=== PATIENT | male | born 1985 | race Caucasian/White ===

== ENCOUNTER 2020-09-20 17:56 | Emergency (ER) | payer OTHER ==
[~2020-09-20] VITALS: Ht 177.8 cm; Wt 88.5 kg
[2020-09-20 18:46] VITALS: BP 138/67
[2020-09-20 20:12] LABS: Basophils # (auto) 0 10 ^3/uL (0-0.2); Eosinophils # (auto) 0 10 ^3/uL (0-0.8); Hemoglobin 16.1 g/dL (13.5-17.5); Monocytes # (auto) 0.3 10 ^3/uL (0-1.3); Neutrophils # (auto) 2.5 10 ^3/uL (1.6-8.6); White Blood Cell 4.4 10^3/uL (4.4-10.8)
[2020-09-20 20:14] LABS: Eosinophils % (auto) 0.7 % (0.0-7.0); Hematocrit 46.8 % (41.0-53.0); Lymphocytes # (auto) 1.6 10 ^3/uL (0.4-5.4); Lymphocytes % (auto) 35.4 % (10.0-50.0); Mean Corpuscular Hemoglobin 35.7 pg (28.0-32.0); Mean Corpuscular Hgb Conc. 34.4 g/dL (32.0-36.0); Mean Corpuscular Volume 103.8 fL (80.0-100.0); Monocytes % (auto) 7.1 % (0.0-12.0); Neutrophils % (auto) 55.8 % (37.0-80.0); Nucleated Red Blood Cells % 0.1 %; Platelet Count (auto) 140 10^3/uL (140-450); Red Cell Distribution Width 15.3 % (11.8-14.3)
[2020-09-20 20:26] LABS: Albumin 3.4 g/dL (3.4-5.0); Calcium 8.6 mg/dL (8.5-10.1); Potassium 3.7 mmol/L (3.5-5.1)
[2020-09-20] MEDS: ACETAMINOPHEN 500 MG TAB PO ONE (20:29)
[2020-09-20 20:31] LABS: BUN/Creatinine Ratio 12.2; Bilirubin, Total 1.2 mg/dL (0.2-1.0); Total Protein 7.7 g/dL (6.4-8.2)
== END 2020-09-20 20:34 | disposition left against medical advice (07) ==
LOC: ER 17:56
DX: M79.661 Pain in right lower leg (principal); F17.210 Nicotine dependence, cigarettes, uncomplicated; Z86.73 Personal history of transient ischemic attack (TIA), and cerebral infarction without residual deficits
CPT/HCPCS: 36415; 73590; 80053; 80320; 85025; 85379; 93971

== ENCOUNTER 2020-12-27 18:49 | Emergency (ER) | payer MEDICAID ==
[~2020-12-27] VITALS: Ht 180.3 cm; Wt 88.5 kg
[2020-12-27 18:54] VITALS: BP 118/91
== END 2020-12-27 22:55 | disposition left against medical advice (07) ==
LOC: ER 18:49
DX: R53.83 Other fatigue (principal); F17.210 Nicotine dependence, cigarettes, uncomplicated; Z86.73 Personal history of transient ischemic attack (TIA), and cerebral infarction without residual deficits

== ENCOUNTER 2020-12-30 23:38 | Inpatient (IN) | payer MEDICAID ==
[~2020-12-30] VITALS: Ht 180.3 cm; Wt 88.5 kg
[2020-12-31 01:24] LABS: Basophils # (auto) 0.1 10 ^3/uL (0-0.2); Basophils % (auto) 1.1 % (0.0-2.0); Eosinophils # (auto) 0 10 ^3/uL (0-0.8); Eosinophils % (auto) 0.5 % (0.0-7.0); Hematocrit 36.6 % (41.0-53.0); Hemoglobin 12.9 g/dL (13.5-17.5); Lymphocytes # (auto) 0.7 10 ^3/uL (0.4-5.4); Lymphocytes % (auto) 14.1 % (10.0-50.0); Mean Corpuscular Hemoglobin 36.7 pg (28.0-32.0); Mean Corpuscular Hgb Conc. 35.1 g/dL (32.0-36.0); Mean Corpuscular Volume 104.3 fL (80.0-100.0); Monocytes # (auto) 0.6 10 ^3/uL (0-1.3); Monocytes % (auto) 11.5 % (0.0-12.0); Neutrophils # (auto) 3.5 10 ^3/uL (1.6-8.6); Neutrophils % (auto) 72.8 % (37.0-80.0); Nucleated Red Blood Cells % 0.1 %; Red Blood Cells 3.51 10^6/uL (4.5-5.90); Red Cell Distribution Width 14.8 % (11.8-14.3); White Blood Cell 4.8 10^3/uL (4.4-10.8)
[2020-12-31 01:34] LABS: Albumin 2.4 g/dL (3.4-5.0); Calcium 8.4 mg/dL (8.5-10.1); Potassium 4.2 mmol/L (3.5-5.1)
[2020-12-31 01:36] LABS: BUN/Creatinine Ratio 7.5
[2020-12-31 01:47] LABS: Bilirubin, Total 16.6 mg/dL (0.2-1.0); Total Protein 6.8 g/dL (6.4-8.2)
[2020-12-31] MEDS ORDERED: IOHEXOL 300 MG/ML 100ML BOTTLE IJ ONE (02:51)
[2020-12-31] MEDS ORDERED: SODIUM CHLORIDE 0.9% 1,000 ML IV ONE (04:15)
[2020-12-31] MEDS ORDERED: NITROGLYCERIN 0.4 MG SL TAB SL PRN (06:00)
[2020-12-31] MEDS ORDERED: ONDANSETRON HCL 4 MG/2 ML VIAL IV PRN (06:00)
[2020-12-31] MEDS ORDERED: chlordiazePOXIDE HCL 25 MG CAP PO PRN (06:00)
[2020-12-31] MEDS ORDERED: SODIUM CHLORIDE 0.9% 1,000 ML IV SCH ×2 (06:00→14:30)
[2020-12-31] MEDS: MORPHINE SULFATE INJECTION 2 MG/ML SYRG IV PRN ×2 (06:47→16:41)
[2020-12-31 07:40] LABS: INR 2.55 (0.9-1.15)
[2020-12-31] MEDS ORDERED: FAMOTIDINE 20 MG TAB PO SCH (10:00)
[2020-12-31] MEDS ORDERED: PROPRANOLOL HCL 20 MG TAB PO SCH (10:00)
[2020-12-31 12:00] VITALS: BP 122/82
[2020-12-31] MEDS ORDERED: FOLIC ACID 1 MG, MULTIPLE VITAMIN 10 ML, MAGNESIUM SULF SDV 50% 8 MEQ, THIAMINE INJ 100... INJ SCH ×5 (12:00)
[2020-12-31 12:46] VITALS: BP 122/82
[2020-12-31 15:00] LABS: Hepatitis A Ab IgM Negative; Hepatitis B Surface Antigen Negative (Negative)
[2020-12-31 15:01] LABS: Hepatitis B Core IgM Negative; Hepatitis C Antibody Negative (Negative)
[2020-12-31 16:42] VITALS: BP 119/71
[2020-12-31] MEDS ORDERED: MORPHINE SULFATE INJECTION 2 MG/ML SYRG IV PRN (20:45)
[2020-12-31] MEDS ORDERED: PANTOPRAZOLE 40 MG/10 ML VIAL INJ IV SCH (22:00)
== END 2020-12-31 21:43 | disposition left against medical advice (07) | DRG 280 ==
LOC: ER 23:38 → TELE 12-31 06:02 → TELE-WESTW 12-31 10:56
PROVIDERS: ADMIT Nurse Practitioner; ATTEND Internal Medicine
DX: K70.31 Alcoholic cirrhosis of liver with ascites (principal); E43 Unspecified severe protein-calorie malnutrition; K85.20 Alcohol induced acute pancreatitis without necrosis or infection; D61.818 Other pancytopenia; D68.4 Acquired coagulation factor deficiency; E80.6 Other disorders of bilirubin metabolism; E11.9 Type 2 diabetes mellitus without complications; F10.10 Alcohol abuse, uncomplicated; Z20.822 Contact with and (suspected) exposure to COVID-19; F12.90 Cannabis use, unspecified, uncomplicated; F17.210 Nicotine dependence, cigarettes, uncomplicated; Z53.29 Procedure and treatment not carried out because of patient's decision for other reasons; F41.9 Anxiety disorder, unspecified; Y90.9 Presence of alcohol in blood, level not specified; Z79.899 Other long term (current) drug therapy; Z98.84 Bariatric surgery status; Z68.27 Body mass index [BMI] 27.0-27.9, adult
CPT/HCPCS: 36415; 74177; 80053; 80074; 83690; 85025; 85610; 87426; 96361; 96374; G0378

== ENCOUNTER 2021-01-08 02:49 | Inpatient (IN) | payer MEDICAID ==
[~2021-01-08] VITALS: Ht 180.3 cm; Wt 103.3 kg
[2021-01-08 03:43] LABS: Red Cell Distribution Width 16.4 % (11.8-14.3)
[2021-01-08 03:46] LABS: Hematocrit 31.3 % (41.0-53.0); Mean Corpuscular Hemoglobin 37.9 pg (28.0-32.0); Mean Corpuscular Hgb Conc. 35.1 g/dL (32.0-36.0); Mean Corpuscular Volume 108.1 fL (80.0-100.0); Platelet Count (auto) 126 10^3/uL (140-450); Red Blood Cells 2.89 10^6/uL (4.5-5.90); White Blood Cell 5.4 10^3/uL (4.4-10.8)
[2021-01-08 04:01] LABS: Albumin 1.7 g/dL (3.4-5.0); BUN/Creatinine Ratio 16.1; Calcium 7.5 mg/dL (8.5-10.1); Potassium 4.5 mmol/L (3.5-5.1)
[2021-01-08 04:12] LABS: Bilirubin, Total 19.5 mg/dL (0.2-1.0); Total Protein 5.5 g/dL (6.4-8.2)
[2021-01-08 04:19] LABS: Basophils % (manual) 0 (0.0-2.0); Blast Cells 0; Eosinophils % (manual) 0 (0-7); Myelocytes % 0; Promyelocytes % 0; Reactive Lymphocytes 0
[2021-01-08] MEDS ORDERED: IOHEXOL 300 MG/ML 100ML BOTTLE IJ ONE (05:19)
[2021-01-08 05:22] LABS: Urine Bacteria FEW /hpf (None Seen); Urine Blood Negative /uL (Negative); Urine Mucus FEW (None Seen); Urine Specific Gravity 1.022 (1.001-1.035); Urine WBC 2 /hpf (0 - 3)
[2021-01-08 06:41] LABS: Band Neutrophils % (manual) 11; Lymphocytes % (manual) 2 (10.0-50.0); Metamyelocytes % 1; Monocytes % (manual) 11 (0-12)
[2021-01-08] MEDS ORDERED: SODIUM CHLORIDE 0.9% 1,000 ML IV ONE (06:45)
[2021-01-08] MEDS ORDERED: ONDANSETRON HCL 4 MG/2 ML VIAL IV PRN (09:15)
[2021-01-08] MEDS ORDERED: MORPHINE SULF INJ 2 MG/ML SYRINGE 1ML IV PRN (09:15)
[2021-01-08] MEDS ORDERED: HYDROmorphone HCL 2 MG/ML VL IV PRN (09:15)
[2021-01-08] MEDS ORDERED: NITROGLYCERIN 0.4 MG SL TAB SL PRN (09:15)
[2021-01-08] MEDS: LACTATED RINGER'S 1,000 ML IV SCH ×2 (09:48→13:35)
[2021-01-08 09:59] LABS: Alcohol, Urine < 3.0 mg/dL (0-10); Amphetamine Screen, Urine NEGATIVE (NEGATIVE); Barbiturate Scree,Urine NEGATIVE (NEGATIVE); Benzodiazephine Screen, Urine POSITIVE (NEGATIVE); Cannabinoid Screen, Urine NEGATIVE (NEGATIVE); Cocaine Screen, Urine NEGATIVE (NEGATIVE); Opiate Scree,Urine NEGATIVE (NEGATIVE); Phencyclidine Screen, Urine NEGATIVE (NEGATIVE)
[2021-01-08] MEDS: FUROSEMIDE 20 MG/2 ML VIAL IV SCH ×2 (10:00→13:35)
[2021-01-08] MEDS: SPIRONOLACTONE 25 MG TAB PO SCH ×2 (10:00→13:35)
[2021-01-08] MEDS: PANTOPRAZOLE 40 MG TAB PO SCH ×2 (10:00→13:35)
[2021-01-08] MEDS: MULTIPLE VITAMIN TAB PO SCH ×2 (10:00→13:35)
[2021-01-08] MEDS: FOLIC ACID 1 MG TAB PO SCH ×2 (10:00→13:35)
[2021-01-08 11:11] VITALS: BP 98/58
[2021-01-08] MEDS ORDERED: LACTULOSE 20Gm/30ML SOLN PO SCH (12:00)
[2021-01-08 13:00] VITALS: BP 100/50
[2021-01-08] MEDS ORDERED: methylPREDNISolone SOD SUCC 40 MG/ML VL IV SCH (22:00)
== END 2021-01-08 13:35 | disposition left against medical advice (07) | DRG 282 ==
LOC: EDBD 02:49 → ER 02:55 → TELE 09:06 → TELE-EAST 10:16
PROVIDERS: ADMIT Nurse Practitioner Acute Care; ATTEND Nurse Practitioner Acute Care
DX: K85.20 Alcohol induced acute pancreatitis without necrosis or infection (principal); D69.6 Thrombocytopenia, unspecified; K72.90 Hepatic failure, unspecified without coma; E88.09 Other disorders of plasma-protein metabolism, not elsewhere classified; K74.60 Unspecified cirrhosis of liver; Z53.29 Procedure and treatment not carried out because of patient's decision for other reasons; F12.90 Cannabis use, unspecified, uncomplicated; E66.9 Obesity, unspecified; F17.210 Nicotine dependence, cigarettes, uncomplicated; Z98.84 Bariatric surgery status; Z20.822 Contact with and (suspected) exposure to COVID-19; Z68.31 Body mass index [BMI] 31.0-31.9, adult; F41.9 Anxiety disorder, unspecified
CPT/HCPCS: 36415; 74177; 76705; 80053; 80307; 81001; 83605; 83690; 85007; 85027; 86141; 87426; G0378

== ENCOUNTER 2021-03-24 07:12 | Emergency (ER) | payer MEDICAID ==
[~2021-03-24] VITALS: Ht 180.3 cm; Wt 96.6 kg
[2021-03-24 07:13] VITALS: BP 124/93
[2021-03-24 07:49] LABS: Basophils # (auto) 0.1 10 ^3/uL (0-0.2); Eosinophils # (auto) 0 10 ^3/uL (0-0.8); Eosinophils % (auto) 0.8 % (0.0-7.0); Mean Corpuscular Hgb Conc. 33.9 g/dL (32.0-36.0); Neutrophils # (auto) 2.9 10 ^3/uL (1.6-8.6); Nucleated Red Blood Cells % 0.1 %
[2021-03-24 07:50] LABS: Basophils % (auto) 2.1 % (0.0-2.0); Hematocrit 41.9 % (41.0-53.0); Hemoglobin 14.2 g/dL (13.5-17.5); Lymphocytes # (auto) 1.7 10 ^3/uL (0.4-5.4); Lymphocytes % (auto) 31.8 % (10.0-50.0); Mean Corpuscular Hemoglobin 34.3 pg (28.0-32.0); Mean Corpuscular Volume 101.1 fL (80.0-100.0); Monocytes # (auto) 0.6 10 ^3/uL (0-1.3); Monocytes % (auto) 10.9 % (0.0-12.0); Neutrophils % (auto) 54.4 % (37.0-80.0); Red Blood Cells 4.15 10^6/uL (4.5-5.90); Red Cell Distribution Width 15.1 % (11.8-14.3); White Blood Cell 5.3 10^3/uL (4.4-10.8)
[2021-03-24 08:08] LABS: Albumin 2.6 g/dL (3.4-5.0); BUN/Creatinine Ratio 6.7; Calcium 8.6 mg/dL (8.5-10.1); Potassium 3.9 mmol/L (3.5-5.1)
[2021-03-24 08:11] LABS: Bilirubin, Total 3.2 mg/dL (0.2-1.0); Total Protein 7.4 g/dL (6.4-8.2)
[2021-03-24 09:40] LABS: Urine Amorphous Crystal MANY /hpf (None Seen); Urine Bacteria FEW /hpf (None Seen); Urine Blood Negative /uL (Negative); Urine Mucus FEW (None Seen); Urine WBC 1 /hpf (0 - 3)
== END 2021-03-24 10:00 | disposition left against medical advice (07) ==
LOC: ER 07:12
DX: R06.02 Shortness of breath (principal); Z53.21 Procedure and treatment not carried out due to patient leaving prior to being seen by health care provider
CPT/HCPCS: 36415; 71045; 80053; 81001; 85025; 93005

== ENCOUNTER 2021-04-05 00:26 | Inpatient (IN) | payer MEDICAID ==
[~2021-04-05] VITALS: Ht 12.7 cm; Wt 101.4 kg
[2021-04-05] MEDS ORDERED: SODIUM CHLORIDE 0.9% 1,000 ML IV ONE (01:00)
[2021-04-05] MEDS ORDERED: LORazepam 2MG/ML-1ML VIAL ONE (01:35)
[2021-04-05 02:31] LABS: Eosinophils # (auto) 0.1 10 ^3/uL (0-0.8); Mean Corpuscular Hgb Conc. 34.1 g/dL (32.0-36.0); Monocytes # (auto) 0.6 10 ^3/uL (0-1.3); Monocytes % (auto) 9.1 % (0.0-12.0)
[2021-04-05 02:32] LABS: Basophils # (auto) 0.1 10 ^3/uL (0-0.2); Basophils % (auto) 1.2 % (0.0-2.0); Eosinophils % (auto) 1.3 % (0.0-7.0); Hematocrit 35.4 % (41.0-53.0); Hemoglobin 12.1 g/dL (13.5-17.5); Lymphocytes # (auto) 1.8 10 ^3/uL (0.4-5.4); Lymphocytes % (auto) 29.6 % (10.0-50.0); Mean Corpuscular Volume 102.5 fL (80.0-100.0); Neutrophils # (auto) 3.7 10 ^3/uL (1.6-8.6); Neutrophils % (auto) 58.8 % (37.0-80.0); Red Blood Cells 3.45 10^6/uL (4.5-5.90); Red Cell Distribution Width 15.1 % (11.8-14.3); White Blood Cell 6.2 10^3/uL (4.4-10.8)
[2021-04-05 02:45] LABS: INR 2.37 (0.9-1.15); Partial Thromboplastin Time 37.8 sec (23.6-33.0)
[2021-04-05 02:52] LABS: Lactic Acid w/Reflex 2.6 mmol/L (0.4-2.0)
[2021-04-05 03:03] LABS: Alanine Aminotransferase 60 U/L (16-61); Albumin 2.1 g/dL (3.4-5.0); Anion Gap 8 (5-15); Aspartate Aminotransferase 140 U/L (15-37); BUN/Creatinine Ratio 7.8; Blood Urea Nitrogen 6 mg/dL (7-18); Calcium 7.9 mg/dL (8.5-10.1); Carbon Dioxide 23 mmol/L (21-32); Chloride 112 mmol/L (98-107); GFR African American 150 mL/min; GFR Non-African American 124 mL/min; Glucose 97 mg/dL (74-106); Lipase 240 U/L (73-393); Potassium 3.6 mmol/L (3.5-5.1); Sodium 143 mmol/L (136-145)
[2021-04-05 03:08] LABS: Alkaline Phosphatase 267 U/L (45-117); Bilirubin, Total 2.6 mg/dL (0.2-1.0); Total Protein 6.3 g/dL (6.4-8.2)
[2021-04-05] MEDS ORDERED: IOHEXOL 350 MG/ML 100ML IJ ONE (03:18)
[2021-04-05] MEDS ORDERED: levETIRAcetam 500 MG/5ML INJ IV ONE (05:21)
[2021-04-05 05:40] LABS: Urine Bacteria NONE SEEN /hpf (None Seen); Urine Blood Negative /uL (Negative); Urine Mucus FEW (None Seen); Urine Specific Gravity 1.023 (1.001-1.035); Urine WBC <1 /hpf (0 - 3)
[2021-04-05] MEDS ORDERED: LORazepam 2MG/ML-1ML VIAL IV PRN ×2 (05:45→14:00)
[2021-04-05] MEDS ORDERED: ONDANSETRON HCL 4 MG/2 ML VIAL IV PRN (05:45)
[2021-04-05] MEDS ORDERED: DOCUSATE SOD 100 MG CAP PO PRN (05:45)
[2021-04-05] MEDS ORDERED: NITROGLYCERIN 0.4 MG SL TAB SL PRN (05:45)
[2021-04-05] MEDS ORDERED: cefTRIAXone 1GM/50ML D5W 50 ML IV ONE (05:45)
[2021-04-05] MEDS ORDERED: MORPHINE SULFATE INJECTION 2 MG/ML SYRG IV PRN (05:45)
[2021-04-05] MEDS ORDERED: ACETAMINOPHEN 325 MG TAB PO PRN (05:45)
[2021-04-05] MEDS ORDERED: SOD CHL 0.45% 1,000 ML IV ONE (05:45)
[2021-04-05] MEDS ORDERED: ALBUMIN 25% 50 ML IV ONE (06:00)
[2021-04-05] MEDS: hydrALAZINE HCL 20 MG/ML VL IV PRN ×2 (07:01→14:52)
[2021-04-05 07:04] LABS: Basophils # (auto) 0.1 10 ^3/uL (0-0.2); Basophils % (auto) 1.3 % (0.0-2.0); Eosinophils # (auto) 0.1 10 ^3/uL (0-0.8); Eosinophils % (auto) 1.6 % (0.0-7.0); Hematocrit 37.4 % (41.0-53.0); Hemoglobin 12.8 g/dL (13.5-17.5); Lymphocytes # (auto) 1.6 10 ^3/uL (0.4-5.4); Lymphocytes % (auto) 34.7 % (10.0-50.0); Mean Corpuscular Hemoglobin 34.9 pg (28.0-32.0); Mean Corpuscular Hgb Conc. 34.2 g/dL (32.0-36.0); Monocytes # (auto) 0.4 10 ^3/uL (0-1.3); Monocytes % (auto) 8.1 % (0.0-12.0); Neutrophils # (auto) 2.5 10 ^3/uL (1.6-8.6); Neutrophils % (auto) 54.3 % (37.0-80.0); Nucleated Red Blood Cells % 0.2 %; Red Blood Cells 3.66 10^6/uL (4.5-5.90); Red Cell Distribution Width 15.3 % (11.8-14.3); White Blood Cell 4.6 10^3/uL (4.4-10.8)
[2021-04-05 07:19] LABS: Albumin 2.3 g/dL (3.4-5.0); BUN/Creatinine Ratio 5.9; Calcium 8.2 mg/dL (8.5-10.1); Potassium 3.5 mmol/L (3.5-5.1)
[2021-04-05 07:22] LABS: Bilirubin, Total 3.1 mg/dL (0.2-1.0); Total Protein 6.6 g/dL (6.4-8.2)
[2021-04-05 07:24] LABS: INR 2.31 (0.9-1.15); Partial Thromboplastin Time 37.6 sec (23.6-33.0)
[2021-04-05] MEDS ORDERED: FAMOTIDINE (10MG/ML) 2ML VL IV SCH (10:00)
[2021-04-05] MEDS ORDERED: ASCORBIC ACID 500 MG TAB PO SCH (10:00)
[2021-04-05] MEDS ORDERED: ZINC SULFATE 220mg CAP or TAB PO SCH (10:00)
[2021-04-05] MEDS: MULTIPLE VITAMIN TAB PO SCH (10:42)
[2021-04-05] MEDS: LACTULOSE 20Gm/30ML SOLN PO SCH ×2 (10:42→21:32)
[2021-04-05] MEDS: AZITHROMYCIN 500MG/ 250ML 250 ML IV SCH (10:42)
[2021-04-05 14:40] VITALS: BP 180/102
[2021-04-05] MEDS ORDERED: PROP20TA73 PO (15:15)
[2021-04-05] MEDS ORDERED: FOLI1TAB6 PO (15:15)
[2021-04-05] MEDS ORDERED: SPIR100T4 PO (15:15)
[2021-04-05] MEDS ORDERED: THIA100T46 PO (15:15)
[2021-04-05] MEDS ORDERED: PROM25TA5 PO (15:15)
[2021-04-05 16:07] VITALS: BP 128/69
[2021-04-05 16:47] VITALS: BP_SYST 126; BP_SYST 177; BP_DIAS 105; BP_DIAS 78
[2021-04-05] MEDS: FOLIC ACID 1 MG, MULTIPLE VITAMIN 10 ML, MAGNESIUM SULF SDV 50% 8 MEQ, THIAMINE INJ 100... INJ SCH ×5 (18:21)
[2021-04-05] MEDS: HYDROcodone-ACET 5/325MG TAB PO PRN ×2 (18:32→23:38)
[2021-04-05] MEDS: chlordiazePOXIDE HCL 25 MG CAP PO PRN (18:34)
[2021-04-05 22:00] VITALS: BP 152/104
[2021-04-05 23:59] LABS: Cannabinoid Screen, Urine NEGATIVE (NEGATIVE)
[2021-04-06 00:01] LABS: Barbiturate Scree,Urine NEGATIVE (NEGATIVE); Benzodiazephine Screen, Urine NEGATIVE (NEGATIVE); Cocaine Screen, Urine NEGATIVE (NEGATIVE); Opiate Scree,Urine NEGATIVE (NEGATIVE); Phencyclidine Screen, Urine NEGATIVE (NEGATIVE)
[2021-04-06 00:20] LABS: Amphetamine Screen, Urine POSITIVE (NEGATIVE)
[2021-04-06] MEDS: HYDROcodone-ACET 5/325MG TAB PO PRN ×4 (03:36→19:59)
[2021-04-06 05:00] VITALS: BP 160/103
[2021-04-06] MEDS: hydrALAZINE HCL 20 MG/ML VL IV PRN ×2 (05:38→09:12)
[2021-04-06] MEDS: chlordiazePOXIDE HCL 25 MG CAP PO PRN ×2 (06:24→17:27)
[2021-04-06 06:45] LABS: Lymphocytes # (auto) 1.3 10 ^3/uL (0.4-5.4); Monocytes # (auto) 0.3 10 ^3/uL (0-1.3); White Blood Cell 3.5 10^3/uL (4.4-10.8)
[2021-04-06 06:48] LABS: Basophils # (auto) 0 10 ^3/uL (0-0.2); Basophils % (auto) 1.3 % (0.0-2.0); Eosinophils # (auto) 0.1 10 ^3/uL (0-0.8); Eosinophils % (auto) 1.7 % (0.0-7.0); Hematocrit 38.3 % (41.0-53.0); Hemoglobin 13.2 g/dL (13.5-17.5); Lymphocytes % (auto) 38.4 % (10.0-50.0); Mean Corpuscular Hemoglobin 35.4 pg (28.0-32.0); Mean Corpuscular Hgb Conc. 34.4 g/dL (32.0-36.0); Mean Corpuscular Volume 102.8 fL (80.0-100.0); Monocytes % (auto) 8.7 % (0.0-12.0); Neutrophils # (auto) 1.7 10 ^3/uL (1.6-8.6); Neutrophils % (auto) 49.9 % (37.0-80.0); Nucleated Red Blood Cells % 0.3 %; Red Blood Cells 3.73 10^6/uL (4.5-5.90); Red Cell Distribution Width 15.2 % (11.8-14.3)
[2021-04-06 07:04] LABS: Potassium 3.6 mmol/L (3.5-5.1)
[2021-04-06 07:11] LABS: Albumin 2.3 g/dL (3.4-5.0); BUN/Creatinine Ratio 8.3; Calcium 8.8 mg/dL (8.5-10.1)
[2021-04-06 07:15] LABS: Bilirubin, Total 5.5 mg/dL (0.2-1.0); Total Protein 6.6 g/dL (6.4-8.2)
[2021-04-06] MEDS: MULTIPLE VITAMIN TAB PO SCH (08:56)
[2021-04-06 09:00] VITALS: BP_SYST 142; BP_SYST 159; BP_DIAS 82; BP_DIAS 95
[2021-04-06] MEDS ORDERED: cefTRIAXone 1GM/50ML D5W 50 ML IV SCH (09:00)
[2021-04-06] MEDS ORDERED: PANTOPRAZOLE 40 MG TAB PO SCH (10:00)
[2021-04-06] MEDS: AZITHROMYCIN 500MG/ 250ML 250 ML IV SCH (10:03)
[2021-04-06] MEDS: LACTULOSE 20Gm/30ML SOLN PO SCH ×2 (10:04→21:44)
[2021-04-06] MEDS: FOLIC ACID 1 MG, MULTIPLE VITAMIN 10 ML, MAGNESIUM SULF SDV 50% 8 MEQ, THIAMINE INJ 100... INJ SCH ×5 (12:22)
[2021-04-06 13:00] VITALS: BP 132/66
[2021-04-06 17:00] VITALS: BP 149/77
[2021-04-06 22:00] VITALS: BP 157/74
== END 2021-04-06 23:44 | disposition left against medical advice (07) | DRG 280 ==
LOC: ER 00:26 → EDBD 00:26 → TELE 05:56 → TELE-CENTR 14:50
PROVIDERS: ADMIT Nurse Practitioner Family; ATTEND Internal Medicine
DX: K70.30 Alcoholic cirrhosis of liver without ascites (principal); J69.0 Pneumonitis due to inhalation of food and vomit; E43 Unspecified severe protein-calorie malnutrition; D68.9 Coagulation defect, unspecified; E87.2 Acidosis; K72.10 Chronic hepatic failure without coma; F10.239 Alcohol dependence with withdrawal, unspecified; Y90.6 Blood alcohol level of 120-199 mg/100 ml; Z20.822 Contact with and (suspected) exposure to COVID-19; G40.909 Epilepsy, unspecified, not intractable, without status epilepticus; I10 Essential (primary) hypertension; F17.210 Nicotine dependence, cigarettes, uncomplicated; F41.9 Anxiety disorder, unspecified; T45.515A Adverse effect of anticoagulants, initial encounter; Y92.89 Other specified places as the place of occurrence of the external cause; Z86.718 Personal history of other venous thrombosis and embolism; Z98.84 Bariatric surgery status; Z79.01 Long term (current) use of anticoagulants; Z68.44 Body mass index [BMI] 60.0-69.9, adult
CPT/HCPCS: 36415; 70450; 70551; 71275; 80053; 80307; 81001; 82140; 83605; 83690; 84484; 85025; 85610; 85730; 87081; 87426; 95819; 96365; 96366; 96367; 96375; G0378; J0696; J2405; J3490; J7060

== ENCOUNTER 2021-04-07 00:18 | Emergency (ER) | payer MEDICAID ==
[~2021-04-07] VITALS: Ht 180.3 cm; Wt 94.8 kg
[~2021-04-07 00:18] MED LIST: FOLI1TAB6 PO; PROM25TA5 PO; PROP20TA73 PO; SPIR100T4 PO; THIA100T46 PO
[2021-04-07 01:40] VITALS: BP 124/91
== END 2021-04-07 01:57 | disposition left against medical advice (07) ==
LOC: ER 00:18
DX: F41.9 Anxiety disorder, unspecified (principal); R51.9 Headache, unspecified; I10 Essential (primary) hypertension; F17.210 Nicotine dependence, cigarettes, uncomplicated; Z91.19 Patient's noncompliance with other medical treatment and regimen; Z79.899 Other long term (current) drug therapy; Z98.890 Other specified postprocedural states

== ENCOUNTER 2021-05-25 23:28 | Emergency (ER) | payer MEDICAID ==
[~2021-05-25] VITALS: Ht 175.3 cm; Wt 99.8 kg
[2021-05-26] MEDS ORDERED: SODIUM CHLORIDE 0.9% 1,000 ML IVB ONE
[2021-05-26 00:45] LABS: Basophils # (auto) 0.1 10 ^3/uL (0-0.2); Basophils % (auto) 2.7 % (0.0-2.0); Eosinophils # (auto) 0.1 10 ^3/uL (0-0.8); Eosinophils % (auto) 1.3 % (0.0-7.0); Hematocrit 36.3 % (41.0-53.0); Hemoglobin 12.3 g/dL (13.5-17.5); Lymphocytes # (auto) 1.4 10 ^3/uL (0.4-5.4); Lymphocytes % (auto) 30.1 % (10.0-50.0); Mean Corpuscular Hemoglobin 33.8 pg (28.0-32.0); Mean Corpuscular Hgb Conc. 33.8 g/dL (32.0-36.0); Monocytes # (auto) 0.5 10 ^3/uL (0-1.3); Monocytes % (auto) 11.5 % (0.0-12.0); Neutrophils # (auto) 2.5 10 ^3/uL (1.6-8.6); Neutrophils % (auto) 54.4 % (37.0-80.0); Nucleated Red Blood Cells % 0.2 %; Red Blood Cells 3.63 10^6/uL (4.5-5.90); Red Cell Distribution Width 15.5 % (11.8-14.3); White Blood Cell 4.6 10^3/uL (4.4-10.8)
[2021-05-26 01:08] LABS: Albumin 2.3 g/dL (3.4-5.0); BUN/Creatinine Ratio 11.7; Calcium 8.2 mg/dL (8.5-10.1)
[2021-05-26 01:11] LABS: Bilirubin, Total 4.4 mg/dL (0.2-1.0); Total Protein 5.8 g/dL (6.4-8.2)
[2021-05-26 01:20] LABS: Partial Thromboplastin Time 43.1 sec (23.6-33.0)
[2021-05-26] MEDS ORDERED: ACETAMINOPHEN 325 MG TAB PO ONE (02:30)
[2021-05-26 02:32] VITALS: BP 119/65
[2021-05-26 02:57] LABS: INR 3.03 (0.9-1.15)
[2021-05-26] MEDS ORDERED: levoFLOXacin 250 MG TAB ONE (03:51)
[2021-05-26] MEDS ORDERED: levoFLOXacin 500 MG TAB ONE (03:51)
[2021-05-26] MEDS ORDERED: levoFLOXacin 250 MG TAB PO ONE (04:00)
[2021-05-26] MEDS ORDERED: LEVO750T64 PO (04:01)
[2021-05-26] MEDS ORDERED: levoFLOXacin 250 MG TAB PO SCH (10:00)
== END 2021-05-26 09:37 | disposition home or self-care (01) ==
LOC: EDBD 23:28 → ER 23:28
DX: F10.20 Alcohol dependence, uncomplicated (principal); I10 Essential (primary) hypertension; F17.210 Nicotine dependence, cigarettes, uncomplicated; Z87.19 Personal history of other diseases of the digestive system; Z20.822 Contact with and (suspected) exposure to COVID-19; Y90.9 Presence of alcohol in blood, level not specified
CPT/HCPCS: 36415; 70450; 71045; 80053; 80320; 85025; 85610; 85730; 87426; 96360; 99285; J7030

== ENCOUNTER 2021-06-25 16:50 | Emergency (ER) | payer MEDICAID ==
[~2021-06-25] VITALS: Ht 180.3 cm; Wt 89.8 kg
[2021-06-25 16:50] VITALS: BP 134/82
[2021-06-25] MEDS ORDERED: LORazepam 0.5 MG TAB PO ONE (17:30)
== END 2021-06-25 22:20 | disposition left against medical advice (07) ==
LOC: ER 16:50
DX: R56.9 Unspecified convulsions (principal); R53.1 Weakness; R51.9 Headache, unspecified; I10 Essential (primary) hypertension; F17.210 Nicotine dependence, cigarettes, uncomplicated
CPT/HCPCS: 70450; 93005

== ENCOUNTER 2021-07-06 00:14 | Emergency (ER) | payer MEDICAID ==
[~2021-07-06] VITALS: Ht 180.3 cm; Wt 99.8 kg
[2021-07-06 02:59] LABS: Eosinophils # (auto) 0.1 10 ^3/uL (0-0.8); Hematocrit 35.3 % (41.0-53.0); Hemoglobin 11.5 g/dL (13.5-17.5); Mean Corpuscular Volume 105.6 fL (80.0-100.0); Red Blood Cells 3.34 10^6/uL (4.5-5.90); White Blood Cell 5.9 10^3/uL (4.4-10.8)
[2021-07-06 03:01] LABS: Basophils # (auto) 0.1 10 ^3/uL (0-0.2); Lymphocytes # (auto) 1.7 10 ^3/uL (0.4-5.4); Lymphocytes % (auto) 29.2 % (10.0-50.0); Mean Corpuscular Hemoglobin 34.4 pg (28.0-32.0); Mean Corpuscular Hgb Conc. 32.6 g/dL (32.0-36.0); Monocytes # (auto) 0.9 10 ^3/uL (0-1.3); Monocytes % (auto) 15.5 % (0.0-12.0); Neutrophils # (auto) 3.1 10 ^3/uL (1.6-8.6); Neutrophils % (auto) 52.3 % (37.0-80.0); Nucleated Red Blood Cells % 0.1 %; Red Cell Distribution Width 16.9 % (11.8-14.3)
[2021-07-06 03:21] LABS: INR 2.75 (0.9-1.15); Partial Thromboplastin Time 36.2 sec (23.6-33.0)
[2021-07-06] MEDS ORDERED: PANTOPRAZOLE 40 MG TAB PO ONE (06:45)
[2021-07-06] MEDS ORDERED: SODIUM CHLORIDE 0.9% 1,000 ML IV ONE (06:45)
[2021-07-06] MEDS ORDERED: TETANUS-DIPTH-ACEL PERTUSSIS 0.5ML SYR Tdap IM ONE (08:00)
[2021-07-06 08:47] LABS: Potassium 3.8 mmol/L (3.5-5.1)
[2021-07-06 09:00] VITALS: BP 135/89
[2021-07-06 09:19] LABS: BUN/Creatinine Ratio 15.6; Calcium 7.4 mg/dL (8.5-10.1)
[2021-07-06 09:20] LABS: Albumin 2.4 g/dL (3.4-5.0); Bilirubin, Total 4.8 mg/dL (0.2-1.0); Magnesium 2.6 mg/dL (1.6-2.6); Total Protein 5.9 g/dL (6.4-8.2)
== END 2021-07-06 09:54 | disposition left against medical advice (07) ==
LOC: EDBD 00:14 → ER 00:14
DX: R56.9 Unspecified convulsions (principal); F10.20 Alcohol dependence, uncomplicated; I10 Essential (primary) hypertension; F17.210 Nicotine dependence, cigarettes, uncomplicated; Y90.8 Blood alcohol level of 240 mg/100 ml or more
CPT/HCPCS: 36415; 70450; 71045; 80053; 80320; 82140; 83605; 83735; 84484; 85025; 85610; 85730; 93005; 99285; J7030

== ENCOUNTER 2021-08-27 03:18 | Emergency (ER) | payer MEDICAID ==
[~2021-08-27] VITALS: Ht 180.3 cm; Wt 90.7 kg
[2021-08-27 04:14] LABS: Albumin 2.7 g/dL (3.4-5.0); Calcium 8.6 mg/dL (8.5-10.1)
[2021-08-27 04:19] LABS: BUN/Creatinine Ratio 17.2; Total Protein 6.3 g/dL (6.4-8.2)
[2021-08-27 04:33] LABS: Basophils # (auto) 0 10 ^3/uL (0-0.2); Nucleated Red Blood Cells % 0.2 %; Red Cell Distribution Width 16.7 % (11.8-14.3)
[2021-08-27 04:34] LABS: Basophils % (auto) 1.2 % (0.0-2.0); Eosinophils # (auto) 0.1 10 ^3/uL (0-0.8); Eosinophils % (auto) 1.3 % (0.0-7.0); Hematocrit 36.7 % (41.0-53.0); Hemoglobin 12.4 g/dL (13.5-17.5); Lymphocytes # (auto) 1.1 10 ^3/uL (0.4-5.4); Lymphocytes % (auto) 26.8 % (10.0-50.0); Mean Corpuscular Hemoglobin 34.1 pg (28.0-32.0); Mean Corpuscular Hgb Conc. 33.7 g/dL (32.0-36.0); Mean Corpuscular Volume 101.2 fL (80.0-100.0); Monocytes # (auto) 0.5 10 ^3/uL (0-1.3); Monocytes % (auto) 11.3 % (0.0-12.0); Neutrophils # (auto) 2.5 10 ^3/uL (1.6-8.6); Neutrophils % (auto) 59.4 % (37.0-80.0); Red Blood Cells 3.63 10^6/uL (4.5-5.90); White Blood Cell 4.1 10^3/uL (4.4-10.8)
[2021-08-27 05:15] VITALS: BP 161/90
[2021-08-27] MEDS ORDERED: IBUP600T27 PO (06:48)
== END 2021-08-27 06:48 | disposition home or self-care (01) ==
LOC: ER 03:18
DX: R07.89 Other chest pain (principal); I10 Essential (primary) hypertension; F17.210 Nicotine dependence, cigarettes, uncomplicated; Z79.899 Other long term (current) drug therapy; V89.2XXA Person injured in unspecified motor-vehicle accident, traffic, initial encounter; Y93.89 Activity, other specified; Y92.89 Other specified places as the place of occurrence of the external cause; Y99.8 Other external cause status
CPT/HCPCS: 36415; 70450; 71045; 72125; 80053; 83690; 84484; 85025; 93005

== ENCOUNTER 2021-09-30 19:48 | Inpatient (IN) | payer MEDICAID ==
[~2021-09-30] VITALS: Ht 175.3 cm; Wt 113.7 kg
[~2021-09-30 19:48] MED LIST changes: +IBUP600T27 PO
[2021-09-30 21:17] LABS: Albumin 2.3 g/dL (3.4-5.0); BUN/Creatinine Ratio 13.2; Calcium 8.1 mg/dL (8.5-10.1)
[2021-09-30 21:20] LABS: Bilirubin, Total 6.2 mg/dL (0.2-1.0)
[2021-09-30 21:43] LABS: Basophils # (auto) 0.1 10 ^3/uL (0-0.2); Basophils % (auto) 1.2 % (0.0-2.0); Eosinophils # (auto) 0.1 10 ^3/uL (0-0.8); Eosinophils % (auto) 1.9 % (0.0-7.0); Hematocrit 33.3 % (41.0-53.0); Hemoglobin 11.6 g/dL (13.5-17.5); Lymphocytes # (auto) 1.3 10 ^3/uL (0.4-5.4); Lymphocytes % (auto) 25.6 % (10.0-50.0); Mean Corpuscular Hemoglobin 38.8 pg (28.0-32.0); Mean Corpuscular Hgb Conc. 34.8 g/dL (32.0-36.0); Mean Corpuscular Volume 111.6 fL (80.0-100.0); Monocytes # (auto) 0.6 10 ^3/uL (0-1.3); Monocytes % (auto) 12.1 % (0.0-12.0); Neutrophils # (auto) 2.9 10 ^3/uL (1.6-8.6); Neutrophils % (auto) 59.2 % (37.0-80.0); Nucleated Red Blood Cells % 0.2 %; Red Blood Cells 2.98 10^6/uL (4.5-5.90); Red Cell Distribution Width 14.8 % (11.8-14.3)
[2021-09-30] MEDS ORDERED: LORazepam 2MG/ML-1ML VIAL ONE (22:20)
[2021-09-30] MEDS ORDERED: LORazepam 2MG/ML-1ML VIAL IM ONE (22:30)
[2021-10-01 00:39] LABS: Partial Thromboplastin Time 42.6 sec (23.6-33.0)
[2021-10-01 00:47] LABS: INR 3.26 (0.9-1.15)
[2021-10-01] MEDS ORDERED: LACTULOSE 20Gm/30ML SOLN PO ONE (01:30)
[2021-10-01] MEDS ORDERED: MORPHINE SULFATE INJECTION 2 MG/ML SYRG IV PRN (02:30)
[2021-10-01] MEDS ORDERED: NITROGLYCERIN 0.4 MG SL TAB SL PRN (02:30)
[2021-10-01] MEDS: SODIUM CHLORIDE 0.9% 1,000 ML IV SCH ×3 (02:30→21:36)
[2021-10-01] MEDS ORDERED: LORazepam 2MG/ML-1ML VIAL IV PRN (02:30)
[2021-10-01 04:51] LABS: Albumin 2.2 g/dL (3.4-5.0); Calcium 8.1 mg/dL (8.5-10.1); Potassium 3.8 mmol/L (3.5-5.1)
[2021-10-01 04:53] LABS: BUN/Creatinine Ratio 14.9
[2021-10-01 04:56] LABS: Bilirubin, Total 6.8 mg/dL (0.2-1.0); Total Protein 5.7 g/dL (6.4-8.2)
[2021-10-01 05:31] LABS: Basophils # (auto) 0 10 ^3/uL (0-0.2); Basophils % (auto) 1.5 % (0.0-2.0); Eosinophils # (auto) 0.1 10 ^3/uL (0-0.8); Hematocrit 30.8 % (41.0-53.0); Hemoglobin 10.8 g/dL (13.5-17.5); Mean Corpuscular Hemoglobin 39.5 pg (28.0-32.0); Mean Corpuscular Hgb Conc. 35.1 g/dL (32.0-36.0); Mean Corpuscular Volume 112.6 fL (80.0-100.0); Monocytes # (auto) 0.3 10 ^3/uL (0-1.3); Monocytes % (auto) 10.9 % (0.0-12.0); Neutrophils # (auto) 1.6 10 ^3/uL (1.6-8.6); Neutrophils % (auto) 52.6 % (37.0-80.0); Nucleated Red Blood Cells % 0.3 %; Red Blood Cells 2.74 10^6/uL (4.5-5.90); Red Cell Distribution Width 14.3 % (11.8-14.3); White Blood Cell 3.1 10^3/uL (4.4-10.8)
[2021-10-01] MEDS ORDERED: LACTULOSE 20Gm/30ML SOLN ONE (07:55)
[2021-10-01 08:36] LABS: Urine Bacteria NONE SEEN /hpf (None Seen); Urine Blood Negative /uL (Negative); Urine Specific Gravity 1.019 (1.001-1.035); Urine WBC 2 /hpf (0 - 3)
[2021-10-01] MEDS: LACTULOSE 20Gm/30ML SOLN PO SCH ×4 (08:41→21:34)
[2021-10-01 08:50] LABS: Amphetamine Screen, Urine NEGATIVE (NEGATIVE); Barbiturate Scree,Urine NEGATIVE (NEGATIVE); Benzodiazephine Screen, Urine NEGATIVE (NEGATIVE); Cannabinoid Screen, Urine NEGATIVE (NEGATIVE); Cocaine Screen, Urine NEGATIVE (NEGATIVE); Opiate Scree,Urine NEGATIVE (NEGATIVE); Phencyclidine Screen, Urine NEGATIVE (NEGATIVE)
[2021-10-01 09:55] VITALS: BP 163/91
[2021-10-01] MEDS ORDERED: LACTULOSE 10g/15ml SOLN PR SCH (10:00)
[2021-10-01 10:41] VITALS: BP 163/91
[2021-10-01] MEDS ORDERED: FOLIC ACID 1 MG, MULTIPLE VITAMIN 10 ML, MAGNESIUM SULF SDV 50% 8 MEQ, THIAMINE INJ 100... INJ SCH ×5 (12:00)
[2021-10-01] MEDS: SUCRALFATE 1 GM/10 ML ORAL SUSP PO SCH ×3 (12:52→21:34)
[2021-10-01] MEDS: ONDANSETRON HCL 4 MG/2 ML VIAL IV PRN ×2 (12:55→18:23)
[2021-10-01 13:02] VITALS: BP 105/44
[2021-10-01 16:00] VITALS: BP 137/75
[2021-10-01 16:35] VITALS: BP 137/75
[2021-10-01] MEDS: GABAPENTIN 300 MG CAP PO SCH (21:34)
[2021-10-01 22:00] VITALS: BP 143/78
[2021-10-01] MEDS: MORPHINE SULFATE 4 MG/ML SYR/VIAL IV PRN (23:44)
[2021-10-02] VITALS: BP 149/87
[2021-10-02 00:30] VITALS: BP 149/87
[2021-10-02] MEDS: LACTULOSE 20Gm/30ML SOLN PO SCH ×3 (02:20→10:37)
[2021-10-02] MEDS: SUCRALFATE 1 GM/10 ML ORAL SUSP PO SCH ×3 (02:22→10:38)
[2021-10-02] MEDS: SODIUM CHLORIDE 0.9% 1,000 ML IV SCH ×2 (03:30→05:50)
[2021-10-02 05:00] VITALS: BP 144/78
[2021-10-02] MEDS: GABAPENTIN 300 MG CAP PO SCH (06:09)
[2021-10-02 06:18] LABS: Basophils # (auto) 0 10 ^3/uL (0-0.2); Basophils % (auto) 1.2 % (0.0-2.0); Eosinophils # (auto) 0.1 10 ^3/uL (0-0.8); Eosinophils % (auto) 2.2 % (0.0-7.0); Hematocrit 29.5 % (41.0-53.0); Hemoglobin 10.3 g/dL (13.5-17.5); Lymphocytes % (auto) 30.2 % (10.0-50.0); Mean Corpuscular Hemoglobin 39.3 pg (28.0-32.0); Mean Corpuscular Hgb Conc. 34.8 g/dL (32.0-36.0); Mean Corpuscular Volume 112.9 fL (80.0-100.0); Monocytes # (auto) 0.4 10 ^3/uL (0-1.3); Monocytes % (auto) 13.8 % (0.0-12.0); Neutrophils # (auto) 1.7 10 ^3/uL (1.6-8.6); Neutrophils % (auto) 52.6 % (37.0-80.0); Nucleated Red Blood Cells % 0.4 %; Red Blood Cells 2.61 10^6/uL (4.5-5.90); White Blood Cell 3.2 10^3/uL (4.4-10.8)
[2021-10-02] MEDS: MORPHINE SULFATE 4 MG/ML SYR/VIAL IV PRN (07:15)
[2021-10-02 07:58] LABS: BUN/Creatinine Ratio 10.5; Calcium 7.9 mg/dL (8.5-10.1); Potassium 3.8 mmol/L (3.5-5.1)
[2021-10-02 08:53] VITALS: BP 130/67
[2021-10-02] MEDS ORDERED: THIAMINE HCL 100 MG TAB PO SCH (10:00)
[2021-10-02] MEDS ORDERED: PANTOPRAZOLE 40 MG TAB PO SCH (10:00)
[2021-10-02] MEDS ORDERED: FOLIC ACID 1 MG TAB PO SCH (10:00)
[2021-10-02 13:00] VITALS: BP 139/76
== END 2021-10-02 12:13 | disposition left against medical advice (07) | DRG 280 ==
LOC: ER 19:50 → TELE 10-01 02:27 → TELE-CENTR 10-01 09:47
PROVIDERS: ADMIT Hospitalist; ATTEND Hospitalist
DX: K70.30 Alcoholic cirrhosis of liver without ascites (principal); K72.90 Hepatic failure, unspecified without coma; D68.9 Coagulation defect, unspecified; R56.9 Unspecified convulsions; F10.239 Alcohol dependence with withdrawal, unspecified; F12.90 Cannabis use, unspecified, uncomplicated; F17.210 Nicotine dependence, cigarettes, uncomplicated; I10 Essential (primary) hypertension; E66.9 Obesity, unspecified; Z20.822 Contact with and (suspected) exposure to COVID-19; Z53.29 Procedure and treatment not carried out because of patient's decision for other reasons; F41.9 Anxiety disorder, unspecified; Z82.49 Family history of ischemic heart disease and other diseases of the circulatory system; Z86.718 Personal history of other venous thrombosis and embolism; Z98.84 Bariatric surgery status; Z87.19 Personal history of other diseases of the digestive system
CPT/HCPCS: 36415; 70450; 74176; 76705; 80048; 80053; 80307; 81001; 82140; 85025; 85610; 85730; 93005; 95819; 96372; G0378; J2405

== ENCOUNTER 2021-10-18 22:59 | Emergency (ER) | payer MEDICAID ==
[~2021-10-18] VITALS: Ht 185.4 cm; Wt 108.9 kg
[2021-10-18] MEDS ORDERED: SODIUM CHLORIDE 0.9% 1,000 ML IVB ONE (23:30)
[2021-10-18] MEDS ORDERED: LORazepam 2MG/ML-1ML VIAL IV ONE (23:45)
[2021-10-18] MEDS ORDERED: THIAMINE 100mg/ml INJ (200mg/2ml VIAL) IV ONE (23:45)
[2021-10-19 00:13] LABS: Albumin 2.7 g/dL (3.4-5.0); BUN/Creatinine Ratio 10.2; Calcium 8.1 mg/dL (8.5-10.1); Potassium 4.5 mmol/L (3.5-5.1)
[2021-10-19 00:17] LABS: Bilirubin, Total 4.3 mg/dL (0.2-1.0); Total Protein 6.7 g/dL (6.4-8.2)
[2021-10-19 00:18] LABS: Acetaminophen < 2.0 ug/mL (10-30); Salicylate < 1.7 mg/dL (2.8-20.0)
[2021-10-19 00:51] LABS: Basophils # (auto) 0.1 10 ^3/uL (0-0.2); Basophils % (auto) 1.4 % (0.0-2.0); Eosinophils # (auto) 0.1 10 ^3/uL (0-0.8); Hematocrit 29.6 % (41.0-53.0); Hemoglobin 10.8 g/dL (13.5-17.5); Lymphocytes # (auto) 1.9 10 ^3/uL (0.4-5.4); Lymphocytes % (auto) 48.1 % (10.0-50.0); Mean Corpuscular Hemoglobin 40.1 pg (28.0-32.0); Mean Corpuscular Hgb Conc. 36.4 g/dL (32.0-36.0); Mean Corpuscular Volume 110.3 fL (80.0-100.0); Monocytes # (auto) 0.4 10 ^3/uL (0-1.3); Monocytes % (auto) 8.9 % (0.0-12.0); Neutrophils # (auto) 1.6 10 ^3/uL (1.6-8.6); Neutrophils % (auto) 39.6 % (37.0-80.0); Nucleated Red Blood Cells % 0.1 %; Red Blood Cells 2.68 10^6/uL (4.5-5.90); Red Cell Distribution Width 15.3 % (11.8-14.3)
[2021-10-19] MEDS ORDERED: LORazepam 2MG/ML-1ML VIAL ONE (07:34)
[2021-10-19] MEDS ORDERED: LORazepam 2MG/ML-1ML VIAL IV ONE ×2 (08:00→11:15)
[2021-10-19 11:13] VITALS: BP 149/87
[2021-10-19] MEDS ORDERED: THIAMINE 100mg/ml INJ (200mg/2ml VIAL) IV ONE (11:30)
[2021-10-19] MEDS ORDERED: LORazepam 2MG/ML-1ML VIAL IV PRN (11:30)
[2021-10-19] MEDS ORDERED: SODIUM CHLORIDE 0.9% 2,000 ML IV ONE (11:45)
[2021-10-20] MEDS ORDERED: CHL25C PO (06:23)
== END 2021-10-19 13:01 | disposition left against medical advice (07) ==
LOC: EDUNIT# 22:59 → EDBD 22:59 → ER 22:59
DX: G93.41 Metabolic encephalopathy (principal); K70.30 Alcoholic cirrhosis of liver without ascites; I10 Essential (primary) hypertension; F17.210 Nicotine dependence, cigarettes, uncomplicated; Z79.1 Long term (current) use of non-steroidal anti-inflammatories (NSAID); Z79.899 Other long term (current) drug therapy; Z20.822 Contact with and (suspected) exposure to COVID-19
CPT/HCPCS: 36415; 70450; 71045; 80053; 80320; 80329; 82140; 85025; 87426; 96361; 96374; 96375; 96376; 99285; J2060; J3411; J7030

== ENCOUNTER 2021-10-19 22:44 | Emergency (ER) | payer MEDICAID ==
[~2021-10-19] VITALS: Ht 177.8 cm; Wt 113.4 kg
[2021-10-19] MEDS ORDERED: LORazepam 2MG/ML-1ML VIAL IV ONE (23:30)
[2021-10-19 23:43] LABS: Basophils # (auto) 0 10 ^3/uL (0-0.2)
[2021-10-19 23:46] LABS: Basophils % (auto) 1.6 % (0.0-2.0); Eosinophils # (auto) 0 10 ^3/uL (0-0.8); Eosinophils % (auto) 1.7 % (0.0-7.0); Hematocrit 27.5 % (41.0-53.0); Hemoglobin 9.7 g/dL (13.5-17.5); Lymphocytes # (auto) 1.1 10 ^3/uL (0.4-5.4); Lymphocytes % (auto) 37.6 % (10.0-50.0); Mean Corpuscular Hgb Conc. 35.3 g/dL (32.0-36.0); Mean Corpuscular Volume 107.6 fL (80.0-100.0); Monocytes # (auto) 0.2 10 ^3/uL (0-1.3); Monocytes % (auto) 7.5 % (0.0-12.0); Neutrophils # (auto) 1.5 10 ^3/uL (1.6-8.6); Neutrophils % (auto) 51.6 % (37.0-80.0); Nucleated Red Blood Cells % 0.3 %; Red Blood Cells 2.56 10^6/uL (4.5-5.90); Red Cell Distribution Width 15.5 % (11.8-14.3); White Blood Cell 2.9 10^3/uL (4.4-10.8)
[2021-10-20 00:15] LABS: Amphetamine Screen, Urine NEGATIVE (NEGATIVE); Barbiturate Scree,Urine NEGATIVE (NEGATIVE); Benzodiazephine Screen, Urine POSITIVE (NEGATIVE); Cannabinoid Screen, Urine NEGATIVE (NEGATIVE); Cocaine Screen, Urine NEGATIVE (NEGATIVE); Opiate Scree,Urine NEGATIVE (NEGATIVE); Phencyclidine Screen, Urine NEGATIVE (NEGATIVE)
[2021-10-20 00:17] LABS: Albumin 2.2 g/dL (3.4-5.0); Calcium 7.6 mg/dL (8.5-10.1); Potassium 3.6 mmol/L (3.5-5.1)
[2021-10-20 00:34] LABS: Bilirubin, Total 3.2 mg/dL (0.2-1.0); Total Protein 5.7 g/dL (6.4-8.2)
[2021-10-20 01:07] VITALS: BP 136/83
[2021-10-20 01:40] LABS: Acetaminophen < 2.0 ug/mL (10-30); Salicylate < 1.7 mg/dL (2.8-20.0)
[2021-10-20] MEDS ORDERED: CHL25C PO (06:23)
== END 2021-10-20 07:27 | disposition home or self-care (01) ==
LOC: EDUNIT# 22:44 → EDBD 22:44 → ER 22:47
DX: R56.9 Unspecified convulsions (principal); F10.239 Alcohol dependence with withdrawal, unspecified; I10 Essential (primary) hypertension; F17.210 Nicotine dependence, cigarettes, uncomplicated; F12.10 Cannabis abuse, uncomplicated; Y90.8 Blood alcohol level of 240 mg/100 ml or more
CPT/HCPCS: 36415; 80053; 80307; 80320; 80329; 85025; 96374; 99283; J2060

== ENCOUNTER 2021-12-03 18:07 | Inpatient (IN) | payer MEDICAID ==
[~2021-12-03] VITALS: Ht 182.9 cm; Wt 113.4 kg
[~2021-12-03 18:07] MED LIST changes: +CHL25C PO
[2021-12-03] MEDS ORDERED: SODIUM CHLORIDE 0.9% 1,000 ML IVB ONE (18:30)
[2021-12-03 20:40] LABS: Basophils # (auto) 0 10 ^3/uL (0-0.2); Eosinophils # (auto) 0.1 10 ^3/uL (0-0.8); Hemoglobin 10.6 g/dL (13.5-17.5); Lymphocytes # (auto) 1.2 10 ^3/uL (0.4-5.4); Neutrophils # (auto) 1.4 10 ^3/uL (1.6-8.6); White Blood Cell 3.1 10^3/uL (4.4-10.8)
[2021-12-03 20:42] LABS: Basophils % (auto) 1.4 % (0.0-2.0); Eosinophils % (auto) 2.1 % (0.0-7.0); Hematocrit 30.2 % (41.0-53.0); Lymphocytes % (auto) 38.5 % (10.0-50.0); Mean Corpuscular Hemoglobin 35.3 pg (28.0-32.0); Mean Corpuscular Hgb Conc. 35.1 g/dL (32.0-36.0); Mean Corpuscular Volume 100.4 fL (80.0-100.0); Monocytes # (auto) 0.4 10 ^3/uL (0-1.3); Monocytes % (auto) 14.1 % (0.0-12.0); Neutrophils % (auto) 43.9 % (37.0-80.0); Nucleated Red Blood Cells % 0.1 %; Red Cell Distribution Width 17.5 % (11.8-14.3)
[2021-12-03 21:04] LABS: Albumin 2.4 g/dL (3.4-5.0); Anion Gap 6 (5-15); Blood Urea Nitrogen 13 mg/dL (7-18); Calcium 8.4 mg/dL (8.5-10.1); Carbon Dioxide 23 mmol/L (21-32); Chloride 110 mmol/L (98-107); Glucose 88 mg/dL (74-106); Potassium 4.7 mmol/L (3.5-5.1); Sodium 139 mmol/L (136-145)
[2021-12-03 21:09] LABS: Alanine Aminotransferase 29 U/L (16-61); Alkaline Phosphatase 113 U/L (45-117); Aspartate Aminotransferase 58 U/L (15-37); BUN/Creatinine Ratio 14.4; Bilirubin, Total 3.2 mg/dL (0.2-1.0); Blood Alcohol < 3.0 mg/dL (0-5); GFR African American 124 mL/min; GFR Non-African American 103 mL/min; Total Protein 5.9 g/dL (6.4-8.2)
[2021-12-03] MEDS ORDERED: ACETAMINOPHEN 325 MG TAB PO PRN (22:15)
[2021-12-03] MEDS ORDERED: LORazepam 2MG/ML-1ML VIAL IV PRN (22:15)
[2021-12-03] MEDS ORDERED: SODIUM CHLORIDE 0.9% 1,000 ML IV ONE (22:15)
[2021-12-03] MEDS ORDERED: hydrALAZINE HCL 10 MG TAB PO PRN (22:15)
[2021-12-03] MEDS ORDERED: HYDROcodone-ACET 5/325MG TAB PO PRN (22:15)
[2021-12-03] MEDS ORDERED: ONDANSETRON HCL 4 MG/2 ML VIAL IV ONE (22:15)
[2021-12-03 23:47] LABS: Amphetamine Screen, Urine NEGATIVE (NEGATIVE); Barbiturate Scree,Urine NEGATIVE (NEGATIVE); Benzodiazephine Screen, Urine POSITIVE (NEGATIVE); Cannabinoid Screen, Urine NEGATIVE (NEGATIVE); Cocaine Screen, Urine NEGATIVE (NEGATIVE); Opiate Scree,Urine POSITIVE (NEGATIVE); Phencyclidine Screen, Urine NEGATIVE (NEGATIVE)
[2021-12-04 00:13] LABS: Basophils # (auto) 0.1 10 ^3/uL (0-0.2); Eosinophils # (auto) 0.1 10 ^3/uL (0-0.8); Eosinophils % (auto) 2.1 % (0.0-7.0); Hematocrit 28.3 % (41.0-53.0); Hemoglobin 9.8 g/dL (13.5-17.5); Lymphocytes # (auto) 1.4 10 ^3/uL (0.4-5.4); Lymphocytes % (auto) 41.5 % (10.0-50.0); Mean Corpuscular Hemoglobin 35.1 pg (28.0-32.0); Mean Corpuscular Hgb Conc. 34.8 g/dL (32.0-36.0); Mean Corpuscular Volume 100.9 fL (80.0-100.0); Monocytes # (auto) 0.5 10 ^3/uL (0-1.3); Monocytes % (auto) 15.7 % (0.0-12.0); Neutrophils # (auto) 1.3 10 ^3/uL (1.6-8.6); Neutrophils % (auto) 38.7 % (37.0-80.0); Nucleated Red Blood Cells % 0.3 %; Red Cell Distribution Width 17.4 % (11.8-14.3); White Blood Cell 3.4 10^3/uL (4.4-10.8)
[2021-12-04 00:17] LABS: Calcium 7.9 mg/dL (8.5-10.1); Potassium 3.8 mmol/L (3.5-5.1)
[2021-12-04] MEDS ORDERED: levETIRAcetam 500 MG/5ML INJ IV ONE (00:20)
[2021-12-04 06:48] LABS: Basophils # (auto) 0 10 ^3/uL (0-0.2); Basophils % (auto) 1.7 % (0.0-2.0); Eosinophils # (auto) 0.1 10 ^3/uL (0-0.8); Monocytes # (auto) 0.5 10 ^3/uL (0-1.3)
[2021-12-04 06:51] LABS: Hematocrit 28.5 % (41.0-53.0); Hemoglobin 10.1 g/dL (13.5-17.5); Lymphocytes # (auto) 1.2 10 ^3/uL (0.4-5.4); Lymphocytes % (auto) 41.7 % (10.0-50.0); Mean Corpuscular Hemoglobin 35.4 pg (28.0-32.0); Mean Corpuscular Hgb Conc. 35.3 g/dL (32.0-36.0); Mean Corpuscular Volume 100.3 fL (80.0-100.0); Neutrophils % (auto) 36.6 % (37.0-80.0); Nucleated Red Blood Cells % 0.1 %; Red Blood Cells 2.85 10^6/uL (4.5-5.90); Red Cell Distribution Width 17.1 % (11.8-14.3); White Blood Cell 2.8 10^3/uL (4.4-10.8)
[2021-12-04 07:00] VITALS: BP 112/63
[2021-12-04 07:02] LABS: BUN/Creatinine Ratio 15.3; Calcium 8.1 mg/dL (8.5-10.1); Potassium 4.1 mmol/L (3.5-5.1)
[2021-12-04] MEDS ORDERED: FAMOTIDINE 20 MG TAB PO SCH (10:00)
== END 2021-12-04 08:56 | disposition left against medical advice (07) | DRG 53 ==
LOC: ER 18:07 → TELE 22:15
PROVIDERS: ADMIT Nurse Practitioner Family; ATTEND Nurse Practitioner Family
DX: G40.909 Epilepsy, unspecified, not intractable, without status epilepticus (principal); D61.818 Other pancytopenia; D68.9 Coagulation defect, unspecified; Z53.29 Procedure and treatment not carried out because of patient's decision for other reasons; Z20.822 Contact with and (suspected) exposure to COVID-19; E66.9 Obesity, unspecified; F17.210 Nicotine dependence, cigarettes, uncomplicated; I10 Essential (primary) hypertension; Z80.0 Family history of malignant neoplasm of digestive organs; Z82.49 Family history of ischemic heart disease and other diseases of the circulatory system; Z83.3 Family history of diabetes mellitus; Z86.718 Personal history of other venous thrombosis and embolism; Z98.84 Bariatric surgery status
CPT/HCPCS: 36415; 70450; 80048; 80053; 80307; 80320; 82542; 85025; 93005; 96361; 96365; 96375; G0378; J2405; J7060

== ENCOUNTER 2021-12-04 10:45 | Emergency (ER) | payer MEDICAID ==
[~2021-12-04] VITALS: Ht 182.9 cm; Wt 117.9 kg
[2021-12-04 10:48] VITALS: BP 112/48
== END 2021-12-04 11:28 | disposition left against medical advice (07) ==
LOC: ER 10:45 → EDBD 10:45 → ER 11:28
DX: R56.9 Unspecified convulsions (principal); Z53.21 Procedure and treatment not carried out due to patient leaving prior to being seen by health care provider
CPT/HCPCS: 93005

== ENCOUNTER 2021-12-24 14:56 | Emergency (ER) | payer MEDICAID ==
[~2021-12-24] VITALS: Ht 180.3 cm; Wt 86.2 kg
[2021-12-24] MEDS ORDERED: THIAMINE 100mg/ml INJ (200mg/2ml VIAL) IV ONE (15:15)
[2021-12-24] MEDS ORDERED: SODIUM CHLORIDE 0.9% 1,000 ML IV ONE ×2 (15:15)
[2021-12-24 15:54] LABS: Basophils # (auto) 0.1 10 ^3/uL (0-0.2); Eosinophils # (auto) 0 10 ^3/uL (0-0.8); Eosinophils % (auto) 0.9 % (0.0-7.0); Hematocrit 27.9 % (41.0-53.0); Hemoglobin 9.7 g/dL (13.5-17.5); Lymphocytes # (auto) 0.8 10 ^3/uL (0.4-5.4); Lymphocytes % (auto) 23.8 % (10.0-50.0); Mean Corpuscular Hgb Conc. 34.6 g/dL (32.0-36.0); Mean Corpuscular Volume 98.2 fL (80.0-100.0); Monocytes # (auto) 0.3 10 ^3/uL (0-1.3); Monocytes % (auto) 9.5 % (0.0-12.0); Neutrophils # (auto) 2.2 10 ^3/uL (1.6-8.6); Neutrophils % (auto) 61.8 % (37.0-80.0); Nucleated Red Blood Cells % 0.1 %; Red Blood Cells 2.84 10^6/uL (4.5-5.90); Red Cell Distribution Width 16.6 % (11.8-14.3); White Blood Cell 3.5 10^3/uL (4.4-10.8)
[2021-12-24 16:14] LABS: Alanine Aminotransferase 32 U/L (16-61); Albumin 2.8 g/dL (3.4-5.0); Anion Gap 8 (5-15); Aspartate Aminotransferase 54 U/L (15-37); BUN/Creatinine Ratio 8.8; Blood Alcohol < 3.0 mg/dL (0-5); Blood Urea Nitrogen 10 mg/dL (7-18); Calcium 8.8 mg/dL (8.5-10.1); Carbon Dioxide 21 mmol/L (21-32); Chloride 114 mmol/L (98-107); GFR African American 95 mL/min; GFR Non-African American 78 mL/min; Glucose 78 mg/dL (74-106); Potassium 3.7 mmol/L (3.5-5.1); Sodium 143 mmol/L (136-145)
[2021-12-24 16:17] LABS: Alkaline Phosphatase 108 U/L (45-117); Bilirubin, Total 2.9 mg/dL (0.2-1.0); Total Protein 5.9 g/dL (6.4-8.2)
[2021-12-24] MEDS ORDERED: LORazepam 2MG/ML-1ML VIAL ONE (17:38)
[2021-12-24] MEDS ORDERED: LORazepam 2MG/ML-1ML VIAL IV ONE (17:45)
[2021-12-24] MEDS ORDERED: CHL10C PO (17:52)
[2021-12-24 21:40] VITALS: BP 108/65
== END 2021-12-24 21:56 | disposition home or self-care (01) ==
LOC: EDBD 14:56 → ER 14:56
DX: R56.9 Unspecified convulsions (principal); K70.30 Alcoholic cirrhosis of liver without ascites; F10.239 Alcohol dependence with withdrawal, unspecified; F17.210 Nicotine dependence, cigarettes, uncomplicated; I10 Essential (primary) hypertension; Y90.8 Blood alcohol level of 240 mg/100 ml or more
CPT/HCPCS: 36415; 70450; 80053; 80320; 85025; 93005; 96361; 96374; 96375; 99285; J2060; J3411; J7030

== ENCOUNTER 2022-02-21 20:27 | Inpatient (IN) | payer MEDICAID ==
[~2022-02-21] VITALS: Ht 180.3 cm; Wt 105.0 kg
[~2022-02-21 20:27] MED LIST changes: +CHL10C PO
[2022-02-21 22:57] LABS: Basophils # (auto) 0 10 ^3/uL (0-0.2); Basophils % (auto) 0.9 % (0.0-2.0); Eosinophils # (auto) 0.1 10 ^3/uL (0-0.8); Eosinophils % (auto) 1.6 % (0.0-7.0); Hematocrit 30.7 % (41.0-53.0); Hemoglobin 10.2 g/dL (13.5-17.5); Lymphocytes # (auto) 1.1 10 ^3/uL (0.4-5.4); Lymphocytes % (auto) 30.4 % (10.0-50.0); Mean Corpuscular Hemoglobin 31.8 pg (28.0-32.0); Mean Corpuscular Hgb Conc. 33.1 g/dL (32.0-36.0); Monocytes # (auto) 0.4 10 ^3/uL (0-1.3); Monocytes % (auto) 12.5 % (0.0-12.0); Neutrophils # (auto) 1.9 10 ^3/uL (1.6-8.6); Neutrophils % (auto) 54.6 % (37.0-80.0); Nucleated Red Blood Cells % 0.1 %; Red Cell Distribution Width 18.4 % (11.8-14.3); White Blood Cell 3.5 10^3/uL (4.4-10.8)
[2022-02-21 22:58] LABS: Albumin 2.9 g/dL (3.4-5.0); Calcium 8.4 mg/dL (8.5-10.1); Potassium 4.4 mmol/L (3.5-5.1)
[2022-02-21 23:03] LABS: Bilirubin, Total 2.3 mg/dL (0.2-1.0); Total Protein 5.5 g/dL (6.4-8.2)
[2022-02-21 23:18] LABS: BUN/Creatinine Ratio 16.7
[2022-02-21 23:21] LABS: Urine Bacteria NONE SEEN /hpf (None Seen); Urine Blood Negative /uL (Negative); Urine Mucus FEW (None Seen); Urine Specific Gravity 1.032 (1.001-1.035); Urine WBC 4 /hpf (0 - 3)
[2022-02-22] MEDS ORDERED: ACETAMINOPHEN 325 MG TAB PO PRN (01:15)
[2022-02-22] MEDS ORDERED: DOCUSATE SOD 100 MG CAP PO PRN (01:15)
[2022-02-22] MEDS ORDERED: cefTRIAXone 1GM/50ML D5W 50 ML IV ONE (01:15)
[2022-02-22] MEDS ORDERED: TEMAZEPAM 15 MG CAP PO PRN (01:15)
[2022-02-22] MEDS ORDERED: levETIRAcetam 500 MG/5ML INJ IV ONE (02:00)
[2022-02-22] MEDS: ONDANSETRON HCL 4 MG/2 ML VIAL IV PRN ×2 (02:29→18:17)
[2022-02-22] MEDS: MORPHINE SULFATE INJ 2 MG/ml SYRG IV PRN ×3 (02:30→18:19)
[2022-02-22] MEDS ORDERED: NITROGLYCERIN 0.4 MG SL TAB SL PRN (03:00)
[2022-02-22] MEDS ORDERED: MORPHINE SULFATE INJ 2 MG/ml SYRG IV PRN (03:00)
[2022-02-22] MEDS: SODIUM CHLOR 0.9% PF (SALINE LOCK) 10ML VIAL/SYR IV SCH ×3 (06:00→21:38)
[2022-02-22 06:46] LABS: Basophils # (auto) 0 10 ^3/uL (0-0.2)
[2022-02-22 06:47] LABS: Basophils % (auto) 1.1 % (0.0-2.0); Eosinophils # (auto) 0.1 10 ^3/uL (0-0.8); Eosinophils % (auto) 2.4 % (0.0-7.0); Hematocrit 30.1 % (41.0-53.0); Hemoglobin 10.2 g/dL (13.5-17.5); Lymphocytes % (auto) 40.2 % (10.0-50.0); Mean Corpuscular Hemoglobin 32.8 pg (28.0-32.0); Mean Corpuscular Hgb Conc. 33.8 g/dL (32.0-36.0); Mean Corpuscular Volume 96.9 fL (80.0-100.0); Monocytes # (auto) 0.4 10 ^3/uL (0-1.3); Monocytes % (auto) 15.6 % (0.0-12.0); Neutrophils % (auto) 40.7 % (37.0-80.0); Nucleated Red Blood Cells % 0.2 %; Red Cell Distribution Width 18.9 % (11.8-14.3); White Blood Cell 2.5 10^3/uL (4.4-10.8)
[2022-02-22 07:15] LABS: Albumin 2.6 g/dL (3.4-5.0); Calcium 8.4 mg/dL (8.5-10.1); Potassium 3.8 mmol/L (3.5-5.1)
[2022-02-22 07:18] LABS: BUN/Creatinine Ratio 19.7; Bilirubin, Total 2.1 mg/dL (0.2-1.0); Total Protein 5.3 g/dL (6.4-8.2)
[2022-02-22] MEDS: HYDROcodone-ACET 5/325MG TAB PO PRN ×2 (12:39→21:37)
[2022-02-22] MEDS: cefTRIAXone 1GM/50ML D5W 50 ML IV SCH (21:38)
[2022-02-22 22:00] VITALS: BP 115/52
[2022-02-22 22:28] VITALS: BP 115/52
[2022-02-23] MEDS ORDERED: PNEUMOCOCCAL VACC POLYS 25 MCG/0.5 ML VIAL IM SCH
[2022-02-23] MEDS: MORPHINE SULFATE INJ 2 MG/ml SYRG IV PRN ×2 (02:29→17:28)
[2022-02-23 05:00] VITALS: BP 90/44
[2022-02-23] MEDS ORDERED: FURO20TA3 PO (05:41)
[2022-02-23] MEDS ORDERED: LACT10SO70 PO (05:41)
[2022-02-23] MEDS ORDERED: LEVE500T32 PO (05:41)
[2022-02-23] MEDS: SODIUM CHLOR 0.9% PF (SALINE LOCK) 10ML VIAL/SYR IV SCH ×3 (05:47→21:52)
[2022-02-23 06:58] LABS: Basophils # (auto) 0 10 ^3/uL (0-0.2); Eosinophils # (auto) 0 10 ^3/uL (0-0.8); Monocytes # (auto) 0.3 10 ^3/uL (0-1.3); Neutrophils # (auto) 0.9 10 ^3/uL (1.6-8.6); Nucleated Red Blood Cells % 0.1 %; White Blood Cell 2.2 10^3/uL (4.4-10.8)
[2022-02-23 07:04] LABS: Basophils % (auto) 1.1 % (0.0-2.0); Eosinophils % (auto) 1.8 % (0.0-7.0); Hematocrit 28.9 % (41.0-53.0); Hemoglobin 9.8 g/dL (13.5-17.5); Lymphocytes # (auto) 0.9 10 ^3/uL (0.4-5.4); Mean Corpuscular Hemoglobin 32.7 pg (28.0-32.0); Mean Corpuscular Hgb Conc. 33.9 g/dL (32.0-36.0); Mean Corpuscular Volume 96.6 fL (80.0-100.0); Monocytes % (auto) 13.9 % (0.0-12.0); Neutrophils % (auto) 40.2 % (37.0-80.0); Red Blood Cells 2.99 10^6/uL (4.5-5.90); Red Cell Distribution Width 18.2 % (11.8-14.3)
[2022-02-23 07:31] LABS: Albumin 2.5 g/dL (3.4-5.0); Calcium 8.2 mg/dL (8.5-10.1)
[2022-02-23 07:36] LABS: BUN/Creatinine Ratio 21.8; Bilirubin, Total 1.8 mg/dL (0.2-1.0); Total Protein 5.1 g/dL (6.4-8.2)
[2022-02-23 08:15] VITALS: BP 87/63
[2022-02-23] MEDS: HYDROcodone-ACET 5/325MG TAB PO PRN ×2 (11:18→22:57)
[2022-02-23 12:20] VITALS: BP 101/56
[2022-02-23 17:11] VITALS: BP 110/53
[2022-02-23] MEDS: cefTRIAXone 1GM/50ML D5W 50 ML IV SCH (21:44)
[2022-02-23] MEDS ORDERED: levETIRAcetam 500 MG/5ML INJ IV ONE (21:55)
[2022-02-23 22:00] VITALS: BP 110/51
[2022-02-24] MEDS: MORPHINE SULFATE INJ 2 MG/ml SYRG IV PRN ×3 (01:22→16:11)
[2022-02-24 05:00] VITALS: BP 109/65
[2022-02-24] MEDS: SODIUM CHLOR 0.9% PF (SALINE LOCK) 10ML VIAL/SYR IV SCH ×2 (05:21→14:00)
[2022-02-24 09:00] VITALS: BP 111/67
[2022-02-24 13:00] VITALS: BP 135/75
[2022-02-24] MEDS: HYDROcodone-ACET 5/325MG TAB PO PRN (14:30)
[2022-02-24 17:00] VITALS: BP 106/58
== END 2022-02-24 18:05 | disposition left against medical advice (07) | DRG 53 ==
LOC: ER 20:27 → TELE 02-22 02:50 → TELE-WESTW 02-22 20:20
PROVIDERS: ADMIT Nurse Practitioner Family; ATTEND Internal Medicine
DX: G40.909 Epilepsy, unspecified, not intractable, without status epilepticus (principal); G93.41 Metabolic encephalopathy; D61.818 Other pancytopenia; K72.90 Hepatic failure, unspecified without coma; E88.09 Other disorders of plasma-protein metabolism, not elsewhere classified; E11.9 Type 2 diabetes mellitus without complications; F17.210 Nicotine dependence, cigarettes, uncomplicated; K74.60 Unspecified cirrhosis of liver; N39.0 Urinary tract infection, site not specified; Z53.29 Procedure and treatment not carried out because of patient's decision for other reasons; Z20.822 Contact with and (suspected) exposure to COVID-19; F41.9 Anxiety disorder, unspecified; G89.4 Chronic pain syndrome; I10 Essential (primary) hypertension; Z82.49 Family history of ischemic heart disease and other diseases of the circulatory system
CPT/HCPCS: 36415; 70450; 70551; 71045; 80053; 81001; 82140; 82542; 84484; 85025; 87081; 87086; 93005; 95819; 96365; 96367; 96375; G0378; J0696; J2405; J7060

== ENCOUNTER 2022-03-11 17:03 | Emergency (ER) | payer MEDICAID ==
[~2022-03-11] VITALS: Ht 180.3 cm; Wt 106.6 kg
[~2022-03-11 17:03] MED LIST changes: +FURO20TA3 PO; +LACT10SO70 PO; +LEVE500T32 PO
[2022-03-11] MEDS ORDERED: FUROSEMIDE 100 MG/10ML VIAL IV ONE (18:45)
[2022-03-11] MEDS ORDERED: LACTULOSE 20Gm/30ML SOLN PO ONE (18:45)
[2022-03-11 18:57] LABS: Basophils # (auto) 0 10 ^3/uL (0-0.2); Eosinophils # (auto) 0 10 ^3/uL (0-0.8); Hemoglobin 9.6 g/dL (13.5-17.5); Monocytes # (auto) 0.4 10 ^3/uL (0-1.3); Neutrophils # (auto) 1.7 10 ^3/uL (1.6-8.6)
[2022-03-11 18:59] LABS: Basophils % (auto) 0.7 % (0.0-2.0); Eosinophils % (auto) 1.4 % (0.0-7.0); Hematocrit 28.3 % (41.0-53.0); Lymphocytes # (auto) 1.1 10 ^3/uL (0.4-5.4); Lymphocytes % (auto) 32.9 % (10.0-50.0); Mean Corpuscular Hemoglobin 32.3 pg (28.0-32.0); Mean Corpuscular Hgb Conc. 33.8 g/dL (32.0-36.0); Mean Corpuscular Volume 95.5 fL (80.0-100.0); Monocytes % (auto) 13.3 % (0.0-12.0); Neutrophils % (auto) 51.7 % (37.0-80.0); Nucleated Red Blood Cells % 0.1 %; Red Blood Cells 2.96 10^6/uL (4.5-5.90); Red Cell Distribution Width 17.4 % (11.8-14.3); White Blood Cell 3.3 10^3/uL (4.4-10.8)
[2022-03-11 19:09] LABS: Albumin 2.8 g/dL (3.4-5.0); Calcium 8.3 mg/dL (8.5-10.1); Potassium 4.3 mmol/L (3.5-5.1)
[2022-03-11 19:11] LABS: BUN/Creatinine Ratio 12.5; Bilirubin, Total 2.4 mg/dL (0.2-1.0); Total Protein 5.4 g/dL (6.4-8.2)
[2022-03-11 20:00] VITALS: BP 108/60
== END 2022-03-11 21:25 | disposition left against medical advice (07) ==
LOC: ER 17:03
DX: R60.0 Localized edema (principal); D69.6 Thrombocytopenia, unspecified; K76.89 Other specified diseases of liver; E16.2 Hypoglycemia, unspecified; I10 Essential (primary) hypertension; F17.210 Nicotine dependence, cigarettes, uncomplicated; Z86.718 Personal history of other venous thrombosis and embolism; Z79.899 Other long term (current) drug therapy; Z79.1 Long term (current) use of non-steroidal anti-inflammatories (NSAID)
CPT/HCPCS: 36415; 80053; 82140; 83880; 84484; 85025; 96374; 99283; J1940

== ENCOUNTER 2022-06-05 18:44 | Emergency (ER) | payer MEDICAID ==
[~2022-06-05] VITALS: Ht 180.3 cm; Wt 110.0 kg
[2022-06-05 21:56] LABS: Basophils # (auto) 0 10 ^3/uL (0-0.2); Basophils % (auto) 0.4 % (0.0-2.0); Eosinophils # (auto) 0 10 ^3/uL (0-0.8); Eosinophils % (auto) 0.4 % (0.0-7.0); Hematocrit 33.1 % (41.0-53.0); Hemoglobin 10.9 g/dL (13.5-17.5); Lymphocytes # (auto) 1.6 10 ^3/uL (0.4-5.4); Lymphocytes % (auto) 36.2 % (10.0-50.0); Mean Corpuscular Hemoglobin 30.1 pg (28.0-32.0); Monocytes # (auto) 0.3 10 ^3/uL (0-1.3); Monocytes % (auto) 6.2 % (0.0-12.0); Neutrophils # (auto) 2.5 10 ^3/uL (1.6-8.6); Neutrophils % (auto) 56.8 % (37.0-80.0); Red Blood Cells 3.64 10^6/uL (4.5-5.90); Red Cell Distribution Width 18.2 % (11.8-14.3); White Blood Cell 4.4 10^3/uL (4.4-10.8)
[2022-06-05 22:11] LABS: INR 2.44 (0.9-1.15); Partial Thromboplastin Time 34.8 sec (24.6-33.4)
[2022-06-05 22:19] LABS: Albumin 3.6 g/dL (3.4-5.0); BUN/Creatinine Ratio 19.5; Calcium 8.7 mg/dL (8.5-10.1); Magnesium 1.9 mg/dL (1.6-2.6); Potassium 3.9 mmol/L (3.5-5.1)
[2022-06-05 22:22] LABS: Bilirubin, Total 4.9 mg/dL (0.2-1.0); Total Protein 6.5 g/dL (6.4-8.2)
[2022-06-05] MEDS ORDERED: IOHEXOL 350 MG/ML 100ML IJ ONE (23:46)
[2022-06-06] MEDS ORDERED: ONDANSETRON ODT 4 MG TAB PO ONE (04:15)
[2022-06-06] MEDS ORDERED: MORPHINE SULFATE 4 MG/ML SYR/VIAL IM ONE (04:15)
[2022-06-06 06:45] VITALS: BP 145/77
== END 2022-06-06 06:37 | disposition home or self-care (01) ==
LOC: ER 18:44 → EDBD 18:44 → EDUNIT# 18:44 → ER 06-06 06:37
DX: T14.8XXA Other injury of unspecified body region, initial encounter (principal); I10 Essential (primary) hypertension; F17.210 Nicotine dependence, cigarettes, uncomplicated; Z86.73 Personal history of transient ischemic attack (TIA), and cerebral infarction without residual deficits; Z79.899 Other long term (current) drug therapy; V89.2XXA Person injured in unspecified motor-vehicle accident, traffic, initial encounter; Y93.89 Activity, other specified; Y92.89 Other specified places as the place of occurrence of the external cause; Y99.8 Other external cause status
CPT/HCPCS: 36415; 70450; 71045; 71260; 72125; 74177; 80053; 82140; 83735; 84484; 85025; 85610; 85730; 96372; 99285; J2270; Q0162; Q9967

== ENCOUNTER 2022-07-12 16:29 | Emergency (ER) | payer MEDICAID ==
[~2022-07-12] VITALS: Ht 180.3 cm; Wt 97.7 kg
[2022-07-12] MEDS ORDERED: ONDANSETRON ODT 4 MG TAB PO ONE (19:30)
[2022-07-12] MEDS ORDERED: HYDROcodone-ACET 10/325MG TAB PO ONE (19:30)
[2022-07-12 21:20] VITALS: BP 147/84
== END 2022-07-12 21:52 | disposition home or self-care (01) ==
LOC: ER 16:32
DX: S80.02XA Contusion of left knee, initial encounter (principal); S90.32XA Contusion of left foot, initial encounter; I10 Essential (primary) hypertension; F17.210 Nicotine dependence, cigarettes, uncomplicated; F12.10 Cannabis abuse, uncomplicated; Z88.6 Allergy status to analgesic agent; Z86.73 Personal history of transient ischemic attack (TIA), and cerebral infarction without residual deficits; X58.XXXA Exposure to other specified factors, initial encounter; Y93.01 Activity, walking, marching and hiking; Y92.89 Other specified places as the place of occurrence of the external cause; Y99.8 Other external cause status
CPT/HCPCS: 73590; 73620; 74176; 99284; Q0162

== ENCOUNTER 2022-08-23 23:03 | Emergency (ER) | payer MEDICAID ==
[~2022-08-23] VITALS: Ht 180.3 cm; Wt 105.0 kg
[2022-08-23 23:11] VITALS: BP 129/71
== END 2022-08-24 05:57 | disposition home or self-care (01) ==
LOC: ER 23:03 → EDBD 23:03 → EDUNIT# 23:03 → ER 08-24 05:57
DX: R07.81 Pleurodynia (principal); I10 Essential (primary) hypertension; F17.210 Nicotine dependence, cigarettes, uncomplicated; Z86.73 Personal history of transient ischemic attack (TIA), and cerebral infarction without residual deficits; Z79.899 Other long term (current) drug therapy; Z88.8 Allergy status to other drugs, medicaments and biological substances
CPT/HCPCS: 93005

== ENCOUNTER 2023-01-10 20:20 | Inpatient (IN) | payer MEDICAID ==
[~2023-01-10] VITALS: Ht 182.9 cm; Wt 101.5 kg
[~2023-01-10 20:20] MED LIST changes: +FOLI-119 PO; -FOLI1TAB6 PO; +IBUP-1454 PO; -IBUP600T27 PO; -LEVE500T32 PO; +LEVE500T40 PO; +PROM25TA10 PO; -PROM25TA5 PO; +PROP1TAB53 PO; -PROP20TA73 PO
[2023-01-10 21:55] LABS: Alanine Aminotransferase 32 U/L (16-61); Anion Gap 7 (5-15); Aspartate Aminotransferase 48 U/L (15-37); BUN/Creatinine Ratio 14.2 (10.0-20.0); Blood Alcohol < 3.0 mg/dL (0-5); Blood Urea Nitrogen 18 mg/dL (7-18); Calcium 8.4 mg/dL (8.5-10.1); Carbon Dioxide 22 mmol/L (21-32); Chloride 112 mmol/L (98-107); GFR African American 83 mL/min; GFR Non-African American 69 mL/min; Glucose 87 mg/dL (74-106); Sodium 141 mmol/L (136-145)
[2023-01-10 21:57] LABS: Basophils # (auto) 0 10 ^3/uL (0-0.2); Basophils % (auto) 0.4 % (0.0-2.0); Eosinophils # (auto) 0.1 10 ^3/uL (0-0.8); Eosinophils % (auto) 2.2 % (0.0-7.0); Hematocrit 32.2 % (41.0-53.0); Hemoglobin 10.7 g/dL (13.5-17.5); Lymphocytes # (auto) 0.8 10 ^3/uL (0.4-5.4); Lymphocytes % (auto) 18.7 % (10.0-50.0); Mean Corpuscular Hemoglobin 28.9 pg (28.0-32.0); Mean Corpuscular Hgb Conc. 33.2 g/dL (32.0-36.0); Monocytes # (auto) 0.5 10 ^3/uL (0-1.3); Monocytes % (auto) 12.1 % (0.0-12.0); Neutrophils # (auto) 2.9 10 ^3/uL (1.6-8.6); Neutrophils % (auto) 66.6 % (37.0-80.0); Nucleated Red Blood Cells % 0.2 %; Red Blood Cells 3.71 10^6/uL (4.5-5.90); Red Cell Distribution Width 18.8 % (11.8-14.3); White Blood Cell 4.4 10^3/uL (4.4-10.8)
[2023-01-10 21:58] LABS: Alkaline Phosphatase 127 U/L (45-117); Bilirubin, Total 0.8 mg/dL (0.2-1.0); Total Protein 6.3 g/dL (6.4-8.2)
[2023-01-10 22:19] LABS: INR 2.02 (0.9-1.15); Partial Thromboplastin Time 30.9 SEC (24.5-34.5)
[2023-01-10] MEDS ORDERED: levETIRAcetam 500 MG/5ML INJ IV ONE ×2 (23:22→23:52)
[2023-01-10] MEDS ORDERED: ONDANSETRON HCL 4 MG/2 ML VIAL IV ONE (23:30)
[2023-01-10] MEDS ORDERED: MORPHINE SULFATE 4 MG/ML SYR/VIAL IV ONE (23:30)
[2023-01-11] MEDS ORDERED: ACETAMINOPHEN 325 MG TAB PO PRN (01:15)
[2023-01-11] MEDS ORDERED: LORazepam 0.5 MG TAB PO ONE (01:15)
[2023-01-11] MEDS ORDERED: ONDANSETRON HCL 4 MG/2 ML VIAL IV PRN (01:15)
[2023-01-11] MEDS ORDERED: hydrALAZINE HCL 20 MG/ML VL IV PRN (01:15)
[2023-01-11] MEDS ORDERED: DOCUSATE SOD 100 MG CAP PO PRN (01:15)
[2023-01-11] MEDS ORDERED: NITROGLYCERIN 0.4 MG SL TAB SL PRN (02:00)
[2023-01-11] MEDS ORDERED: MORPHINE SULFATE INJ 2 MG/ml SYRG IV PRN (02:00)
[2023-01-11] MEDS: HYDROcodone-ACET 5/325MG TAB PO PRN (05:40)
[2023-01-11] MEDS: LORazepam 2MG/ML-1ML VIAL IV PRN ×4 (05:40→23:23)
[2023-01-11 05:53] LABS: Basophils # (auto) 0 10 ^3/uL (0-0.2); Eosinophils # (auto) 0.1 10 ^3/uL (0-0.8); Monocytes # (auto) 0.4 10 ^3/uL (0-1.3); Neutrophils # (auto) 1.8 10 ^3/uL (1.6-8.6); White Blood Cell 3.3 10^3/uL (4.4-10.8)
[2023-01-11 05:55] LABS: Albumin 2.9 g/dL (3.4-5.0); Calcium 8.2 mg/dL (8.5-10.1); Potassium 3.9 mmol/L (3.5-5.1)
[2023-01-11 05:56] LABS: Basophils % (auto) 0.4 % (0.0-2.0); Eosinophils % (auto) 2.4 % (0.0-7.0); Hematocrit 29.7 % (41.0-53.0); Lymphocytes # (auto) 1.1 10 ^3/uL (0.4-5.4); Lymphocytes % (auto) 32.3 % (10.0-50.0); Mean Corpuscular Hemoglobin 29.2 pg (28.0-32.0); Mean Corpuscular Hgb Conc. 33.6 g/dL (32.0-36.0); Mean Corpuscular Volume 86.9 fL (80.0-100.0); Monocytes % (auto) 11.1 % (0.0-12.0); Neutrophils % (auto) 53.8 % (37.0-80.0); Nucleated Red Blood Cells % 0.2 %; Red Blood Cells 3.42 10^6/uL (4.5-5.90); Red Cell Distribution Width 18.8 % (11.8-14.3)
[2023-01-11 05:58] LABS: BUN/Creatinine Ratio 14.4 (10.0-20.0); Bilirubin, Total 0.8 mg/dL (0.2-1.0); Total Protein 5.6 g/dL (6.4-8.2)
[2023-01-11] MEDS: SODIUM CHLOR 0.9% PF (SALINE LOCK) 10ML VIAL/SYR IV SCH ×3 (06:00→22:19)
[2023-01-11] MEDS: MORPHINE SULFATE INJ 2 MG/ml SYRG IV PRN ×3 (12:08→22:14)
[2023-01-11 22:00] VITALS: BP 110/59
[2023-01-12] MEDS: MORPHINE SULFATE INJ 2 MG/ml SYRG IV PRN ×4 (02:17→15:10)
[2023-01-12] MEDS ORDERED: MELATONIN 5 MG TAB PO PRN (03:45)
[2023-01-12] MEDS: LORazepam 2MG/ML-1ML VIAL IV PRN ×2 (04:27→10:18)
[2023-01-12 05:00] VITALS: BP 111/51
[2023-01-12] MEDS: SODIUM CHLOR 0.9% PF (SALINE LOCK) 10ML VIAL/SYR IV SCH ×2 (06:00→14:18)
[2023-01-12 06:29] LABS: Basophils # (auto) 0 10 ^3/uL (0-0.2); Basophils % (auto) 1.1 % (0.0-2.0); Eosinophils # (auto) 0.1 10 ^3/uL (0-0.8); Eosinophils % (auto) 2.4 % (0.0-7.0); Hematocrit 28.4 % (41.0-53.0); Hemoglobin 9.7 g/dL (13.5-17.5); Lymphocytes % (auto) 38.3 % (10.0-50.0); Mean Corpuscular Hemoglobin 29.9 pg (28.0-32.0); Mean Corpuscular Hgb Conc. 34.2 g/dL (32.0-36.0); Mean Corpuscular Volume 87.2 fL (80.0-100.0); Monocytes # (auto) 0.3 10 ^3/uL (0-1.3); Monocytes % (auto) 12.8 % (0.0-12.0); Neutrophils # (auto) 1.2 10 ^3/uL (1.6-8.6); Neutrophils % (auto) 45.4 % (37.0-80.0); Nucleated Red Blood Cells % 0.1 %; Red Blood Cells 3.25 10^6/uL (4.5-5.90); Red Cell Distribution Width 18.9 % (11.8-14.3); White Blood Cell 2.6 10^3/uL (4.4-10.8)
[2023-01-12 06:53] LABS: Albumin 2.7 g/dL (3.4-5.0); Calcium 8.2 mg/dL (8.5-10.1)
[2023-01-12 06:57] LABS: BUN/Creatinine Ratio 14.1 (10.0-20.0); Bilirubin, Total 0.8 mg/dL (0.2-1.0); Total Protein 5.1 g/dL (6.4-8.2)
[2023-01-12 09:00] VITALS: BP 108/59
[2023-01-12 13:00] VITALS: BP 112/55
[2023-01-12 17:00] VITALS: BP 103/53
[2023-01-12] MEDS: HYDROcodone-ACET 5/325MG TAB PO PRN ×2 (17:21→22:00)
[2023-01-12] MEDS ORDERED: LORazepam 0.5 MG TAB PO PRN (18:30)
[2023-01-12 20:53] VITALS: BP 103/53
== END 2023-01-12 21:55 | disposition home or self-care (01) | DRG 53 ==
LOC: EDBD 20:20 → EDSEX 20:20 → ER 20:20 → TELE 01-11 01:52 → TELE-WESTW 01-11 17:58
PROVIDERS: ADMIT Nurse Practitioner Family; ATTEND Internal Medicine
DX: G40.909 Epilepsy, unspecified, not intractable, without status epilepticus (principal); G93.40 Encephalopathy, unspecified; D68.4 Acquired coagulation factor deficiency; D69.6 Thrombocytopenia, unspecified; K70.30 Alcoholic cirrhosis of liver without ascites; D64.9 Anemia, unspecified; I10 Essential (primary) hypertension; R26.81 Unsteadiness on feet; E16.2 Hypoglycemia, unspecified; F10.239 Alcohol dependence with withdrawal, unspecified; F17.210 Nicotine dependence, cigarettes, uncomplicated; F41.9 Anxiety disorder, unspecified; Z79.899 Other long term (current) drug therapy; Z88.8 Allergy status to other drugs, medicaments and biological substances; Z83.3 Family history of diabetes mellitus; Z82.49 Family history of ischemic heart disease and other diseases of the circulatory system; Z86.73 Personal history of transient ischemic attack (TIA), and cerebral infarction without residual deficits; Z98.84 Bariatric surgery status
CPT/HCPCS: 36415; 70450; 71045; 80053; 80320; 82542; 82962; 85025; 85379; 85610; 85730; 93005; 99291; G0378; J2405; J7060

== ENCOUNTER 2023-02-17 21:10 | Emergency (ER) | payer MEDICAID ==
[~2023-02-17] VITALS: Ht 180.3 cm; Wt 101.8 kg
[2023-02-17 21:44] LABS: Basophils # (auto) 0 10 ^3/uL (0-0.2); Eosinophils # (auto) 0 10 ^3/uL (0-0.8); Hemoglobin 10.1 g/dL (13.5-17.5); Monocytes # (auto) 0.3 10 ^3/uL (0-1.3); Neutrophils # (auto) 1.7 10 ^3/uL (1.6-8.6); Red Blood Cells 3.33 10^6/uL (4.5-5.90)
[2023-02-17 21:46] LABS: Basophils % (auto) 0.4 % (0.0-2.0); Eosinophils % (auto) 1.3 % (0.0-7.0); Lymphocytes # (auto) 0.9 10 ^3/uL (0.4-5.4); Lymphocytes % (auto) 30.5 % (10.0-50.0); Mean Corpuscular Hemoglobin 30.2 pg (28.0-32.0); Mean Corpuscular Hgb Conc. 33.6 g/dL (32.0-36.0); Mean Corpuscular Volume 89.9 fL (80.0-100.0); Neutrophils % (auto) 57.8 % (37.0-80.0); Nucleated Red Blood Cells % 0.1 %; White Blood Cell 2.9 10^3/uL (4.4-10.8)
[2023-02-17 21:51] LABS: INR 2.04 (0.9-1.15); Partial Thromboplastin Time 30.8 SEC (24.5-34.5)
[2023-02-17 21:54] LABS: Albumin 3.5 g/dL (3.4-5.0); Calcium 8.6 mg/dL (8.5-10.1); Magnesium 2.3 mg/dL (1.6-2.6); Potassium 3.9 mmol/L (3.5-5.1)
[2023-02-17 21:57] LABS: BUN/Creatinine Ratio 15.8 (10.0-20.0); Bilirubin, Total 2.6 mg/dL (0.2-1.0); Total Protein 6.4 g/dL (6.4-8.2)
[2023-02-17 21:58] LABS: Red Cell Distribution Width 20.7 % (11.8-14.3)
[2023-02-18] MEDS ORDERED: ZOFR4T PO (04:00)
[2023-02-18] MEDS ORDERED: PERCOT PO (04:00)
[2023-02-18 04:35] VITALS: PULSE 60; RESP 18; O2SAT 98
[2023-02-18 04:38] VITALS: BP 147/81; PULSE 60; RESP 16; TEMP 98.1; O2SAT 98
[2023-02-18] MEDS ORDERED: OXYCODONE W/ ACETAMINOPHEN 5/325MG TABLET PO ONE (04:45)
== END 2023-02-18 04:52 | disposition home or self-care (01) ==
LOC: ER 21:10
DX: R07.89 Other chest pain (principal); M25.511 Pain in right shoulder; I10 Essential (primary) hypertension; F17.210 Nicotine dependence, cigarettes, uncomplicated; F12.10 Cannabis abuse, uncomplicated; R51.9 Headache, unspecified; Z88.6 Allergy status to analgesic agent; Z86.73 Personal history of transient ischemic attack (TIA), and cerebral infarction without residual deficits
CPT/HCPCS: 36415; 70450; 71045; 80053; 83735; 83880; 84484; 85025; 85610; 85730; 93005

== ENCOUNTER 2023-03-20 21:03 | Inpatient (IN) | payer MEDICAID ==
[~2023-03-20] VITALS: Ht 180.3 cm; Wt 106.5 kg
[~2023-03-20 21:03] MED LIST changes: +PERCOT PO; +ZOFR4T PO
[2023-03-20 22:39] LABS: Basophils # (auto) 0 10 ^3/uL (0-0.2); Basophils % (auto) 0.6 % (0.0-2.0); Eosinophils # (auto) 0.1 10 ^3/uL (0-0.8); Eosinophils % (auto) 1.8 % (0.0-7.0); Hematocrit 32.9 % (41.0-53.0); Hemoglobin 10.8 g/dL (13.5-17.5); Lymphocytes # (auto) 1.4 10 ^3/uL (0.4-5.4); Lymphocytes % (auto) 33.3 % (10.0-50.0); Mean Corpuscular Hemoglobin 29.6 pg (28.0-32.0); Mean Corpuscular Hgb Conc. 32.7 g/dL (32.0-36.0); Mean Corpuscular Volume 90.3 fL (80.0-100.0); Monocytes # (auto) 0.4 10 ^3/uL (0-1.3); Monocytes % (auto) 9.8 % (0.0-12.0); Neutrophils # (auto) 2.3 10 ^3/uL (1.6-8.6); Neutrophils % (auto) 54.5 % (37.0-80.0); Red Blood Cells 3.65 10^6/uL (4.5-5.90); Red Cell Distribution Width 19.3 % (11.8-14.3); White Blood Cell 4.2 10^3/uL (4.4-10.8)
[2023-03-20 22:51] LABS: Alanine Aminotransferase 57 U/L (7-40); Albumin 3.9 g/dL (3.2-4.8); Alkaline Phosphatase 160 U/L (46-116); Anion Gap 7.9 (5-15); Aspartate Aminotransferase 133 U/L (13-40); BUN/Creatinine Ratio 11.8 (10.0-20.0); Blood Urea Nitrogen 10 mg/dL (9-23); Calcium 8.8 mg/dL (8.7-10.4); Carbon Dioxide 22.1 mmol/L (20-30); Chloride 114 mmol/L (98-107); Glucose 91 mg/dL (74-106); Lipase 49 U/L (12-53); Magnesium 1.9 mg/dL (1.6-2.6); Potassium 3.8 mmol/L (3.5-5.1); Sodium 144 mmol/L (136-145)
[2023-03-20 22:52] LABS: Bilirubin, Total 1.7 mg/dL (0.2-1.0); Total Protein 6.3 g/dL (5.7-8.2)
[2023-03-20] MEDS ORDERED: LORazepam 2MG/ML-1ML VIAL IV ONE (23:00)
[2023-03-20 23:10] VITALS: PULSE 66; RESP 12; O2SAT 94
[2023-03-20] MEDS ORDERED: ONDANSETRON HCL 4 MG/2 ML VIAL IV ONE (23:15)
[2023-03-20] MEDS ORDERED: IOHEXOL 350 MG/ML 100ML IJ ONE (23:24)
[2023-03-20] MEDS ORDERED: MIDAZOLAM HCL 5 MG/ML-1ML VIAL IV ONE (23:45)
[2023-03-21] MEDS ORDERED: ONDANSETRON HCL 4 MG/2 ML VIAL IV ONE (04:45)
[2023-03-21] MEDS ORDERED: MORPHINE SULFATE 4 MG/ML SYR/VIAL IV ONE (04:45)
[2023-03-21] MEDS ORDERED: NICOTINE 21MG/24 HR TOPICAL PATCH TD ONE (04:45)
[2023-03-21] MEDS ORDERED: OCTREOTIDE ACETATE 100 MCG in SODIUM CHL 0.9% 50 ML IV ONE (05:45)
[2023-03-21] MEDS ORDERED: PANTOPRAZOLE 80 MG in SODIUM CHL 0.9% 100 ML IV ONE (05:45)
[2023-03-21] MEDS ORDERED: cefTRIAXone 1GM/50ML D5W 50 ML IV ONE (05:45)
[2023-03-21] MEDS ORDERED: PANTOPRAZOLE 40mg/50ML NS AE 50 ML IV ONE (05:45)
[2023-03-21] MEDS ORDERED: ONDANSETRON HCL 4 MG/2 ML VIAL IV PRN ×2 (06:15→20:00)
[2023-03-21] MEDS ORDERED: TEMAZEPAM 15 MG CAP PO PRN (06:15)
[2023-03-21] MEDS ORDERED: MORPHINE SULFATE INJ 2 MG/ml SYRG IV PRN ×2 (06:15)
[2023-03-21] MEDS ORDERED: DOCUSATE SOD 100 MG CAP PO PRN (06:15)
[2023-03-21] MEDS ORDERED: NITROGLYCERIN 0.4 MG SL TAB SL PRN (06:15)
[2023-03-21] MEDS ORDERED: HYDROcodone-ACET 5/325MG TAB PO PRN (06:15)
[2023-03-21] MEDS ORDERED: IBUPROFEN 600 MG TAB PO PRN (06:15)
[2023-03-21 07:30] VITALS: PULSE 61; RESP 12; O2SAT 94
[2023-03-21] MEDS: cefTRIAXone 1GM/50ML D5W 50 ML IV SCH (09:00)
[2023-03-21] MEDS: OCTREOTIDE ACETATE 500 MCG in SODIUM CHL 0.9% 99 ML IV SCH ×2 (09:19→17:37)
[2023-03-21] MEDS: FOLIC ACID 1 MG TAB PO SCH (10:38)
[2023-03-21] MEDS: PANTOPRAZOLE 40 MG/10 ML VIAL INJ IV SCH ×2 (10:39→22:06)
[2023-03-21] MEDS: THIAMINE HCL 100 MG TAB PO SCH (10:39)
[2023-03-21] MEDS: SODIUM CHLORIDE 0.9% 1,000 ML IV SCH ×2 (11:16→22:10)
[2023-03-21] MEDS: LACTULOSE 20Gm/30ML SOLN PO SCH ×2 (11:18→22:07)
[2023-03-21] MEDS: FOLIC ACID 1 MG, MULTIPLE VITAMIN 10 ML, MAGNESIUM SULF SDV 50% 8 MEQ, THIAMINE INJ 100... INJ SCH ×5 (13:59)
[2023-03-21] MEDS: SODIUM CHLOR 0.9% PF (SALINE LOCK) 10ML VIAL/SYR IV SCH ×2 (14:09→22:06)
[2023-03-21] MEDS: traMADol HCL 50 MG TAB PO PRN ×2 (14:38→19:00)
[2023-03-21 17:49] VITALS: PULSE 82
[2023-03-21 20:00] VITALS: BP 118/68; PULSE 62; PULSE 68; RESP 18; TEMP 98.6; O2SAT 93
[2023-03-21] MEDS ORDERED: LORazepam 2MG/ML-1ML VIAL ONE (20:09)
[2023-03-21 22:00] VITALS: BP 118/68; PULSE 62; RESP 18; TEMP 98.6; O2SAT 93
[2023-03-22] MEDS ORDERED: LORazepam 2MG/ML-1ML VIAL ONE (01:01)
[2023-03-22] MEDS: LORazepam 2MG/ML-1ML VIAL IV PRN ×2 (01:09→09:07)
[2023-03-22] MEDS: OCTREOTIDE ACETATE 500 MCG in SODIUM CHL 0.9% 99 ML IV SCH ×2 (01:45→09:08)
[2023-03-22] MEDS: traMADol HCL 50 MG TAB PO PRN ×3 (04:56→15:08)
[2023-03-22 05:00] VITALS: BP 148/84; PULSE 64; RESP 18; TEMP 98.7; O2SAT 98
[2023-03-22] MEDS: SODIUM CHLOR 0.9% PF (SALINE LOCK) 10ML VIAL/SYR IV SCH ×2 (06:03→14:00)
[2023-03-22 06:27] LABS: Hematocrit 29.5 % (41.0-53.0); Hemoglobin 9.6 g/dL (13.5-17.5); Mean Corpuscular Volume 90.6 fL (80.0-100.0); Red Blood Cells 3.26 10^6/uL (4.5-5.90)
[2023-03-22 06:29] LABS: Mean Corpuscular Hemoglobin 29.4 pg (28.0-32.0); Mean Corpuscular Hgb Conc. 32.5 g/dL (32.0-36.0); Red Cell Distribution Width 18.8 % (11.8-14.3)
[2023-03-22 06:52] LABS: Alanine Aminotransferase 49 U/L (7-40); Albumin 3.3 g/dL (3.2-4.8); Alkaline Phosphatase 123 U/L (46-116); Anion Gap 5.2 (5-15); Aspartate Aminotransferase 100 U/L (13-40); BUN/Creatinine Ratio 8.4 (10.0-20.0); Bilirubin, Total 3.7 mg/dL (0.2-1.0); Blood Urea Nitrogen 7 mg/dL (9-23); Calcium 8.4 mg/dL (8.7-10.4); Carbon Dioxide 24.8 mmol/L (20-30); Chloride 109 mmol/L (98-107); Glucose 88 mg/dL (74-106); Potassium 4.2 mmol/L (3.5-5.1); Sodium 139 mmol/L (136-145)
[2023-03-22 06:53] LABS: Total Protein 5.4 g/dL (5.7-8.2)
[2023-03-22 07:33] LABS: White Blood Cell 1.6 10^3/uL (4.4-10.8)
[2023-03-22 07:35] LABS: Band Neutrophils % (manual) 0; Blast Cells 0; Metamyelocytes % 0; Myelocytes % 0; Promyelocytes % 0; Reactive Lymphocytes 0
[2023-03-22 08:00] VITALS: BP_SYST 118; BP_SYST 136; BP_DIAS 68; BP_DIAS 84; PULSE 62; PULSE 68; RESP 18; TEMP 98.3; TEMP 98.6; O2SAT 93; O2SAT 96
[2023-03-22] MEDS: FOLIC ACID 1 MG TAB PO SCH (09:06)
[2023-03-22] MEDS: THIAMINE HCL 100 MG TAB PO SCH (09:06)
[2023-03-22] MEDS: cefTRIAXone 1GM/50ML D5W 50 ML IV SCH (09:07)
[2023-03-22] MEDS: LACTULOSE 20Gm/30ML SOLN PO SCH (09:07)
[2023-03-22] MEDS: PANTOPRAZOLE 40 MG/10 ML VIAL INJ IV SCH (09:13)
[2023-03-22 09:51] LABS: INR 2.48 (0.9-1.15); Partial Thromboplastin Time 34.7 SEC (24.5-34.5); Prothrombin Time 24.5 sec (9.3-11.8)
[2023-03-22 10:52] LABS: Urine Bacteria NONE SEEN /hpf (None Seen); Urine Blood Negative /uL (Negative); Urine Clarity Clear (Clear); Urine Color Yellow (Yellow); Urine Hyaline Cast FEW /lpf (0 - 2); Urine Protein, UAD Negative (Negative); Urine Specific Gravity 1.021 (1.001-1.035); Urine WBC 12 /hpf (0 - 3)
[2023-03-22 13:00] VITALS: BP 137/75; PULSE 75; RESP 20; TEMP 98.6; O2SAT 92
[2023-03-22] MEDS: SODIUM CHLORIDE 0.9% 1,000 ML IV SCH (13:10)
[2023-03-22 13:49] LABS: Basophils % (manual) 1 (0.0-2.0); Eosinophils % (manual) 2 (0-7); Lymphocytes % (manual) 32 (10.0-50.0); Monocytes % (manual) 7 (0-12)
[2023-03-22 13:57] LABS: Platelet Estimate 110
[2023-03-22] MEDS: FOLIC ACID 1 MG, MULTIPLE VITAMIN 10 ML, MAGNESIUM SULF SDV 50% 8 MEQ, THIAMINE INJ 100... INJ SCH ×5 (15:12)
[2023-03-22] MEDS ORDERED: FLUoxetine HCL 20 MG CAP PO ONE (17:45)
[2023-03-22] MEDS ORDERED: QUEtiapine FUMARATE 25 MG TAB PO SCH (22:00)
[2023-03-23] MEDS ORDERED: SPIRONOLACTONE 25 MG TAB PO SCH (10:00)
[2023-03-23] MEDS ORDERED: FLUoxetine HCL 20 MG CAP PO SCH ×2 (10:00)
== END 2023-03-22 18:40 | disposition left against medical advice (07) ==
LOC: ER 21:03 → TELE 03-21 06:20 → TELE-WESTW 03-21 17:20
PROVIDERS: ADMIT Nurse Practitioner Family; ATTEND Nurse Practitioner Family
DX: K74.60 Unspecified cirrhosis of liver (principal); D61.818 Other pancytopenia; I85.11 Secondary esophageal varices with bleeding; E72.20 Disorder of urea cycle metabolism, unspecified; D69.6 Thrombocytopenia, unspecified; K76.82 Hepatic encephalopathy; K52.9 Noninfective gastroenteritis and colitis, unspecified; F10.129 Alcohol abuse with intoxication, unspecified; F41.9 Anxiety disorder, unspecified; R56.9 Unspecified convulsions; Z53.29 Procedure and treatment not carried out because of patient's decision for other reasons; F17.210 Nicotine dependence, cigarettes, uncomplicated; K80.20 Calculus of gallbladder without cholecystitis without obstruction; F10.10 Alcohol abuse, uncomplicated; Y90.8 Blood alcohol level of 240 mg/100 ml or more; I10 Essential (primary) hypertension; Z82.49 Family history of ischemic heart disease and other diseases of the circulatory system; Z83.3 Family history of diabetes mellitus; Z98.84 Bariatric surgery status; Z86.73 Personal history of transient ischemic attack (TIA), and cerebral infarction without residual deficits; Z88.8 Allergy status to other drugs, medicaments and biological substances; Z90.49 Acquired absence of other specified parts of digestive tract
CPT/HCPCS: 36415; 71260; 74177; 80053; 80320; 81001; 82140; 82248; 82306; 82607; 82962; 83690; 83735; 84443; 85007; 85025; 85027; 85045; 85379; 85610; 85730; 86850; 86870; 86880; 86900; 86901; 87086; 96374; 96375; C9113; G0378; J0696; J2250; J2405; J7060

== ENCOUNTER 2023-06-16 19:32 | Emergency (ER) | payer MEDICAID ==
[~2023-06-16] VITALS: Ht 180.3 cm; Wt 100.0 kg
[~2023-06-16 19:32] MED LIST changes: +HYDR-4902 PO; -IBUP-1454 PO
[2023-06-16 22:24] VITALS: PULSE 89; RESP 20; O2SAT 99
[2023-06-16 22:25] VITALS: BP 125/79; PULSE 89; RESP 20; TEMP 98; O2SAT 99
== END 2023-06-16 22:48 | disposition home or self-care (01) ==
LOC: ER 19:32 → EDBD 19:32 → ER 22:48
DX: S80.11XA Contusion of right lower leg, initial encounter (principal); F10.129 Alcohol abuse with intoxication, unspecified; I10 Essential (primary) hypertension; F41.9 Anxiety disorder, unspecified; F17.210 Nicotine dependence, cigarettes, uncomplicated; F15.90 Other stimulant use, unspecified, uncomplicated; Z88.8 Allergy status to other drugs, medicaments and biological substances; Z79.899 Other long term (current) drug therapy; X58.XXXA Exposure to other specified factors, initial encounter; Y93.89 Activity, other specified; Y92.89 Other specified places as the place of occurrence of the external cause; Y99.8 Other external cause status; Y90.0 Blood alcohol level of less than 20 mg/100 ml
CPT/HCPCS: 73590

== ENCOUNTER 2023-08-23 21:52 | Emergency (ER) | payer MEDICAID ==
[~2023-08-23] VITALS: Ht 180.3 cm; Wt 100.7 kg
[2023-08-23 22:07] VITALS: BP 141/75; PULSE 65; RESP 17; O2SAT 98
== END 2023-08-24 03:17 | disposition left against medical advice (07) ==
LOC: ER 21:52
DX: M25.532 Pain in left wrist (principal); Z53.21 Procedure and treatment not carried out due to patient leaving prior to being seen by health care provider
CPT/HCPCS: 73110

== ENCOUNTER 2023-09-10 18:27 | Emergency (ER) | payer MEDICAID ==
[~2023-09-10] VITALS: Ht 180.3 cm; Wt 100.0 kg
[2023-09-10 21:27] VITALS: TEMP 98.5
[2023-09-10 21:48] LABS: Basophils # (auto) 0 10 ^3/uL (0-0.2); Eosinophils # (auto) 0 10 ^3/uL (0-0.8); Hemoglobin 8.7 g/dL (13.5-17.5); Lymphocytes # (auto) 0.7 10 ^3/uL (0.4-5.4); Monocytes # (auto) 0.2 10 ^3/uL (0-1.3); Neutrophils # (auto) 1.7 10 ^3/uL (1.6-8.6)
[2023-09-10 21:50] LABS: Basophils % (auto) 0.4 % (0.0-2.0); Eosinophils % (auto) 0.7 % (0.0-7.0); Hematocrit 27.7 % (41.0-53.0); Lymphocytes % (auto) 26.9 % (10.0-50.0); Mean Corpuscular Hemoglobin 27.5 pg (28.0-32.0); Mean Corpuscular Hgb Conc. 31.4 g/dL (32.0-36.0); Mean Corpuscular Volume 87.4 fL (80.0-100.0); Monocytes % (auto) 8.9 % (0.0-12.0); Neutrophils % (auto) 63.1 % (37.0-80.0); Red Blood Cells 3.17 10^6/uL (4.5-5.90); White Blood Cell 2.6 10^3/uL (4.4-10.8)
[2023-09-10 21:56] LABS: Red Cell Distribution Width 25.5 % (11.8-14.3)
[2023-09-10 22:04] LABS: Alanine Aminotransferase 83 U/L (7-40); Albumin 3.3 g/dL (3.2-4.8); Alkaline Phosphatase 188 U/L (46-116); Anion Gap 10 (5-15); Aspartate Aminotransferase 211 U/L (13-40); BUN/Creatinine Ratio 12.3 (10.0-20.0); Bilirubin, Total 5.6 mg/dL (0.2-1.0); Blood Urea Nitrogen 9 mg/dL (9-23); Calcium 7.9 mg/dL (8.7-10.4); Carbon Dioxide 22 mmol/L (20-30); Chloride 113 mmol/L (98-107); Glucose 99 mg/dL (74-106); Lipase 43 U/L (12-53); Potassium 3.8 mmol/L (3.5-5.1); Sodium 145 mmol/L (136-145)
[2023-09-10 22:14] LABS: Platelet Estimate Decreased
[2023-09-10 22:15] LABS: Anisocytosis Slight
[2023-09-10 22:32] LABS: INR 2.99 (0.9-1.15); Prothrombin Time 29.3 sec (9.3-11.8)
[2023-09-10 22:34] LABS: Blood Alcohol 298.5 mg/dL (<10)
[2023-09-10 23:04] VITALS: BP 139/76; PULSE 74; RESP 12; O2SAT 99
== END 2023-09-10 23:11 | disposition home or self-care (01) ==
LOC: ER 18:27
DX: K70.10 Alcoholic hepatitis without ascites (principal); D68.9 Coagulation defect, unspecified; D69.6 Thrombocytopenia, unspecified; R41.82 Altered mental status, unspecified; I10 Essential (primary) hypertension; F17.210 Nicotine dependence, cigarettes, uncomplicated; F12.10 Cannabis abuse, uncomplicated; Z86.73 Personal history of transient ischemic attack (TIA), and cerebral infarction without residual deficits; Z88.6 Allergy status to analgesic agent
CPT/HCPCS: 36415; 70450; 80053; 80320; 82140; 83690; 85025; 85610; 93005

== ENCOUNTER 2024-01-15 23:22 | Emergency (ER) | payer MEDICAID | END 2024-01-15 23:53 | disposition left against medical advice (07) | LOC: ER 23:22 → EDBD 23:22 → ER 23:53 | DX: R06.02 Shortness of breath (principal); Z53.21 Procedure and treatment not carried out due to patient leaving prior to being seen by health care provider ==

== ENCOUNTER 2024-01-17 16:16 | Inpatient (IN) | payer MEDICAID ==
[~2024-01-17] VITALS: Ht 180.3 cm; Wt 95.3 kg
[2024-01-17] MEDS: levETIRAcetam 1000 mg/100ml 100 ML IV ONE (17:37)
[2024-01-17] MEDS: LORazepam 2MG/ML-1ML VIAL IV ONE (17:38)
[2024-01-17] MEDS: LORazepam 2MG/ML-1ML VIAL ONE (17:38)
[2024-01-17 18:05] LABS: Basophils # (auto) 0 10 ^3/uL (0-0.2); Basophils % (auto) 0.8 % (0.0-2.0); Eosinophils # (auto) 0 10 ^3/uL (0-0.8); Lymphocytes # (auto) 0.8 10 ^3/uL (0.4-5.4); Neutrophils # (auto) 0.7 10 ^3/uL (1.6-8.6)
[2024-01-17 18:08] LABS: Eosinophils % (auto) 0.4 % (0.0-7.0); Hematocrit 24.1 % (41.0-53.0); Lymphocytes % (auto) 44.2 % (10.0-50.0); Mean Corpuscular Hgb Conc. 33.1 g/dL (32.0-36.0); Mean Corpuscular Volume 96.6 fL (80.0-100.0); Monocytes # (auto) 0.3 10 ^3/uL (0-1.3); Monocytes % (auto) 17.9 % (0.0-12.0); Neutrophils % (auto) 36.7 % (37.0-80.0); Nucleated Red Blood Cells % 0.2 %; Red Blood Cells 2.49 10^6/uL (4.5-5.90)
[2024-01-17 18:12] LABS: Red Cell Distribution Width 23.3 % (11.8-14.3); White Blood Cell 1.9 10^3/uL (4.4-10.8)
[2024-01-17 18:19] VITALS: PULSE 78; RESP 16; O2SAT 95
[2024-01-17 18:20] LABS: Alanine Aminotransferase 52 U/L (7-40); Albumin 3.3 g/dL (3.2-4.8); Alkaline Phosphatase 151 U/L (46-116); Anion Gap 8 (5-15); Aspartate Aminotransferase 139 U/L (13-40); BUN/Creatinine Ratio 10.5 (10.0-20.0); Blood Urea Nitrogen 9 mg/dL (9-23); Calcium 8.7 mg/dL (8.5-10.1); Carbon Dioxide 23 mmol/L (20-30); Chloride 117 mmol/L (98-107); Glucose 91 mg/dL (74-106); Potassium 3.7 mmol/L (3.5-5.1); Sodium 148 mmol/L (136-145)
[2024-01-17 18:21] LABS: Bilirubin, Total 4.3 mg/dL (0.2-1.0); Total Protein 5.8 g/dL (5.7-8.2)
[2024-01-17 18:28] LABS: Blood Alcohol 294.8 mg/dL (<10)
[2024-01-17 19:20] VITALS: PULSE 71; RESP 16; O2SAT 95
[2024-01-17] MEDS ORDERED: ACETAMINOPHEN 325 MG TAB PO PRN (22:15)
[2024-01-17] MEDS ORDERED: DOCUSATE SOD 100 MG CAP PO PRN (22:15)
[2024-01-18] MEDS ORDERED: NITROGLYCERIN 0.4 MG SL TAB SL PRN
[2024-01-18] MEDS: LACTULOSE 20Gm/30ML SOLN PO SCH (00:21)
[2024-01-18 01:36] LABS: Amphetamine Screen, Urine Neg (NEGATIVE); Barbiturate Scree,Urine Neg (NEGATIVE); Benzodiazephine Screen, Urine Pos (NEGATIVE); Cannabinoid Screen, Urine Pos (NEGATIVE); Cocaine Screen, Urine Neg (NEGATIVE); Opiate Scree,Urine Neg (NEGATIVE); Phencyclidine Screen, Urine Neg (NEGATIVE)
[2024-01-18] MEDS: HYDROcodone-ACET 5/325MG TAB PO PRN (02:07)
[2024-01-18] MEDS: SODIUM CHLOR 0.9% PF (SALINE LOCK) 10ML VIAL/SYR IV SCH (06:02)
[2024-01-18 06:14] LABS: Hematocrit 24.4 % (41.0-53.0); Mean Corpuscular Hemoglobin 32.2 pg (28.0-32.0); Mean Corpuscular Hgb Conc. 32.9 g/dL (32.0-36.0); Mean Corpuscular Volume 97.9 fL (80.0-100.0); Red Blood Cells 2.49 10^6/uL (4.5-5.90)
[2024-01-18 06:32] LABS: Red Cell Distribution Width 22.7 % (11.8-14.3); White Blood Cell 1.2 10^3/uL (4.4-10.8)
[2024-01-18 06:33] LABS: Band Neutrophils % (manual) 0; Basophils % (manual) 0 (0.0-2.0); Blast Cells 0; Metamyelocytes % 0; Myelocytes % 0; Promyelocytes % 0
[2024-01-18 06:36] LABS: Alanine Aminotransferase 45 U/L (7-40); Alkaline Phosphatase 125 U/L (46-116); Anion Gap 6 (5-15); Aspartate Aminotransferase 106 U/L (13-40); BUN/Creatinine Ratio 12.2 (10.0-20.0); Bilirubin, Total 4.3 mg/dL (0.2-1.0); Blood Urea Nitrogen 9 mg/dL (9-23); Calcium 8.4 mg/dL (8.7-10.4); Carbon Dioxide 23 mmol/L (20-30); Chloride 115 mmol/L (98-107); Glucose 147 mg/dL (74-106); Potassium 3.7 mmol/L (3.5-5.1); Sodium 144 mmol/L (136-145); Total Protein 5.5 g/dL (5.7-8.2)
[2024-01-18 07:35] VITALS: PULSE 71; RESP 19; O2SAT 98
[2024-01-18 07:38] LABS: Eosinophils % (manual) 2 (0-7); Lymphocytes % (manual) 52 (10.0-50.0); Monocytes % (manual) 17 (0-12); Reactive Lymphocytes 2
[2024-01-18 07:39] LABS: Anisocytosis Moderate; Platelet Estimate Markedly Decreased; Tear Drop Cells FEW
[2024-01-18] MEDS: FOLIC ACID 1 MG TAB PO SCH (10:00)
[2024-01-18] MEDS: levETIRAcetam 1000 mg/100ml 100 ML IV SCH (10:00)
[2024-01-18] MEDS: SPIRONOLACTONE 25 MG TAB PO SCH (11:02)
[2024-01-18] MEDS: THIAMINE HCL 100 MG TAB PO SCH (11:02)
[2024-01-18] MEDS: MULTIPLE VITAMIN TAB PO SCH (11:02)
[2024-01-18] MEDS: MORPHINE SULFATE INJ 2 MG/ml SYRG IV PRN (11:03)
[2024-01-18] MEDS: NICOTINE 14 MG/24HR TOPICAL PATCH TD ONE (15:00)
[2024-01-18] MEDS: PROPRANOLOL HCL 20 MG TAB PO ONE (15:00)
[2024-01-18] MEDS: LIDOCAINE 5% TOPICAL PATCH TOP ONE (16:04)
[2024-01-18] MEDS: ONDANSETRON HCL 4 MG/2 ML VIAL IV PRN (16:05)
[2024-01-18 19:20] VITALS: PULSE 63; RESP 14; O2SAT 98
[2024-01-18] MEDS: PROPRANOLOL HCL 20 MG TAB PO SCH (22:00)
[2024-01-18 22:54] VITALS: BP 153/79; PULSE 52; RESP 18; TEMP 98.4; O2SAT 95
[2024-01-19] VITALS (10 sets, daily range): BP systolic 123–153; BP diastolic 68–81; PULSE 50–77; RESP 16–18; TEMP 97.5–99.1; O2SAT 9–100
[2024-01-19] MEDS: LORazepam 2MG/ML-1ML VIAL IV PRN (00:04)
[2024-01-19] MEDS: MORPHINE SULFATE INJ 2 MG/ml SYRG IV ONE (03:14)
[2024-01-19 06:05] LABS: Hematocrit 23.7 % (41.0-53.0)
[2024-01-19 06:08] LABS: Hemoglobin 7.9 g/dL (13.5-17.5); Mean Corpuscular Hemoglobin 32.4 pg (28.0-32.0); Mean Corpuscular Hgb Conc. 33.3 g/dL (32.0-36.0); Mean Corpuscular Volume 97.5 fL (80.0-100.0); Red Blood Cells 2.43 10^6/uL (4.5-5.90)
[2024-01-19 06:20] LABS: Alanine Aminotransferase 39 U/L (7-40); Alkaline Phosphatase 118 U/L (46-116); Anion Gap 2 (5-15); BUN/Creatinine Ratio 13.4 (10.0-20.0); Blood Urea Nitrogen 9 mg/dL (9-23); Calcium 8.6 mg/dL (8.7-10.4); Carbon Dioxide 25 mmol/L (20-30); Chloride 109 mmol/L (98-107); Glucose 87 mg/dL (74-106); Potassium 4.2 mmol/L (3.5-5.1); Sodium 136 mmol/L (136-145)
[2024-01-19 06:21] LABS: Albumin 2.9 g/dL (3.2-4.8); Aspartate Aminotransferase 79 U/L (13-40)
[2024-01-19 06:22] LABS: Bilirubin, Total 6.5 mg/dL (0.2-1.0); INR 2.82 (0.9-1.15); Partial Thromboplastin Time 38.7 SEC (24.5-34.5); Prothrombin Time 27.7 sec (9.3-11.8); Total Protein 5.3 g/dL (5.7-8.2)
[2024-01-19 06:35] LABS: Red Cell Distribution Width 21.3 % (11.8-14.3)
[2024-01-19 06:37] LABS: White Blood Cell 1.2 10^3/uL (4.4-10.8)
[2024-01-19 06:38] LABS: Basophils % (manual) 0 (0.0-2.0); Blast Cells 0; Myelocytes % 0; Promyelocytes % 0; Reactive Lymphocytes 0
[2024-01-19 08:02] LABS: Anisocytosis Slight; Band Neutrophils % (manual) 7; Eosinophils % (manual) 1 (0-7); Lymphocytes % (manual) 51 (10.0-50.0); Metamyelocytes % 1; Monocytes % (manual) 5 (0-12); Platelet Estimate Markedly Decreased
[2024-01-19] MEDS: LIDOCAINE 5% TOPICAL PATCH TOP SCH (08:18)
[2024-01-19] MEDS: NICOTINE 14 MG/24HR TOPICAL PATCH TD SCH (08:19)
[2024-01-19] MEDS: traMADol HCL 50 MG TAB PO PRN (08:20)
[2024-01-19] MEDS: FUROSEMIDE 20 MG TAB PO SCH (08:22)
[2024-01-19] MEDS: SPIRONOLACTONE 25 MG TAB PO SCH (08:22)
[2024-01-19 09:27] LABS: Urine Bacteria None Seen /hpf (None Seen)
[2024-01-19] MEDS: PHYTONADIONE (VIT K)10 MG/ML 1ML VIAL SUBCUT ONE (09:30)
[2024-01-19 09:36] LABS: Urine Blood Negative /uL (Negative); Urine Clarity Clear (Clear); Urine Color Yellow (Yellow); Urine Mucus FEW (None Seen); Urine Protein, UAD Negative (Negative); Urine Specific Gravity 1.016 (1.001-1.035); Urine Urobilinogen Normal (Negative); Urine WBC <1 /hpf (0 - 3); Urine pH 7.5 (5.0-9.0)
[2024-01-19] MEDS: MORPHINE SULFATE INJ 2 MG/ml SYRG IV PRN (10:27)
[2024-01-19] MEDS: levETIRAcetam 500 MG TAB PO SCH (10:27)
[2024-01-20 04:44] VITALS: BP 106/50; PULSE 60; RESP 18; TEMP 97; O2SAT 96
[2024-01-20 07:30] VITALS: PULSE 60
[2024-01-20 08:42] VITALS: BP 113/67; PULSE 72; RESP 16; TEMP 97.8; O2SAT 94
[2024-01-20 09:18] VITALS: RESP 18
[2024-01-20] MEDS ORDERED: LIDO5DIS21 TOP (11:32)
[2024-01-20] MEDS ORDERED: LACT10SO3 PO (11:32)
[2024-01-20] MEDS ORDERED: KEP500T PO (11:32)
[2024-01-20 12:05] VITALS: BP 113/67; PULSE 72; TEMP 36.6
== END 2024-01-20 12:28 | disposition home or self-care (01) | DRG 53 ==
LOC: EDUNIT# 16:16 → ER 16:16 → EDBD 16:16 → TELE 23:50 → TELE-EAST 01-18 22:37
PROVIDERS: ADMIT Nurse Practitioner Family; ATTEND Internal Medicine
DX: G40.409 Other generalized epilepsy and epileptic syndromes, not intractable, without status epilepticus (principal); D61.818 Other pancytopenia; K76.82 Hepatic encephalopathy; D68.9 Coagulation defect, unspecified; K70.30 Alcoholic cirrhosis of liver without ascites; F17.210 Nicotine dependence, cigarettes, uncomplicated; I10 Essential (primary) hypertension; H57.02 Anisocoria; F10.229 Alcohol dependence with intoxication, unspecified; D73.1 Hypersplenism; F32.A Depression, unspecified; Z98.84 Bariatric surgery status; Z86.73 Personal history of transient ischemic attack (TIA), and cerebral infarction without residual deficits; Z79.899 Other long term (current) drug therapy; Z83.3 Family history of diabetes mellitus; Z82.49 Family history of ischemic heart disease and other diseases of the circulatory system; Z80.0 Family history of malignant neoplasm of digestive organs; Y90.8 Blood alcohol level of 240 mg/100 ml or more
CPT/HCPCS: 36415; 70450; 71045; 80053; 80307; 80320; 81001; 82140; 85007; 85025; 85027; 85610; 85730; 86850; 86870; 86900; 86901; 87081; 96365; 96375; G0378; J2405; J3430

== ENCOUNTER 2024-01-27 20:36 | Inpatient (IN) | payer MEDICAID ==
[~2024-01-27] VITALS: Ht 180.3 cm; Wt 90.9 kg
[~2024-01-27 20:36] MED LIST changes: +KEP500T PO; +LACT10SO3 PO; +LIDO5DIS21 TOP
[2024-01-27] MEDS: SODIUM CHLORIDE 0.9% 1,000 ML IV ONE (22:29)
[2024-01-27 22:30] LABS: Basophils # (auto) 0 10 ^3/uL (0-0.2); Eosinophils # (auto) 0 10 ^3/uL (0-0.8); Hematocrit 23.5 % (41.0-53.0); Hemoglobin 7.6 g/dL (13.5-17.5); Monocytes # (auto) 0.3 10 ^3/uL (0-1.3); Neutrophils # (auto) 0.6 10 ^3/uL (1.6-8.6); Nucleated Red Blood Cells % 0.1 %
[2024-01-27 22:31] LABS: Basophils % (auto) 1.2 % (0.0-2.0); Eosinophils % (auto) 1.3 % (0.0-7.0); Lymphocytes # (auto) 0.8 10 ^3/uL (0.4-5.4); Lymphocytes % (auto) 46.6 % (10.0-50.0); Mean Corpuscular Hemoglobin 32.2 pg (28.0-32.0); Mean Corpuscular Hgb Conc. 32.2 g/dL (32.0-36.0); Mean Corpuscular Volume 100.1 fL (80.0-100.0); Monocytes % (auto) 17.4 % (0.0-12.0); Neutrophils % (auto) 33.5 % (37.0-80.0); Red Blood Cells 2.35 10^6/uL (4.5-5.90)
[2024-01-27 22:42] LABS: Red Cell Distribution Width 21.9 % (11.8-14.3); White Blood Cell 1.8 10^3/uL (4.4-10.8)
[2024-01-27 22:48] LABS: Alanine Aminotransferase 53 U/L (7-40); Alkaline Phosphatase 164 U/L (46-116); Anion Gap 6 (5-15); Aspartate Aminotransferase 113 U/L (13-40); BUN/Creatinine Ratio 15.2 (10.0-20.0); Bilirubin, Total 3.4 mg/dL (0.2-1.0); Blood Urea Nitrogen 10 mg/dL (9-23); Calcium 7.9 mg/dL (8.5-10.1); Carbon Dioxide 21 mmol/L (20-30); Chloride 118 mmol/L (98-107); Glucose 94 mg/dL (74-106); Potassium 3.7 mmol/L (3.5-5.1); Sodium 145 mmol/L (136-145); Total Protein 5.2 g/dL (5.7-8.2)
[2024-01-27 22:56] LABS: Blood Alcohol 312.6 mg/dL (<10)
[2024-01-27 23:00] VITALS: PULSE 86; RESP 20; O2SAT 96
[2024-01-27 23:28] LABS: Anisocytosis Slight; Platelet Estimate Decreased
[2024-01-28] MEDS: KETOROLAC TROMETH 30 MG/ML 1ML VIAL IV ONE (00:26)
[2024-01-28 00:48] LABS: Urine Bacteria None Seen /hpf (None Seen)
[2024-01-28 01:02] LABS: Urine Blood Negative /uL (Negative); Urine Clarity Clear (Clear); Urine Color Dark-Yellow (Yellow); Urine Mucus FEW (None Seen); Urine Protein, UAD 1+ (Negative); Urine Specific Gravity 1.041 (1.001-1.035); Urine Urobilinogen 12 mg/dL (Negative); Urine WBC 1 /hpf (0 - 3)
[2024-01-28 01:56] LABS: Amphetamine Screen, Urine Neg (NEGATIVE); Barbiturate Scree,Urine Neg (NEGATIVE); Benzodiazephine Screen, Urine Pos (NEGATIVE); Cocaine Screen, Urine Neg (NEGATIVE); Opiate Scree,Urine Neg (NEGATIVE)
[2024-01-28 01:57] LABS: Cannabinoid Screen, Urine Pos (NEGATIVE); Phencyclidine Screen, Urine Neg (NEGATIVE)
[2024-01-28] MEDS ORDERED: CHL10C PO (02:23)
[2024-01-28] MEDS ORDERED: SPIR100T4 PO (02:23)
[2024-01-28] MEDS ORDERED: LEVE500T40 PO (02:23)
[2024-01-28] MEDS ORDERED: PERCOT PO (02:23)
[2024-01-28] MEDS ORDERED: ZOFR4T PO (02:23)
[2024-01-28] MEDS ORDERED: LACT10SO3 PO (02:23)
[2024-01-28] MEDS ORDERED: chlordiazePOXIDE HCL 25 MG CAP PO PRN (02:45)
[2024-01-28] MEDS ORDERED: ONDANSETRON HCL 4 MG/2 ML VIAL IV PRN (02:45)
[2024-01-28] MEDS ORDERED: LORazepam 2MG/ML-1ML VIAL IV PRN (03:00)
[2024-01-28] MEDS: HYDROcodone-ACET 5/325MG TAB PO ONE (03:41)
[2024-01-28 09:00] VITALS: BP 92/58; PULSE 75; RESP 17; TEMP 97.8; O2SAT 100
[2024-01-28] MEDS: FUROSEMIDE 20 MG TAB PO SCH (10:00)
[2024-01-28] MEDS: SPIRONOLACTONE 25 MG TAB PO SCH (10:00)
[2024-01-28] MEDS: levETIRAcetam 500 MG TAB PO SCH (10:13)
[2024-01-28] MEDS: LACTULOSE 20Gm/30ML SOLN PO SCH (10:13)
[2024-01-28] MEDS ORDERED: FOLIC ACID 1 MG, MAGNESIUM SULF SDV 50% 8 MEQ, MULTIPLE VITAMIN 10 ML, THIAMINE INJ 100... INJ SCH (18:00)
== END 2024-01-28 11:35 | disposition left against medical advice (07) | DRG 53 ==
LOC: ER 20:36 → EDBD 20:36 → OVERFLOW 01-28 02:50 → CENTRAL 01-28 06:30
PROVIDERS: ADMIT Nurse Practitioner Acute Care; ATTEND Nurse Practitioner Acute Care
DX: G40.909 Epilepsy, unspecified, not intractable, without status epilepticus (principal); D61.818 Other pancytopenia; E44.1 Mild protein-calorie malnutrition; K70.30 Alcoholic cirrhosis of liver without ascites; F17.210 Nicotine dependence, cigarettes, uncomplicated; F41.9 Anxiety disorder, unspecified; I10 Essential (primary) hypertension; F10.129 Alcohol abuse with intoxication, unspecified; Y90.9 Presence of alcohol in blood, level not specified; F10.139 Alcohol abuse with withdrawal, unspecified; Z53.29 Procedure and treatment not carried out because of patient's decision for other reasons; Z86.73 Personal history of transient ischemic attack (TIA), and cerebral infarction without residual deficits; Z79.891 Long term (current) use of opiate analgesic; Z79.899 Other long term (current) drug therapy; Z88.6 Allergy status to analgesic agent; Z88.8 Allergy status to other drugs, medicaments and biological substances; Z68.28 Body mass index [BMI] 28.0-28.9, adult
CPT/HCPCS: 36415; 70450; 80053; 80307; 80320; 81001; 82140; 84484; 85025; 87081; 93005; G0378; J1885

== ENCOUNTER 2024-01-28 18:02 | Inpatient (IN) | payer MEDICAID ==
[~2024-01-28] VITALS: Ht 180.3 cm; Wt 95.7 kg
[~2024-01-28 18:02] MED LIST changes: +OXY5T PO
[2024-01-28 18:28] VITALS: RESP 18; O2SAT 96
[2024-01-28] MEDS: SODIUM CHLORIDE 0.9% 1,000 ML IV ONE (18:39)
[2024-01-28 19:21] LABS: Hematocrit 25.4 % (41.0-53.0); Hemoglobin 8.1 g/dL (13.5-17.5); Mean Corpuscular Hemoglobin 32.6 pg (28.0-32.0); Red Blood Cells 2.49 10^6/uL (4.5-5.90)
[2024-01-28 19:23] LABS: Mean Corpuscular Hgb Conc. 31.9 g/dL (32.0-36.0); Mean Corpuscular Volume 102.1 fL (80.0-100.0)
[2024-01-28 19:31] LABS: Red Cell Distribution Width 21.4 % (11.8-14.3); White Blood Cell 1.6 10^3/uL (4.4-10.8)
[2024-01-28 19:33] LABS: Band Neutrophils % (manual) 0; Basophils % (manual) 0 (0.0-2.0); Blast Cells 0; Eosinophils % (manual) 0 (0-7); Metamyelocytes % 0; Myelocytes % 0; Promyelocytes % 0; Reactive Lymphocytes 0
[2024-01-28 19:37] LABS: Alanine Aminotransferase 57 U/L (7-40); Albumin 3.3 g/dL (3.2-4.8); Alkaline Phosphatase 167 U/L (46-116); Aspartate Aminotransferase 102 U/L (13-40); Chloride 115 mmol/L (98-107); Potassium 3.5 mmol/L (3.5-5.1); Sodium 143 mmol/L (136-145)
[2024-01-28 19:39] LABS: Anion Gap 11 (5-15); Calcium 8.2 mg/dL (8.5-10.1); Carbon Dioxide 17 mmol/L (20-30)
[2024-01-28 19:44] LABS: BUN/Creatinine Ratio 18.8 (10.0-20.0); Blood Alcohol 186.3 mg/dL (<10); Blood Urea Nitrogen 16 mg/dL (9-23); Glucose 173 mg/dL (74-106); Magnesium 1.8 mg/dL (1.6-2.6)
[2024-01-28 19:46] LABS: Bilirubin, Total 4.7 mg/dL (0.2-1.0); Creatine Kinase IFCC 204 U/L (46-171); Total Protein 5.5 g/dL (5.7-8.2)
[2024-01-28 19:52] LABS: Lactic Acid w/Reflex 4.6 mmol/L (0.4-2.0)
[2024-01-28] MEDS: HYDROcodone-ACET 5/325MG TAB PO ONE (19:55)
[2024-01-28 20:00] VITALS: PULSE 80; RESP 18; O2SAT 96
[2024-01-28] MEDS: levETIRAcetam 1000 mg/100ml 100 ML IV ONE (20:00)
[2024-01-28 20:05] LABS: Lipase 67 U/L (12-53)
[2024-01-28 20:24] LABS: Lymphocytes % (manual) 30 (10.0-50.0); Monocytes % (manual) 7 (0-12)
[2024-01-28 20:25] LABS: Anisocytosis Slight; Macrocytosis Slight; Platelet Estimate Decreased
[2024-01-28] MEDS: PIPERACILLIN-TAZOB 3.375GM 100 ML IV ONE (20:47)
[2024-01-28] MEDS: THIAMINE HCL 100 MG TAB PO ONE (22:23)
[2024-01-28] MEDS ORDERED: DOCUSATE SOD 100 MG CAP PO PRN (22:30)
[2024-01-28] MEDS ORDERED: ACETAMINOPHEN 325 MG TAB PO PRN (22:30)
[2024-01-29] MEDS ORDERED: MORPHINE SULFATE INJ 2 MG/ml SYRG IV PRN
[2024-01-29] MEDS ORDERED: NITROGLYCERIN 0.4 MG SL TAB SL PRN
[2024-01-29] MEDS: HYDROcodone-ACET 5/325MG TAB PO PRN (01:30)
[2024-01-29 02:50] LABS: Urine Bacteria None Seen /hpf (None Seen)
[2024-01-29 03:07] LABS: Amphetamine Screen, Urine Neg (NEGATIVE); Barbiturate Scree,Urine Neg (NEGATIVE); Benzodiazephine Screen, Urine Pos (NEGATIVE); Cannabinoid Screen, Urine Pos (NEGATIVE); Cocaine Screen, Urine Neg (NEGATIVE); Opiate Scree,Urine Pos (NEGATIVE); Phencyclidine Screen, Urine Neg (NEGATIVE)
[2024-01-29 03:33] LABS: Urine Blood Negative /uL (Negative); Urine Clarity Ex.Turbid (Clear); Urine Color Dark-Yellow (Yellow); Urine Mucus FEW (None Seen); Urine Protein, UAD 1+ (Negative); Urine Specific Gravity 1.035 (1.001-1.035); Urine Urobilinogen 4 mg/dL (Negative); Urine WBC 22 /hpf (0 - 3)
[2024-01-29 04:46] LABS: Hemoglobin 7.5 g/dL (13.5-17.5); Mean Corpuscular Hgb Conc. 32.5 g/dL (32.0-36.0); Red Blood Cells 2.29 10^6/uL (4.5-5.90)
[2024-01-29 04:47] LABS: Mean Corpuscular Hemoglobin 32.7 pg (28.0-32.0); Mean Corpuscular Volume 100.5 fL (80.0-100.0)
[2024-01-29 04:52] LABS: Red Cell Distribution Width 20.9 % (11.8-14.3)
[2024-01-29 04:54] LABS: Basophils % (manual) 0 (0.0-2.0); Blast Cells 0; Metamyelocytes % 0; Myelocytes % 0; Promyelocytes % 0; Reactive Lymphocytes 0
[2024-01-29 05:03] LABS: Alanine Aminotransferase 46 U/L (7-40); Albumin 2.8 g/dL (3.2-4.8); Alkaline Phosphatase 136 U/L (46-116); Anion Gap 9 (5-15); Aspartate Aminotransferase 84 U/L (13-40); BUN/Creatinine Ratio 14.7 (10.0-20.0); Blood Urea Nitrogen 11 mg/dL (9-23); Calcium 8.1 mg/dL (8.7-10.4); Carbon Dioxide 20 mmol/L (20-30); Chloride 113 mmol/L (98-107); Glucose 129 mg/dL (74-106); Sodium 142 mmol/L (136-145)
[2024-01-29 05:04] LABS: Bilirubin, Total 4.1 mg/dL (0.2-1.0)
[2024-01-29 05:42] LABS: Band Neutrophils % (manual) 1; Eosinophils % (manual) 1 (0-7); Lymphocytes % (manual) 63 (10.0-50.0); Monocytes % (manual) 7 (0-12)
[2024-01-29 05:44] LABS: Anisocytosis Slight; Hypochromia Slight; Macrocytosis Slight; Platelet Estimate Decreased
[2024-01-29] MEDS: SODIUM CHLOR 0.9% PF (SALINE LOCK) 10ML VIAL/SYR IV SCH (06:00)
[2024-01-29] MEDS: PIPERACILLIN-TAZOB 3.375GM 100 ML IV SCH (06:49)
[2024-01-29 08:26] VITALS: PULSE 66; RESP 18; O2SAT 96
[2024-01-29 10:41] VITALS: BP 144/60; PULSE 74; RESP 18; TEMP 98.7; O2SAT 99
[2024-01-29] MEDS: THIAMINE HCL 100 MG TAB PO SCH (12:04)
[2024-01-29] MEDS: MULTIPLE VITAMIN TAB PO SCH (12:04)
[2024-01-29] MEDS: SPIRONOLACTONE 25 MG TAB PO SCH (12:04)
[2024-01-29] MEDS: FOLIC ACID 1 MG TAB PO SCH (12:04)
[2024-01-29] MEDS: FAMOTIDINE (10MG/ML) 2ML VL IV SCH (12:05)
[2024-01-29] MEDS: ONDANSETRON HCL 4 MG/2 ML VIAL IV PRN (12:06)
[2024-01-29 12:41] VITALS: BP 161/95; PULSE 66; RESP 21; TEMP 98.2; O2SAT 99
[2024-01-29] MEDS: levETIRAcetam 500 mg/100ml 100 ML IV SCH (12:46)
[2024-01-29] MEDS ORDERED: chlordiazePOXIDE HCL 5 MG CAP PO PRN (15:45)
[2024-01-29 16:41] VITALS: BP 116/59; PULSE 62; RESP 18; TEMP 98.2; O2SAT 100
[2024-01-29] MEDS: MORPHINE SULFATE INJ 2 MG/ml SYRG IV PRN (16:41)
[2024-01-29] MEDS: FOLIC ACID 1 MG, MAGNESIUM SULF SDV 50% 8 MEQ, MULTIPLE VITAMIN 10 ML, THIAMINE INJ 100... INJ SCH (17:41)
[2024-01-29 20:00] VITALS: PULSE 65; PULSE 79; RESP 16
[2024-01-29] MEDS: FUROSEMIDE 40 MG TAB PO ONE (20:28)
[2024-01-29] MEDS: OXYCODONE W/ ACETAMINOPHEN 5/325MG TABLET PO PRN (20:29)
[2024-01-29 21:00] VITALS: BP 142/75; PULSE 69; RESP 16; TEMP 99.1; O2SAT 97
[2024-01-29] MEDS: PROPRANOLOL HCL 20 MG TAB PO SCH (21:12)
[2024-01-29] MEDS: LACTULOSE 20Gm/30ML SOLN PO SCH (21:12)
[2024-01-29] MEDS: PROPRANOLOL HCL 20 MG TAB PO ONE (22:50)
[2024-01-30 01:00] VITALS: BP 110/52; PULSE 57; RESP 15; TEMP 99; O2SAT 98
[2024-01-30 05:00] VITALS: BP 129/76; PULSE 60; RESP 16; TEMP 98.2; O2SAT 97
[2024-01-30 08:00] VITALS: PULSE 55
[2024-01-30] MEDS ORDERED: THIAMINE HCL 100 MG TAB PO SCH (10:00)
[2024-01-30] MEDS ORDERED: FOLIC ACID 1 MG TAB PO SCH (10:00)
[2024-01-30] MEDS: FUROSEMIDE 40 MG TAB PO SCH (10:08)
[2024-01-30 10:14] VITALS: BP 104/59; PULSE 56; RESP 16; TEMP 98.6; O2SAT 98
[2024-01-30] MEDS: levETIRAcetam 500 MG TAB PO ONE (10:59)
[2024-01-30 11:35] LABS: Basophils # (auto) 0 10 ^3/uL (0-0.2); Eosinophils # (auto) 0 10 ^3/uL (0-0.8); Hemoglobin 7.7 g/dL (13.5-17.5); Lymphocytes # (auto) 0.4 10 ^3/uL (0.4-5.4); Monocytes # (auto) 0.2 10 ^3/uL (0-1.3); Neutrophils # (auto) 0.6 10 ^3/uL (1.6-8.6)
[2024-01-30 11:37] LABS: Basophils % (auto) 1.8 % (0.0-2.0); Eosinophils % (auto) 2.4 % (0.0-7.0); Hematocrit 23.6 % (41.0-53.0); Lymphocytes % (auto) 32.6 % (10.0-50.0); Mean Corpuscular Hgb Conc. 32.6 g/dL (32.0-36.0); Mean Corpuscular Volume 98.3 fL (80.0-100.0); Monocytes % (auto) 15.6 % (0.0-12.0); Neutrophils % (auto) 47.6 % (37.0-80.0); Nucleated Red Blood Cells % 0.1 %
[2024-01-30 11:39] LABS: Red Cell Distribution Width 20.6 % (11.8-14.3)
[2024-01-30 11:41] LABS: White Blood Cell 1.3 10^3/uL (4.4-10.8)
[2024-01-30] MEDS: LORazepam 2MG/ML-1ML VIAL IV PRN (11:41)
[2024-01-30 11:56] LABS: Alanine Aminotransferase 36 U/L (7-40); Albumin 2.7 g/dL (3.2-4.8); Alkaline Phosphatase 137 U/L (46-116); Anion Gap 6 (5-15); Aspartate Aminotransferase 51 U/L (13-40); BUN/Creatinine Ratio 11.4 (10.0-20.0); Bilirubin, Total 3.7 mg/dL (0.2-1.0); Blood Urea Nitrogen 10 mg/dL (9-23); Calcium 8.5 mg/dL (8.7-10.4); Carbon Dioxide 22 mmol/L (20-30); Chloride 109 mmol/L (98-107); Glucose 153 mg/dL (74-106); Sodium 137 mmol/L (136-145); Total Protein 4.8 g/dL (5.7-8.2)
[2024-01-30] MEDS ORDERED: FURO40TA4 PO (13:37)
[2024-01-30] MEDS ORDERED: LACT10SO3 PO (13:37)
[2024-01-30] MEDS ORDERED: KEP500T PO (13:37)
[2024-01-30] MEDS ORDERED: THIA100T10 PO (13:37)
[2024-01-30] MEDS ORDERED: SPIR25TA PO (13:37)
[2024-01-30 14:28] VITALS: BP 104/59; PULSE 54; TEMP 37
[2024-01-30 14:42] VITALS: BP 116/56; PULSE 63; RESP 16; TEMP 98.5; O2SAT 98
[2024-01-30] MEDS ORDERED: levETIRAcetam 500 MG TAB PO SCH (22:00)
== END 2024-01-30 14:55 | disposition home health service (06) | DRG 53 ==
LOC: EDBD 18:02 → ER 18:02 → EDUNIT# 18:02 → TELE 23:50 → TELE-WESTW 01-29 09:44
PROVIDERS: ADMIT Nurse Practitioner Family; ATTEND Nurse Practitioner Family
DX: G40.909 Epilepsy, unspecified, not intractable, without status epilepticus (principal); G92.8 Other toxic encephalopathy; K76.82 Hepatic encephalopathy; D61.818 Other pancytopenia; K85.10 Biliary acute pancreatitis without necrosis or infection; E87.20 Acidosis, unspecified; D68.9 Coagulation defect, unspecified; I50.32 Chronic diastolic (congestive) heart failure; I11.0 Hypertensive heart disease with heart failure; F10.139 Alcohol abuse with withdrawal, unspecified; F10.129 Alcohol abuse with intoxication, unspecified; F17.210 Nicotine dependence, cigarettes, uncomplicated; K70.30 Alcoholic cirrhosis of liver without ascites; F32.A Depression, unspecified; G31.9 Degenerative disease of nervous system, unspecified; K80.20 Calculus of gallbladder without cholecystitis without obstruction; Z86.73 Personal history of transient ischemic attack (TIA), and cerebral infarction without residual deficits; Z83.3 Family history of diabetes mellitus; Z82.49 Family history of ischemic heart disease and other diseases of the circulatory system; Z80.0 Family history of malignant neoplasm of digestive organs; F19.90 Other psychoactive substance use, unspecified, uncomplicated; Y90.6 Blood alcohol level of 120-199 mg/100 ml
CPT/HCPCS: 36415; 70450; 71045; 72125; 76705; 80053; 80307; 80320; 81001; 82140; 82550; 83605; 83690; 83735; 83880; 84484; 85007; 85025; 85027; 86803; 86850; 86870; 86900; 86901; 93005; 93306; 99291; G0378; J2405; J2543; J3490

== ENCOUNTER 2024-02-08 14:27 | Inpatient (IN) | payer MEDICAID ==
[~2024-02-08] VITALS: Ht 177.8 cm; Wt 102.2 kg
[~2024-02-08 14:27] MED LIST changes: -FURO20TA3 PO; +FURO40TA4 PO; -LEVE500T40 PO; -SPIR100T4 PO; +SPIR25TA PO; +THIA100T10 PO
[2024-02-08 15:39] LABS: Basophils # (auto) 0 10 ^3/uL (0-0.2); Basophils % (auto) 1.1 % (0.0-2.0); Eosinophils # (auto) 0 10 ^3/uL (0-0.8); Eosinophils % (auto) 1.2 % (0.0-7.0); Hematocrit 29.3 % (41.0-53.0); Hemoglobin 9.1 g/dL (13.5-17.5); Lymphocytes # (auto) 1.9 10 ^3/uL (0.4-5.4); Lymphocytes % (auto) 46.4 % (10.0-50.0); Mean Corpuscular Hemoglobin 30.5 pg (28.0-32.0); Mean Corpuscular Hgb Conc. 30.9 g/dL (32.0-36.0); Mean Corpuscular Volume 98.6 fL (80.0-100.0); Monocytes # (auto) 0.5 10 ^3/uL (0-1.3); Monocytes % (auto) 11.6 % (0.0-12.0); Neutrophils # (auto) 1.7 10 ^3/uL (1.6-8.6); Neutrophils % (auto) 39.7 % (37.0-80.0); Nucleated Red Blood Cells % 0.2 %; Red Blood Cells 2.97 10^6/uL (4.5-5.90); Red Cell Distribution Width 22.3 % (11.8-14.3); White Blood Cell 4.2 10^3/uL (4.4-10.8)
[2024-02-08 15:58] LABS: Alanine Aminotransferase 53 U/L (7-40); Albumin 3.5 g/dL (3.2-4.8); Alkaline Phosphatase 193 U/L (46-116); Anion Gap 11 (5-15); Aspartate Aminotransferase 99 U/L (13-40); BUN/Creatinine Ratio 15.9 (10.0-20.0); Blood Urea Nitrogen 13 mg/dL (9-23); Calcium 8.7 mg/dL (8.7-10.4); Carbon Dioxide 18 mmol/L (20-30); Chloride 119 mmol/L (98-107); Potassium 3.4 mmol/L (3.5-5.1); Sodium 148 mmol/L (136-145)
[2024-02-08 15:59] LABS: Bilirubin, Total 2.7 mg/dL (0.2-1.0)
[2024-02-08 16:06] LABS: Glucose 42 mg/dL (74-106)
[2024-02-08] MEDS: DEXTROSE (50%) 50ML SYRG IV ONE (16:15)
[2024-02-08 16:41] VITALS: PULSE 74; RESP 16; O2SAT 93
[2024-02-08] MEDS: D5W/SOD CHLO 0.9% 1,000 ML IV ONE (17:13)
[2024-02-08] MEDS ORDERED: LORazepam 2MG/ML-1ML VIAL IV PRN (17:30)
[2024-02-08] MEDS ORDERED: NITROGLYCERIN 0.4 MG SL TAB SL PRN (17:30)
[2024-02-08] MEDS ORDERED: DOCUSATE SOD 100 MG CAP PO PRN (17:30)
[2024-02-08] MEDS: levETIRAcetam 1000 mg/100ml 100 ML IV ONE (18:13)
[2024-02-08] MEDS: D5W/SOD CHL 0.45% 1,000 ML IV SCH (18:18)
[2024-02-08] MEDS: POTASSIUM CHL 20MEQ/100ML 100 ML IV SCH (18:18)
[2024-02-08] MEDS: ACCU-CHEK COMFORT CURVE STRIP VI SCH (18:18)
[2024-02-08 18:47] LABS: Magnesium 1.5 mg/dL (1.6-2.6)
[2024-02-08 18:48] LABS: Phosphorus 2.6 mg/dL (2.4-5.1)
[2024-02-08 19:04] LABS: Urine Bacteria FEW /hpf (None Seen); Urine Blood Negative /uL (Negative); Urine Clarity Turbid (Clear); Urine Color Yellow (Yellow); Urine Mucus FEW (None Seen); Urine Protein, UAD TRACE (Negative); Urine Specific Gravity 1.029 (1.001-1.035); Urine Urobilinogen 6 mg/dL (Negative); Urine WBC 2 /hpf (0 - 3)
[2024-02-08 19:10] VITALS: PULSE 75; RESP 14; O2SAT 98
[2024-02-08 19:16] LABS: Amphetamine Screen, Urine Neg (NEGATIVE); Barbiturate Scree,Urine Neg (NEGATIVE); Benzodiazephine Screen, Urine Neg (NEGATIVE); Cannabinoid Screen, Urine Pos (NEGATIVE); Cocaine Screen, Urine Neg (NEGATIVE); Opiate Scree,Urine Neg (NEGATIVE); Phencyclidine Screen, Urine Neg (NEGATIVE)
[2024-02-08] MEDS: D5W 5% 1,000 ML IV SCH (19:30)
[2024-02-08] MEDS: LACTULOSE 10g/15ml SOLN 473ML PR ONE (19:30)
[2024-02-08] MEDS: LACTULOSE 10g/15ml SOLN 473ML PR SCH (19:30)
[2024-02-08] MEDS: PANTOPRAZOLE 40 MG/10 ML VIAL INJ IV ONE (19:56)
[2024-02-08] MEDS: LORazepam 2MG/ML-1ML VIAL IV PRN (19:57)
[2024-02-08 20:01] LABS: Lactic Acid w/Reflex 3.5 mmol/L (0.4-2.0)
[2024-02-08] MEDS: DEXTROSE (50%) 50ML SYRG IV PRN (21:17)
[2024-02-08] MEDS: levETIRAcetam 500 mg/100ml 100 ML IV SCH (21:31)
[2024-02-09] MEDS: DEXTROSE 10% 1,000 ML IV ONE (01:54)
[2024-02-09] MEDS: MORPHINE SULFATE INJ 2 MG/ml SYRG IV PRN (02:48)
[2024-02-09 04:50] LABS: Hematocrit 22.1 % (41.0-53.0)
[2024-02-09 04:52] LABS: Hemoglobin 7.2 g/dL (13.5-17.5); Mean Corpuscular Hemoglobin 31.7 pg (28.0-32.0); Mean Corpuscular Hgb Conc. 32.8 g/dL (32.0-36.0); Mean Corpuscular Volume 96.8 fL (80.0-100.0); Red Blood Cells 2.28 10^6/uL (4.5-5.90)
[2024-02-09 05:07] LABS: Red Cell Distribution Width 21.3 % (11.8-14.3)
[2024-02-09 05:08] LABS: White Blood Cell 1.2 10^3/uL (4.4-10.8)
[2024-02-09 05:09] LABS: Band Neutrophils % (manual) 0; Basophils % (manual) 0 (0.0-2.0); Blast Cells 0; Metamyelocytes % 0; Myelocytes % 0; Promyelocytes % 0; Reactive Lymphocytes 0
[2024-02-09 05:12] LABS: Alanine Aminotransferase 40 U/L (7-40); Albumin 2.9 g/dL (3.2-4.8); Alkaline Phosphatase 150 U/L (46-116); Anion Gap 5 (5-15); Aspartate Aminotransferase 72 U/L (13-40); BUN/Creatinine Ratio 14.5 (10.0-20.0); Blood Urea Nitrogen 10 mg/dL (9-23); Calcium 8.3 mg/dL (8.7-10.4); Carbon Dioxide 22 mmol/L (20-30); Chloride 115 mmol/L (98-107); Glucose 95 mg/dL (74-106); Potassium 3.8 mmol/L (3.5-5.1); Sodium 142 mmol/L (136-145)
[2024-02-09 05:13] LABS: Bilirubin, Total 2.4 mg/dL (0.2-1.0); Total Protein 5.1 g/dL (5.7-8.2)
[2024-02-09 05:41] LABS: Anisocytosis Slight; Eosinophils % (manual) 1 (0-7); Lymphocytes % (manual) 47 (10.0-50.0); Monocytes % (manual) 8 (0-12); Platelet Estimate Decreased
[2024-02-09] MEDS: PANTOPRAZOLE 40 MG/10 ML VIAL INJ IV SCH (08:44)
[2024-02-09 09:00] VITALS: BP 122/57; PULSE 68; RESP 18; TEMP 98.4; O2SAT 100
[2024-02-09 10:03] VITALS: BP 122/57; PULSE 68; RESP 18; TEMP 98.4; O2SAT 100
[2024-02-09] MEDS ORDERED: chlordiazePOXIDE HCL 25 MG CAP PO PRN (11:00)
[2024-02-09 12:00] VITALS: BP 131/73; PULSE 63; RESP 16; TEMP 98.1; O2SAT 99
[2024-02-09] MEDS ORDERED: SPIR25TA8 PO (14:43)
[2024-02-09] MEDS ORDERED: OMEP1CAP70 PO (14:47)
[2024-02-09 16:00] VITALS: BP 127/70; PULSE 70; RESP 18; TEMP 98.4; O2SAT 99
[2024-02-09] MEDS: FOLIC ACID 1 MG, MULTIPLE VITAMIN 10 ML, MAGNESIUM SULF SDV 50% 8 MEQ, THIAMINE INJ 100... INJ SCH (18:20)
[2024-02-09 20:00] VITALS: PULSE 81; PULSE 82; RESP 16; O2SAT 97
[2024-02-09 21:00] VITALS: BP 132/80; PULSE 81; RESP 16; TEMP 98.5; O2SAT 97
[2024-02-09] MEDS: ONDANSETRON HCL 4 MG/2 ML VIAL IV PRN (22:33)
[2024-02-10] VITALS (8 sets, daily range): BP systolic 99–121; BP diastolic 32–68; PULSE 60–99; RESP 15–19; TEMP 97.6–98.8; O2SAT 97–100
[2024-02-10 06:07] LABS: Hemoglobin 7.7 g/dL (13.5-17.5)
[2024-02-10 06:11] LABS: Hematocrit 23.2 % (41.0-53.0); Mean Corpuscular Hemoglobin 32.1 pg (28.0-32.0); Mean Corpuscular Hgb Conc. 33.3 g/dL (32.0-36.0); Mean Corpuscular Volume 96.4 fL (80.0-100.0)
[2024-02-10 06:23] LABS: Red Cell Distribution Width 21.1 % (11.8-14.3)
[2024-02-10 06:25] LABS: White Blood Cell 1.1 10^3/uL (4.4-10.8)
[2024-02-10 06:27] LABS: Band Neutrophils % (manual) 0; Basophils % (manual) 0 (0.0-2.0); Blast Cells 0; Eosinophils % (manual) 0 (0-7); Metamyelocytes % 0; Myelocytes % 0; Promyelocytes % 0; Reactive Lymphocytes 0
[2024-02-10 06:34] LABS: Chloride 110 mmol/L (98-107); Potassium 3.9 mmol/L (3.5-5.1); Sodium 140 mmol/L (136-145)
[2024-02-10 06:35] LABS: Anion Gap 8 (5-15); Carbon Dioxide 22 mmol/L (20-30)
[2024-02-10 06:36] LABS: Calcium 8.5 mg/dL (8.7-10.4)
[2024-02-10 06:40] LABS: BUN/Creatinine Ratio 10.1 (10.0-20.0); Blood Urea Nitrogen 7 mg/dL (9-23); Glucose 95 mg/dL (74-106)
[2024-02-10 07:59] LABS: Lymphocytes % (manual) 31 (10.0-50.0); Monocytes % (manual) 3 (0-12); Platelet Estimate Decreased
[2024-02-10] MEDS ORDERED: DEXTROSE (50%) 50ML SYRG IV PRN (12:15)
[2024-02-10] MEDS: InsuLIN REG 1unit/0.01ml Soln (100units/ml) SC SCH (17:00)
[2024-02-10] MEDS: ACCU-CHEK COMFORT CURVE STRIP VI SCH (17:12)
[2024-02-11 00:57] VITALS: BP 121/62; PULSE 71; RESP 19; TEMP 98.6; O2SAT 98
[2024-02-11 05:00] VITALS: BP 138/70; PULSE 64; RESP 19; TEMP 98; O2SAT 99
[2024-02-11 06:20] LABS: Hemoglobin 7.5 g/dL (13.5-17.5); Mean Corpuscular Hgb Conc. 33.1 g/dL (32.0-36.0)
[2024-02-11 06:22] LABS: Hematocrit 22.6 % (41.0-53.0); Mean Corpuscular Hemoglobin 32.1 pg (28.0-32.0); Mean Corpuscular Volume 96.9 fL (80.0-100.0); Red Blood Cells 2.34 10^6/uL (4.5-5.90)
[2024-02-11 06:29] LABS: Anion Gap 6 (5-15); Calcium 8.7 mg/dL (8.7-10.4); Carbon Dioxide 22 mmol/L (20-30); Chloride 112 mmol/L (98-107); Potassium 3.8 mmol/L (3.5-5.1); Sodium 140 mmol/L (136-145)
[2024-02-11 06:35] LABS: BUN/Creatinine Ratio 9.9 (10.0-20.0); Blood Urea Nitrogen 8 mg/dL (9-23); Glucose 98 mg/dL (74-106)
[2024-02-11 06:47] LABS: White Blood Cell 1.3 10^3/uL (4.4-10.8)
[2024-02-11 06:48] LABS: Basophils % (manual) 0 (0.0-2.0); Blast Cells 0; Eosinophils % (manual) 0 (0-7); Metamyelocytes % 0; Myelocytes % 0; Promyelocytes % 0; Reactive Lymphocytes 0
[2024-02-11 07:57] LABS: Band Neutrophils % (manual) 1; Lymphocytes % (manual) 28 (10.0-50.0); Monocytes % (manual) 4 (0-12); Platelet Estimate Decreased
[2024-02-11 08:19] VITALS: BP 102/41; PULSE 65; RESP 16; TEMP 97.4; O2SAT 99
[2024-02-11] MEDS ORDERED: OXY20CRT PO (11:51)
[2024-02-11] MEDS ORDERED: LORA2TAB89 PO (11:51)
[2024-02-11 12:07] VITALS: BP 126/46; PULSE 73; RESP 17; TEMP 97.8; O2SAT 100
== END 2024-02-11 13:55 | disposition home or self-care (01) | DRG 280 ==
LOC: EDBD 14:27 → ER 14:27 → UNDOADMIN 17:40 → OVERFLOW 17:40 → TELE 18:43 → CENTRAL 02-09 08:01 → TELE-CENTR 02-11 00:36
PROVIDERS: ADMIT Nurse Practitioner Family; ATTEND Internal Medicine
DX: K76.82 Hepatic encephalopathy (principal); K70.30 Alcoholic cirrhosis of liver without ascites; G92.8 Other toxic encephalopathy; D61.818 Other pancytopenia; E87.0 Hyperosmolality and hypernatremia; T51.91XA Toxic effect of unspecified alcohol, accidental (unintentional), initial encounter; G40.909 Epilepsy, unspecified, not intractable, without status epilepticus; E87.21 Acute metabolic acidosis; I11.0 Hypertensive heart disease with heart failure; F10.129 Alcohol abuse with intoxication, unspecified; F10.139 Alcohol abuse with withdrawal, unspecified; E87.6 Hypokalemia; F32.A Depression, unspecified; I50.42 Chronic combined systolic (congestive) and diastolic (congestive) heart failure; F17.210 Nicotine dependence, cigarettes, uncomplicated; Z86.73 Personal history of transient ischemic attack (TIA), and cerebral infarction without residual deficits; Z79.899 Other long term (current) drug therapy; Z88.8 Allergy status to other drugs, medicaments and biological substances; E16.1 Other hypoglycemia
CPT/HCPCS: 36415; 80048; 80053; 80307; 80320; 81001; 82140; 82962; 83605; 83735; 84100; 84484; 85007; 85025; 85027; 93005; 99291; G0378; J2405; J2470; J3480

== ENCOUNTER 2024-03-28 15:45 | Emergency (ER) | payer MEDICAID ==
[~2024-03-28] VITALS: Ht 180.3 cm; Wt 90.0 kg
[~2024-03-28 15:45] MED LIST changes: -CHL10C PO; -CHL25C PO; -HYDR-4902 PO; -LACT10SO3 PO; +LORA2TAB89 PO; +OMEP1CAP70 PO; +OXY20CRT PO; -OXY5T PO; -PERCOT PO; +SPIR25TA8 PO; -THIA100T10 PO
[2024-03-28 15:51] VITALS: BP 138/82; PULSE 90; RESP 14; O2SAT 95
[2024-03-28 18:24] LABS: Hematocrit 27.2 % (41.0-53.0); Hemoglobin 8.9 g/dL (13.5-17.5); Mean Corpuscular Hemoglobin 28.6 pg (28.0-32.0); Mean Corpuscular Hgb Conc. 32.5 g/dL (32.0-36.0); Platelet Count (auto) 42 10^3/uL (140-450); Red Blood Cells 3.09 10^6/uL (4.5-5.90); White Blood Cell 2.1 10^3/uL (4.4-10.8)
[2024-03-28 18:26] LABS: Red Cell Distribution Width 29.4 % (11.8-14.3)
[2024-03-28 18:27] LABS: Band Neutrophils % (manual) 0; Basophils % (manual) 0 (0.0-2.0); Blast Cells 0; Eosinophils % (manual) 0 (0-7); Metamyelocytes % 0; Myelocytes % 0; Promyelocytes % 0; Reactive Lymphocytes 0
[2024-03-28 18:38] LABS: Alanine Aminotransferase 51 U/L (7-40); Albumin 2.9 g/dL (3.2-4.8); Alkaline Phosphatase 138 U/L (46-116); Anion Gap 7 (5-15); Aspartate Aminotransferase 154 U/L (13-40); BUN/Creatinine Ratio 9.5 (10.0-20.0); Bilirubin, Total 5.1 mg/dL (0.2-1.0); Blood Urea Nitrogen 8 mg/dL (9-23); Calcium 8.2 mg/dL (8.7-10.4); Carbon Dioxide 25 mmol/L (20-30); Chloride 114 mmol/L (98-107); Glucose 98 mg/dL (74-106); Potassium 3.6 mmol/L (3.5-5.1); Sodium 146 mmol/L (136-145); Total Protein 5.4 g/dL (5.7-8.2)
[2024-03-28 18:45] LABS: Blood Alcohol 355.7 mg/dL (<10)
[2024-03-28 18:58] LABS: Lymphocytes % (manual) 50 (10.0-50.0); Monocytes % (manual) 4 (0-12)
[2024-03-28 18:59] LABS: Anisocytosis Marked; Platelet Estimate Decreased; Tear Drop Cells FEW
== END 2024-03-28 18:46 | disposition left against medical advice (07) ==
LOC: ER 15:45 → EDBD 15:45 → ER 18:46
DX: F10.129 Alcohol abuse with intoxication, unspecified (principal); R41.82 Altered mental status, unspecified; F17.210 Nicotine dependence, cigarettes, uncomplicated; F12.10 Cannabis abuse, uncomplicated; I10 Essential (primary) hypertension; Z88.6 Allergy status to analgesic agent; Z86.73 Personal history of transient ischemic attack (TIA), and cerebral infarction without residual deficits; Y90.8 Blood alcohol level of 240 mg/100 ml or more
CPT/HCPCS: 36415; 70450; 80053; 80320; 82140; 85007; 85027

== ENCOUNTER 2024-06-13 12:38 | Emergency (ER) | payer MEDICAID ==
[~2024-06-13] VITALS: Ht 185.4 cm; Wt 90.0 kg
[2024-06-13 12:48] VITALS: BP 145/88; RESP 18; O2SAT 98
--- NOTE | 2024-06-13 12:50 | ED.PDOC ---
History of Present Illness HPI Comments PMHx: HTN, TIA, liver, seizure disorder, anxiety, wrist fracture, anemia PSHx: Denies. Social hx: Pt drinks alcohol heavily, smokes cigarettes, and uses marijuana. Meds: Unknown. Allergies: NSAIDs, Gabapentin Vitals T: 97.8F RR: 18 HR: 78 BP: 145/88 O2: 98% on RA HPI: Poor Historian. History obtained from EMS Patient himself has no complaints. He states clearly he does not know how they got to his property and who called 911. Patient has no active complaints or pain. Patient was recently hospitalized and discharged his last from a different facility. He has been worked up for GI bleed and had an upper endoscopy but could not complete a lower endoscopy. Patient has chronic melena. Denies any recent fall or injury for this particular ED visit. Patient admits to daily use of alcohol. He has been to our facility in the past for similar presentation. Patient is awake alert oriented answers questions appropriately able to give me details the and history. REVIEW OF SYSTEMS: CONSTITUTIONAL: Denies acute: fever, diaphoresis, chills, HEAD: Denies acute: headache, photophobia Eyes: Denies acute: Double vision, vision loss, eye pain, eye discharge. EARS: Denies acute: tinnitus, hearing loss, ear discharge, ear pain, THROAT: Denies acute: sore throat, swelling, difficulty swallowing , pain with swallowing, change in voice. NECK: Denies acute: neck pain, neck swelling, stiff neck. HEART: Denies acute : chest pain, palpitations, LUNGS: Denies acute: SOB, wheezing, cough, hemoptysis ABDOMEN: Denies acute: abdominal pain, Nausea, Vomiting, diarrhea, melena , hematemesis, hematochezia SKIN: Denies acute: rash, redness, lesions, itchiness. EXTREMITIES: Denies acute: calf pain, numbness, tingling, weakness, denies pain in extremity. Denies acute: Low back pain. Neuro: Denies acute: focal neurological deficit, motor or sensory focal neurological deficit, tremors, seizure like activity, confusion, dizziness, change in mental status, loss of bowel or bladder function, cauda equina like symptoms. : Denies acute: dysuria, hematuria, flank pain, increase in urinary frequency. PSYCH: Denies acute: hallucination, suicidal ideation, homicidal ideation. PHYSICAL EXAM: General: no acute distress, awake and alert. Head: normocephalic, atraumatic. Neck: supple, trachea is midline, no swelling. Throat: Normal phonation. Eyes:, no erythema, no purulent discharge, no proptosis, no icterus. Heart: regular rate, regular rhythm, no significant murmur appreciated. Lungs: no apparent respiratory distress, Able to speak in full sentences. No wheezing, no rhonchi, no crackles. No stridors Clear to auscultation bilaterally. Abdomen: non tender to palpation, non distended, soft, no guarding, no rebound, + bowel sounds. Neuro: Awake, Alert, oriented to name, self, situation, follows commands GCS=15. Speech is normal. Skin: no petechia, no purpura, no cyanosis, slightly -pale, not jaundice. Lower extremities: --no - Pitting edema no deformity, no focal swelling, no calf TTP. Makes eye contact. moves all four extremities. Face: no apparent facial droop. No CVA tenderness to percussion bilaterally. Ambulating in the ED independently. Ears: Normal appearing TM b/l, Stroke: finger to nose cerebellar testing is intact. No pronator drift. Symmetrical ground crew linesman muscle strength b/l PERRLA, EOM-I CN 2-12 are grossly intact, Pedal pulses are palpable. No nystagmus. No nuchal rigidity, Kernig's sign, Brudzinski's sign, no meningeal signs. Time Seen by MD: 12:38 Primary Care Provider: [facility] Reviewed Notes: Nurses Notes, Engineer/Conductor Notes, Medications, Allergies Allergies: Coded Allergies: Gabapentin (Verified Allergy, Unknown, 07/12/22) NSAIDs (Verified Allergy, Unknown, 07/12/22) Home Meds Active Scripts Lorazepam (Ativan) 2 Mg Tab, 1 TAB PO TID PRN, #20 TAB Prov:MANDY ADAN MD 02/11/24 Oxycodone Hcl (OxyCONTIN ER Tablet) 20 Mg Tb, 1 TAB PO TID, #30 TAB Prov:MANDY ADAN MD 02/11/24 Spironolactone (Aldactone) 25 Mg Tab, 100 MG PO DAILY for 90 Days, #360 TAB Prov:MARCUS TREVIZO 01/30/24 Levetiracetam (KEPPRA TABLET) 500 Mg Tb, 500 MG PO BID for 180 Days, #360 TAB 4 Refills Prov:MARCUS TREVIZO RESIDENT 01/30/24 Furosemide (Furosemide) 40 Mg Tab, 40 MG PO DAILY for 90 Days, #90 TAB Prov:MARCUS TREVIZO RESIDENT 01/30/24 Lidocaine (LIDODERM 5% TOPICAL PATCH) 1 Patch Ph, 1 PATCH TOP DAILY for 15 Days, #15 PATCH Prov:STEVE العراقي MD 01/20/24 Reported Medications Omeprazole (Omeprazole Dr) 20 Mg Cap, 1 CAP PO DAILY 02/09/24 Spironolactone (Spironolactone) 25 Mg Tab, 2 TAB PO BID 02/09/24 Ondansetron Odt 4MG Tab (ZOFRAN PO) 4 Mg Tb, 8 MG PO Q8HR PRN for NAUSEA / VOMITING ODT TAB-DISSOLVE IN MOUTH, THEN SWALLOW 01/28/24 Lactulose (Lactulose) 10 Gm/15 Ml Kaye, 15 ML PO BID 02/23/22 Thiamine Hcl (Vitamin B1) 100 Mg Tab, 1 TAB PO DAILYPRN 04/05/21 Folic Acid (Folic Acid) 1 Mg Tab, 1 TAB PO DAILYPRN 04/05/21 Propranolol HCl (Propranolol Hydrochloride) 20 Mg Tab, 1 TAB PO DAILYPRN 04/05/21 Promethazine Hcl (Promethazine Hcl) 25 Mg Tab, 1 TAB PO BIDPRN 04/05/21 Information Source: Patient, Emergency Med Personnel Mode of Arrival: EMS Severity: Mild Timing: Hours Duration: Since onset Prehospital treatment: None Past Medical History PAST MEDICAL HISTORY: Anxiety, HTN, Liver, Seizures, TIA Surgical History: Denies all surgeries Family History Family History: Reviewed,noncontributory to illness Social History Smoker: Cigarettes, Less Than 1 Pack/Day Alcohol: Heavy Drugs: Marijuana Lives In: Home Was a procedure done? Was a procedure done?: No Differential Dx Considerations may include: Alcohol abuse, trauma X-Ray, Labs, Meds, VS Vital Signs Date Time Temp Pulse Resp B/P (MAP) Pulse Ox O2 Delivery O2 Flow Rate FiO2 06/13/24 14:21 75 06/13/24 12:48 97.8 78 18 145/88 (107) 98 Lab Test 06/13/24 14:31 06/13/24 13:20 Range/Units Sodium Level 153 H 136-145 mmol/L Potassium Level 3.8 3.5-5.1 mmol/L Chloride Level 120 H 98-107 mmol/L Carbon Dioxide Level 25 20-31 mmol/L Anion Gap 8 5-15 Blood Urea Nitrogen 12 9-23 mg/dL Creatinine 0.71 0.700-1.30 mg/dL Glomerular Filtration Rate Calc 122 >90 mL/min BUN/Creatinine Ratio 16.9 10.0-20.0 Serum Glucose 97 74-106 mg/dL Lactic Acid Level 1.9 2.1 H 0.4-2.0 mmol/L Calcium Level 8.3 L 8.7-10.4 mg/dL Total Bilirubin 1.7 H 0.2-1.0 mg/dL Aspartate Amino Transferase (AST) 47 H 13-40 U/L Alanine Aminotransferase (ALT) 26 7-40 U/L Alkaline Phosphatase 124 H 46-116 U/L Troponin I High Sensitivity 3 L </=54 ng/L Total Protein 5.5 L 5.7-8.2 g/dL Albumin 3.3 3.2-4.8 g/dL White Blood Count 2.9 L 4.4-10.8 10^3/uL Red Blood Count 3.27 L 4.5-5.90 10^6/uL Hemoglobin 9.5 L 13.5-17.5 g/dL Hematocrit 31.4 L 41.0-53.0 % Mean Corpuscular Volume 96.0 80.0-100.0 fL Mean Corpuscular Hemoglobin 29.1 28.0-32.0 pg Mean Corpuscular Hemoglobin Concent 30.4 L 32.0-36.0 g/dL Red Cell Distribution Width 23.8 H 11.8-14.3 % Platelet Count 67 L 140-450 10^3/uL Mean Platelet Volume 8.1 6.9-10.8 fL Neutrophils (%) (Auto) 50.9 37.0-80.0 % Lymphocytes (%) (Auto) 40.1 10.0-50.0 % Monocytes (%) (Auto) 7.5 0.0-12.0 % Eosinophils (%) (Auto) 0.5 0.0-7.0 % Basophils (%) (Auto) 1.0 0.0-2.0 % Neutrophils # (Auto) 1.5 L 1.6-8.6 10 ^3/uL Lymphocytes # (Auto) 1.2 0.4-5.4 10 ^3/uL Monocytes # (Auto) 0.2 0-1.3 10 ^3/uL Eosinophils # (Auto) 0 0-0.8 10 ^3/uL Basophils # (Auto) 0 0-0.2 10 ^3/uL Nucleated Red Blood Cells 0.1 % Platelet Estimate Decreased Anisocytosis (manual) Slight Tear Drop Cells Few [place] Cells Few Time of 1ST Reevaluation: 13:08 Reevaluation 1ST: Unchanged Patient Education/Counseling: Diagnosis, Treatment Family Education/Counseling: No Family Present Comments EARLIER PATIENT REQUESTED KEPPRA HIS HOME MEDICATION FOR HISTORY of seizure. I ordered it. Later I was made aware that the patient eloped. Departure 1 Departure Time of Disposition: 18:56 Impression: Primary Impression: Eloped from emergency department Additional Impression: Alcohol abuse Disposition: 07 LEFT AWOL/ELOPED Condition: Guarded Additional Instructions: Patient eloped Discharged With: Self Critical Care Note Critical Care Time?: No I personally scribed for INDER LEO DO ([email or web address]) on 06/13/24 at 12:50. Electronically submitted by Yenifer Thompson (Peel). I personally scribed for INDER LEO DO ([email or web address]) on 06/13/24 at 13:35. Electronically submitted by Yenifer Thompson (Peel). INDER LEO DO Jun 13, 2024 12:50
[2024-06-13] MEDS: SODIUM CHLORIDE 0.9% 1,000 ML IV ONE (13:09)
[2024-06-13 13:34] LABS: Basophils # (auto) 0 10 ^3/uL (0-0.2); Eosinophils # (auto) 0 10 ^3/uL (0-0.8); Hemoglobin 9.5 g/dL (13.5-17.5); Monocytes # (auto) 0.2 10 ^3/uL (0-1.3); Nucleated Red Blood Cells % 0.1 %; White Blood Cell 2.9 10^3/uL (4.4-10.8)
[2024-06-13 13:36] LABS: Eosinophils % (auto) 0.5 % (0.0-7.0); Hematocrit 31.4 % (41.0-53.0); Lymphocytes # (auto) 1.2 10 ^3/uL (0.4-5.4); Lymphocytes % (auto) 40.1 % (10.0-50.0); Mean Corpuscular Hemoglobin 29.1 pg (28.0-32.0); Mean Corpuscular Hgb Conc. 30.4 g/dL (32.0-36.0); Monocytes % (auto) 7.5 % (0.0-12.0); Neutrophils # (auto) 1.5 10 ^3/uL (1.6-8.6); Neutrophils % (auto) 50.9 % (37.0-80.0); Platelet Count (auto) 67 10^3/uL (140-450); Red Blood Cells 3.27 10^6/uL (4.5-5.90)
[2024-06-13 13:43] LABS: Red Cell Distribution Width 23.8 % (11.8-14.3)
[2024-06-13 13:53] LABS: Lactic Acid w/Reflex 2.1 mmol/L (0.4-2.0)
[2024-06-13 14:14] LABS: Platelet Estimate Decreased
[2024-06-13] MEDS ORDERED: CALCIUM GLUC 1,000mg/50ml-NS 50 ML IV ONE (14:15)
[2024-06-13 14:18] LABS: Anisocytosis Slight
[2024-06-13 14:20] LABS: Tear Drop Cells FEW
[2024-06-13 14:21] VITALS: PULSE 75
--- NOTE | 2024-06-13 14:45 | ECG ---
[facility] Test Date: 2024-06-13 Test Time: 14:21:00 Pat Name: DARON TEAGUE Department: ER Room: Gender: M Radio Interference Trouble Shooter: DR LEVINE: 1985 Requested By: INDER LEO Order Number: [id number] Reading MD: Raheel Matthews Measurements Intervals [place] Rate: 75 P: 0 VT: 0 QRS: 34 QRSD: 94 T: 54 QT: 448 QTc: 501 Interpretive Statements Accelerated junctional rhythm Prolonged QT interval Electronically Signed On 06-14-2024 8:27:58 PST by Raheel Matthews Please click the below link to view image of tracing.
[2024-06-13 15:01] LABS: Chloride 120 mmol/L (98-107); Potassium 3.9 mmol/L (3.5-5.1); Sodium 153 mmol/L (136-145)
[2024-06-13 15:03] LABS: Anion Gap 8 (5-15); Carbon Dioxide 25 mmol/L (20-31)
[2024-06-13 15:04] LABS: Calcium 8.3 mg/dL (8.7-10.4)
[2024-06-13 15:08] LABS: Glucose 97 mg/dL (74-106)
[2024-06-13 15:09] LABS: Alkaline Phosphatase 124 U/L (46-116); BUN/Creatinine Ratio 16.9 (10.0-20.0); Blood Urea Nitrogen 12 mg/dL (9-23)
[2024-06-13 15:10] LABS: Alanine Aminotransferase 26 U/L (7-40); Aspartate Aminotransferase 47 U/L (13-40)
[2024-06-13 15:11] LABS: Albumin 3.3 g/dL (3.2-4.8); Bilirubin, Total 1.7 mg/dL (0.2-1.0); Total Protein 5.5 g/dL (5.7-8.2)
[2024-06-13] MEDS ORDERED: levETIRAcetam 500 mg/100ml 100 ML IV ONE (16:15)
== END 2024-06-13 16:00 | disposition left against medical advice (07) ==
LOC: ER 12:38 → EDBD 12:38 → ER 16:00
DX: F10.10 Alcohol abuse, uncomplicated (principal); I10 Essential (primary) hypertension; F41.9 Anxiety disorder, unspecified; G40.909 Epilepsy, unspecified, not intractable, without status epilepticus; F17.210 Nicotine dependence, cigarettes, uncomplicated; F12.90 Cannabis use, unspecified, uncomplicated; Z86.73 Personal history of transient ischemic attack (TIA), and cerebral infarction without residual deficits; Z88.6 Allergy status to analgesic agent; Z88.8 Allergy status to other drugs, medicaments and biological substances; Z79.899 Other long term (current) drug therapy; Y90.0 Blood alcohol level of less than 20 mg/100 ml
CPT/HCPCS: 36415; 80053; 83605; 84132; 84484; 85025; 93005; 96360; 99284; J7030

== ENCOUNTER 2025-02-03 18:19 | Inpatient (IN) | payer MEDICAID ==
[~2025-02-03] VITALS: Ht 177.8 cm; Wt 109.0 kg
[2025-02-03 18:30] VITALS: PULSE 75; O2SAT 98
--- NOTE | 2025-02-03 18:30 | ED.PDOC ---
History of Present Illness HPI Comments 39 year old male with a Hx of HTN, Lupus, and Liver Failure was BIBA for the c/c of an ETOH. Per EMS pt was found laying on the ground outside by family, after reportedly taking 10 shoots of hard liquor. Pt is noted to be intoxicated at this time, with a blood sugar level of 99 per EMS. No other associated symptoms, modifiers, recent injuries or sick contacts present at this time. Time Seen by MD: 18:27 Primary Care Provider: [facility] Reviewed Notes: Nurses Notes, Fisheries Manager Notes, Medications, Allergies Allergies: Coded Allergies: Gabapentin (Verified Allergy, Unknown, 07/12/22) NSAIDs (Verified Allergy, Unknown, 07/12/22) Home Meds Active Scripts Lorazepam (Ativan) 2 Mg Tab, 1 TAB PO TID PRN, #20 TAB Prov:MANDY ADAN MD 02/11/24 Oxycodone Hcl (OxyCONTIN ER Tablet) 20 Mg Tb, 1 TAB PO TID, #30 TAB Prov:MANDY ADAN MD 02/11/24 Spironolactone (Aldactone) 25 Mg Tab, 100 MG PO DAILY for 90 Days, #360 TAB Prov:MARCUS TREVIZO RESIDENT 01/30/24 Levetiracetam (KEPPRA TABLET) 500 Mg Tb, 500 MG PO BID for 180 Days, #360 TAB 4 Refills Prov:MARCUS TREVIZO RESIDENT 01/30/24 Furosemide (Furosemide) 40 Mg Tab, 40 MG PO DAILY for 90 Days, #90 TAB Prov:MARCUS TREVIZO RESIDENT 01/30/24 Lidocaine (LIDODERM 5% TOPICAL PATCH) 1 Patch Ph, 1 PATCH TOP DAILY for 15 Days, #15 PATCH Prov:STEVE العراقي MD 01/20/24 Reported Medications Omeprazole (Omeprazole Dr) 20 Mg Cap, 1 CAP PO DAILY 02/09/24 Spironolactone (Spironolactone) 25 Mg Tab, 2 TAB PO BID 02/09/24 Ondansetron Odt 4MG Tab (ZOFRAN PO) 4 Mg Tb, 8 MG PO Q8HR PRN for NAUSEA / VOMITING ODT TAB-DISSOLVE IN MOUTH, THEN SWALLOW 01/28/24 Lactulose (Lactulose) 10 Gm/15 Ml Kaye, 15 ML PO BID 02/23/22 Thiamine Hcl (Vitamin B1) 100 Mg Tab, 1 TAB PO DAILYPRN 04/05/21 Folic Acid (Folic Acid) 1 Mg Tab, 1 TAB PO DAILYPRN 04/05/21 Propranolol HCl (Propranolol Hydrochloride) 20 Mg Tab, 1 TAB PO DAILYPRN 04/05/21 Promethazine Hcl (Promethazine Hcl) 25 Mg Tab, 1 TAB PO BIDPRN 04/05/21 Information Source: Emergency Med Personnel Mode of Arrival: EMS Severity: Moderate Timing: Hours Duration: Since onset, Hours Prehospital treatment: Accucheck, IVF, Oxygen Past Medical History PAST MEDICAL HISTORY: Anxiety, HTN, Liver, Seizures, TIA Surgical History: Denies all surgeries Family History Family History: Reviewed,noncontributory to illness Social History Smoker: Cigarettes, Less Than 1 Pack/Day Alcohol: Heavy Drugs: Marijuana Lives In: Home Constitutional: reports: weakness; denies: chills, diaphoresis, fatigue, fever, malaise, sweats, others EENTM: denies: blurred vision, double vision, ear bleeding, ear discharge, ear drainage, ear pain, ear ringing, eye pain, eye redness, hearing loss, mouth pain, mouth swelling, nasal discharge, nose bleeding, nose congestion, nose pain, photophobia, tearing, throat pain, throat swelling, voice changes, others Respiratory: denies: cough, hemoptysis, orthopnea, SOB at rest, shortness of breath, SOB with excertion, stridor, wheezing, others Cardiovascular: denies: chest pain, dizzy spells, diaphoresis, Dyspnea on exertion, edema, irregular heart beat, left arm pain, lightheadedness, palpitations, PND, syncope, others Gastrointestinal: denies: abdomen distended, abdominal pain, blood streaked bowels, constipated, diarrhea, dysphagia, difficulty swallowing, hematemesis, me braden, nausea, poor appetite, poor fluid intake, rectal bleeding, rectal pain, vomiting, others Genitourinary: denies: burning, dysuria, flank pain, frequency, hematuria, incontinence, penile discharge, penile sore, pain, testicle pain, testicle swelling, urgency, others Neurological: denies: dizziness, fainting, headache, left sided numbness, left sided weakness, numbness, paresthesia, pre-existing deficit, right sided numbness, right sided weakness, seizure, speech problems, tingling, tremors, weakness, others Musculoskeletal: denies: back pain, gout, joint pain, joint swelling, muscle pain, muscle stiffness, neck pain, others Integumetry: denies: bruises, change in color, change in hair/nails, dryness, laceration, lesions, lumps, rash, wounds, others Allergic/Immunocompromised: denies: Difficulty Healing, Frequent Infections, Hives, Itching, others Hematologic/Lymphatic: denies: anemia, blood clots, easy bleeding, easy bruising, swollen glands, others Endocrine: denies: excessive hunger, excessive sweating, excessive thirst, excessive urination, flushing, intolerance to cold, intolerance to heat, unexplained weight gain, unexplained weight loss, others Psychiatric: denies: anxiety, bipolar disorder, depression, hopeless, panic disorder, schizophrenia, sleepless, suicidal, others All Other Systems: Reviewed and Negative Physical Exam General Appearance: Mild Distress, Normal HEENT: Normal ENT Inspection, Pharynx Normal, TMs Normal Neck: Full Range of Motion, Non-Tender, Normal, Normal Inspection Respiratory: Chest Non-Tender, Lungs Clear, No Accessory Muscle Use, No Respiratory Distress, Normal Breath Sounds Cardiovascular: No Edema, No JVD, No Murmur, No Gallop, Normal Peripheral Pulses, Regular Rate/Rhythm Breast Exam: Deferred Gastrointestinal: No Organomegaly, Non Tender, No Pulsatile Mass, Normal Bowel Sounds, Soft Genitalia: Deferred Pelvic: Deferred Rectal: Deferred Extremities: No calf tenderness, Normal capillary refill, Normal inspection, Normal range of motion, Non-tender, No pedal edema Musculoskeletal : Apperance: Normal Neurologic: Disoriented, No Motor Deficits, Normal Mood, No Sensory Deficits, Other (Intoxicated) Cerebellar Function: Normal Reflexes: Normal Skin: Dry, Normal Color, Warm Lymphatic: No Adenopathy Was a procedure done? Was a procedure done?: No Differential Dx Considerations may include: Differential diagnosis includes but is not limited to: encephalitis, encephalopathy, toxic overdose, traumatic injury, infectious process, hypovolemia and others X-Ray, Labs, Meds, VS Vital Signs Date Time Temp Pulse Resp B/P (MAP) Pulse Ox O2 Delivery O2 Flow Rate FiO2 02/04/25 00:00 62 13 102/49 (66) 99 02/03/25 22:00 97.8 65 16 103/56 (72) 96 97.8 02/03/25 21:02 Nasal Cannula* 2 28 02/03/25 20:18 71 19 107/49 (68) 100 02/03/25 18:30 75 98 Simple Mask* 10 99 02/03/25 18:30 97.7 75 18 122/68 (86) 98 97.7 02/03/25 18:21 98.4 84 18 139/76 (97) 94 98.4 Lab Test 02/03/25 18:45 02/03/25 18:39 Range/Units Sodium Level 147 H 136-145 mmol/L Potassium Level 3.7 3.5-5.1 mmol/L Chloride Level 116 H 98-107 mmol/L Carbon Dioxide Level 20 20-31 mmol/L Anion Gap 11 5-15 Blood Urea Nitrogen 6 L 9-23 mg/dL Creatinine 0.82 0.700-1.30 mg/dL Glomerular Filtration Rate Calc 116 >90 mL/min BUN/Creatinine Ratio 7.3 L 10.0-20.0 Serum Glucose 82 74-106 mg/dL Calcium Level 8.7 8.7-10.4 mg/dL Total Bilirubin 2.5 H 0.2-1.0 mg/dL Aspartate Amino Transferase (AST) 82 H 13-40 U/L Alanine Aminotransferase (ALT) 36 7-40 U/L Alkaline Phosphatase 125 H 46-116 U/L Total Protein 5.5 L 5.7-8.2 g/dL Albumin 3.3 3.2-4.8 g/dL Salicylates Level < 3.0 -30 mg/dL Acetaminophen Level < 2.0 L 10.0-20.0 UG/ML Plasma/Serum Blood Alcohol 341.9 H <10 mg/dL Urine Color Light-yellow Yellow Urine Clarity Clear Clear Urine pH 5.5 5.0-9.0 Urine Specific [place] 1.010 1.001-1.035 Urine Protein Negative Negative Urine Ketones Negative Negative Urine Blood Negative Negative /uL Urine Nitrite Negative Negative Urine Bilirubin Negative Negative Urine Urobilinogen Normal Negative mg/dL Urine Leukocyte Esterase Negative Negative /uL Urine RBC None seen 0 - 3 /hpf Urine Microscopic WBC 1 0-3 /HPF Urine Squamous Epithelial Cells Few <5 /hpf Urine Bacteria None seen None Seen /hpf Urine Glucose Normal Normal mg/dL Urine Opiates Screen Neg NEGATIVE Urine Fentanyl Screen Neg NEGATIVE Urine Barbiturates Screen Neg NEGATIVE Urine Phencyclidine Screen Neg NEGATIVE Urine Amphetamines Screen Neg NEGATIVE Urine Benzodiazepines Screen Neg NEGATIVE Urine Cocaine Screen Neg NEGATIVE Urine Cannabinoids Screen Neg NEGATIVE Current Medications Medications (Trade) Dose Ordered Sig/Annette Route Start Time Stop Time Status Last Admin Lorazepam (Ativan Inj) 2 mg Q1HP PRN IV 02/03/25 19:15 02/03/25 19:16 PATIENT: DARON TEAGUE ACCT: [id number] UNIT: [id number] : 1985 LOC: ER ROOM / BED: / AGE / SEX: 39 / M ADM STATUS: REG ER SERVICE 25 ORDERING PHYSICIAN: JAELYN HILL MD PROCEDURE(s): HWOCT - HEAD WITHOUT CONTRAST REASON: ALOC, fall, Etoh ORDER NUMBER(s): [id number], ACCESSION NUMBER(s): [id number] EXAM: CT HEAD WITHOUT CONTRAST INDICATION: ALOC, fall, Etoh TECHNIQUE: CT of the head without intravenous contrast. Radiation Dose Information: CT Dose: CTDI volume is 32.62 mGy. Dose-length product is 607.32 mGy*cm The dose indicators for CT are the volume Computed Tomography (CT) Dose Index (CTDIvol) and the Dose Length Product (DLP), and are measured in units of mGy and mGy-cm, respectively. These indicators are not patient dose, but values generated from the CT scanner acquisition factors. The report includes radiation exposure data for exposures received during this examination. COMPARISON: CT HEAD WITHOUT CONTRAST on DOS: 03/28/24, CT HEAD WITHOUT CONTRAST on DOS: 01/28/24, CT HEAD WITHOUT CONTRAST on DOS: 01/27/24 FINDINGS: There is no evidence of acute intracranial hemorrhage, extra-axial collection, mass effect, midline shift, herniation or hydrocephalus. The ventricles, sulci and cisterns are age appropriate. The jernigan-white differentiation is intact. Patchy periventricular and subcortical white matter hypoattenuation is nonspecific but may be related to small vessel ischemic disease. The visualized paranasal sinuses and mastoid air cells are clear. The surrounding soft tissues and osseous structures are unremarkable. IMPRESSION: 1. No acute intracranial abnormality. 2. No significant change from 01/17 2024 HS:Y ENT: DARON TEAGUE ACCT: [id number] UNIT: [id number] : 1985 LOC: ER ROOM / BED: / AGE / SEX: 39 / M ADM STATUS: REG ER SERVICE 1826 ORDERING PHYSICIAN: JAELYN HILL MD PROCEDURE(s): CS2 - CERVICAL WITHOUT CONTRAST REASON: ALOC, fall, Etoh ORDER NUMBER(s): [id number], ACCESSION NUMBER(s): [id number] CT OF THE CERVICAL SPINE WITHOUT CONTRAST HISTORY: ALOC, fall, Etoh COMPARISON: CT CERVICAL WITHOUT CONTRAST on DOS: 01/28/24, CT CERVICAL WITHOUT CONTRAST on DOS: 01/27/24, CT CERVICAL WITHOUT CONTRAST on DOS: 04/01/23 TECHNIQUE: Helical images through the cervical spine were obtained without contrast. Sagittal and coronal reformats were obtained. One or more of the following radiation dose reduction techniques were used for this examination: automated exposure control, adjustment of the mA and/or kV according to patient size, use of iterative reconstruction technique. FINDINGS: There is no acute cervical spine fracture. No anterolisthesis or retrolisthesis. Mild degenerative disc disease at the lower cervical spine. No prevertebral soft tissue swelling. Spinous processes are intact. No jumped or perched facets. Craniocervical junction is normal. Evaluation of the soft tissues of the neck and lung apices are unremarkable. IMPRESSION: 1. No acute cervical spine fracture. Time of 1ST Reevaluation: 18:57 Reevaluation 1ST: Unchanged Time of 2ND Reevaluation: 03:04 Reevaluation 2ND: Improved Patient Education/Counseling: Diagnosis, Treatment, Need For Follow Up Family Education/Counseling: No Family Present SEPSIS Sepsis Screen Physician Orders Head Without Contrast (02/03/25 18:26) Cervical Without Contrast (02/03/25 18:26) Lorazepam 2mg/Ml Inj (Ativan Inj) (02/03/25 19:15) NS (02/04/25 03:15) Complete Blood Count (02/04/25 03:06) Vital Signs Date Time Temp Pulse Resp B/P (MAP) Pulse Ox O2 Delivery O2 Flow Rate FiO2 02/04/25 00:00 62 13 102/49 (66) 99 02/03/25 22:00 97.8 65 16 103/56 (72) 96 97.8 02/03/25 21:02 Nasal Cannula* 2 28 02/03/25 20:18 71 19 107/49 (68) 100 02/03/25 18:30 75 98 Simple Mask* 10 99 02/03/25 18:30 97.7 75 18 122/68 (86) 98 97.7 02/03/25 18:21 98.4 84 18 139/76 (97) 94 98.4 Medications Medications Dose Ordered Sig/Annette Route Start Time Stop Time Status Last Admin Dose Admin Lorazepam 2 mg Q1HP PRN IV 02/03/25 19:15 02/03/25 19:16 Departure 1 Departure Time of Disposition: 03:04 Impression: Primary Impression: Alcohol abuse Additional Impressions: Alcohol intoxication Dehydration Metabolic encephalopathy Disposition: ADMITTED INPATIENT Admit to: Med Surg Condition: Guarded Comments Altered Mental Status with Alcohol Intoxication Chief Complaint: Altered mental status History of Present Illness: Patient is a 39-year-old male with a significant past medical history of alcohol abuse, seizure disorder, lupus, and liver cirrhosis who presents to the Emergency Department with altered mental status. According to family members, the patient was found down on the ground. There is concern that the patient may have bumped his head during the fall. Upon arrival, the patient was noted to have a cervical collar in place for precautionary measures. He is arousable with loud verbal stimuli but complains of diffuse pain. Laboratory studies revealed a markedly elevated blood alcohol level of 342 mg/dL, suggesting severe alcohol intoxication as a likely contributor to his current presentation. Review of Systems: Constitutional: Altered mental status, generalized pain. Neurological: Decreased level of consciousness, arousable to loud voice. Head: Possible head trauma from fall. All other systems: Unable to obtain due to patient's altered mental status. Past Medical History: 1. Alcohol abuse 2. Seizure disorder 3. Systemic lupus erythematosus 4. 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 Social History: Alcohol: Active alcohol abuse with current severe intoxication. Other social history details not specified in fruit checker. Physical Exam: General: Patient in cervical collar, arousable with loud voice. Neurological: Altered mental status, responds to loud verbal stimuli. Musculoskeletal: Complains of diffuse pain. Other systems: Limited examination due to patient's altered mental status. Lab Results: Blood Alcohol Level: 342 mg/dL (significantly elevated) Salicylates: Unremarkable, undetectable Acetaminophen: Unremarkable, undetectable Urine Drug Screen: Negative Sodium: 147 mEq/L (elevated) Total Bilirubin: 2.5 mg/dL (elevated) AST: 82 U/L (elevated) ALT: 125 U/L (elevated) Imaging and Other Relevant Results: CT Head: No acute intracranial pathology CT Cervical Spine: No acute pathology Medical Decision Making: Summary Statement: 39-year-old male with history of alcohol abuse, seizure disorder, lupus, and liver cirrhosis presenting with altered mental status, found down by family with possible head trauma, and severe alcohol intoxication. Problem List: 1. Acute hepatic encephalopathy, 2. Alcohol intoxication (BAL 342), 3. Liver cirrhosis, 4. Hypernatremia (Na 147), 5. Elevated liver enzymes, 6. History of seizure disorder, 7. History of lupus Differential Diagnosis: Hepatic encephalopathy, alcohol intoxication, post-ictal state, traumatic brain injury, metabolic encephalopathy, infection, medication effect, withdrawal syndrome. ED Course: Patient arrived with altered mental status and was immediately placed in cervical collar due to concern for trauma. Initial laboratory studies revealed severe alcohol intoxication and abnormal liver function tests. CT imaging of head and cervical spine were obtained to rule out traumatic injury, both negative for acute pathology. Given patient's history of liver cirrhosis and current presentation, diagnosis of hepatic encephalopathy was made in the setting of alcohol intoxication. Assessment and Plan: 1. Acute Hepatic Encephalopathy: - Likely precipitated by alcohol consumption in the setting of known liver cirrhosis - Will admit for close monitoring and management - Consider lactulose therapy to reduce ammonia levels - Monitor liver function tests 2. Alcohol Intoxication (BAL 342): - Supportive care with IV fluids - Monitor for withdrawal symptoms - Consult addiction medicine for evaluation and treatment recommendations - Consider thiamine, folate, and multivitamin supplementation 3. Liver Cirrhosis: - Continue home medications as appropriate - Monitor for signs of decompensation - Hepatology consultation during admission 4. Hypernatremia (Na 147): - Likely related to dehydration - Correct with appropriate IV fluids - Monitor electrolytes 5. Seizure Disorder: - Continue home antiepileptic medications - Monitor for seizure activity 6. Systemic Lupus Erythematosus: - Continue home medications - Monitor for exacerbation Disposition: Admit to Medicine service for management of hepatic encephalopathy and alcohol intoxication. Additional Notes: Patient to be admitted for hepatic encephalopathy and alcohol intoxication Billing Information: ICD-10: F10.129 - Alcohol abuse with intoxication, unspecified ICD-10: K72.90 - Hepatic encephalopathy, unspecified ICD-10: K74.60 - Unspecified cirrhosis of liver ICD-10: M32.9 - Systemic lupus erythematosus, unspecified ICD-10: G40.909 - Epilepsy, unspecified, not intractable, without status epilepticus Critical Care Note Critical Care Time?: No Stability Stability form required: No Heart Score Heart Score: Heart Score Response (Comments) Value History N/A 0 EKG N/A 0 Age N/A 0 Risk Factors N/A 0 Troponin N/A 0 Total 0 I personally scribed for JAELYN HILL MD ([email or web address]) on 02/03/25 at 18:30. Electronically submitted by Cash Ornelas ([email or web address]). I personally scribed for JAELYN HILL MD ([email or web address]) on 02/03/25 at 19:54. Electronically submitted by Cash Ornelas ([email or web address]). I personally scribed for JAELYN HILL MD ([email or web address]) on 02/03/25 at 19:54. Electronically submitted by Cash Ornelas ([email or web address]). JAELYN HILL MD Feb 03, 2025 18:30
[2025-02-03] MEDS: LORazepam 2MG/ML-1ML VIAL ONE (19:16)
[2025-02-03] MEDS: LORazepam 2MG/ML-1ML VIAL IV PRN (19:16)
[2025-02-03 19:30] LABS: Urine Protein, UAD Negative (Negative)
[2025-02-03 19:45] LABS: Cannabinoid Screen, Urine Neg (NEGATIVE)
[2025-02-03 19:47] LABS: Alanine Aminotransferase 36 U/L (7-40); Albumin 3.3 g/dL (3.2-4.8); Anion Gap 11 (5-15); BUN/Creatinine Ratio 7.3 (10.0-20.0); Calcium 8.7 mg/dL (8.7-10.4); Carbon Dioxide 20 mmol/L (20-31); Glucose 82 mg/dL (74-106); Potassium 3.7 mmol/L (3.5-5.1)
[2025-02-03 19:47] LABS: Amphetamine Screen, Urine Neg (NEGATIVE); Barbiturate Scree,Urine Neg (NEGATIVE); Benzodiazephine Screen, Urine Neg (NEGATIVE); Cocaine Screen, Urine Neg (NEGATIVE); Opiate Scree,Urine Neg (NEGATIVE); Phencyclidine Screen, Urine Neg (NEGATIVE)
[2025-02-03 19:48] LABS: Salicylate < 3.0 mg/dL (-30)
[2025-02-03 19:51] LABS: Alkaline Phosphatase 125 U/L (46-116); Bilirubin, Total 2.5 mg/dL (0.2-1.0); Blood Urea Nitrogen 6 mg/dL (9-23); Chloride 116 mmol/L (98-107); Sodium 147 mmol/L (136-145); Total Protein 5.5 g/dL (5.7-8.2)
--- NOTE | 2025-02-03 19:51 | DVH ---
CT OF THE CERVICAL SPINE WITHOUT CONTRAST HISTORY: ALOC, fall, Etoh COMPARISON: CT CERVICAL WITHOUT CONTRAST on DOS: 01/28/24, CT CERVICAL WITHOUT CONTRAST on DOS: 4, CT CERVICAL WITHOUT CONTRAST on DOS: 04/01/23 TECHNIQUE: Helical images through the cervical spine were obtained without contrast. Sagittal and cor onal reformats were obtained. One or more of the following radiation dose reduction techniques were u sed for this examination: automated exposure control, adjustment of the mA and/or kV according to pat ient size, use of iterative reconstruction technique. FINDINGS: There is no acute cervical spine fracture. No anterolisthesis or retrolisthesis. Mild degenerative disc disease at the lower cervical spine. No prevertebral soft tissue swelling. Spinous processes are intact. No jumped or perched facets. Health Researcher niocervical junction is normal. Evaluation of the soft tissues of the neck and lung apices are unremarkable. IMPRESSION: 1. No acute cervical spine fracture.
--- NOTE | 2025-02-03 19:52 | DVH ---
EXAM: CT HEAD WITHOUT CONTRAST INDICATION: ALOC, fall, Etoh TECHNIQUE: CT of the head without intravenous contrast. Radiation Dose Information: CT Dose: CTDI volume is 32.62 mGy. Dose-length product is 607.32 mGy*cm The dose indicators for CT are the volume Computed Tomography (CT) Dose Index (CTDIvol) and the Dose Length Product (DLP), and are measured in units of mGy and mGy-cm, respectively. These indicators are not patient dose, but values generated from the CT scanner acquisition factors. The report includes radiation exposure data for exposures received during this examination. COMPARISON: CT HEAD WITHOUT CONTRAST on DOS: 03/28/24, CT HEAD WITHOUT CONTRAST on DOS: 01/28/24, CT HEA D WITHOUT CONTRAST on DOS: 01/27/24 FINDINGS: There is no evidence of acute intracranial hemorrhage, extra-axial collection, mass effect, midline s hift, herniation or hydrocephalus. The ventricles, sulci and cisterns are age appropriate. The jernigan-white differentiation is intact. Patchy periventricular and subcortical white matter hypoattenuation is nonspecific but may be related to small vessel ischemic disease. The visualized paranasal sinuses and mastoid air cells are clear. The surrounding soft tissues and osseous structures are unremarkable. IMPRESSION: 1. No acute intracranial abnormality. 2. No significant change from 01/17 2024 HS:Y
[2025-02-03 20:05] LABS: Acetaminophen < 2.0 UG/ML (10.0-20.0)
[2025-02-04] MEDS ORDERED: MORPHINE SULFATE INJ 2 MG/ml SYRG IV PRN (03:30)
[2025-02-04] MEDS ORDERED: FOLIC ACID 1 MG in D5W 5% 50 ML INJ ONE (03:30)
[2025-02-04] MEDS ORDERED: NITROGLYCERIN 0.4 MG SL TAB SL PRN (03:30)
[2025-02-04] MEDS ORDERED: ACETAMINOPHEN 325 MG TAB PO PRN (03:30)
[2025-02-04] MEDS ORDERED: DOCUSATE SOD 100 MG CAP PO PRN (03:30)
[2025-02-04 03:40] LABS: Hemoglobin 7.9 g/dL (13.5-17.5); Mean Corpuscular Hemoglobin 28.5 pg (28.0-32.0); Mean Corpuscular Volume 92.2 fL (80.0-100.0)
[2025-02-04 03:43] LABS: Hematocrit 25.6 % (41.0-53.0)
--- NOTE | 2025-02-04 03:51 | DVHHP2 ---
History of Present Illness Reason for Visit: Alcohol intoxication History of Present Illness The patient is a 39-year-old male with past medical history of anxiety, EtOH abuse, liver disease, seizures, TIA, and hypertension who presented to [facility] ED for evaluation of alcohol abuse. Patient was found by family member lying on the ground outside taking 10 short of hard liquor and was noted to be intoxicated. Patient was seen and evaluated in the ED, laboratory data shows sodium 147, potassium 3.7, BUN six, creatinine 0.82, glucose 82, calcium 8.7, protein 5.5, total bilirubin 2.5, alkaline phos 125, AST 82, ALT 36, serum alcohol 341.9, blood pressure 102/49, heart rate 62, temperature 97.8 F, O2 saturation 98% on oxygen. Head CT showed no acute intracranial abnormality, cervical spine CT showed no acute cervical spine fracture. Please see medication orders section in the computer. On my assessment, patient denied chest pain, no headache, no dizziness, no shortness of breaths, no abdominal pain, no diarrhea, no nausea, no vomiting, no fever, no chills. Patient was admitted for further evaluation and medical management. Past Medical History Anxiety, HTN, Liver Disease, Seizures, TIA Past Surgical History Denies all surgeries Family History Reviewed, noncontributory to the management of this case. Past Social History The patient lives at home, smokes cigarettes less than 1 pack per day, drinks alcohol heavily, uses marijuana. Review of Systems Constitutional: Yes: Weakness; No: Fever, Chills, Sweats, Malaise, Other Eyes: No: Pain, Vision change, Conjunctivae inflammation, Eyelid inflammation, Other, Redness ENT: No: Ear pain, Ear discharge, Nose pain, Nose discharge, Nose congestion, Mouth pain, Mouth swelling, Throat pain, Throat swelling, Other Respiratory: No: Cough, Dry, Shortness of breath, SOB with excertion, Wheezing, Hemoptysis, Pleuritic Pain, Sputum, Wheezing, Other Cardiovascular: No: Chest Pain, Palpitations, Orthopnea, Paroxysmal Noc. Dyspnea, Edema, Lt Headedness, Other Gastrointestinal: No: Nausea, Vomiting, Abdominal Pain, Diarrhea, Constipation, Melena, Hematochezia, Other Genitourinary: No Dysuria, No Frequency, No Incontinence, No Hematuria, No Retention, No Other Musculoskeletal: No: other, neck pain, shoulder pain, arm pain, back pain, hand pain, leg pain, foot pain Skin: No: Rash, Lesions, Jaundice, Bruising, Other Neurological: No: Weakness, Numbness, Incoordination, Change in speech, Confusion, Seizures, Other Allergies: Coded Allergies: Gabapentin (Verified Allergy, Unknown, 07/12/22) NSAIDs (Verified Allergy, Unknown, 07/12/22) Medications Current Medications Medications Dose Ordered Sig/Annette Route Start Time Stop Time Status Last Admin Dose Admin Lorazepam 2 mg Q1HP PRN IV 02/03/25 19:15 02/03/25 19:16 2 MG Exam Vital Signs Vital Signs Date Time Temp Pulse Resp B/P (MAP) Pulse Ox O2 Delivery O2 Flow Rate FiO2 02/04/25 00:00 62 13 102/49 (66) 99 02/03/25 22:00 97.8 97.8 02/03/25 21:02 Nasal Cannula* 2 28 General Appearance: Alert, Oriented X3, Cooperative, No acute distress HEENT: Atraumatic, PERRLA, EOMI, Mucous membr. moist/pink Respiratory: Clear to auscultation, Normal air movement Cardiovascular: Regular rate, Normal S1, Normal S2, No murmurs Abdominal: Normal bowel sounds, Soft, No tenderness, No hepatospenomegaly, No masses Extremities: No clubbing, No cyanosis, No edema, Normal pulses, No tenderness/swelling Skin: No rashes, No breakdown, No significant lesion Neuro: Normal speech, Normal tone, Sensation intact, Cranial nerves 3-12 NL, Reflexes 2+, Other (Generalized weakness) Psych/Mental Status: Mental status NL, Mood NL Labs/Xrays Labs Test 02/04/25 03:16 02/03/25 18:45 02/03/25 18:39 Range/Units Sodium Level 147 H 136-145 mmol/L Potassium Level 3.7 3.5-5.1 mmol/L Chloride Level 116 H 98-107 mmol/L Carbon Dioxide Level 20 20-31 mmol/L Anion Gap 11 5-15 Blood Urea Nitrogen 6 L 9-23 mg/dL Creatinine 0.82 0.700-1.30 mg/dL Glomerular Filtration Rate Calc 116 >90 mL/min BUN/Creatinine Ratio 7.3 L 10.0-20.0 Serum Glucose 82 74-106 mg/dL Calcium Level 8.7 8.7-10.4 mg/dL Total Bilirubin 2.5 H 0.2-1.0 mg/dL Aspartate Amino Transferase (AST) 82 H 13-40 U/L Alanine Aminotransferase (ALT) 36 7-40 U/L Alkaline Phosphatase 125 H 46-116 U/L Total Protein 5.5 L 5.7-8.2 g/dL Albumin 3.3 3.2-4.8 g/dL Salicylates Level < 3.0 -30 mg/dL Acetaminophen Level < 2.0 L 10.0-20.0 UG/ML Plasma/Serum Blood Alcohol 341.9 H <10 mg/dL Urine Color Light-yellow Yellow Urine Clarity Clear Clear Urine pH 5.5 5.0-9.0 Urine Specific [place] 1.010 1.001-1.035 Urine Protein Negative Negative Urine Ketones Negative Negative Urine Blood Negative Negative /uL Urine Nitrite Negative Negative Urine Bilirubin Negative Negative Urine Urobilinogen Normal Negative mg/dL Urine Leukocyte Esterase Negative Negative /uL Urine RBC None seen 0 - 3 /hpf Urine Microscopic WBC 1 0-3 /HPF Urine Squamous Epithelial Cells Few <5 /hpf Urine Bacteria None seen None Seen /hpf Urine Glucose Normal Normal mg/dL Urine Opiates Screen Neg NEGATIVE Urine Fentanyl Screen Neg NEGATIVE Urine Barbiturates Screen Neg NEGATIVE Urine Phencyclidine Screen Neg NEGATIVE Urine Amphetamines Screen Neg NEGATIVE Urine Benzodiazepines Screen Neg NEGATIVE Urine Cocaine Screen Neg NEGATIVE Urine Cannabinoids Screen Neg NEGATIVE PATIENT: DARON TEAGUE ACCT: [id number] UNIT: [id number] : 1985 LOC: ER ROOM / BED: / AGE / SEX: 39 / M ADM STATUS: REG ER SERVICE 1826 ORDERING PHYSICIAN: JAELYN HILL MD PROCEDURE(s): CS2 - CERVICAL WITHOUT CONTRAST REASON: ALOC, fall, Etoh ORDER NUMBER(s): [id number], ACCESSION NUMBER(s): [id number] CT OF THE CERVICAL SPINE WITHOUT CONTRAST HISTORY: ALOC, fall, Etoh COMPARISON: CT CERVICAL WITHOUT CONTRAST on DOS: 01/28/24, CT CERVICAL WITHOUT CONTRAST on DOS: 01/27/24, CT CERVICAL WITHOUT CONTRAST on DOS: 04/01/23 TECHNIQUE: Helical images through the cervical spine were obtained without contrast. Sagittal and coronal reformats were obtained. One or more of the following radiation dose reduction techniques were used for this examination: automated exposure control, adjustment of the mA and/or kV according to patient size, use of iterative reconstruction technique. FINDINGS: There is no acute cervical spine fracture. No anterolisthesis or retrolisthesis. Mild degenerative disc disease at the lower cervical spine. No prevertebral soft tissue swelling. Spinous processes are intact. No jumped or perched facets. Craniocervical junction is normal. Evaluation of the soft tissues of the neck and lung apices are unremarkable. IMPRESSION: 1. No acute cervical spine fracture. ORDERING PHYSICIAN: JAELYN HILL MD PROCEDURE(s): HWOCT - HEAD WITHOUT CONTRAST REASON: ALOC, fall, Etoh ORDER NUMBER(s): [id number], ACCESSION NUMBER(s): [id number] EXAM: CT HEAD WITHOUT CONTRAST INDICATION: ALOC, fall, Etoh TECHNIQUE: CT of the head without intravenous contrast. Radiation Dose Information: CT Dose: CTDI volume is 32.62 mGy. Dose-length product is 607.32 mGy*cm The dose indicators for CT are the volume Computed Tomography (CT) Dose Index (CTDIvol) and the Dose Length Product (DLP), and are measured in units of mGy and mGy-cm, respectively. These indicators are not patient dose, but values generated from the CT scanner acquisition factors. The report includes radiation exposure data for exposures received during this examination. COMPARISON: CT HEAD WITHOUT CONTRAST on DOS: 03/28/24, CT HEAD WITHOUT CONTRAST on DOS: 01/28/24, CT HEAD WITHOUT CONTRAST on DOS: 01/27/24 FINDINGS: There is no evidence of acute intracranial hemorrhage, extra-axial collection, mass effect, midline shift, herniation or hydrocephalus. The ventricles, sulci and cisterns are age appropriate. The jernigan-white differentiation is intact. Patchy periventricular and subcortical white matter hypoattenuation is nonspecific but may be related to small vessel ischemic disease. The visualized paranasal sinuses and mastoid air cells are clear. The surrounding soft tissues and osseous structures are unremarkable. IMPRESSION: 1. No acute intracranial abnormality. 2. No significant change from 01/17 2024 SEPSIS Sepsis Screen Date sepsis recognized/suspect: Feb 03, 2025 Time Sepsis recognized/suspect: 1820 Recent Procedure: No On Antibiotic Therapy: No Respiratory Rate >20: No Heart Rate >90: No Temp<36 C (96.8 F) or >38.3 C: No SBP <90 or MAP <65 mmHG: No New Acute Mental Status Change: No Is the patient on CPAP, BIPAP,: No Physician Orders Sodium Chloride 0.9% (02/04/25 03:15) Complete Blood Count (02/04/25 03:06) Ammonia (02/04/25 03:12) Vital Signs Date Time Temp Pulse Resp B/P (MAP) Pulse Ox O2 Delivery O2 Flow Rate FiO2 02/04/25 00:00 62 13 102/49 (66) 99 02/03/25 22:00 97.8 65 16 103/56 (72) 96 97.8 02/03/25 21:02 Nasal Cannula* 2 28 02/03/25 20:18 71 19 107/49 (68) 100 Laboratory Tests Test 02/04/25 03:16 White Blood Count Pending Medications Medications Dose Ordered Sig/Annette Route Start Time Stop Time Status Last Admin Dose Admin Lorazepam 2 mg Q1HP PRN IV 02/03/25 19:15 02/03/25 19:16 2 MG Assessment/Plan Assessment/Plan Alcohol intoxication Alcohol abuse Dehydration Elevated liver enzymes Metabolic encephalopathy Generalized weakness Plan 1. Admit to telemetry unit 2. Breathing treatment 3. Pain control management 4. Management of fluids and electrolytes 5. Consultation for hospitalist 6. Diagnostic tests head CT 7. DVT prophylaxis-on SCDs 8. Repeat labs CBC, CMP in a.m. 9. Continue with current medical management 10. Treatment plan discussed with patient and RN. Patient verbalized understanding. Plan discussed with: Patient, Other (RN) Problem List: (1) Alcohol intoxication (2) Alcohol abuse (3) Dehydration (4) Elevated liver enzymes (5) Metabolic encephalopathy (6) Generalized weakness Date of Service: Feb 04, 2025 Billing Provider: KELSIE SADLER DNP Common Visit Codes: [id number] INP/OBS CARE (HIGH) KELSIE SADLER DNP Feb 04, 2025 03:51
[2025-02-04] MEDS: SODIUM CHLORIDE 0.9% 1,000 ML IV ONE (03:54)
[2025-02-04] MEDS: THIAMINE 100mg/ml INJ (200mg/2ml VIAL) IV ONE (04:03)
[2025-02-04 04:45] LABS: Total Cells Counted 100.0 (100)
[2025-02-04 04:46] LABS: Anisocytosis Slight
[2025-02-04] MEDS: SODIUM CHLORIDE 0.9% 1,000 ML IV SCH (04:57)
[2025-02-04 05:21] LABS: Alanine Aminotransferase 34 U/L (7-40); Alkaline Phosphatase 115 U/L (46-116); Anion Gap 10 (5-15); BUN/Creatinine Ratio 6.6 (10.0-20.0); Carbon Dioxide 21 mmol/L (20-31); Glucose 79 mg/dL (74-106); Potassium 3.9 mmol/L (3.5-5.1)
[2025-02-04 05:22] LABS: Albumin 3.1 g/dL (3.2-4.8); Bilirubin, Total 2.1 mg/dL (0.2-1.0); Blood Urea Nitrogen 5 mg/dL (9-23); Calcium 7.7 mg/dL (8.7-10.4); Chloride 117 mmol/L (98-107); Sodium 148 mmol/L (136-145); Total Protein 5.2 g/dL (5.7-8.2)
[2025-02-04] MEDS: HYDROcodone-ACET 5/325MG TAB PO PRN (07:55)
[2025-02-04] MEDS: LORazepam 2MG/ML-1ML VIAL IV PRN (08:06)
[2025-02-04] MEDS: FAMOTIDINE (10MG/ML) 2ML VL IV SCH (09:40)
[2025-02-04] MEDS: THIAMINE 100mg/ml INJ (200mg/2ml VIAL) IV SCH (09:40)
[2025-02-04] MEDS: levETIRAcetam 500 mg/100ml 100 ML IV SCH (09:40)
[2025-02-04] MEDS: FOLIC ACID 1 MG in D5W 5% 50 ML INJ SCH (09:41)
[2025-02-04] MEDS: SPIRONOLACTONE 25 MG TAB PO SCH (09:45)
[2025-02-04] MEDS: ONDANSETRON HCL 4 MG/2 ML VIAL IV PRN (15:02)
[2025-02-05] VITALS (8 sets, daily range): BP systolic 114–145; BP diastolic 64–96; PULSE 59–84; RESP 16–18; TEMP 97.7–98.6; O2SAT 95–100
[2025-02-05 07:07] LABS: Hematocrit 21.8 % (41.0-53.0); Hemoglobin 7.3 g/dL (13.5-17.5); Mean Corpuscular Hemoglobin 29.5 pg (28.0-32.0); Mean Corpuscular Volume 88.5 fL (80.0-100.0); Nucleated Red Blood Cells % 1.2 %
[2025-02-05 07:28] LABS: Alanine Aminotransferase 29 U/L (7-40); Anion Gap 7 (5-15); BUN/Creatinine Ratio 13.9 (10.0-20.0); Blood Urea Nitrogen 10 mg/dL (9-23); Carbon Dioxide 25 mmol/L (20-31); Glucose 75 mg/dL (74-106); Potassium 3.8 mmol/L (3.5-5.1); Sodium 143 mmol/L (136-145)
[2025-02-05 07:35] LABS: Albumin 2.7 g/dL (3.2-4.8); Alkaline Phosphatase 117 U/L (46-116); Bilirubin, Total 2.6 mg/dL (0.2-1.0); Calcium 8.3 mg/dL (8.7-10.4); Chloride 111 mmol/L (98-107); Total Protein 4.6 g/dL (5.7-8.2)
--- NOTE | 2025-02-05 15:37 | DVHPN2 ---
Subjective seen in bed Reviewed: H&P, Labs Changes from previous H/P or p: No Changes Eyes: No Pain, No Vision change, No Conjunctivae inflammation, No Eyelid inflammation, No Other, No Redness ENT: No Ear pain, No Ear discharge, No Nose pain, No Nose discharge, No Nose congestion, No Mouth pain, No Mouth swelling, No Throat pain, No Throat swelling, No Other Cardiovascular: No Chest Pain, No Palpitations, No Orthopnea, No Paroxysmal Noc. Dyspnea, No Edema, No Lt Headedness, No Other Respiratory: No Cough, No Dry, No Shortness of breath, No SOB with excertion, No Wheezing, No Hemoptysis, No Pleuritic Pain, No Sputum, No Other Gastrointestinal: No Nausea, No Vomiting, No Abdominal Pain, No Diarrhea, No Constipation, No Melena, No Hematochezia, No Other Genitourinary: No Dysuria, No Frequency, No Incontinence, No Hematuria, No Retention, No Other Musculoskeletal: No other, No neck pain, No shoulder pain, No arm pain, No back pain, No hand pain, No leg pain, No foot pain Skin: No Rash, No Lesions, No Jaundice, No Bruising, No Other Objective Vitals Vital Signs Date Time Temp Pulse Resp B/P (MAP) Pulse Ox O2 Delivery O2 Flow Rate FiO2 02/05/25 12:47 98.2 83 18 114/64 (81) 98 98.2 02/05/25 08:00 Room Air* 0 21 Intake/Output Intake and Output 02/05/25 07:00 Intake Total 0 ml Output Total 600 ml Balance -600 ml Intake Oral 0 ml Output Urine Total 600 ml # Voids 6 # Bowel Movements 1 General Appearance: Alert, Oriented X3 HEENT: Atraumatic Lungs: Clear to auscultation Cardiovascular: Regular rate, Normal S1 Abdomen: Normal bowel sounds Medications Current Medications Medications Dose Ordered Sig/Annette Route Start Time Stop Time Status Last Admin Dose Admin Lorazepam 2 mg Q1HP PRN IV 02/03/25 19:15 02/04/25 18:43 2 MG Spironolactone 25 mg DAILY PO 02/04/25 10:00 02/05/25 09:45 25 MG Lorazepam 1 mg Q1HP PRN IV 02/04/25 03:30 02/05/25 08:55 1 MG Levetiracetam 100 ml @ 400 mls/hr BID IV 02/04/25 10:00 02/05/25 09:45 400 MLS/HR Thiamine HCl 100 mg DAILY IV 02/04/25 10:00 02/05/25 09:45 100 MG Folic Acid 1 mg/ Dextrose 50.2 ml @ 200.8 mls/ hr DAILY INJ 02/04/25 10:00 02/05/25 10:30 200.8 MLS/HR Famotidine 20 mg Q12HR IV 02/04/25 10:00 02/05/25 09:45 20 MG Sodium Chloride 1,000 ml @ 120 mls/hr Q8H20M IV 02/04/25 03:30 02/05/25 10:36 120 MLS/HR Acetaminophen/ Hydrocodone Bitart 1 tab Q4HP PRN PO 02/04/25 03:30 02/05/25 14:34 1 TAB Ondansetron HCl 4 mg Q4HP PRN IV 02/04/25 03:30 02/05/25 12:59 4 MG Docusate Sodium 100 mg BIDPRN PRN PO 02/04/25 03:30 Acetaminophen 650 mg Q6HP PRN PO 02/04/25 03:30 Nitroglycerin 0.4 mg Q5MINP PRN SL 02/04/25 03:30 Morphine Sulfate 2 mg Q30M PRN IV 02/04/25 03:30 Laboratory Results Laboratory Tests 02/05/25 05:18 Chemistry Test 02/05/25 05:18 Albumin 2.7 g/dL (3.2-4.8) L Calcium Level 8.3 mg/dL (8.7-10.4) L Total Protein 4.6 g/dL (5.7-8.2) L LFT Test 02/05/25 05:18 Alanine Aminotransferase (ALT) 29 U/L (7-40) Alkaline Phosphatase 117 U/L (46-116) H Aspartate Amino Transferase (AST) 61 U/L (13-40) H Total Bilirubin 2.6 mg/dL (0.2-1.0) H Urinalysis Test 02/03/25 18:39 Urine Color Light-yellow (Yellow) Urine Clarity Clear (Clear) Urine pH 5.5 (5.0-9.0) Urine Specific [place] 1.010 (1.001-1.035) Urine Protein Negative (Negative) Urine Ketones Negative (Negative) Urine Blood Negative /uL (Negative) Urine Nitrite Negative (Negative) Urine Bilirubin Negative (Negative) Urine Urobilinogen Normal mg/dL (Negative) Urine Leukocyte Esterase Negative /uL (Negative) Urine RBC None seen /hpf (0 - 3) Urine Microscopic WBC 1 /HPF (0-3) Urine Squamous Epithelial Cells Few /hpf (<5) Urine Bacteria None seen /hpf (None Seen) Urine Glucose Normal mg/dL (Normal) Assessment/Plan Assessment/Plan Alcohol intoxication Alcohol abuse Dehydration Elevated liver enzymes Metabolic encephalopathy Generalized weakness Monitor labs daily mentation improved possible dc in next 1-2 days Plan discussed with: Patient Date of Service: Feb 05, 2025 Billing Provider: JUANIS MINOR MD Common Visit Codes: [id number] INP/OBS CARE(HIGH) JUANIS MINOR MD Feb 05, 2025 15:37
[2025-02-06 05:00] VITALS: BP 124/79; PULSE 69; RESP 18; TEMP 97.2; O2SAT 97
== END 2025-02-06 07:35 | disposition left against medical advice (07) | DRG 52 ==
LOC: ER 18:19 → EDBD 18:19 → OVERFLOW 02-04 03:28 → TELE-CENTR 02-04 23:55
PROVIDERS: ADMIT Nurse Practitioner Family; ATTEND Nurse Practitioner Family
DX: G93.41 Metabolic encephalopathy (principal); E72.20 Disorder of urea cycle metabolism, unspecified; M32.9 Systemic lupus erythematosus, unspecified; E86.0 Dehydration; Z53.29 Procedure and treatment not carried out because of patient's decision for other reasons; F10.129 Alcohol abuse with intoxication, unspecified; G40.909 Epilepsy, unspecified, not intractable, without status epilepticus; I10 Essential (primary) hypertension; F17.210 Nicotine dependence, cigarettes, uncomplicated; F41.9 Anxiety disorder, unspecified; Z86.73 Personal history of transient ischemic attack (TIA), and cerebral infarction without residual deficits; Z79.899 Other long term (current) drug therapy; Y90.8 Blood alcohol level of 240 mg/100 ml or more
CPT/HCPCS: 36415; 70450; 72125; 80053; 80307; 80320; 80329; 81001; 82140; 85007; 85025; 85027; G0378; J2405; J3490; J7060

== ENCOUNTER 2025-03-15 18:17 | Inpatient (IN) | payer MEDICAID ==
[~2025-03-15] VITALS: Ht 180.3 cm; Wt 95.4 kg
[2025-03-15 18:56] VITALS: PULSE 72; RESP 10; O2SAT 95
[2025-03-15 19:18] LABS: Urine Protein, UAD Negative (Negative)
[2025-03-15 19:19] LABS: Benzodiazephine Screen, Urine Pos (NEGATIVE); Cocaine Screen, Urine Neg (NEGATIVE)
[2025-03-15 19:27] LABS: Amphetamine Screen, Urine Neg (NEGATIVE); Barbiturate Scree,Urine Neg (NEGATIVE); Cannabinoid Screen, Urine Neg (NEGATIVE); Opiate Scree,Urine Neg (NEGATIVE); Phencyclidine Screen, Urine Neg (NEGATIVE)
--- NOTE | 2025-03-15 19:51 | ED.PDOC ---
History of Present Illness HPI Comments This is a 39-year-old male with past medical history of alcohol-induced liver cirrhosis, seizure, lupus, came to the hospital status post mechanical fall. Per patient, last night 1 pull gun on him, he tried to scale, tripped and fell, subsequently he got right thumb, left arm and left shoulder pain. He denies loss of consciousness, nausea, vomiting, chest pain, and shortness of breaths. PMHx: Alcohol-induced liver cirrhosis, seizure, lupus, and hypertension Social history: Smokes cigarettes, marijuana, cocaine, Home medication: Protonix, spironolactone, rifaximin, melatonin, baclofen, levetiracetam, Lasix, trazodone, escitalopram, and quetiapine Allergic history: Gabapentin and NSAIDs Chief Complaint: Fall Injury Time Seen by MD: 18:25 Primary Care Provider: [facility] Allergies: Coded Allergies: Gabapentin (Verified Allergy, Unknown, 07/12/22) NSAIDs (Verified Allergy, Unknown, 07/12/22) Home Meds Active Scripts Lorazepam (Ativan) 2 Mg Tab, 1 TAB PO TID PRN, #20 TAB Prov:MANDY ADAN MD 02/11/24 Oxycodone Hcl (OxyCONTIN ER Tablet) 20 Mg Tb, 1 TAB PO TID, #30 TAB Prov:MANDY ADAN MD 02/11/24 Spironolactone (Aldactone) 25 Mg Tab, 100 MG PO DAILY for 90 Days, #360 TAB Prov:MARCUS TREVIZO RESIDENT 01/30/24 Levetiracetam (KEPPRA TABLET) 500 Mg Tb, 500 MG PO BID for 180 Days, #360 TAB 4 Refills Prov:MARCUS TREVIZO RESIDENT 01/30/24 Furosemide (Furosemide) 40 Mg Tab, 40 MG PO DAILY for 90 Days, #90 TAB Prov:MARCUS TREVIZO RESIDENT 01/30/24 Lidocaine (LIDODERM 5% TOPICAL PATCH) 1 Patch Ph, 1 PATCH TOP DAILY for 15 Days, #15 PATCH Prov:STEVE العراقي MD 01/20/24 Reported Medications Omeprazole (Omeprazole Dr) 20 Mg Cap, 1 CAP PO DAILY 02/09/24 Spironolactone (Spironolactone) 25 Mg Tab, 2 TAB PO BID 02/09/24 Ondansetron Odt 4MG Tab (ZOFRAN PO) 4 Mg Tb, 8 MG PO Q8HR PRN for NAUSEA / VOMITING ODT TAB-DISSOLVE IN MOUTH, THEN SWALLOW 01/28/24 Lactulose (Lactulose) 10 Gm/15 Ml Kaye, 15 ML PO BID 02/23/22 Thiamine Hcl (Vitamin B1) 100 Mg Tab, 1 TAB PO DAILYPRN 04/05/21 Folic Acid (Folic Acid) 1 Mg Tab, 1 TAB PO DAILYPRN 04/05/21 Propranolol HCl (Propranolol Hydrochloride) 20 Mg Tab, 1 TAB PO DAILYPRN 04/05/21 Promethazine Hcl (Promethazine Hcl) 25 Mg Tab, 1 TAB PO BIDPRN 04/05/21 Mode of Arrival: Ambulatory Past Medical History PAST MEDICAL HISTORY: Anxiety, HTN, Liver, Seizures Surgical History: Denies all surgeries Family History Family History: Reviewed,noncontributory to illness Social History Smoker: Cigarettes, Less Than 1 Pack/Day Alcohol: Heavy Drugs: Marijuana Lives In: Home Constitutional: denies: chills, diaphoresis, fatigue, fever, malaise, sweats, weakness, others EENTM: denies: blurred vision, double vision, ear bleeding, ear discharge, ear drainage, ear pain, ear ringing, eye pain, eye redness, hearing loss, mouth pain, mouth swelling, nasal discharge, nose bleeding, nose congestion, nose pain, photophobia, tearing, throat pain, throat swelling, voice changes, others Respiratory: denies: cough, hemoptysis, orthopnea, SOB at rest, shortness of breath, SOB with excertion, stridor, wheezing, others Cardiovascular: denies: chest pain, dizzy spells, diaphoresis, Dyspnea on exertion, edema, irregular heart beat, left arm pain, lightheadedness, palpitations, PND, syncope, others Gastrointestinal: denies: abdomen distended, abdominal pain, blood streaked bowels, constipated, diarrhea, dysphagia, difficulty swallowing, hematemesis, melena, nausea, poor appetite, poor fluid intake, rectal bleeding, rectal pain, vomiting, others Genitourinary: denies: burning, dysuria, flank pain, frequency, hematuria, incontinence, penile discharge, penile sore, pain, testicle pain, testicle swelling, urgency, others Neurological: denies: dizziness, fainting, headache, left sided numbness, left sided weakness, numbness, paresthesia, pre-existing deficit, right sided numbness, right sided weakness, seizure, speech problems, tingling, tremors, weakness, others Musculoskeletal: reports: neck pain (Reports left hand and left shoulder pain); denies: back pain, gout, joint pain, joint swelling, muscle pain, muscle stiffness, others Integumetry: denies: bruises, change in color, change in hair/nails, dryness, laceration, lesions, lumps, rash, wounds, others Allergic/Immunocompromised: denies: Difficulty Healing, Frequent Infections, Hives, Itching, others Hematologic/Lymphatic: denies: anemia, blood clots, easy bleeding, easy bruising, swollen glands, others Endocrine: denies: excessive hunger, excessive sweating, excessive thirst, excessive urination, flushing, intolerance to cold, intolerance to heat, unexplained weight gain, unexplained weight loss, others Psychiatric: denies: anxiety, bipolar disorder, depression, hopeless, panic disorder, schizophrenia, sleepless, suicidal, others Physical Exam General Appearance: No Apparent Distress, Normal HEENT: Normal ENT Inspection, Pharynx Normal, TMs Normal Neck: Full Range of Motion, Non-Tender, Normal, Normal Inspection Respiratory: Chest Non-Tender, Lungs Clear, No Accessory Muscle Use, No Respiratory Distress, Normal Breath Sounds Cardiovascular: No Edema, No JVD, No Murmur, No Gallop, Normal Peripheral Puls es, Regular Rate/Rhythm Breast Exam: Deferred Gastrointestinal: No Organomegaly, Non Tender, No Pulsatile Mass, Normal Bowel Sounds, Soft Genitalia: Deferred Pelvic: Deferred Rectal: Deferred Extremities: Other (Right thumb swollen, tender and bruised. 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 Was a procedure done?: No Differential Dx Considerations may include: Toxic encephalopathy due to alcohol use disorder /benzodiazepine Right thumb injury X-Ray, Labs, Meds, VS Vital Signs Date Time Temp Pulse Resp B/P (MAP) Pulse Ox O2 Delivery O2 Flow Rate FiO2 03/15/25 20:10 80 16 96 Room Air* 0 21 8/27/25 18:56 98.4 72 10 111/68 (82) 95 98.4 03/15/25 18:56 72 10 95 Room Air* 0 21 03/15/25 18:21 99.0 67 18 126/67 97 99.0 Lab Test 03/15/25 20:07 03/15/25 19:06 03/15/25 18:48 Range/Units Troponin I High Sensitivity 3 L 3 L </=54 ng/L White Blood Count 1.9 L 4.4-10.8 10^3/uL Red Blood Count 2.83 L 4.5-5.90 10^6/uL Hemoglobin 8.8 L 13.5-17.5 g/dL Hematocrit 26.5 L 41.0-53.0 % Mean Corpuscular Volume 93.7 80.0-100.0 fL Mean Corpuscular Hemoglobin 31.1 28.0-32.0 pg Mean Corpuscular Hemoglobin Concent 33.2 32.0-36.0 g/dL Red Cell Distribution Width 24.1 H 11.8-14.3 % Platelet Count 80 L 140-450 10^3/uL Mean Platelet Volume 8.6 6.9-10.8 fL Neutrophils (%) (Auto) 53.7 37.0-80.0 % Lymphocytes (%) (Auto) 32.6 10.0-50.0 % Monocytes (%) (Auto) 10.2 0.0-12.0 % Eosinophils (%) (Auto) 2.4 0.0-7.0 % Basophils (%) (Auto) 1.1 0.0-2.0 % Neutrophils # (Auto) 1.0 L 1.6-8.6 10 ^3/uL Lymphocytes # (Auto) 0.6 0.4-5.4 10 ^3/uL Monocytes # (Auto) 0.2 0-1.3 10 ^3/uL Eosinophils # (Auto) 0 0-0.8 10 ^3/uL Basophils # (Auto) 0 0-0.2 10 ^3/uL Nucleated Red Blood Cells 0.4 % Platelet Estimate Pending Sodium Level 147 H 136-145 mmol/L Potassium Level 3.6 3.5-5.1 mmol/L Chloride Level 116 H 98-107 mmol/L Carbon Dioxide Level 20 20-31 mmol/L Anion Gap 11 5-15 Blood Urea Nitrogen 7 L 9-23 mg/dL Creatinine 0.69 L 0.700-1.30 mg/dL Glomerular Filtration Rate Calc 122 >90 mL/min BUN/Creatinine Ratio 10.1 10.0-20.0 Serum Glucose 73 L 74-106 mg/dL Calcium Level 8.3 L 8.7-10.4 mg/dL Magnesium Level 1.5 L 1.6-2.6 mg/dL Total Bilirubin 2.1 H 0.2-1.0 mg/dL Aspartate Amino Transferase (AST) 60 H 13-40 U/L Alanine Aminotransferase (ALT) 32 7-40 U/L Alkaline Phosphatase 146 H 46-116 U/L Total Protein 5.5 L 5.7-8.2 g/dL Albumin 3.4 3.2-4.8 g/dL Plasma/Serum Blood Alcohol 210.1 H <10 mg/dL Urine Color Light-yellow Yellow Urine Clarity Clear Clear Urine pH 5.0 5.0-9.0 Urine Specific [place] 1.006 1.001-1.035 Urine Protein Negative Negative Urine Ketones Negative Negative Urine Blood Negative Negative /uL Urine Nitrite Negative Negative Urine Bilirubin Negative Negative Urine Urobilinogen Normal Negative mg/dL Urine Leukocyte Esterase Negative Negative /uL Urine RBC <1 0 - 3 /hpf Urine Microscopic WBC < 1 0-3 /HPF Urine Squamous Epithelial Cells Few <5 /hpf Urine Bacteria None seen None Seen /hpf Urine Hyaline Casts Few 0 - 2 /lpf Urine Glucose Normal Normal mg/dL Urine Opiates Screen Neg NEGATIVE Urine Fentanyl Screen Neg NEGATIVE Urine Barbiturates Screen Neg NEGATIVE Urine Phencyclidine Screen Neg NEGATIVE Urine Amphetamines Screen Neg NEGATIVE Urine Benzodiazepines Screen Pos NEGATIVE Urine Cocaine Screen Neg NEGATIVE Urine Cannabinoids Screen Neg NEGATIVE Current Medications Medications (Trade) Dose Ordered Sig/Annette Route Start Time Stop Time Status Last Admin Sodium Chloride 500 ml @ 500 mls/hr Q1H ONCE IV 03/15/25 20:00 03/15/25 20:59 DC 03/15/25 20:23 Folic Acid 1 mg/ Dextrose 50.2 ml @ 200.8 mls/ hr ONCE ONCE INJ 03/15/25 20:00 03/15/25 20:14 DC 03/15/25 20:55 Thiamine HCl 100 mg ONCE ONCE IV 03/15/25 20:00 03/15/25 20:01 DC 03/15/25 20:42 Acetaminophen (Tylenol Tablet) 650 mg ONCE ONCE PO 03/15/25 20:45 03/15/25 20:46 DC 03/15/25 20:54 Time of 1ST Reevaluation: 20:00 Reevaluation 1ST: Unchanged Time of 2ND Reevaluation: 21:20 Reevaluation 2ND: Unchanged Patient Education/Counseling: Diagnosis, Treatment, Prognosis, Need For Follow Up Family Education/Counseling: No Family Present Comments Pain is lethargic were oriented to time place and person. Has slurred speech Complaining of right-handed left shoulder Head CT scan performed showed no significant intracranial abnormalities Hand x-ray shows,Oblique intra-articular nondisplaced fracture of the base of the 1st distal phalanx. Left shoulder x-ray shows mildly displaced left distal clavicular intra- articular fracture UDS positive for benzodiazepine and alcohol CBC shows pancytopenia Patient will be admitted for toxic encephalopathy, likely due to alcohol use disorder/benzodiazepine and mechanical fall Patient is given thiamine, folic acid, Ativan p.r.n. SEPSIS Sepsis Screen Date sepsis recognized/suspect: Mar 15, 2025 Time Sepsis recognized/suspect: 1822 Recent Procedure: No On Antibiotic Therapy: No Respiratory Rate >20: No Heart Rate >90: No Temp<36 C (96.8 F) or >38.3 C: No SBP <90 or MAP <65 mmHG: No New Acute Mental Status Change: No Is the patient on CPAP, BIPAP,: No Physician Orders Complete Blood Count (03/15/25 19:51) Electrocardigram (03/15/25 19:51) L Shoulder 1v Xray (03/15/25 19:51) Head Without Contrast (03/15/25 19:51) Lorazepam 2mg/Ml Inj (Ativan Inj) (03/15/25 20:15) Etoh Withdrawal Assessment (03/15/25 20:06) Etoh Withdrawal Assessment NOW (03/15/25 20:06) R Hand 2 View Xray (03/15/25 19:51) Rbc Morphology (03/15/25 19:06) Magnesium Sulfate 1gm/100ml (03/15/25 21:15) Apply Sling (03/15/25 21:21) Splints (03/15/25 ) Vital Signs Date Time Temp Pulse Resp B/P (MAP) Pulse Ox O2 Delivery O2 Flow Rate FiO2 03/15/25 20:10 80 16 96 Room Air* 0 21 03/15/25 18:56 98.4 72 10 111/68 (82) 95 98.4 03/15/25 18:56 72 10 95 Room Air* 0 21 03/15/25 18:21 99.0 67 18 126/67 97 99.0 Laboratory Tests Test 03/15/25 19:06 White Blood Count 1.9 10^3/uL (4.4-10.8) L Medications Medications Dose Ordered Sig/Annette Route Start Time Stop Time Status Last Admin Dose Admin Acetaminophen 650 mg ONCE ONCE PO 03/15/25 20:45 03/15/25 20:46 DC 03/15/25 20:54 Folic Acid 1 mg/ Dextrose 50.2 ml @ 200.8 mls/ hr ONCE ONCE INJ 03/15/25 20:00 03/15/25 20:14 DC 03/15/25 20:55 Sodium Chloride 500 ml @ 500 mls/hr Q1H ONCE IV 03/15/25 20:00 03/15/25 20:59 DC 03/15/25 20:23 Thiamine HCl 100 mg ONCE ONCE IV 03/15/25 20:00 03/15/25 20:01 DC 03/15/25 20:42 Departure 1 Departure Time of Disposition: 21:25 Impression: Primary Impression: Alcoholism Additional Impression: Toxic encephalopathy Disposition: ADMITTED INPATIENT Admit to: Tele Condition: Guarded Critical Care Note Critical Care Time?: No Stability Stability form required: No Heart Score Heart Score: Heart Score Response (Comments) Value History N/A 0 EKG N/A 0 Age 45-64 1 Risk Factors 1 or 2 risk factors 1 Troponin Normal limit 0 Total 2 MARISELA CORONA RESDIENT Mar 15, 2025 19:51
[2025-03-15 20:10] VITALS: PULSE 80; RESP 16; O2SAT 96
[2025-03-15] MEDS ORDERED: LORazepam 2MG/ML-1ML VIAL IV PRN (20:15)
[2025-03-15] MEDS: SODIUM CHLORIDE 0.9% 500 ML IV ONE (20:23)
[2025-03-15 20:28] LABS: Hematocrit 26.5 % (41.0-53.0); Hemoglobin 8.8 g/dL (13.5-17.5); Mean Corpuscular Hemoglobin 31.1 pg (28.0-32.0); Mean Corpuscular Volume 93.7 fL (80.0-100.0); Nucleated Red Blood Cells % 0.4 %
[2025-03-15 20:38] LABS: Alanine Aminotransferase 32 U/L (7-40); Albumin 3.4 g/dL (3.2-4.8); Anion Gap 11 (5-15); BUN/Creatinine Ratio 10.1 (10.0-20.0); Potassium 3.6 mmol/L (3.5-5.1)
[2025-03-15] MEDS: THIAMINE 100mg/ml INJ (200mg/2ml VIAL) IV ONE (20:42)
[2025-03-15] MEDS: KETOROLAC TROMETH 30 MG/ML 1ML VIAL IV ONE (20:42)
--- NOTE | 2025-03-15 20:44 | DVH ---
EXAM: XY L SHOULDER 1V XRAY INDICATION: fall TECHNIQUE: 3 views of the left shoulder COMPARISON: None FINDINGS/IMPRESSION: Oblique mildly displaced left distal clavicular intra-articular fracture
--- NOTE | 2025-03-15 20:53 | DVH ---
EXAM: XY R HAND 2 VIEW XRAY INDICATION: Fall TECHNIQUE: 2 views of the right hand COMPARISON: XY L WRIST 3+ VIEW XRAY on DOS: 08/23/23 FINDINGS/IMPRESSION: Oblique intra-articular nondisplaced fracture of the base of the 1st distal phalanx. Anatomic alignm ent. Prominence of the ulnar styloid process.
[2025-03-15] MEDS: ACETAMINOPHEN 325 MG TAB PO ONE (20:54)
[2025-03-15] MEDS: FOLIC ACID 1 MG in D5W 5% 50 ML INJ ONE (20:55)
--- NOTE | 2025-03-15 20:56 | DVH ---
EXAM: CT HEAD WITHOUT CONTRAST INDICATION: fall TECHNIQUE: CT images of the head were obtained without administration of IV contrast. CT scans at [facility] use dose modulation, iterative reconstruction, and/or weight based dosing when appropriate to reduce radiation dose to as low as reasonably achievable. COMPARISON: CT HEAD WITHOUT CONTRAST on DOS: 02/03/25 FINDINGS: PARENCHYMA: No acute hemorrhage. There is no mass effect, midline shift, or herniation. There is pres ervation of the jernigan white differentiation. Mild scattered hypoattenuation along the periventricular, centrum semiovale, and deep white matter tracts, which are nonspecific however statistically most li darrick represent chronic microvascular ischemic change. VENTRICLES: No hydrocephalus. EXTRA-AXIAL SPACES: No extra-axial fluid collections. OTHER: The bony structures are intact. Visualized portions of the paranasal sinuses and mastoid air cells are clear. IMPRESSION: 1. No CT evidence of an acute intracranial abnormality.
[2025-03-15 21:03] LABS: Alkaline Phosphatase 146 U/L (46-116); Bilirubin, Total 2.1 mg/dL (0.2-1.0); Blood Urea Nitrogen 7 mg/dL (9-23); Calcium 8.3 mg/dL (8.7-10.4); Carbon Dioxide 20 mmol/L (20-31); Chloride 116 mmol/L (98-107); Glucose 73 mg/dL (74-106); Sodium 147 mmol/L (136-145); Total Protein 5.5 g/dL (5.7-8.2)
[2025-03-15] MEDS: MAGNESIUM SULFATE 1GM/100ML 100 ML IV ONE (21:35)
[2025-03-15 22:05] LABS: Anisocytosis Moderate
[2025-03-15 22:06] LABS: Tear Drop Cells FEW
[2025-03-16] VITALS (7 sets, daily range): BP systolic 100–114; BP diastolic 61–71; PULSE 45–74; RESP 12–17; TEMP 97.5–98.1; O2SAT 97–100
[2025-03-16] MEDS: ONDANSETRON HCL 4 MG/2 ML VIAL IV ONE (05:18)
[2025-03-16] MEDS: MORPHINE SULFATE 4 MG/ML SYR/VIAL IV ONE (05:18)
[2025-03-16] MEDS ORDERED: RIFA550T PO (09:14)
[2025-03-16] MEDS ORDERED: LACO100T3 PO (09:14)
[2025-03-16] MEDS ORDERED: SODIUM CHLORIDE 0.9% 1,000 ML IV SCH (09:15)
[2025-03-16] MEDS ORDERED: ONDANSETRON HCL 4 MG/2 ML VIAL IV PRN (09:15)
[2025-03-16] MEDS ORDERED: ONDANSETRON ODT 4 MG TAB PO PRN (09:15)
[2025-03-16] MEDS ORDERED: ACETAMINOPHEN 325 MG TAB PO PRN (09:15)
--- NOTE | 2025-03-16 09:45 | DVHHP2 ---
History of Present Illness Reason for Visit: Left clavicular pain status post fall History of Present Illness Yuriy Guerrero is a 39-year-old male with past medical history of panic disorders, DVT, CHF anxiety, hypertension, alcohol-induced liver cirrhosis, seizures, and lupus who presents to the ED after falling while walking in his backyard with left clavicular pain. Patient reports that he was walking through the backyard and fell face 1st into 1 of the holes that he had in his backyard. He reports that he smokes about 3 sticks of cigarettes per day, 4 shots of vodka per day, and uses marijuana. He reports that he is taking his medications. Upon examination patient has a right thumb splint and left shoulder sling. Patient denies any recent travels, recent sick contacts, recent ingestion of spoiled food, chest pain, shortness of breath, fever, chills, lightheadedness, weakness, dizziness, abdominal pain, nausea, vomiting, diarrhea, or urinary symptoms. 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 Hepatobiliary: Cirrhosis Past Medical History Panic disorder DVT Anxiety Lupus Past Surgical History: Other (Gastric bypass and right 5th metacarpal surgery) Family History: Other (Father and mother no medical history) Smoke: <1 pack per day ALCOHOL: heavy Drugs: Marijuana Lives: with Family Domestic Violence: Neg Review of Systems Musculoskeletal: other (Left clavicular pain and right thumb pain) Allergies: Coded Allergies: Gabapentin (Verified Allergy, Unknown, 07/12/22) NSAIDs (Verified Allergy, Unknown, 07/12/22) Medications Current Medications Medications Dose Ordered Sig/Annette Route Start Time Stop Time Status Last Admin Dose Admin Lorazepam 1 mg Q2HPRN PRN IV 03/15/25 20:15 Sodium Chloride 1,000 ml @ 60 mls/hr [id number] IV 03/16/25 09:15 UNV Acetaminophen/ Hydrocodone Bitart 1 tab Q4HP PRN PO 03/16/25 09:15 UNV Ondansetron HCl 4 mg Q4HP PRN IV 03/16/25 09:15 UNV Enoxaparin Sodium 40 mg DAILY SC 03/16/25 10:00 UNV Acetaminophen 650 mg Q6HP PRN PO 03/16/25 09:15 UNV Morphine Sulfate 2 mg Q4HPRN PRN IV 03/16/25 09:15 UNV Furosemide 40 mg DAILY PO 03/16/25 10:00 UNV Levetiracetam 500 mg BID PO 03/16/25 10:00 UNV Ondansetron HCl 8 mg Q8HR PRN PO 03/16/25 09:15 UNV Spironolactone 50 mg BID PO 03/16/25 10:00 UNV Thiamine HCl 100 mg DAILYPRN PO 03/16/25 10:00 UNV Patient Own Medication 1 tab DAILYPRN PO 03/16/25 10:00 UNV Patient Own Medication 15 ml BID PO 03/16/25 10:00 UNV Patient Own Medication 1 cap DAILY PO 03/16/25 10:00 UNV Exam Vital Signs Vital Signs Date Time Temp Pulse Resp B/P (MAP) Pulse Ox O2 Delivery O2 Flow Rate FiO2 03/16/25 06:02 53 16 116/53 (74) 96 03/15/25 20:10 Room Air* 0 21 03/15/25 18:56 98.4 98.4 General Appearance: Alert, Oriented X3, Cooperative, No acute distress HEENT: Atraumatic, PERRLA, EOMI, Mucous membr. moist/pink Respiratory: Clear to auscultation, Normal air movement Cardiovascular: Regular rate, Normal S1, Normal S2, No murmurs Abdominal: Normal bowel sounds, Soft Extremities: Normal pulses Skin: No significant lesion Neuro: Normal gait, Normal speech, Normal tone, Sensation intact Psych/Mental Status: Mental status NL, Mood NL Labs/Xrays Labs Test 03/15/25 20:07 03/15/25 19:06 03/15/25 18:48 Range/Units Troponin I High Sensitivity 3 L </=54 ng/L White Blood Count 1.9 L 4.4-10.8 10^3/uL Red Blood Count 2.83 L 4.5-5.90 10^6/uL Hemoglobin 8.8 L 13.5-17.5 g/dL Hematocrit 26.5 L 41.0-53.0 % Mean Corpuscular Volume 93.7 80.0-100.0 fL Mean Corpuscular Hemoglobin 31.1 28.0-32.0 pg Mean Corpuscular Hemoglobin Concent 33.2 32.0-36.0 g/dL Red Cell Distribution Width 24.1 H 11.8-14.3 % Platelet Count 80 L 140-450 10^3/uL Mean Platelet Volume 8.6 6.9-10.8 fL Neutrophils (%) (Auto) 53.7 37.0-80.0 % Lymphocytes (%) (Auto) 32.6 10.0-50.0 % Monocytes (%) (Auto) 10.2 0.0-12.0 % Eosinophils (%) (Auto) 2.4 0.0-7.0 % Basophils (%) (Auto) 1.1 0.0-2.0 % Neutrophils # (Auto) 1.0 L 1.6-8.6 10 ^3/uL Lymphocytes # (Auto) 0.6 0.4-5.4 10 ^3/uL Monocytes # (Auto) 0.2 0-1.3 10 ^3/uL Eosinophils # (Auto) 0 0-0.8 10 ^3/uL Basophils # (Auto) 0 0-0.2 10 ^3/uL Nucleated Red Blood Cells 0.4 % Platelet Estimate Decreased Anisocytosis (manual) Moderate Tear Drop Cells Few Zhang Cells Moderate Sodium Level 147 H 136-145 mmol/L Potassium Level 3.6 3.5-5.1 mmol/L Chloride Level 116 H 98-107 mmol/L Carbon Dioxide Level 20 20-31 mmol/L Anion Gap 11 5-15 Blood Urea Nitrogen 7 L 9-23 mg/dL Creatinine 0.69 L 0.700-1.30 mg/dL Glomerular Filtration Rate Calc 122 >90 mL/min BUN/Creatinine Ratio 10.1 10.0-20.0 Serum Glucose 73 L 74-106 mg/dL Calcium Level 8.3 L 8.7-10.4 mg/dL Magnesium Level 1.5 L 1.6-2.6 mg/dL Total Bilirubin 2.1 H 0.2-1.0 mg/dL Aspartate Amino Transferase (AST) 60 H 13-40 U/L Alanine Aminotransferase (ALT) 32 7-40 U/L Alkaline Phosphatase 146 H 46-116 U/L Total Protein 5.5 L 5.7-8.2 g/dL Albumin 3.4 3.2-4.8 g/dL Plasma/Serum Blood Alcohol 210.1 H <10 mg/dL Urine Color Light-yellow Yellow Urine Clarity Clear Clear Urine pH 5.0 5.0-9.0 Urine Specific [place] 1.006 1.001-1.035 Urine Protein Negative Negative Urine Ketones Negative Negative Urine Blood Negative Negative /uL Urine Nitrite Negative Negative Urine Bilirubin Negative Negative Urine Urobilinogen Normal Negative mg/dL Urine Leukocyte Esterase Negative Negative /uL Urine RBC <1 0 - 3 /hpf Urine Microscopic WBC < 1 0-3 /HPF Urine Squamous Epithelial Cells Few <5 /hpf Urine Bacteria None seen None Seen /hpf Urine Hyaline Casts Few 0 - 2 /lpf Urine Glucose Normal Normal mg/dL Urine Opiates Screen Neg NEGATIVE Urine Fentanyl Screen Neg NEGATIVE Urine Barbiturates Screen Neg NEGATIVE Urine Phencyclidine Screen Neg NEGATIVE Urine Amphetamines Screen Neg NEGATIVE Urine Benzodiazepines Screen Pos NEGATIVE Urine Cocaine Screen Neg NEGATIVE Urine Cannabinoids Screen Neg NEGATIVE EXAM: XY L SHOULDER 1V XRAY INDICATION: fall TECHNIQUE: 3 views of the left shoulder COMPARISON: None FINDINGS/IMPRESSION: Oblique mildly displaced left distal clavicular intra-articular fracture : CT HEAD WITHOUT CONTRAST INDICATION: fall TECHNIQUE: CT images of the head were obtained without administration of IV contrast. CT scans at this facility use dose modulation, iterative reconstruction, and/or weight based dosing when appropriate to reduce radiation dose to as low as reasonably achievable. COMPARISON: CT HEAD WITHOUT CONTRAST on DOS: 02/03/25 FINDINGS: PARENCHYMA: No acute hemorrhage. There is no mass effect, midline shift, or herniation. There is preservation of the jernigan white differentiation. Mild scattered hypoattenuation along the periventricular, centrum semiovale, and deep white matter tracts, which are nonspecific however statistically most likely represent chronic microvascular ischemic change. VENTRICLES: No hydrocephalus. EXTRA-AXIAL SPACES: No extra-axial fluid collections. OTHER: The bony structures are intact. Visualized portions of the paranasal sinuses and mastoid air cells are clear. IMPRESSION: 1. No CT evidence of an acute intracranial abnormality. EXAM: XY R HAND 2 VIEW XRAY INDICATION: Fall TECHNIQUE: 2 views of the right hand COMPARISON: XY L WRIST 3+ VIEW XRAY on DOS: 08/23/23 FINDINGS/IMPRESSION: Oblique intra-articular nondisplaced fracture of the base of the 1st distal phalanx. Anatomic alignment. Prominence of the ulnar styloid process. SEPSIS Sepsis Screen Date sepsis recognized/suspect: Mar 15, 2025 Time Sepsis recognized/suspect: 2011 Recent Procedure: No On Antibiotic Therapy: No Respiratory Rate >20: No Heart Rate >90: No Temp<36 C (96.8 F) or >38.3 C: No SBP <90 or MAP <65 mmHG: No New Acute Mental Status Change: No Is the patient on CPAP, BIPAP,: No Physician Orders *Consult Dr. Gume Pedroza (03/16/25 09:09) Admit (03/16/25 09:09) Allergies (03/16/25 09:09) Code Status (03/16/25 09:09) Sodium Chloride 0.9% (03/16/25 09:15) Hydrocodone-Acet 5/325mg Tab ([place] 5/32 (03/16/25 09:15) Ondansetron Hcl (Zofran) (03/16/25 09:15) Enoxaparin Sodium (Lovenox) (03/16/25 10:00) Complete Blood Count (03/17/25 04:00) Comprehensive Metabolic Panel (03/17/25 04:00) Npo (Nothing By Mouth) Diet (03/16/25 Breakfast) Acetaminophen Tablet (Tylenol Tablet) (03/16/25 09:15) Morphine Sulfate Injection (03/16/25 09:15) Furosemide Tablet (Lasix Tablet) (03/16/25 10:00) Levetiracetam Tablet (Keppra Tablet) (03/16/25 10:00) Ondansetron Po (Zofran Po) (03/16/25 09:15) Spironolactone (Aldactone) (03/16/25 10:00) Thiamine Tab (03/16/25 10:00) (Nf) Folic Acid (03/16/25 10:00) (Nf) Lactulose (03/16/25 10:00) (Nf) Omeprazole (Omeprazole Dr) (03/16/25 10:00) Vital Signs Date Time Temp Pulse Resp B/P (MAP) Pulse Ox O2 Delivery O2 Flow Rate FiO2 03/16/25 06:02 53 16 116/53 (74) 96 03/16/25 05:57 53 16 116/73 03/16/25 05:32 69 16 111/67 (82) 98 03/16/25 05:18 69 16 111/67 03/16/25 04:00 60 18 103/59 (74) 96 03/16/25 02:00 74 18 113/72 (86) 99 Medications Medications Dose Ordered Sig/Annette Route Start Time Stop Time Status Last Admin Dose Admin Morphine Sulfate 4 mg ONCE ONCE IV 03/16/25 05:15 03/16/25 05:16 DC 03/16/25 05:18 4 MG Ondansetron HCl 4 mg ONCE ONCE IV 03/16/25 05:15 03/16/25 05:16 DC 03/16/25 05:18 4 MG Assessment/Plan Assessment/Plan Assessment Left clavicular pain status post mechanical fall likely due to Oblique mildly displaced left distal clavicular intra-articular fracture Oblique intra-articular nondisplaced fracture of the base of the 1st distal phalanx Tobacco use Marijuana use Alcohol use History of panic disorders History of DVT History of CHF History of anxiety History of hypertension History of alcohol-induced liver cirrhosis History of seizures History of lupus History of gastric bypass History of right 5th metacarpal surgery Plan Admit to med surge Antiemetics Pain management Right thumb splint Left sling Strict I&Os Daily weight Keppra CIWA Thiamine Multivitamins Folic acid NPO for now until surgery sees the patient Home medications reconciled DVT prophylaxis-Lovenox PUD prophylaxis-PPIs Discussed plan of care with patient and nurse Ortho consult Counseled patient on cessation of tobacco, marijuana, and alcohol use 51725 Behavior change smoking greater than 10 minutes about use of other options also gave option of nicotine patch 51534 Preventive counseling healthy eating habits, physical activity, and regular checkups Plan discussed with: Patient My Orders Orders - WAQAR NAQVI 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 Dunaway CONS 03/16/25 Transmitted Susannah 09:09 Admit ADMIT 03/16/25 Transmitted 09:09 Allergies JEIMY 03/16/25 In Process 09:09 Code Status CODE 03/16/25 Transmitted 09:09 Sodium Chloride 0.9% PHA 03/16/25 Logged 09:15 Hydrocodone-Acet PHA 03/16/25 Logged 5/325mg Tab ([place] 09:15 Ondansetron Hcl PHA 03/16/25 Logged (Zofran) 09:15 Enoxaparin Sodium PHA 03/16/25 Logged (Lovenox) 10:00 Complete Blood Count LAB 03/17/25 Verified 04:00 Comprehensive LAB 03/17/25 Verified Metabolic Panel 04:00 Npo (Nothing By DIET 03/16/25 Transmitted Mouth) Diet Breakfast Acetaminophen Tablet PHA 03/16/25 Logged (Tylenol Tablet) 09:15 Morphine Sulfate PHA 03/16/25 Logged Injection 09:15 Furosemide Tablet PHA 03/16/25 Logged (Lasix Tablet) 10:00 Levetiracetam Tablet PHA 03/16/25 Logged (Keppra Tablet) 10:00 Ondansetron Po PHA 03/16/25 Logged (Zofran Po) 09:15 Spironolactone PHA 03/16/25 Logged (Aldactone) 10:00 Thiamine Tab PHA 03/16/25 Logged 10:00 (Nf) Folic Acid PHA 03/16/25 Logged 10:00 (Nf) Lactulose PHA 03/16/25 Logged 10:00 (Nf) Omeprazole PHA 03/16/25 Logged (Omeprazole Dr) 10:00 Date of Service: Mar 16, 2025 Billing Provider: WAQAR NAQVI Common Visit Codes: [id number] INP/OBS CARE (HIGH) Secondary Visit Codes: [id number] COUNSELING IND, [id number] CHNG SMOKING >10MIN WAQAR NAQVI Mar 16, 2025 09:45
[2025-03-16] MEDS ORDERED: ENOXAPARIN SOD 40 MG/0.4 ML SYRINGE SC SCH (10:00)
[2025-03-16] MEDS: THIAMINE HCL 100 MG TAB PO SCH ×2 (10:00→11:00)
[2025-03-16] MEDS ORDERED: PATIENTS OWN MEDICATION (Lactulose 15 ML) PO SCH (10:00)
[2025-03-16] MEDS ORDERED: PATIENTS OWN MEDICATION (Omeprazole (Omeprazole Dr) 1 CAP) PO SCH (10:00)
[2025-03-16] MEDS: SPIRONOLACTONE 25 MG TAB PO SCH (10:00)
[2025-03-16] MEDS ORDERED: PATIENTS OWN MEDICATION (Folic Acid 1 TAB) PO SCH (10:00)
[2025-03-16] MEDS: FOLIC ACID 1 MG TAB PO SCH (10:59)
[2025-03-16] MEDS: LACTULOSE 20Gm/30ML SOLN PO SCH (10:59)
[2025-03-16] MEDS: levETIRAcetam 500 MG TAB PO SCH (11:00)
[2025-03-16] MEDS: FUROSEMIDE 40 MG TAB PO SCH (11:00)
[2025-03-16] MEDS: PANTOPRAZOLE 40 MG TAB PO SCH (11:01)
[2025-03-16] MEDS: MULTIPLE VITAMIN TAB PO SCH (11:01)
[2025-03-16 11:02] LABS: Magnesium 1.8 mg/dL (1.6-2.6)
[2025-03-16] MEDS: MORPHINE SULFATE INJ 2 MG/ml SYRG IV PRN (11:02)
--- NOTE | 2025-03-16 13:21 | DVHHP2 ---
History Allergies: Coded Allergies: Gabapentin (Verified Allergy, Unknown, 07/12/22) NSAIDs (Verified Allergy, Unknown, 07/12/22) Chief Complaint: 39M, left shoulder pain, right hand pain Present Illness(Onset/Duration 39M, non compliant with seizure med, probable etoh withdrawl seizure, preseented to [facility] last night with pain right thumb and left shoulder Past Surgical History non contributory Medications see internal med H and P Physical Exam Skin intact EENT NC AT Chest and Lungs CTA B Heart RRR neg mrg Abdomen NBS ND NT Extremities Right thumb pain with PROM IP joint, moderate swelling, NVI Left shoulder moderate swelling of distal clavicle, NVI Vital Signs Vital Signs Date Time Temp Pulse Resp B/P (MAP) Pulse Ox O2 Delivery O2 Flow Rate FiO2 03/16/25 11:02 51 12 108/81 03/16/25 08:00 100 Room Air* 0 21 03/16/25 08:00 97.9 97.9 Impressions/Description Right thumb , distal phalanx fracture, radial aspect, base, intra-articular, minimally displaced Left distal clavicle fracture Plan Right thumb thumb spica splint Left clavicle, sling left arm NON surgical due to distal fragment bbeing superior not inferior to shaft no need to admit from ortho view, defer admission indications to internal medicine issues such as seizure, etoh follow up ortho clinic 2 wks with XR right thumb 2V, left RD Caceres MD Mar 16, 2025 13:21
[2025-03-16] MEDS: HYDROcodone-ACET 5/325MG TAB PO PRN (13:45)
--- NOTE | 2025-03-16 17:17 | DVHPN2 ---
Subjective admitted for mechanical fall related to ETOH use having significant pain issues now to clavicle. Changes from previous H/P or p: No Changes Musculoskeletal: other (Left clavicular pain and right thumb pain) Objective Vitals Vital Signs Date Time Temp Pulse Resp B/P (MAP) Pulse Ox O2 Delivery O2 Flow Rate FiO2 03/16/25 16:19 62 18 119/72 03/16/25 15:11 98.1 99 98.1 03/16/25 15:08 Room Air* 0 21 Intake/Output Intake and Output 03/16/25 07:00 Intake Total 650.2 ml Balance 650.2 ml Intake IV Total 650.2 ml Exam alert and oriented RRR CTAB abd soft non tender MSK: Left arm sling. r arm splint Medications Current Medications Medications Dose Ordered Sig/Annette Route Start Time Stop Time Status Last Admin Dose Admin Lorazepam 1 mg Q2HPRN PRN IV 03/15/25 20:15 Acetaminophen/ Hydrocodone Bitart 1 tab Q4HP PRN PO 03/16/25 09:15 03/16/25 13:45 1 TAB Ondansetron HCl 4 mg Q4HP PRN IV 03/16/25 09:15 Enoxaparin Sodium 40 mg DAILY SC 03/16/25 10:00 Hold Acetaminophen 650 mg Q6HP PRN PO 03/16/25 09:15 Morphine Sulfate 2 mg Q4HPRN PRN IV 03/16/25 09:15 03/16/25 15:49 2 MG Furosemide 40 mg DAILY PO 03/16/25 10:00 03/16/25 11:00 40 MG Levetiracetam 500 mg BID PO 03/16/25 10:00 03/16/25 11:00 500 MG Ondansetron HCl 8 mg Q8HR PRN PO 03/16/25 09:15 Spironolactone 50 mg BID PO 03/16/25 10:00 Patient Own Medication 1 tab DAILYPRN PO 03/16/25 10:00 UNV Patient Own Medication 15 ml BID PO 03/16/25 10:00 UNV Patient Own Medication 1 cap DAILY PO 03/16/25 10:00 UNV Thiamine HCl 100 mg DAILY PO 03/16/25 10:00 03/16/25 11:00 100 MG Folic Acid 1 mg DAILY PO 03/16/25 10:00 03/16/25 10:59 1 MG Multivitamins 1 tab DAILY PO 03/16/25 10:00 03/16/25 11:01 1 TAB Pantoprazole Sodium 40 mg DAILY PO 03/16/25 10:00 03/16/25 11:01 40 MG Lactulose 15 ml BID PO 03/16/25 10:00 03/16/25 10:59 15 ML Laboratory Results Laboratory Tests 03/15/25 19:06 Chemistry Test 03/15/25 19:06 03/16/25 10:28 Albumin 3.4 g/dL (3.2-4.8) Calcium Level 8.3 mg/dL (8.7-10.4) L Magnesium Level 1.5 mg/dL (1.6-2.6) L 1.8 mg/dL (1.6-2.6) Total Protein 5.5 g/dL (5.7-8.2) L LFT Test 03/15/25 19:06 Alanine Aminotransferase (ALT) 32 U/L (7-40) Alkaline Phosphatase 146 U/L (46-116) H Aspartate Amino Transferase (AST) 60 U/L (13-40) H Total Bilirubin 2.1 mg/dL (0.2-1.0) H Urinalysis Test 03/15/25 18:48 Urine Color Light-yellow (Yellow) Urine Clarity Clear (Clear) Urine pH 5.0 (5.0-9.0) Urine Specific [place] 1.006 (1.001-1.035) Urine Protein Negative (Negative) Urine Ketones Negative (Negative) Urine Blood Negative /uL (Negative) Urine Nitrite Negative (Negative) Urine Bilirubin Negative (Negative) Urine Urobilinogen Normal mg/dL (Negative) Urine Leukocyte Esterase Negative /uL (Negative) Urine RBC <1 /hpf (0 - 3) Urine Microscopic WBC < 1 /HPF (0-3) Urine Squamous Epithelial Cells Few /hpf (<5) Urine Bacteria None seen /hpf (None Seen) Urine Hyaline Casts Few /lpf (0 - 2) Urine Glucose Normal mg/dL (Normal) Labs and/or images reviewed: Labs reviewed by me Assessment/Plan Assessment/Plan 39 yo M with: #Mechanical fall #Clavicle fracture (L) #R non displaced fracture (hand, 1st distal phalanx) -orthopedics consulted. non operative -order for Splint and sling. follow up outpatient #ETOH cirrhosis #ETOH use disorder -CIWA ordered -SW ordered Chronic medical issues: Tobacco use Marijuana use Alcohol use History of panic disorders History of DVT History of CHF History of hypertension History of lupus Plan discussed with: Patient Date of Service: Mar 16, 2025 Billing Provider: DOMITILA BERNARD MD Common Visit Codes: [id number] INP/OBS CARE(LOW) DOMITILA BERNARD MD Mar 16, 2025 17:17
[2025-03-17 01:00] VITALS: BP 114/68; PULSE 60; RESP 17; TEMP 97.7; O2SAT 96
[2025-03-17] MEDS: LORazepam 2MG/ML-1ML VIAL IV PRN (02:32)
[2025-03-17] MEDS: LORazepam 2MG/ML-1ML VIAL ONE (02:32)
[2025-03-17 05:00] VITALS: BP 117/77; PULSE 60; RESP 18; TEMP 97.7; O2SAT 99
[2025-03-17 06:55] LABS: Hematocrit 25.7 % (41.0-53.0); Hemoglobin 8.7 g/dL (13.5-17.5); Mean Corpuscular Hemoglobin 31.1 pg (28.0-32.0); Mean Corpuscular Volume 92.7 fL (80.0-100.0); Nucleated Red Blood Cells % 0.1 %
[2025-03-17 07:05] LABS: Alanine Aminotransferase 25 U/L (7-40); Anion Gap 6 (5-15); BUN/Creatinine Ratio 13.2 (10.0-20.0); Blood Urea Nitrogen 12 mg/dL (9-23); Carbon Dioxide 24 mmol/L (20-31); Glucose 81 mg/dL (74-106); Potassium 4.1 mmol/L (3.5-5.1); Sodium 141 mmol/L (136-145)
[2025-03-17 07:13] LABS: Alkaline Phosphatase 134 U/L (46-116); Calcium 8.5 mg/dL (8.7-10.4); Chloride 111 mmol/L (98-107)
[2025-03-17 07:14] LABS: Albumin 3.0 g/dL (3.2-4.8); Bilirubin, Total 2.1 mg/dL (0.2-1.0); Total Protein 5.3 g/dL (5.7-8.2)
[2025-03-17 08:00] VITALS: PULSE 71; RESP 17
[2025-03-17 09:00] VITALS: BP 113/62; PULSE 57; RESP 20; TEMP 97.9; O2SAT 98
[2025-03-17] MEDS ORDERED: HYDR-4902 PO ×2 (10:31→11:50)
[2025-03-17 11:38] LABS: Anisocytosis Slight
[2025-03-17 12:45] VITALS: BP 104/61; PULSE 56; RESP 20; TEMP 98; O2SAT 96
[2025-03-17 13:33] VITALS: BP 125/77; PULSE 65; RESP 18; TEMP 36.7; O2SAT 96
--- NOTE | 2025-03-17 15:23 | DVHDS2 ---
Discharge Summary Date of Admission Mar 16, 2025 at 09:09 Date of Discharge: Mar 17, 2025 Admitting Diagnosis Mechanical fall Alcohol intoxication Left clavicle fracture Right hand -1st phalanx (Distal) fracture Labs/Diagnostic Data: Laboratory Results Test 03/17/25 05:48 03/16/25 10:28 03/15/25 20:07 03/15/25 19:06 White Blood Count 1.3 10^3/uL (4.4-10.8) Red Blood Count 2.78 10^6/uL (4.5-5.90) Hemoglobin 8.7 g/dL (13.5-17.5) Hematocrit 25.7 % (41.0-53.0) Mean Corpuscular Volume 92.7 fL (80.0-100.0) Mean Corpuscular Hemoglobin 31.1 pg (28.0-32.0) Mean Corpuscular Hemoglobin Concent 33.6 g/dL (32.0-36.0) Red Cell Distribution Width 23.0 % (11.8-14.3) Platelet Count 67 10^3/uL (140-450) Mean Platelet Volume 9.3 fL (6.9-10.8) Neutrophils (%) (Auto) 46.3 % (37.0-80.0) Lymphocytes (%) (Auto) 39.1 % (10.0-50.0) Monocytes (%) (Auto) 9.6 % (0.0-12.0) Eosinophils (%) (Auto) 3.6 % (0.0-7.0) Basophils (%) (Auto) 1.4 % (0.0-2.0) Neutrophils # (Auto) 0.6 10 ^3/uL (1.6-8.6) Lymphocytes # (Auto) 0.5 10 ^3/uL (0.4-5.4) Monocytes # (Auto) 0.1 10 ^3/uL (0-1.3) Eosinophils # (Auto) 0 10 ^3/uL (0-0.8) Basophils # (Auto) 0 10 ^3/uL (0-0.2) Nucleated Red Blood Cells 0.1 % Platelet Estimate Decreased Clumped Platelets None Anisocytosis (manual) Slight Sodium Level 141 mmol/L (136-145) Potassium Level 4.1 mmol/L (3.5-5.1) Chloride Level 111 mmol/L (98-107) Carbon Dioxide Level 24 mmol/L (20-31) Anion Gap 6 (5-15) Blood Urea Nitrogen 12 mg/dL (9-23) Creatinine 0.91 mg/dL (0.700-1.30) Glomerular Filtration Rate Calc 111 mL/min (>90) BUN/Creatinine Ratio 13.2 (10.0-20.0) Serum Glucose 81 mg/dL (74-106) Calcium Level 8.5 mg/dL (8.7-10.4) Total Bilirubin 2.1 mg/dL (0.2-1.0) Aspartate Amino Transferase (AST) 47 U/L (13-40) Alanine Aminotransferase (ALT) 25 U/L (7-40) Alkaline Phosphatase 134 U/L (46-116) Total Protein 5.3 g/dL (5.7-8.2) Albumin 3.0 g/dL (3.2-4.8) Magnesium Level 1.8 mg/dL (1.6-2.6) Plasma/Serum Blood Alcohol < 3.0 mg/dL (<10) Troponin I High Sensitivity 3 ng/L (</=54) Tear Drop Cells Few [place] Cells Moderate Test 03/15/25 18:48 Urine Color Light-yellow (Yellow) Urine Clarity Clear (Clear) Urine pH 5.0 (5.0-9.0) Urine Specific [place] 1.006 (1.001-1.035) Urine Protein Negative (Negative) Urine Ketones Negative (Negative) Urine Blood Negative /uL (Negative) Urine Nitrite Negative (Negative) Urine Bilirubin Negative (Negative) Urine Urobilinogen Normal mg/dL (Negative) Urine Leukocyte Esterase Negative /uL (Negative) Urine RBC <1 /hpf (0 - 3) Urine Microscopic WBC < 1 /HPF (0-3) Urine Squamous Epithelial Cells Few /hpf (<5) Urine Bacteria None seen /hpf (None Seen) Urine Hyaline Casts Few /lpf (0 - 2) Urine Glucose Normal mg/dL (Normal) Urine Opiates Screen Neg (NEGATIVE) Urine Fentanyl Screen Neg (NEGATIVE) Urine Barbiturates Screen Neg (NEGATIVE) Urine Phencyclidine Screen Neg (NEGATIVE) Urine Amphetamines Screen Neg (NEGATIVE) Urine Benzodiazepines Screen Pos (NEGATIVE) Urine Cocaine Screen Neg (NEGATIVE) Urine Cannabinoids Screen Neg (NEGATIVE) Other Laboratory Tests 03/17/25 05:48 Brief Hx & Hospital Course: 39-year-old male past medical history of alcohol abuse, DVT, CHF, anxiety, cirrhosis, seizures, SLE, presenting for a mechanical fall. Had evidence of alcohol intoxication on admit. He had evidence of right thumb distal fracture and left clavicle fracture. Seen in consultation by Orthopedics. Management is nonoperative. He was given splint for hand and sling for left arm. We will follow up with Orthopedics outpatient. Also monitor for alcohol withdrawal with no evidence of withdrawal in hospital. He relates history of cirrhosis from alcohol use. He had evidence of pancytopenia which he states is his baseline. Consults/Reason for consult Orthopedics Condition at Discharge: Good Final Diagnosis/Problems List Mechanical fall Alcohol intoxication Left clavicle fracture Right hand -1st phalanx (Distal) fracture Discharge Disposition: Home Discharge Instruct/Medications Diet: Regular Activity: Light activity Activity comment: follow up with your orthopedic doctor in 2 weeks Scheduled Folic Acid (Folic Acid), 1 TAB PO DAILYPRN, (Reported) Furosemide (Furosemide), 40 MG PO DAILY Lactulose (Lactulose), 15 ML PO BID, (Reported) Levetiracetam (Keppra Tablet), 500 MG PO BID Lidocaine (Lidoderm 5% Topical Patch), 1 PATCH TOP DAILY Omeprazole (Omeprazole Dr), 1 CAP PO DAILY, (Reported) Promethazine Hcl (Promethazine Hcl), 1 TAB PO BIDPRN, (Reported) Propranolol HCl (Propranolol Hydrochloride), 1 TAB PO DAILYPRN, (Reported) Rifaximin (Xifaxan), 1 TAB PO BID, (Reported) Spironolactone (Aldactone), 100 MG PO DAILY Spironolactone (Spironolactone), 2 TAB PO BID, (Reported) Thiamine Hcl (Vitamin B1), 1 TAB PO DAILYPRN, (Reported) Scheduled PRN Hydrocodone-Acetaminophen (Hydrocodone Bitartrate/AC 5-325 mg), 1 TAB PO Q6HR PRN Ondansetron Odt 4MG Tab (Zofran Po), 8 MG PO Q8HR PRN for NAUSEA / VOMITING, (Reported) Miscellaneous Medications Lacosamide (Lacosamide), PO, (Reported) Discontinued Medications Lorazepam (Ativan), 1 TAB PO TID PRN Oxycodone Hcl (OxyCONTIN ER Tablet), 1 TAB PO TID Discharge Statement: "Patient was advised to return to the ER or call 911 if any headaches, dizziness, shortness of breath, chest pain, abdominal pain, bleeding, fevers, or worsening of medical condition. Patient was counseled about treatment plan, medications, possible side effects, patientverbalized understanding. All questions were answered to the best of my ability. This discharge took greater then 30 minutes in planning, reviewing documentation, counseling the patient, and discussing with other team members." ASSESSMENT ASSESSMENT Assessment Date of Service: Mar 17, 2025 Billing Provider: DOMITILA BERNARD MD Common Visit Codes: [id number] DISCH DAY >30min DOMITILA BERNARD MD Mar 17, 2025 15:23
== END 2025-03-17 13:50 | disposition home or self-care (01) | DRG 342 ==
LOC: ER 18:20 → OVERFLOW 03-16 09:09 → EAST 03-16 14:56
PROVIDERS: ADMIT Internal Medicine; ATTEND Internal Medicine
DX: S42.032A Displaced fracture of lateral end of left clavicle, initial encounter for closed fracture (principal); D61.818 Other pancytopenia; I50.9 Heart failure, unspecified; I11.0 Hypertensive heart disease with heart failure; F10.229 Alcohol dependence with intoxication, unspecified; K70.30 Alcoholic cirrhosis of liver without ascites; S62.630A Displaced fracture of distal phalanx of right index finger, initial encounter for closed fracture; F17.210 Nicotine dependence, cigarettes, uncomplicated; Z98.84 Bariatric surgery status; Z91.148 Patient's other noncompliance with medication regimen for other reason; Z86.718 Personal history of other venous thrombosis and embolism; Z91.011 Allergy to milk products; Z91.014 Allergy to mammalian meats; W01.0XXA Fall on same level from slipping, tripping and stumbling without subsequent striking against object, initial encounter; Y93.01 Activity, walking, marching and hiking; Y92.096 Garden or yard of other non-institutional residence as the place of occurrence of the external cause; Y99.8 Other external cause status
CPT/HCPCS: 36415; 70450; 73020; 73120; 80053; 80307; 80320; 81001; 83735; 84484; 85025; 96365; 96375; G0378; J1885; J2405; J7060

== ENCOUNTER 2025-04-15 22:55 | Inpatient (IN) | payer MEDICAID ==
[~2025-04-15] VITALS: Ht 180.3 cm; Wt 96.6 kg
[~2025-04-15 22:55] MED LIST changes: +HYDR-4902 PO; +LACO100T3 PO; -LORA2TAB89 PO; -OXY20CRT PO; +RIFA550T PO
--- NOTE | 2025-04-15 23:28 | ED.PDOC ---
History of Present Illness HPI Comments 39-year-old male who came to ER for body pains. Patient has a history of alcoholic liver cirrhosis, seizures, SLE, leukemia, CHF, pancytopenia, polysubstance abuse. Patient coming in for generalized body pains and weakness for the past few hours. States he feels low energy, with dizziness and sh ortness a breath. Patient admits that he drank alcohol earlier today, and recently took cocaine and marijuana. REVIEW OF SYSTEMS: General: No fever, no chills, or (+)fatigue HEENT: No sore throat, no earache, no congestion, no neck pain. Cardiac: No chest pain. No palpitations. Lungs: No shortness of breath, no cough. GI: No nausea, no vomiting, no diarrhea, no constipation, no abdominal pain : No dysuria, frequency, or urgency. No hematuria. Musculoskeletal: No joint pain , no joint swelling, no extremity edema. Skin: No rash, no itching. Neuro: No headache, (+) dizziness, (+) weakness EXAM: General: Awake, alert and oriented. No acute distress. Skin: Skin in warm, dry and intact. Appropriate color for ethnicity. HEENT: The head is normocephalic and atraumatic. Erythematous, tender rash right lower face Neck: The neck is supple with normal range of motion. No JVD. Cardiac: Heart rate and rhythm are normal. No murmurs, gallops, or rubs are au scultated. Respiratory: No signs of respiratory distress. Lung sounds are clear in all lobes bilaterally without rales, rhonchi, or wheezes. Abdominal: Abdomen is soft, non-tender without distention. Bowel sounds are present and normoactive in all four quadrants. Extremities: Left upper extremity in sling. Neurological: The patient is awake, alert and oriented to person, place, and time with normal speech. Speech is clear. There is no facial asymmetry. Psychiatric: Appropriate mood and affect. Good judgement and insight Chief Complaint: Body Pain Time Seen by MD: 23:28 Primary Care Provider: [facility] Reviewed Notes: Nurses Notes Allergies: Coded Allergies: Gabapentin (Verified Allergy, Unknown, 07/12/22) Milk (Cow) (Verified Allergy, Unknown, 03/16/25) per patient NSAIDs (Verified Allergy, Unknown, 07/12/22) Pork (Porcine) Protein (Verified Allergy, Unknown, 03/16/25) per patient Home Meds Active Scripts Hydrocodone-Acetaminophen (Hydrocodone Bitartrate/AC 5-325 mg) 1 Tab Tab, 1 TAB PO Q6HR PRN for 7 Days, #20 TAB 0 Refills Prov:DOMITILA BERNARD MD 03/17/25 Spironolactone (Aldactone) 25 Mg Tab, 100 MG PO DAILY for 90 Days, #360 TAB Prov:MARCUS TREVIZO RESIDENT 01/30/24 Levetiracetam (KEPPRA TABLET) 500 Mg Tb, 500 MG PO BID for 180 Days, #360 TAB 4 Refills Prov:MARCUS TREVIZO RESIDENT 01/30/24 Furosemide (Furosemide) 40 Mg Tab, 40 MG PO DAILY for 90 Days, #90 TAB Prov:MARCUS TREVIZO RESIDENT 01/30/24 Lidocaine (LIDODERM 5% TOPICAL PATCH) 1 Patch Ph, 1 PATCH TOP DAILY for 15 Days, #15 PATCH Prov:STEVE العراقي MD 01/20/24 Reported Medications Lacosamide (Lacosamide) 100 Mg Tab, PO 03/16/25 Rifaximin (Xifaxan) 550 Mg Tab, 1 TAB PO BID 03/16/25 Omeprazole (Omeprazole Dr) 20 Mg Cap, 1 CAP PO DAILY 02/09/24 Spironolactone (Spironolactone) 25 Mg Tab, 2 TAB PO BID 02/09/24 Ondansetron Odt 4MG Tab (ZOFRAN PO) 4 Mg Tb, 8 MG PO Q8HR PRN for NAUSEA / VOMITING ODT TAB-DISSOLVE IN MOUTH, THEN SWALLOW 01/28/24 Lactulose (Lactulose) 10 Gm/15 Ml Kaye, 15 ML PO BID 02/23/22 Thiamine Hcl (Vitamin B1) 100 Mg Tab, 1 TAB PO DAILYPRN 04/05/21 Folic Acid (Folic Acid) 1 Mg Tab, 1 TAB PO DAILYPRN 04/05/21 Propranolol HCl (Propranolol Hydrochloride) 20 Mg Tab, 1 TAB PO DAILYPRN 04/05/21 Promethazine Hcl (Promethazine Hcl) 25 Mg Tab, 1 TAB PO BIDPRN 04/05/21 Information Source: Patient Mode of Arrival: Ambulatory Past Medical History PAST MEDICAL HISTORY: Anxiety, HTN, Liver, Seizures Past Medical History (Other): Liver cirrhosis, systemic lupus erythematosus, leukemia, pancytopenia Surgical History: Denies all surgeries Surgical History (Other): Left clavicular fracture Family History Family History: Reviewed,noncontributory to illness Social History Smoker: Cigarettes, Less Than 1 Pack/Day Alcohol: Heavy Drugs: Cocaine, Marijuana Lives In: Home Was a procedure done? Was a procedure done?: No Differential Dx Considerations may include: Anemia, electrolyte imbalance, liver cirrhosis, SLE, polysubstance abuse X-Ray, Labs, Meds, VS Vital Signs Date Time Temp Pulse Resp B/P (MAP) Pulse Ox O2 Delivery O2 Flow Rate FiO2 04/15/25 22:56 98.4 71 16 143/92 97 98.4 Lab Test 04/16/25 00:21 04/15/25 23:36 Range/Units Troponin I High Sensitivity 5 5 </=54 ng/L White Blood Count 1.7 *L 4.4-10.8 10^3/uL Red Blood Count 3.22 L 4.5-5.90 10^6/uL Hemoglobin 9.8 L 13.5-17.5 g/dL Hematocrit 29.9 L 41.0-53.0 % Mean Corpuscular Volume 93.0 80.0-100.0 fL Mean Corpuscular Hemoglobin 30.3 28.0-32.0 pg Mean Corpuscular Hemoglobin Concent 32.6 32.0-36.0 g/dL Red Cell Distribution Width 20.8 H 11.8-14.3 % Platelet Count 53 L 140-450 10^3/uL Mean Platelet Volume 8.4 6.9-10.8 fL Neutrophils (%) (Auto) 37.0-80.0 % Lymphocytes (%) (Auto) 10.0-50.0 % Monocytes (%) (Auto) 0.0-12.0 % Basophils (%) (Auto) 0.0-2.0 % Neutrophils # (Auto) 1.6-8.6 10 ^3/uL Lymphocytes # (Auto) 0.4-5.4 10 ^3/uL Monocytes # (Auto) 0-1.3 10 ^3/uL Differential Total Cells Counted 100.0 100 Neutrophils % (Manual) 36 L 37.0-80.0 Band Neutrophils % (Manual) 5 Lymphocytes % (Manual) 56 H 10.0-50.0 Monocytes % (Manual) 2 0-12 Eosinophils % (Manual) 1 0-7 Basophils % (Manual) 0 0.0-2.0 Metamyelocytes % (manual) 0 Myelocytes % (Manual) 0 Promyelocytes % (Manual) 0 Blast Cells % (Manual) 0 Reactive Lymphocytes 0 Platelet Estimate Markedly decreased Anisocytosis (manual) Slight Target Cells Few Sodium Level 149 H 136-145 mmol/L Potassium Level 3.6 3.5-5.1 mmol/L Chloride Level 114 H 98-107 mmol/L Carbon Dioxide Level 24 20-31 mmol/L Anion Gap 11 5-15 Blood Urea Nitrogen 11 9-23 mg/dL Creatinine 0.87 0.700-1.30 mg/dL Glomerular Filtration Rate Calc 114 >90 mL/min BUN/Creatinine Ratio 12.6 10.0-20.0 Serum Glucose 91 74-106 mg/dL Lactic Acid Level 1.9 0.4-2.0 mmol/L Calcium Level 8.7 8.7-10.4 mg/dL Magnesium Level 1.4 L 1.6-2.6 mg/dL Ammonia 49 H 11-32 umol/L Plasma/Serum Blood Alcohol 264.1 H <10 mg/dL Current Medications Medications (Trade) Dose Ordered Sig/Annette Route Start Time Stop Time Status Last Admin Levetiracetam (Keppra Tablet) 1,000 mg ONCE ONCE PO 04/16/25 03:15 04/16/25 03:16 DC 04/16/25 03:51 CHEST RADIOGRAPH Indication: Rule out pneumonia. Cough and fever. Technique: Single frontal view of the chest was obtained COMPARISON: XR CHEST 1 VIEW on DOS: 03/13/25, XR CHEST 1 VIEW on DOS: 02/22/25, XR CHEST 1 VIEW on DOS: 01/21/25, XR CHEST 1 VIEW on DOS: 01/10/25, XR CHEST 1 VIEW on DOS: 12/19/24 FINDINGS: Lungs and pleural spaces are clear. Cardiac silhouette and wily are within normal limits. Bones and soft tissues demonstrate no significant abnormality. IMPRESSION: No acute disease. Time of 1ST Reevaluation: 23:23 Reevaluation 1ST: Unchanged Patient Education/Counseling: Other (Need for admission) Family Education/Counseling: No Family Present SEPSIS Sepsis Screen Date sepsis recognized/suspect: Apr 15, 2025 Time Sepsis recognized/suspect: 2255 Recent Procedure: No On Antibiotic Therapy: No Respiratory Rate >20: No Heart Rate >90: No Temp<36 C (96.8 F) or >38.3 C: No SBP <90 or MAP <65 mmHG: No New Acute Mental Status Change: No Is the patient on CPAP, BIPAP,: No Physician Orders Drug Screen (04/15/25 23:27) Urinalysis (04/15/25 23:27) Chest Xray 1 View (04/16/25 00:42) Blood Culture (04/16/25 00:42) Vital Signs Date Time Temp Pulse Resp B/P (MAP) Pulse Ox O2 Delivery O2 Flow Rate FiO2 04/15/25 22:56 98.4 71 16 143/92 97 98.4 Laboratory Tests Test 04/15/25 23:36 Lactic Acid Level 1.9 mmol/L (0.4-2.0) White Blood Count 1.7 10^3/uL (4.4-10.8) *L Medications Medications Dose Ordered Sig/Annette Route Start Time Stop Time Status Last Admin Dose Admin Levetiracetam 1,000 mg ONCE ONCE PO 04/16/25 03:15 04/16/25 03:16 DC 04/16/25 03:51 Departure 1 Departure Time of Disposition: 01:21 Impression: Primary Impression: Pancytopenia Additional Impressions: History of systemic lupus erythematosus History of leukemia Polysubstance abuse History of cirrhosis Facial cellulitis Disposition: ADMITTED INPATIENT Condition: Stable Comments Patient admitted to hospitalist service for further treatment, evaluation and monitoring. Critical Care Note Critical Care Time?: No Stability Stability form required: No Heart Score Heart Score: Heart Score Response (Comments) Value History N/A 0 EKG N/A 0 Age N/A 0 Risk Factors N/A 0 Troponin N/A 0 Total 0 I personally scribed for MIRELA NICHOLS MD ([email or web address]) on 04/15/25 at 23:28. Electronically submitted by Johnnie Rollins ([email or web address]). I personally scribed for MIRELA NICHOLS MD ([email or web address]) on 04/16/25 at 01:28. Electronically submitted by Johnnie Rollins ([email or web address]). MIRELA NICHOLS MD Apr 15, 2025 23:28
[2025-04-15 23:49] LABS: Hemoglobin 9.8 g/dL (13.5-17.5); Mean Corpuscular Hemoglobin 30.3 pg (28.0-32.0)
[2025-04-15 23:50] LABS: Hematocrit 29.9 % (41.0-53.0); Mean Corpuscular Volume 93.0 fL (80.0-100.0)
[2025-04-15 23:59] LABS: Potassium 3.6 mmol/L (3.5-5.1)
[2025-04-16] LABS: Anion Gap 11 (5-15); Carbon Dioxide 24 mmol/L (20-31)
[2025-04-16 00:01] LABS: Calcium 8.7 mg/dL (8.7-10.4); Chloride 114 mmol/L (98-107); Sodium 149 mmol/L (136-145)
[2025-04-16 00:06] LABS: BUN/Creatinine Ratio 12.6 (10.0-20.0); Blood Urea Nitrogen 11 mg/dL (9-23); Glucose 91 mg/dL (74-106)
[2025-04-16 00:07] LABS: Magnesium 1.4 mg/dL (1.6-2.6)
--- NOTE | 2025-04-16 01:16 | DVH ---
CHEST RADIOGRAPH Indication: Rule out pneumonia. Cough and fever. Technique: Single frontal view of the chest was obtained COMPARISON: XR CHEST 1 VIEW on DOS: 03/13/25, XR CHEST 1 VIEW on DOS: 02/22/25, XR CHEST 1 VIEW on DOS: 01/21/25, XR CHEST 1 VIEW on DOS: 01/10/25, XR CHEST 1 VIEW on DOS: 12/19/24 FINDINGS: Lungs and pleural spaces are clear. Cardiac silhouette and wily are within normal limits. Bones and s oft tissues demonstrate no significant abnormality. IMPRESSION: No acute disease.
[2025-04-16 02:05] LABS: Total Cells Counted 100.0 (100)
[2025-04-16 02:07] LABS: Anisocytosis Slight
[2025-04-16] MEDS: levETIRAcetam 500 MG TAB PO ONE (03:51)
--- NOTE | 2025-04-16 04:19 | DVHHP2 ---
MARCUS TREVIZO RESIDENT 04/16/25 0419: History of Present Illness History of Present Illness Patient is 39-year-old male who came to the hospital with a chief complaint of diffuse generalized body pain, mainly worsening in her neck and the chest. As per patient pain is worsened enough that prompted visit to hospital. As per patient he thinks he has a massive lupus outbreak with mild rashes over the right face, feeling completely just drained where his body does not want to function properly. Over the past 5-6 months, patient had multiple falls with multiple rib fractures, clavicular fracture, right hand phalanx fracture. As per patient he is not compliant with medication, does not take any medication at home. He has multiple hospitalization at [facility]. Patient denies any other symptoms including fever, chills, chest pain, shortness of breath, motor weakness, sensory deficits. 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 Today had two double shots of 99 proof vodka. Smoking: One cigarette/day Illicit drugs: Recent cocaine use ("did a little bit"), occasional marijuana use. Social: Lives with mother in [place]. Not working. Medication compliance: Non-compliant ("I'm not compliant"). Allergy :Gabapentin (causes grand mal seizures) Family history :Not discussed. Home medications :(Reports non-compliance) Rifaximin 550 mg BID Melatonin 5 mg QHS Baclofen 10 mg TID [place] 5mg Q8H PRN Keppra 1000 mg BID (reportedly increased from 500 mg) Methocarbamol 500 mg daily Lasix 40 mg daily Folic acid 1 mg daily Nicotine patch 14 mg daily Trazodone 100 mg QHS Escitalopram 10 mg daily Quetiapine 25 mg QHS Thiamine 100 mg daily Review of Systems Constitutional: No: Fever, Chills, Sweats, Weakness, Malaise, Other Eyes: No: Pain, Vision change, Conjunctivae inflammation, Eyelid inflammation, Other, Redness ENT: No: Ear pain, Ear discharge, Nose pain, Nose discharge, Nose congestion, Mouth pain, Mouth swelling, Throat pain, Throat swelling, Other Respiratory: No: Cough, Dry, Shortness of breath, SOB with excertion, Wheezing, Hemoptysis, Pleuritic Pain, Sputum, Wheezing, Other Cardiovascular: No: Chest Pain, Palpitations, Orthopnea, Paroxysmal Noc. Dyspnea, Edema, Lt Headedness, Other Gastrointestinal: No: Nausea, Vomiting, Abdominal Pain, Diarrhea, Constipation, Melena, Hematochezia, Other Genitourinary: No Dysuria, No Frequency, No Incontinence, No Hematuria, No Retention, No Other Musculoskeletal: neck pain, shoulder pain, arm pain, back pain, hand pain, leg pain, foot pain Skin: No: Rash, Lesions, Jaundice, Bruising, Other Neurological: No: Weakness, Numbness, Incoordination, Change in speech, Confusion, Seizures, Other Allergies: Coded Allergies: Gabapentin (Verified Allergy, Unknown, 07/12/22) Milk (Cow) (Verified Allergy, Unknown, 03/16/25) per patient NSAIDs (Verified Allergy, Unknown, 07/12/22) Pork (Porcine) Protein (Verified Allergy, Unknown, 03/16/25) per patient Medications Current Medications Medications Dose Ordered Sig/Annette Route Start Time Stop Time Status Last Admin Dose Admin Furosemide 40 mg DAILY PO 04/16/25 10:00 UNV Acetaminophen/ Hydrocodone Bitart 1 tab Q6HR PRN PO 04/16/25 04:00 UNV Levetiracetam 500 mg BID PO 04/16/25 10:00 UNV Lidocaine 1 patch DAILY TOP 04/16/25 10:00 UNV Propranolol HCl 20 mg DAILYPRN PO 04/16/25 10:00 UNV Rifaximin 550 mg BID PO 04/16/25 10:00 UNV Spironolactone 100 mg DAILY PO 04/16/25 10:00 UNV Thiamine HCl 100 mg DAILYPRN PO 04/16/25 10:00 UNV Patient Own Medication 1 tab DAILYPRN PO 04/16/25 10:00 UNV Patient Own Medication 1 cap DAILY PO 04/16/25 10:00 UNV Baclofen 10 mg Q8HR PO 04/16/25 06:00 UNV Methocarbamol 500 mg DAILY PO 04/16/25 10:00 UNV Trazodone HCl 100 mg HS PO 04/16/25 22:00 UNV Quetiapine Fumarate 25 mg HS PO 04/16/25 22:00 UNV Exam Vital Signs Vital Signs Date Time Temp Pulse Resp B/P (MAP) Pulse Ox O2 Delivery O2 Flow Rate FiO2 04/15/25 22:56 98.4 71 16 143/92 97 98.4 Labs/Xrays Labs Test 04/16/25 00:21 04/15/25 23:36 Range/Units Troponin I High Sensitivity 5 </=54 ng/L White Blood Count 1.7 *L 4.4-10.8 10^3/uL Red Blood Count 3.22 L 4.5-5.90 10^6/uL Hemoglobin 9.8 L 13.5-17.5 g/dL Hematocrit 29.9 L 41.0-53.0 % Mean Corpuscular Volume 93.0 80.0-100.0 fL Mean Corpuscular Hemoglobin 30.3 28.0-32.0 pg Mean Corpuscular Hemoglobin Concent 32.6 32.0-36.0 g/dL Red Cell Distribution Width 20.8 H 11.8-14.3 % Platelet Count 53 L 140-450 10^3/uL Mean Platelet Volume 8.4 6.9-10.8 fL Neutrophils (%) (Auto) 37.0-80.0 % Lymphocytes (%) (Auto) 10.0-50.0 % Monocytes (%) (Auto) 0.0-12.0 % Basophils (%) (Auto) 0.0-2.0 % Neutrophils # (Auto) 1.6-8.6 10 ^3/uL Lymphocytes # (Auto) 0.4-5.4 10 ^3/uL Monocytes # (Auto) 0-1.3 10 ^3/uL Differential Total Cells Counted 100.0 100 Neutrophils % (Manual) 36 L 37.0-80.0 Band Neutrophils % (Manual) 5 Lymphocytes % (Manual) 56 H 10.0-50.0 Monocytes % (Manual) 2 0-12 Eosinophils % (Manual) 1 0-7 Basophils % (Manual) 0 0.0-2.0 Metamyelocytes % (manual) 0 Myelocytes % (Manual) 0 Promyelocytes % (Manual) 0 Blast Cells % (Manual) 0 Reactive Lymphocytes 0 Platelet Estimate Markedly decreased Anisocytosis (manual) Slight Target Cells Few Sodium Level 149 H 136-145 mmol/L Potassium Level 3.6 3.5-5.1 mmol/L Chloride Level 114 H 98-107 mmol/L Carbon Dioxide Level 24 20-31 mmol/L Anion Gap 11 5-15 Blood Urea Nitrogen 11 9-23 mg/dL Creatinine 0.87 0.700-1.30 mg/dL Glomerular Filtration Rate Calc 114 >90 mL/min BUN/Creatinine Ratio 12.6 10.0-20.0 Serum Glucose 91 74-106 mg/dL Lactic Acid Level 1.9 0.4-2.0 mmol/L Calcium Level 8.7 8.7-10.4 mg/dL Magnesium Level 1.4 L 1.6-2.6 mg/dL Ammonia 49 H 11-32 umol/L Plasma/Serum Blood Alcohol 264.1 H <10 mg/dL SEPSIS Sepsis Screen Date sepsis recognized/suspect: Apr 15, 2025 Time Sepsis recognized/suspect: 2255 Recent Procedure: No On Antibiotic Therapy: No Respiratory Rate >20: No Heart Rate >90: No Temp<36 C (96.8 F) or >38.3 C: No SBP <90 or MAP <65 mmHG: No New Acute Mental Status Change: No Is the patient on CPAP, BIPAP,: No Physician Orders Drug Screen (04/15/25 23:27) Urinalysis (04/15/25 23:27) Chest Xray 1 View (04/16/25 00:42) Blood Culture (04/16/25 00:42) Admit (04/16/25 03:49) [place]; Comprehensive Panel (04/16/25 03:49) PTPTT (04/16/25 03:49) Bilirubin, Direct (04/16/25 03:49) Aspartate Amino Transferase (04/16/25 03:49) Alanine Aminotransferase (04/16/25 03:49) Alkaline Phosphatase (04/16/25 03:49) Albumin (04/16/25 03:49) Urinalysis (04/16/25 03:49) Drug Screen (04/16/25 03:49) Furosemide Tablet (Lasix Tablet) (04/16/25 10:00) Hydrocodone-Acet 5/325mg Tab ([place] 5/32 (04/16/25 04:00) Levetiracetam Tablet (Keppra Tablet) (04/16/25 10:00) Lidocaine 5% Topical Patch (Lidoderm 5% (04/16/25 10:00) Propranolol Hcl Tablet (Inderal Tablet) (04/16/25 10:00) Rifaximin (Xifaxan) (04/16/25 10:00) Spironolactone (Aldactone) (04/16/25 10:00) Thiamine Tab (04/16/25 10:00) (Nf) Folic Acid (04/16/25 10:00) (Nf) Omeprazole (Omeprazole Dr) (04/16/25 10:00) Baclofen Tablet (Liorisal Tablet) (04/16/25 06:00) Methocarbamol (Robaxin) (04/16/25 10:00) Trazodone Hcl (Desyrel) (04/16/25 22:00) Quetiapine Fumarate Tablet (Seroquel Tab (04/16/25 22:00) Complement C3 & C4 (04/16/25 04:01) Vital Signs Date Time Temp Pulse Resp B/P (MAP) Pulse Ox O2 Delivery O2 Flow Rate FiO2 04/15/25 22:56 98.4 71 16 143/92 97 98.4 Laboratory Tests Test 04/15/25 23:36 Lactic Acid Level 1.9 mmol/L (0.4-2.0) White Blood Count 1.7 10^3/uL (4.4-10.8) *L Medications Medications Dose Ordered Sig/Annette Route Start Time Stop Time Status Last Admin Dose Admin Levetiracetam 1,000 mg ONCE ONCE PO 04/16/25 03:15 04/16/25 03:16 DC 04/16/25 03:51 1,000 MG Assessment/Plan Assessment/Plan Alcohol intoxication -Keppra 500 mg b.i.d. -[facility] protocol -folic acid 1 mg p.o. daily -thiamine 100 mg p.o. daily Alcohol liver cirrhosis Child Cesar Class B -spironolactone 100 mg p.o. daily -furosemide 40 mg p.o. daily -Monitor liver function -Poor prognosis Alcohol abuse, Serum alcohol 264 -counseled on alcohol cessation -advised on alcohol cessation, social service provided resources for alcohol cessation. ?SLE -Labs: NILSA,C3, C4. Seizure disorder -Keppra 500 mg Po b.i.d. History of GI bleed with varices -famotidine 20 mg IV daily -propranolol 20 mg p.o. daily Acute toxic metabolic encephalopathy -UDS positive for opiates, benzodiazepine, serum alcohol 186.3 -continue current management with IV fluid. Acute hepatic encephalopathy -lactulose 30 mg p.o. b.i.d. -ammonia level 86 Chronic Pancytopenia likely due to alcoholic liver cirrhosis -oncology consultation was done in 2023: chronic due to cirrhosis -follow recommendation Tobacco abuse -nicotine patch Coagulopathy likely due to liver cirrhosis -monitor INR PT PTT. Goals of care/advance care planning; FULL CODE; discussed on for 22 minutes. PUD prophylaxis: Famotidine 20 mg IV BID daily DVT prophylaxis : Given thrombocytopenia and coagulopathy, SCD recommended Plan discussed with: Patient, Other My Orders Orders - MARCUS TREVIZO RESIDENT Procedure Category Date Status Time Admit ADMIT 04/16/25 Transmitted 03:49 [place]; Comprehensive LAB 04/16/25 Logged Panel 03:49 PTPTT LAB 04/16/25 Logged 03:49 Bilirubin, Direct LAB 04/16/25 Logged 03:49 Aspartate Amino LAB 04/16/25 Logged Transferase 03:49 Alanine LAB 04/16/25 Logged Aminotransferase 03:49 Alkaline Phosphatase LAB 04/16/25 Logged 03:49 Albumin LAB 04/16/25 Logged 03:49 Urinalysis LAB 04/16/25 Logged 03:49 Drug Screen LAB 04/16/25 Logged 03:49 Furosemide Tablet PHA 04/16/25 Logged (Lasix Tablet) 10:00 Hydrocodone-Acet PHA 04/16/25 Logged 5/325mg Tab ([place] 04:00 Levetiracetam Tablet PHA 04/16/25 Logged (Keppra Tablet) 10:00 Lidocaine 5% Topical PHA 04/16/25 Logged Patch (Lidoderm 5% 10:00 Propranolol Hcl PHA 04/16/25 Logged Tablet (Inderal 10:00 Rifaximin (Xifaxan) PHA 04/16/25 Logged 10:00 Spironolactone PHA 04/16/25 Logged (Aldactone) 10:00 Thiamine Tab PHA 04/16/25 Logged 10:00 (Nf) Folic Acid PHA 04/16/25 Logged 10:00 (Nf) Omeprazole PHA 04/16/25 Logged (Omeprazole Dr) 10:00 Baclofen Tablet PHA 04/16/25 Logged (Liorisal Tablet) 06:00 Methocarbamol PHA 04/16/25 Logged (Robaxin) 10:00 Trazodone Hcl PHA 04/16/25 Logged (Desyrel) 22:00 Quetiapine Fumarate PHA 04/16/25 Logged Tablet (Seroquel Tab 22:00 Complement C3 & C4 LAB 04/16/25 Transmitted 04:01 Date of Service: Apr 16, 2025 Billing Provider: ASHLEIGH DARNELL MD Common Visit Codes: [id number] INP/OBS CARE (HIGH) Secondary Visit Codes: 58132-[id number] CARE PLAN 30 MINUTES ASHLEIGH DARNELL MD 04/16/25 1255: Review of Systems Allergies: Coded Allergies: Gabapentin (Verified Allergy, Unknown, 07/12/22) Milk (Cow) (Verified Allergy, Unknown, 03/16/25) per patient NSAIDs (Verified Allergy, Unknown, 07/12/22) Pork (Porcine) Protein (Verified Allergy, Unknown, 03/16/25) per patient Date of Service: Apr 16, 2025 ([place]oonlightening Patient) Billing Provider: ASHLEIGH DARNELL MD Common Visit Codes: [id number] INP/OBS CARE (HIGH) Secondary Visit Codes: [id number] CARE PLAN 30 MINUTES MARCUS TREVIZO Apr 16, 2025 04:19 ASHLEIGH DARNELL MD Apr 16, 2025 12:55
[2025-04-16 04:45] LABS: Alanine Aminotransferase 31.0 U/L (7-40); Albumin 3.9 g/dL (3.2-4.8)
[2025-04-16 05:10] LABS: Alkaline Phosphatase 167.0 U/L (46-116); Bilirubin, Direct 1.3 mg/dL (<0.3)
[2025-04-16] MEDS ORDERED: LORazepam 2MG/ML-1ML VIAL IV PRN (06:45)
[2025-04-16] MEDS: BACLOFEN 10 MG TAB PO SCH (06:55)
[2025-04-16 08:00] VITALS: PULSE 57; RESP 16; O2SAT 97
[2025-04-16 08:16] LABS: INR 2.24 (0.9-1.15); Partial Thromboplastin Time 33.2 SEC (24.5-34.5); Prothrombin Time 21.9 sec (9.3-11.8)
[2025-04-16] MEDS: FAMOTIDINE (10MG/ML) 2ML VL IV SCH (09:50)
[2025-04-16] MEDS: FUROSEMIDE 40 MG TAB PO SCH (09:51)
[2025-04-16] MEDS: levETIRAcetam 500 MG TAB PO SCH (09:51)
[2025-04-16] MEDS: SPIRONOLACTONE 25 MG TAB PO SCH (09:51)
[2025-04-16] MEDS: HYDROcodone-ACET 5/325MG TAB PO PRN (09:52)
[2025-04-16] MEDS: METHOCARBAMOL 500 MG TAB PO SCH (09:52)
[2025-04-16] MEDS ORDERED: FOLIC ACID 1 MG TAB PO SCH (10:00)
[2025-04-16] MEDS ORDERED: THIAMINE HCL 100 MG TAB PO SCH (10:00)
[2025-04-16] MEDS ORDERED: PANTOPRAZOLE 40 MG TAB PO SCH (10:00)
[2025-04-16] MEDS ORDERED: PROPRANOLOL HCL 20 MG TAB PO SCH (10:00)
[2025-04-16] MEDS: LIDOCAINE 5% TOPICAL PATCH TOP SCH (10:12)
[2025-04-16 10:36] LABS: Amphetamine Screen, Urine Neg (NEGATIVE)
[2025-04-16 10:37] LABS: Cannabinoid Screen, Urine Pos (NEGATIVE)
[2025-04-16 10:43] LABS: Barbiturate Scree,Urine Neg (NEGATIVE); Benzodiazephine Screen, Urine Pos (NEGATIVE); Cocaine Screen, Urine Pos (NEGATIVE); Opiate Scree,Urine Neg (NEGATIVE); Phencyclidine Screen, Urine Neg (NEGATIVE); Urine Protein, UAD Negative (Negative)
--- NOTE | 2025-04-16 12:42 | DVHPN2 ---
Reviewed: Care Plan, H&P, Labs, Medications, Previous Orders, Radiology Changes from previous H/P or p: No Changes Eyes: No Pain, No Vision change, No Conjunctivae inflammation, No Eyelid inflammation, No Other, No Redness ENT: No Ear pain, No Ear discharge, No Nose pain, No Nose discharge, No Nose congestion, No Mouth pain, No Mouth swelling, No Throat pain, No Throat swelling, No Other Cardiovascular: No Chest Pain, No Palpitations, No Orthopnea, No Paroxysmal Noc. Dyspnea, No Edema, No Lt Headedness, No Other Respiratory: No Cough, No Dry, No Shortness of breath, No SOB with excertion, No Wheezing, No Hemoptysis, No Pleuritic Pain, No Sputum, No Other Gastrointestinal: No Nausea, No Vomiting, No Abdominal Pain, No Diarrhea, No Constipation, No Melena, No Hematochezia, No Other Genitourinary: No Dysuria, No Frequency, No Incontinence, No Hematuria, No Retention, No Other Musculoskeletal: neck pain, shoulder pain, arm pain, back pain, hand pain, leg pain, foot pain Skin: No Rash, No Lesions, No Jaundice, No Bruising, No Other Objective Vitals Vital Signs Date Time Temp Pulse Resp B/P (MAP) Pulse Ox O2 Delivery O2 Flow Rate FiO2 04/16/25 12:00 66 04/16/25 10:18 16 121/68 (85) 94 04/16/25 08:00 98.7 98.7 04/16/25 08:00 Room Air* 0 21 Medications Current Medications Medications Dose Ordered Sig/Annette Route Start Time Stop Time Status Last Admin Dose Admin Furosemide 40 mg DAILY PO 04/16/25 10:00 04/16/25 09:51 40 MG Acetaminophen/ Hydrocodone Bitart 1 tab Q6HR PRN PO 04/16/25 04:00 04/16/25 09:52 1 TAB Levetiracetam 500 mg BID PO 04/16/25 10:00 04/16/25 09:51 500 MG Lidocaine 1 patch DAILY TOP 04/16/25 10:00 04/16/25 10:12 1 PATCH Propranolol HCl 20 mg DAILYPRN PO 04/16/25 10:00 Hold Rifaximin 550 mg BID PO 04/16/25 10:00 04/16/25 09:52 550 MG Spironolactone 100 mg DAILY PO 04/16/25 10:00 04/16/25 09:51 100 MG Thiamine HCl 100 mg DAILYPRN PO 04/16/25 10:00 Hold Folic Acid 1 mg DAILYPRN PO 04/16/25 10:00 Hold Baclofen 10 mg Q8HR PO 04/16/25 06:00 04/16/25 06:55 10 MG Methocarbamol 500 mg DAILY PO 04/16/25 10:00 04/16/25 09:52 500 MG Trazodone HCl 100 mg HS PO 04/16/25 22:00 Quetiapine Fumarate 25 mg HS PO 04/16/25 22:00 Famotidine 20 mg Q12HR IV 04/16/25 10:00 04/16/25 09:50 20 MG Lorazepam 1 mg Q5MINP PRN IV 04/16/25 06:45 Laboratory Results Laboratory Tests 04/15/25 23:36 Chemistry Test 04/15/25 23:36 04/16/25 04:04 Calcium Level 8.7 mg/dL (8.7-10.4) Magnesium Level 1.4 mg/dL (1.6-2.6) L Albumin 3.9 g/dL (3.2-4.8) Coagulation Test 04/16/25 04:04 Prothrombin Time 21.9 sec (9.3-11.8) H Prothrombin Time INR 2.24 (0.9-1.15) H Activated Partial Thromboplast Time 33.2 SEC (24.5-34.5) LFT Test 04/16/25 04:04 Alanine Aminotransferase (ALT) 31 U/L (7-40) Alkaline Phosphatase 167 U/L (46-116) H Aspartate Amino Transferase (AST) 76 U/L (13-40) H Direct Bilirubin 1.3 mg/dL (<0.3) H Urinalysis Test 04/16/25 10:00 Urine Color Yellow (Yellow) Urine Clarity Clear (Clear) Urine pH 6.0 (5.0-9.0) Urine Specific [place] 1.025 (1.001-1.035) Urine Protein Negative (Negative) Urine Ketones Negative (Negative) Urine Blood Negative /uL (Negative) Urine Nitrite Negative (Negative) Urine Bilirubin Negative (Negative) Urine Urobilinogen 4 mg/dL (Negative) H Urine Leukocyte Esterase Negative /uL (Negative) Urine RBC 1 /hpf (0 - 3) Urine Microscopic WBC < 1 /HPF (0-3) Urine Squamous Epithelial Cells Few /hpf (<5) Urine Bacteria None seen /hpf (None Seen) Urine Mucus Few (None Seen) Urine Glucose Normal mg/dL (Normal) Labs and/or images reviewed: Labs reviewed by me, Image(s) reviewed by me Assessment/Plan Assessment/Plan Alcohol intoxication -Keppra 500 mg b.i.d. -[facility] protocol -folic acid 1 mg p.o. daily -thiamine 100 mg p.o. 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 daily -furosemide 40 mg p.o. daily -Monitor liver function -Poor prognosis Alcohol abuse, Serum alcohol 264 -counseled on alcohol cessation -advised on alcohol cessation, social service provided resources for alcohol cessation. ?SLE -Labs: JUNIOR,C3, C4. Seizure disorder -Keppra 500 mg Po b.i.d. History of GI bleed with varices -famotidine 20 mg IV daily -propranolol 20 mg p.o. daily Acute toxic metabolic encephalopathy -UDS positive for opiates, benzodiazepine, serum alcohol 186.3 -continue current management with IV fluid. Acute hepatic encephalopathy -lactulose 30 mg p.o. b.i.d. -ammonia level 86 Chronic Pancytopenia likely due to alcoholic liver cirrhosis -oncology consultation was done in 2023: chronic due to cirrhosis -follow recommendation Tobacco abuse -nicotine patch Coagulopathy likely due to liver cirrhosis -monitor INR PT PTT. Time spent 55 minutes Advanced care planning time 20 minutes Patient is full code Plan discussed with: Patient Date of Service: Apr 16, 2025 Billing Provider: ROBYN LEMUS MD Common Visit Codes: [id number] INP/OBS CARE(HIGH) Secondary Visit Codes: [id number] CARE PLAN 30 MINUTES ROBYN LEMUS MD Apr 16, 2025 12:42
[2025-04-16] MEDS: FOLIC ACID 1 MG TAB PO ONE (14:31)
[2025-04-16] MEDS: SODIUM CHLORIDE 0.9% 1,000 ML IV SCH (14:31)
[2025-04-16 19:35] VITALS: PULSE 70; RESP 17; O2SAT 95
[2025-04-16 21:30] VITALS: BP 137/80; PULSE 63; RESP 17; TEMP 98.3; O2SAT 96
[2025-04-16 23:30] VITALS: BP 137/80; PULSE 63; RESP 17; TEMP 98.3; O2SAT 96
[2025-04-17] VITALS (8 sets, daily range): BP systolic 108–122; BP diastolic 61–70; PULSE 56–98; RESP 15–18; TEMP 97.8–98.1; O2SAT 93–98
--- NOTE | 2025-04-17 08:31 | DVHPN2 ---
Reviewed: Care Plan, H&P, Labs, Medications, Previous Orders, Radiology Changes from previous H/P or p: No Changes Eyes: No Pain, No Vision change, No Conjunctivae inflammation, No Eyelid inflammation, No Other, No Redness ENT: No Ear pain, No Ear discharge, No Nose pain, No Nose discharge, No Nose congestion, No Mouth pain, No Mouth swelling, No Throat pain, No Throat swelling, No Other Cardiovascular: No Chest Pain, No Palpitations, No Orthopnea, No Paroxysmal Noc. Dyspnea, No Edema, No Lt Headedness, No Other Respiratory: No Cough, No Dry, No Shortness of breath, No SOB with excertion, No Wheezing, No Hemoptysis, No Pleuritic Pain, No Sputum, No Other Gastrointestinal: No Nausea, No Vomiting, No Abdominal Pain, No Diarrhea, No Constipation, No Melena, No Hematochezia, No Other Genitourinary: No Dysuria, No Frequency, No Incontinence, No Hematuria, No Retention, No Other Musculoskeletal: neck pain, shoulder pain, arm pain, back pain, hand pain, leg pain, foot pain Skin: No Rash, No Lesions, No Jaundice, No Bruising, No Other Objective Vitals Vital Signs Date Time Temp Pulse Resp B/P (MAP) Pulse Ox O2 Delivery O2 Flow Rate FiO2 04/17/25 05:00 97.8 56 17 110/69 (83) 97 97.8 04/16/25 23:30 Room Air* 0 21 Intake/Output Intake and Output 04/17/25 07:00 Intake Total 1400 ml Balance 1400 ml Intake Oral 50 ml IV Total 1350 ml Medications Current Medications Medications Dose Ordered Sig/Annette Route Start Time Stop Time Status Last Admin Dose Admin Furosemide 40 mg DAILY PO 04/16/25 10:00 04/16/25 09:51 40 MG Acetaminophen/ Hydrocodone Bitart 1 tab Q6HR PRN PO 04/16/25 04:00 04/16/25 19:00 1 TAB Levetiracetam 500 mg BID PO 04/16/25 10:00 04/16/25 22:59 500 MG Lidocaine 1 patch DAILY TOP 04/16/25 10:00 04/16/25 10:12 1 PATCH Propranolol HCl 20 mg DAILYPRN PO 04/16/25 10:00 Hold Rifaximin 550 mg BID PO 04/16/25 10:00 04/16/25 23:00 550 MG Spironolactone 100 mg DAILY PO 04/16/25 10:00 04/16/25 09:51 100 MG Thiamine HCl 100 mg DAILYPRN PO 04/16/25 10:00 Hold Baclofen 10 mg Q8HR PO 04/16/25 06:00 04/17/25 05:07 10 MG Methocarbamol 500 mg DAILY PO 04/16/25 10:00 04/16/25 09:52 500 MG Trazodone HCl 100 mg HS PO 04/16/25 22:00 04/16/25 22:59 100 MG Quetiapine Fumarate 25 mg HS PO 04/16/25 22:00 04/16/25 22:59 25 MG Famotidine 20 mg Q12HR IV 04/16/25 10:00 04/16/25 22:58 20 MG Lorazepam 1 mg Q5MINP PRN IV 04/16/25 06:45 Sodium Chloride 1,000 ml @ 150 mls/hr Q6H40M IV 04/16/25 12:45 04/17/25 03:38 150 MLS/HR Thiamine HCl 100 mg DAILY PO 04/17/25 10:00 Folic Acid 1 mg DAILY PO 04/17/25 10:00 Chlordiazepoxide HCl 50 mg Q12HR PO 04/17/25 10:00 04/17/25 22:01 Chlordiazepoxide HCl 25 mg Q12HR PO 04/18/25 10:00 04/18/25 22:01 Chlordiazepoxide HCl 25 mg QAM PO 04/19/25 07:00 04/19/25 07:01 Laboratory Results Laboratory Tests 04/15/25 23:36 Urinalysis Test 04/16/25 10:00 Urine Color Yellow (Yellow) Urine Clarity Clear (Clear) Urine pH 6.0 (5.0-9.0) Urine Specific [place] 1.025 (1.001-1.035) Urine Protein Negative (Negative) Urine Ketones Negative (Negative) Urine Blood Negative /uL (Negative) Urine Nitrite Negative (Negative) Urine Bilirubin Negative (Negative) Urine Urobilinogen 4 mg/dL (Negative) H Urine Leukocyte Esterase Negative /uL (Negative) Urine RBC 1 /hpf (0 - 3) Urine Microscopic WBC < 1 /HPF (0-3) Urine Squamous Epithelial Cells Few /hpf (<5) Urine Bacteria None seen /hpf (None Seen) Urine Mucus Few (None Seen) Urine Glucose Normal mg/dL (Normal) Microbiology Microbiology Date/Time Source Procedure Growth Status 04/16/25 01:05 Blood Blood Culture - Preliminary NO GROWTH AFTER 24 HOURS OF INCUBATION. Resulted Labs and/or images reviewed: Labs reviewed by me, Image(s) reviewed by me Assessment/Plan Assessment/Plan Alcoholic intoxication alcohol level 264: Banana bag: Counseling Acute alcoholic withdrawal: Librium Alcoholic cirrhosis of liver child steinberg classs b: Consult for GI Dr. Alexander Martin History of GI bleed with esophageal varices Hyperammonemia: Lactulose Acute toxic vs metabolic encephalopathy Polysubstance abuse urine drug screen positive for cocaine marijuana alcohol Acute hepatic encephalopathy: Lactulose Chronic pancytopenia likely due to alcoholic cirrhosis Heme-Onc consult was done in 2023 Chronic current smoker: Counseled Time spent 55 mts Plan discussed with: Patient My Orders Orders - ROYBN LEMUS MD Procedure Category Date Status Time Sodium Chloride 0.9% PHA 04/16/25 In Process 12:45 Thiamine Tab PHA 04/17/25 In Process 10:00 Folic Acid Tablet PHA 04/17/25 In Process 10:00 Chlordiazepoxide Hcl PHA 04/17/25 In Process Capsule (Librium Ca 10:00 Chlordiazepoxide Hcl PHA 04/18/25 In Process Capsule (Librium Ca 10:00 Chlordiazepoxide Hcl PHA 04/19/25 In Process Capsule (Librium Ca 07:00 Mrsa Screen ROSEMARIE 04/17/25 In Process 05:13 Date of Service: Apr 17, 2025 Billing Provider: ROBYN LEMUS MD Common Visit Codes: [id number] INP/OBS CARE(HIGH) ROBYN LEMUS MD Apr 17, 2025 08:31
[2025-04-17] MEDS: THIAMINE HCL 100 MG TAB PO SCH (08:37)
[2025-04-17] MEDS: FOLIC ACID 1 MG TAB PO SCH (08:38)
[2025-04-17] MEDS: LACTULOSE 20Gm/30ML SOLN PO SCH (10:05)
--- NOTE | 2025-04-17 12:43 | DVHINCON2 ---
GI Consult Consult Note GI consult note Date of Consultation: 04/17/2025 Chief Complaint: Acute hepatic encephalopathy, cirrhosis of liver Referring Physician: Dr. Malorie Lemus H&P: 39-year-old male admitted with complains of diffuse generalized abdominal pain. Patient admits to having multiple falls and has fracture of clavicle, right phalanx and rib fractures. Patient also admits to having bruising the right side of his body. No abdominal. Occasional nausea denies vomiting. Last bowel movement two days ago, denies melena or red blood in stool. Status post EGD one year ago for varices. Patient admits to alcohol use. Patient is status post gastric bypass. Patient has been on lactulose in past but admits to being noncompliant with medications Past Medical History: Liver cirrhosis, decompensated Leukemia (hx) DVT (hx) Pancytopenia Opioid withdrawal (hx) Seizure disorder Stroke (hx) Multiple falls Rib fractures (R and L) SLE Heavy alcohol use Past Surgical History: Gastric bypass (2017), Fifth metacarpal surgery (2018 or 2019) Social History: Alcohol: Admits to continued drinking, though has "cut back a lot". Today had tw o double shots of 99 proof vodka. Smoking: One cigarette/day Illicit drugs: Recent cocaine use ("did a little bit"), occasional marijuana use. Social: Lives with mother in [place]. Not working. Family History: Noncontributory Review of Systems: Constitutional: no fever, chill, weight loss Heart: no chest pain, no chest pressure Lung: no cough, no dyspnea with exertion Abdomen: see HPI Physical exam: General: NAD, AAOX3 Chest: lung doll clear to auscultation Heart: RRR, no murmur Abdomen: non-distended, no tenderness to palpation, +BS Labs: Labs Test 04/16/25 10:00 04/16/25 04:04 04/16/25 00:21 04/15/25 23:36 Range/Units Urine Color Yellow Yellow Urine Clarity Clear Clear Urine pH 6.0 5.0-9.0 Urine Specific [place] 1.025 1.001-1.035 Urine Protein Negative Negative Urine Ketones Negative Negative Urine Blood Negative Negative /uL Urine Nitrite Negative Negative Urine Bilirubin Negative Negative Urine Urobilinogen 4 H Negative mg/dL Urine Leukocyte Esterase Negative Negative /uL Urine RBC 1 0 - 3 /hpf Urine Microscopic WBC < 1 0-3 /HPF Urine Squamous Epithelial Cells Few <5 /hpf Urine Bacteria None seen None Seen /hpf Urine Mucus Few None Seen Urine Glucose Normal Normal mg/dL Urine Opiates Screen Neg NEGATIVE Urine Fentanyl Screen Neg NEGATIVE Urine Barbiturates Screen Neg NEGATIVE Urine Phencyclidine Screen Neg NEGATIVE Urine Amphetamines Screen Neg NEGATIVE Urine Benzodiazepines Screen Pos NEGATIVE Urine Cocaine Screen Pos NEGATIVE Urine Cannabinoids Screen Pos NEGATIVE Prothrombin Time 21.9 H 9.3-11.8 sec Prothrombin Time INR 2.24 H 0.9-1.15 Activated Partial Thromboplast Time 33.2 24.5-34.5 SEC Direct Bilirubin 1.3 H <0.3 mg/dL Aspartate Amino Transferase (AST) 76 H 13-40 U/L Alanine Aminotransferase (ALT) 31 7-40 U/L Alkaline Phosphatase 167 H 46-116 U/L Albumin 3.9 3.2-4.8 g/dL Troponin I High Sensitivity 5 </=54 ng/L White Blood Count 1.7 *L 4.4-10.8 10^3/uL Red Blood Count 3.22 L 4.5-5.90 10^6/uL Hemoglobin 9.8 L 13.5-17.5 g/dL Hematocrit 29.9 L 41.0-53.0 % Mean Corpuscular Volume 93.0 80.0-100.0 fL Mean Corpuscular Hemoglobin 30.3 28.0-32.0 pg Mean Corpuscular Hemoglobin Concent 32.6 32.0-36.0 g/dL Red Cell Distribution Width 20.8 H 11.8-14.3 % Platelet Count 53 L 140-450 10^3/uL Mean Platelet Volume 8.4 6.9-10.8 fL Neutrophils (%) (Auto) 37.0-80.0 % Lymphocytes (%) (Auto) 10.0-50.0 % Monocytes (%) (Auto) 0.0-12.0 % Basophils (%) (Auto) 0.0-2.0 % Neutrophils # (Auto) 1.6-8.6 10 ^3/uL Lymphocytes # (Auto) 0.4-5.4 10 ^3/uL Monocytes # (Auto) 0-1.3 10 ^3/uL Differential Total Cells Counted 100.0 100 Neutrophils % (Manual) 36 L 37.0-80.0 Band Neutrophils % (Manual) 5 Lymphocytes % (Manual) 56 H 10.0-50.0 Monocytes % (Manual) 2 0-12 Eosinophils % (Manual) 1 0-7 Basophils % (Manual) 0 0.0-2.0 Metamyelocytes % (manual) 0 Myelocytes % (Manual) 0 Promyelocytes % (Manual) 0 Blast Cells % (Manual) 0 Reactive Lymphocytes 0 Platelet Estimate Markedly decreased Anisocytosis (manual) Slight Target Cells Few Sodium Level 149 H 136-145 mmol/L Potassium Level 3.6 3.5-5.1 mmol/L Chloride Level 114 H 98-107 mmol/L Carbon Dioxide Level 24 20-31 mmol/L Anion Gap 11 5-15 Blood Urea Nitrogen 11 9-23 mg/dL Creatinine 0.87 0.700-1.30 mg/dL Glomerular Filtration Rate Calc 114 >90 mL/min BUN/Creatinine Ratio 12.6 10.0-20.0 Serum Glucose 91 74-106 mg/dL Lactic Acid Level 1.9 0.4-2.0 mmol/L Calcium Level 8.7 8.7-10.4 mg/dL Magnesium Level 1.4 L 1.6-2.6 mg/dL Ammonia 49 H 11-32 umol/L Plasma/Serum Blood Alcohol 264.1 H <10 mg/dL Microbiology Date/Time Source Procedure Growth Status 04/16/25 01:05 Blood Blood Culture - Preliminary NO GROWTH AFTER 24 HOURS OF INCUBATION. Resulted Imaging: Assessment: Alcoholic cirrhosis of liver Acute alcoholic intoxication with withdrawal History of GI bleed with esophageal varices Hyperammonemia Heavy alcohol use Plan: Discussed with Dr. Martin Monitor labs Lactulose DC alcohol discussed extensively We will continue to follow patient Outpatient GI follow-up as needed Plan discussed with patient and RN Thank you for this consult Date of Service: Apr 17, 2025 Billing Provider: JEANA LEMUS Common Visit Codes: CONSULT ONLY Consultation Codes: [id number] CONSULT <60MIN JEANA LEMUS Apr 17, 2025 12:43
[2025-04-18 01:00] VITALS: BP 102/67; PULSE 61; RESP 18; O2SAT 93
[2025-04-18 05:00] VITALS: BP 106/68; PULSE 62; RESP 18; TEMP 98; O2SAT 97
[2025-04-18 08:00] VITALS: PULSE 73; RESP 18; O2SAT 98
[2025-04-18] MEDS ORDERED: THIA100T13 PO (08:14)
[2025-04-18] MEDS ORDERED: FOLI-119 PO (08:14)
[2025-04-18] MEDS ORDERED: PANT40T PO (08:14)
[2025-04-18] MEDS ORDERED: HYDR-4902 PO (08:14)
--- NOTE | 2025-04-18 08:17 | DVHPN2 ---
Reviewed: Care Plan, H&P, Labs, Medications, Previous Orders, Radiology Changes from previous H/P or p: No Changes Eyes: No Pain, No Vision change, No Conjunctivae inflammation, No Eyelid inflammation, No Other, No Redness ENT: No Ear pain, No Ear discharge, No Nose pain, No Nose discharge, No Nose congestion, No Mouth pain, No Mouth swelling, No Throat pain, No Throat swelling, No Other Cardiovascular: No Chest Pain, No Palpitations, No Orthopnea, No Paroxysmal Noc. Dyspnea, No Edema, No Lt Headedness, No Other Respiratory: No Cough, No Dry, No Shortness of breath, No SOB with excertion, No Wheezing, No Hemoptysis, No Pleuritic Pain, No Sputum, No Other Gastrointestinal: No Nausea, No Vomiting, No Abdominal Pain, No Diarrhea, No Constipation, No Melena, No Hematochezia, No Other Genitourinary: No Dysuria, No Frequency, No Incontinence, No Hematuria, No Retention, No Other Musculoskeletal: neck pain, shoulder pain, arm pain, back pain, hand pain, leg pain, foot pain Skin: No Rash, No Lesions, No Jaundice, No Bruising, No Other Objective Vitals Vital Signs Date Time Temp Pulse Resp B/P (MAP) Pulse Ox O2 Delivery O2 Flow Rate FiO2 04/18/25 05:00 98.0 62 18 106/68 (81) 97 98.0 04/17/25 20:00 Room Air* 0 21 Intake/Output Intake and Output 04/18/25 07:00 Intake Total 6891 ml Output Total 5100 ml Balance 1791 ml Intake Oral 5216 ml IV Total 1675 ml Output Urine Total 5100 ml # Bowel Movements 2 Medications Current Medications Medications Dose Ordered Sig/Annette Route Start Time Stop Time Status Last Admin Dose Admin Furosemide 40 mg DAILY PO 04/16/25 10:00 04/17/25 08:36 40 MG Acetaminophen/ Hydrocodone Bitart 1 tab Q6HR PRN PO 04/16/25 04:00 04/18/25 03:05 1 TAB Levetiracetam 500 mg BID PO 04/16/25 10:00 04/17/25 21:45 500 MG Lidocaine 1 patch DAILY TOP 04/16/25 10:00 04/16/25 10:12 1 PATCH Propranolol HCl 20 mg DAILYPRN PO 04/16/25 10:00 Hold Rifaximin 550 mg BID PO 04/16/25 10:00 04/17/25 21:44 550 MG Spironolactone 100 mg DAILY PO 04/16/25 10:00 04/17/25 08:37 100 MG Thiamine HCl 100 mg DAILYPRN PO 04/16/25 10:00 Hold Baclofen 10 mg Q8HR PO 04/16/25 06:00 04/18/25 05:19 10 MG Methocarbamol 500 mg DAILY PO 04/16/25 10:00 04/17/25 08:37 500 MG Trazodone HCl 100 mg HS PO 04/16/25 22:00 04/17/25 21:44 100 MG Quetiapine Fumarate 25 mg HS PO 04/16/25 22:00 04/17/25 21:45 25 MG Famotidine 20 mg Q12HR IV 04/16/25 10:00 04/17/25 10:05 20 MG Lorazepam 1 mg Q5MINP PRN IV 04/16/25 06:45 Sodium Chloride 1,000 ml @ 150 mls/hr Q6H40M IV 04/16/25 12:45 04/18/25 05:16 150 MLS/HR Thiamine HCl 100 mg DAILY PO 04/17/25 10:00 04/17/25 08:37 100 MG Folic Acid 1 mg DAILY PO 04/17/25 10:00 04/17/25 08:38 1 MG Chlordiazepoxide HCl 25 mg Q12HR PO 04/18/25 10:00 04/18/25 22:01 Chlordiazepoxide HCl 25 mg QAM PO 04/19/25 07:00 04/19/25 07:01 Lactulose 30 ml Q6HR PO 04/17/25 12:00 04/18/25 05:19 30 ML Laboratory Results Laboratory Tests 04/15/25 23:36 Urinalysis Test 04/16/25 10:00 Urine Color Yellow (Yellow) Urine Clarity Clear (Clear) Urine pH 6.0 (5.0-9.0) Urine Specific [place] 1.025 (1.001-1.035) Urine Protein Negative (Negative) Urine Ketones Negative (Negative) Urine Blood Negative /uL (Negative) Urine Nitrite Negative (Negative) Urine Bilirubin Negative (Negative) Urine Urobilinogen 4 mg/dL (Negative) H Urine Leukocyte Esterase Negative /uL (Negative) Urine RBC 1 /hpf (0 - 3) Urine Microscopic WBC < 1 /HPF (0-3) Urine Squamous Epithelial Cells Few /hpf (<5) Urine Bacteria None seen /hpf (None Seen) Urine Mucus Few (None Seen) Urine Glucose Normal mg/dL (Normal) Microbiology Microbiology Date/Time Source Procedure Growth Status 04/17/25 06:54 Nose MRSA Screen - Final Complete 04/16/25 01:05 Blood Blood Culture - Preliminary NO GROWTH AFTER 48 HOURS OF INCUBATION. Resulted Labs and/or images reviewed: Labs reviewed by me, Image(s) reviewed by me Assessment/Plan Assessment/Plan Acute Alcoholic intoxication alcohol level 264: Banana bag: Counseling Acute alcoholic withdrawal: Librium Alcoholic cirrhosis of liver child steinberg classs b: Consult for GI Dr. Alexander Martin appreciated History of GI bleed with esophageal varices Hyperammonemia: Lactulose Acute toxic vs metabolic encephalopathy Polysubstance abuse urine drug screen positive for cocaine marijuana alcohol Acute hepatic encephalopathy: Lactulose Chronic pancytopenia likely due to alcoholic cirrhosis Heme-Onc consult was done in 2023 Chronic current smoker: Counseled Time spent 55 mts Patient feeling better stable vital signs being discharged home and patient agrees RN dom at bedside Plan discussed with: Patient My Orders Orders - ROBYN LEMUS MD Procedure Category Date Status Time Lactulose Oral PHA 04/17/25 In Process 12:00 * Gi [facility] [employer] CONS 04/17/25 Transmitted 08:28 Date of Service: Apr 18, 2025 Billing Provider: ROBYN LEMUS MD Common Visit Codes: [id number] INP/OBS CARE(HIGH) ROBYN LEMUS MD Apr 18, 2025 08:17
--- NOTE | 2025-04-18 08:24 | DVHDS2 ---
Discharge Summary Date of Admission Apr 16, 2025 at 03:49 Date of Discharge: Apr 18, 2025 Admitting Diagnosis Acute alcoholic intoxication Wounds: None Labs/Diagnostic Data: Laboratory Results Test 04/16/25 10:00 04/16/25 04:04 04/16/25 00:21 04/15/25 23:36 Urine Color Yellow (Yellow) Urine Clarity Clear (Clear) Urine pH 6.0 (5.0-9.0) Urine Specific [place] 1.025 (1.001-1.035) Urine Protein Negative (Negative) Urine Ketones Negative (Negative) Urine Blood Negative /uL (Negative) Urine Nitrite Negative (Negative) Urine Bilirubin Negative (Negative) Urine Urobilinogen 4 mg/dL (Negative) Urine Leukocyte Esterase Negative /uL (Negative) Urine RBC 1 /hpf (0 - 3) Urine Microscopic WBC < 1 /HPF (0-3) Urine Squamous Epithelial Cells Few /hpf (<5) Urine Bacteria None seen /hpf (None Seen) Urine Mucus Few (None Seen) Urine Glucose Normal mg/dL (Normal) Urine Opiates Screen Neg (NEGATIVE) Urine Fentanyl Screen Neg (NEGATIVE) Urine Barbiturates Screen Neg (NEGATIVE) Urine Phencyclidine Screen Neg (NEGATIVE) Urine Amphetamines Screen Neg (NEGATIVE) Urine Benzodiazepines Screen Pos (NEGATIVE) Urine Cocaine Screen Pos (NEGATIVE) Urine Cannabinoids Screen Pos (NEGATIVE) Prothrombin Time 21.9 sec (9.3-11.8) Prothrombin Time INR 2.24 (0.9-1.15) Activated Partial Thromboplast Time 33.2 SEC (24.5-34.5) Direct Bilirubin 1.3 mg/dL (<0.3) Aspartate Amino Transferase (AST) 76 U/L (13-40) Alanine Aminotransferase (ALT) 31 U/L (7-40) Alkaline Phosphatase 167 U/L (46-116) Albumin 3.9 g/dL (3.2-4.8) Anti-Nuclear Antibody Comment Comment (.) Complement C3 73 mg/dL (82-167) Complement C4 8 mg/dL (12-38) Troponin I High Sensitivity 5 ng/L (</=54) White Blood Count 1.7 10^3/uL (4.4-10.8) Red Blood Count 3.22 10^6/uL (4.5-5.90) Hemoglobin 9.8 g/dL (13.5-17.5) Hematocrit 29.9 % (41.0-53.0) Mean Corpuscular Volume 93.0 fL (80.0-100.0) Mean Corpuscular Hemoglobin 30.3 pg (28.0-32.0) Mean Corpuscular Hemoglobin Concent 32.6 g/dL (32.0-36.0) Red Cell Distribution Width 20.8 % (11.8-14.3) Platelet Count 53 10^3/uL (140-450) Mean Platelet Volume 8.4 fL (6.9-10.8) Neutrophils (%) (Auto) % (37.0-80.0) Lymphocytes (%) (Auto) % (10.0-50.0) Monocytes (%) (Auto) % (0.0-12.0) Basophils (%) (Auto) % (0.0-2.0) Neutrophils # (Auto) 10 ^3/uL (1.6-8.6) Lymphocytes # (Auto) 10 ^3/uL (0.4-5.4) Monocytes # (Auto) 10 ^3/uL (0-1.3) Differential Total Cells Counted 100.0 (100) Neutrophils % (Manual) 36 (37.0-80.0) Band Neutrophils % (Manual) 5 Lymphocytes % (Manual) 56 (10.0-50.0) Monocytes % (Manual) 2 (0-12) Eosinophils % (Manual) 1 (0-7) Basophils % (Manual) 0 (0.0-2.0) Metamyelocytes % (manual) 0 Myelocytes % (Manual) 0 Promyelocytes % (Manual) 0 Blast Cells % (Manual) 0 Reactive Lymphocytes 0 Platelet Estimate Markedly decreased Anisocytosis (manual) Slight Target Cells Few Sodium Level 149 mmol/L (136-145) Potassium Level 3.6 mmol/L (3.5-5.1) Chloride Level 114 mmol/L (98-107) Carbon Dioxide Level 24 mmol/L (20-31) Anion Gap 11 (5-15) Blood Urea Nitrogen 11 mg/dL (9-23) Creatinine 0.87 mg/dL (0.700-1.30) Glomerular Filtration Rate Calc 114 mL/min (>90) BUN/Creatinine Ratio 12.6 (10.0-20.0) Serum Glucose 91 mg/dL (74-106) Lactic Acid Level 1.9 mmol/L (0.4-2.0) Calcium Level 8.7 mg/dL (8.7-10.4) Magnesium Level 1.4 mg/dL (1.6-2.6) Ammonia 49 umol/L (11-32) Plasma/Serum Blood Alcohol 264.1 mg/dL (<10) Other Laboratory Tests 04/15/25 23:36 Brief Hx & Hospital Course: 39-year-old male with a history of chronic alcohol abuse polysubstance abuse including cocaine marijuana cirrhosis of liver history of esophageal varices with the bleeding pancytopenia secondary to alcoholic cirrhosis admitted for altered mental status confusion secondary to hepatic encephalopathy and alcoholic intoxication bleed blood alcohol was 264 treated with a banana bag IV fluids and alcoholic withdrawal was treated with Librium. patient has alcoholic cirrhosis of Childpugh class b GI consult by Dr. Alexander Martin. Urine drug screen came positive for cocaine and marijuana. Patient's hepatic encephalopathy treated with the lactulose patient has chronic pancytopenia. At the time of discharge patient is alert awake slightly confused but oriented x3. discharged home on thiamine folic acid pantoprazole and Seaview. Patient has an appointment with the pain management Dr on April 22. Advised to keep that appointment and follow up with the GI Dr. Alexander Martin. Patient was strongly advised to quit using alcohol Consults/Reason for consult GI Dr. Alexander Martin Operations or Procedures CT abdomen pelvis without contrast Condition at Discharge: Fair Final Diagnosis/Problems List Acute Alcoholic intoxication alcohol level 264: Banana bag: Counseling Acute alcoholic withdrawal: Librium Alcoholic cirrhosis of liver child steinberg classs b: Consult for GI Dr. Alexander Martin History of GI bleed with esophageal varices Hyperammonemia: Lactulose Acute toxic vs metabolic encephalopathy Polysubstance abuse urine drug screen positive for cocaine marijuana alcohol Acute hepatic encephalopathy: Lactulose Chronic pancytopenia likely due to alcoholic cirrhosis Heme-Onc consult was done in 2023 Chronic current smoker: Counseled Discharge Disposition: Home Discharge Instruct/Medications Diet: Regular Activity: Light activity Follow Up/Referral: Stop drinking alcohol Resume all previous home medications Follow up with the primary Dr pain management Dr and GI Dr. Alexander Martin in one week Medications: Thiamine Folic acid Pantoprazole Seaview Transmitted to pharmacy Scheduled Folic Acid (Folic Acid), 1 TAB PO DAILYPRN, (Reported) Folic Acid (Folic Acid), 1 MG PO DAILY Furosemide (Furosemide), 40 MG PO DAILY Lactulose (Lactulose), 15 ML PO BID, (Reported) Levetiracetam (Keppra Tablet), 500 MG PO BID Lidocaine (Lidoderm 5% Topical Patch), 1 PATCH TOP DAILY Omeprazole (Omeprazole Dr), 1 CAP PO DAILY, (Reported) Pantoprazole Sodium Sesquihydr (Pantoprazole Sodium), 40 MG PO BID Promethazine Hcl (Promethazine Hcl), 1 TAB PO BIDPRN, (Reported) Propranolol HCl (Propranolol Hydrochloride), 1 TAB PO DAILYPRN, (Reported) Rifaximin (Xifaxan), 1 TAB PO BID, (Reported) Spironolactone (Aldactone), 100 MG PO DAILY Spironolactone (Spironolactone), 2 TAB PO BID, (Reported) Thiamine HCl (Thiamine Hydrochloride), 100 MG PO DAILY Thiamine Hcl (Vitamin B1), 1 TAB PO DAILYPRN, (Reported) Scheduled PRN Hydrocodone-Acetaminophen (Hydrocodone Bitartrate/AC 5-325 mg), 1 TAB PO Q6HR PRN Hydrocodone-Acetaminophen (Hydrocodone Bitartrate/AC 5-325 mg), 1 TAB PO QID PRN Ondansetron Odt 4MG Tab (Zofran Po), 8 MG PO Q8HR PRN for NAUSEA / VOMITING, (Reported) Miscellaneous Medications Lacosamide (Lacosamide), PO, (Reported) 45 (Time taken for discharge summary 45 minutes) Discharge Statement: "Patient was advised to return to the ER or call 911 if any headaches, dizziness, shortness of breath, chest pain, abdominal pain, bleeding, fevers, or worsening of medical condition. Patient was counseled about treatment plan, medications, possible side effects, patientverbalized understanding. All questions were answered to the best of my ability. This discharge took greater then 30 minutes in planning, reviewing documentation, counseling the patient, and discussing with other team members." ASSESSMENT ASSESSMENT Hospital Course Uneventful Assessment Acute Alcoholic intoxication alcohol level 264: Banana bag: Counseling Acute alcoholic withdrawal: Librium Alcoholic cirrhosis of liver child steinberg classs b: Consult for GI Dr. Alexander Martin History of GI bleed with esophageal varices Hyperammonemia: Lactulose Acute toxic vs metabolic encephalopathy Polysubstance abuse urine drug screen positive for cocaine marijuana alcohol Acute hepatic encephalopathy: Lactulose Chronic pancytopenia likely due to alcoholic cirrhosis Heme-Onc consult was done in 2023 Chronic current smoker: Counseled Date of Service: Apr 18, 2025 Billing Provider: ROBYN LEMUS MD Common Visit Codes: 53163-LCO/OBS DISCH DAY >30min ROBYN LEMUS MD Apr 18, 2025 08:24
[2025-04-18 09:00] VITALS: BP 113/68; PULSE 52; RESP 16; TEMP 97.9; O2SAT 97
[2025-04-18 11:05] VITALS: BP 106/68; PULSE 78; TEMP 36.6
[2025-04-18 14:07] LABS: Anti-Centromere B Antibody <0.2 AI (0.0-0.9); Anti-Jo-1 Antibody <0.2 AI (0.0-0.9); Anti-dsDNA Antibody 2 IU/mL (0-9); Antichromatin Antibody <0.2 AI (0.0-0.9); Antiscleroderma-70 Antibody <0.2 AI (0.0-0.9); Sjogren's Anti-SS-A Antibody <0.2 AI (0.0-0.9); Sjogren's Anti-SS-B Antibody <0.2 AI (0.0-0.9)
== END 2025-04-18 12:20 | disposition home or self-care (01) | DRG 280 ==
LOC: ER 22:55 → OVERFLOW 04-16 03:49 → CENTRAL 04-16 21:30
PROVIDERS: ADMIT Family Medicine; ATTEND Family Medicine
DX: K70.30 Alcoholic cirrhosis of liver without ascites (principal); G92.8 Other toxic encephalopathy; D68.9 Coagulation defect, unspecified; D61.818 Other pancytopenia; E87.0 Hyperosmolality and hypernatremia; K76.82 Hepatic encephalopathy; I11.0 Hypertensive heart disease with heart failure; F10.239 Alcohol dependence with withdrawal, unspecified; F17.210 Nicotine dependence, cigarettes, uncomplicated; L03.211 Cellulitis of face; F19.10 Other psychoactive substance abuse, uncomplicated; G40.909 Epilepsy, unspecified, not intractable, without status epilepticus; F10.229 Alcohol dependence with intoxication, unspecified; I50.9 Heart failure, unspecified; F41.9 Anxiety disorder, unspecified; Z79.899 Other long term (current) drug therapy; Z88.3 Allergy status to other anti-infective agents; Z91.011 Allergy to milk products; Z91.09 Other allergy status, other than to drugs and biological substances; Z85.6 Personal history of leukemia; Z86.718 Personal history of other venous thrombosis and embolism; Z86.73 Personal history of transient ischemic attack (TIA), and cerebral infarction without residual deficits; Z98.84 Bariatric surgery status; Z91.199 Patient's noncompliance with other medical treatment and regimen due to unspecified reason; Y90.8 Blood alcohol level of 240 mg/100 ml or more
CPT/HCPCS: 36415; 71045; 80048; 80307; 80320; 81001; 82040; 82140; 82248; 83516; 83605; 83735; 84075; 84450; 84460; 84484; 85007; 85027; 85610; 85730; 86160; 86225; 86235; 87040; 87081; G0378; J3490

== ENCOUNTER 2025-05-25 17:50 | Emergency (ER) | payer MEDICAID ==
[~2025-05-25] VITALS: Ht 177.8 cm; Wt 73.0 kg
[~2025-05-25 17:50] MED LIST changes: +PANT40T PO; +THIA100T13 PO
[2025-05-25 18:00] VITALS: PULSE 60; RESP 14; O2SAT 96
[2025-05-25 18:03] VITALS: BP 140/80; PULSE 68; RESP 14; TEMP 97.8; O2SAT 96
--- NOTE | 2025-05-25 18:05 | ED.PDOC ---
HPI (NEURO) HPI Comments This is a 39 year old male with past medical history of alcohol abuse, nonepileptic seizures (on Keppra) BIBA reports of shortness of breath. History is taken from the medics as the patient is intoxicated upon arrival and having questionable episodes of apnea. Take state that he called 911 because he was feeling short of breath. He told them that he had a recent trauma with numerous right-sided rib fractures and right-sided pneumothorax s/p chest tube placement and removal which occurred over 2 weeks ago. Patient does admit to heavy alcohol consumption, has been drinking all day. En route medics noted that he kept having apneic episodes and appearing more altered. Patient had another 1 of these episodes as he arrived to the emergency department. Was immediately taken to a bed. Then quickly woke up as soon as they were cutting his shirt off and stating that he could not breathe, despite normal oxygenation on the monitor. Time Seen by MD: 18:00 Primary Care Provider: [facility] Reviewed Notes: Nurses Notes, Surg Nurse Notes, Medications, Allergies Information Source: Patient, Emergency Med Personnel Mode of Arrival: EMS Severity: Moderate Timing: Hours Duration: Since onset Prehospital treatment: None Onset: At rest Circumstances: Spontaneous Symptoms: None History of: Seizure Disorder Past Medical History PAST MEDICAL HISTORY: Anxiety, HTN, Liver, Seizures Surgical History: Denies all surgeries Family History Family History: Reviewed,noncontributory to illness Social History Smoker: Cigarettes, Less Than 1 Pack/Day Alcohol: Heavy Drugs: Cocaine, Marijuana Lives In: Home Constitutional: denies: chills, diaphoresis, fatigue, fever, malaise, sweats, weakness, others EENTM: denies: blurred vision, double vision, ear bleeding, ear discharge, ear drainage, ear pain, ear ringing, eye pain, eye redness, hearing loss, mouth pain, mouth swelling, nasal discharge, nose bleeding, nose congestion, nose pain, photophobia, tearing, throat pain, throat swelling, voice changes, others Respiratory: reports: shortness of breath; denies: cough, hemoptysis, orthopnea, SOB at rest, SOB with excertion, stridor, wheezing, others Cardiovascular: denies: chest pain, dizzy spells, diaphoresis, Dyspnea on exertion, edema, irregular heart beat, left arm pain, lightheadedness, pal pitations, PND, syncope, others Gastrointestinal: denies: abdomen distended, abdominal pain, blood streaked bowels, constipated, diarrhea, dysphagia, difficulty swallowing, hematemesis, melena, nausea, poor appetite, poor fluid intake, rectal bleeding, rectal pain, vomiting, others Genitourinary: denies: burning, dysuria, flank pain, frequency, hematuria, incontinence, penile discharge, penile sore, pain, testicle pain, testicle swelling, urgency, others Neurological: denies: dizziness, fainting, headache, left sided numbness, left sided weakness, numbness, paresthesia, pre-existing deficit, right sided numbness, right sided weakness, seizure, speech problems, tingling, tremors, weakness, others Musculoskeletal: denies: back pain, gout, joint pain, joint swelling, muscle pain, muscle stiffness, neck pain, others Integumetry: denies: bruises, change in color, change in hair/nails, dryness, laceration, lesions, lumps, rash, wounds, others Allergic/Immunocompromised: denies: Difficulty Healing, Frequent Infections, Hives, Itching, others Hematologic/Lymphatic: denies: anemia, blood clots, easy bleeding, easy bru ising, swollen glands, others Endocrine: denies: excessive hunger, excessive sweating, excessive thirst, e xcessive urination, flushing, intolerance to cold, intolerance to heat, unexplained weight gain, unexplained weight loss, others Psychiatric: denies: anxiety, bipolar disorder, depression, hopeless, panic disorder, schizophrenia, sleepless, suicidal, others Unable to Obtain due to: Altered Mental Status All Other Systems: Reviewed and Negative Physical Exam General Appearance: No Apparent Distress, Normal, Other (Smells of alcohol) HEENT: Normal ENT Inspection, Pharynx Normal, TMs Normal Neck: Full Range of Motion, Non-Tender, Normal, Normal Inspection Respiratory: Chest Non-Tender, Lungs Clear, No Accessory Muscle Use, No Respiratory Distress, Normal Breath Sounds Cardiovascular: No Edema, No JVD, No Murmur, No Gallop, Normal Peripheral Pulses, Regular Rate/Rhythm Breast Exam: Deferred Gastrointestinal: No Organomegaly, Non Tender, No Pulsatile Mass, Normal Bowel Sounds, Soft Genitalia: Deferred Pelvic: Deferred Rectal: Deferred Extremities: No calf tenderness, Normal capillary refill, Normal inspection, Normal range of motion, Non-tender, No pedal edema Musculoskeletal : Apperance: Normal Neurologic: Alert, 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 Was a procedure done?: No Differential Diagnosis (SZ) Seizure: Psychogenic Seizure, Alcohol Withdrawl, Other (Alcohol intoxication) X-Ray, Labs, Meds, VS Vital Signs Date Time Temp Pulse Resp B/P (MAP) Pulse Ox O2 Delivery O2 Flow Rate FiO2 05/25/25 18:03 97.8 68 14 140/80 96 97.8 05/25/25 18:01 98.2 68 15 137/76 (96) 96 98.2 05/25/25 18:00 60 14 96 Room Air* 0 21 Lab Test 05/25/25 18:42 05/25/25 18:02 Range/Units Sodium Level 148 H 136-145 mmol/L Potassium Level 4.0 3.5-5.1 mmol/L Chloride Level 112 H 98-107 mmol/L Carbon Dioxide Level 23 20-31 mmol/L Anion Gap 13 5-15 Blood Urea Nitrogen 7 L 9-23 mg/dL Creatinine 0.81 0.700-1.30 mg/dL Glomerular Filtration Rate Calc 116 >90 mL/min BUN/Creatinine Ratio 8.6 L 10.0-20.0 Serum Glucose 82 74-106 mg/dL Calcium Level 9.0 8.7-10.4 mg/dL Magnesium Level 1.9 1.6-2.6 mg/dL Total Bilirubin 2.1 H 0.2-1.0 mg/dL Aspartate Amino Transferase (AST) 93 H 13-40 U/L Alanine Aminotransferase (ALT) 32 7-40 U/L Alkaline Phosphatase 453 H 46-116 U/L Total Protein 7.6 5.7-8.2 g/dL Albumin 4.2 3.2-4.8 g/dL Plasma/Serum Blood Alcohol 346.4 H <10 mg/dL White Blood Count 3.1 L 4.4-10.8 10^3/uL Red Blood Count 4.60 4.5-5.90 10^6/uL Hemoglobin 14.3 13.5-17.5 g/dL Hematocrit 42.9 41.0-53.0 % Mean Corpuscular Volume 93.3 80.0-100.0 fL Mean Corpuscular Hemoglobin 31.1 28.0-32.0 pg Mean Corpuscular Hemoglobin Concent 33.3 32.0-36.0 g/dL Red Cell Distribution Width 21.1 H 11.8-14.3 % Platelet Count 115 L 140-450 10^3/uL Mean Platelet Volume 8.5 6.9-10.8 fL Neutrophils (%) (Auto) 41.7 37.0-80.0 % Lymphocytes (%) (Auto) 45.7 10.0-50.0 % Monocytes (%) (Auto) 9.1 0.0-12.0 % Eosinophils (%) (Auto) 2.0 0.0-7.0 % Basophils (%) (Auto) 1.5 0.0-2.0 % Neutrophils # (Auto) 1.3 L 1.6-8.6 10 ^3/uL Lymphocytes # (Auto) 1.4 0.4-5.4 10 ^3/uL Monocytes # (Auto) 0.3 0-1.3 10 ^3/uL Eosinophils # (Auto) 0.1 0-0.8 10 ^3/uL Basophils # (Auto) 0 0-0.2 10 ^3/uL Nucleated Red Blood Cells 0.3 % Troponin I High Sensitivity 10 </=54 ng/L B-Type Natriuretic Peptide 18.05 0-100 pg/mL Current Medications Medications (Trade) Dose Ordered Sig/Annette Route Start Time Stop Time Status Last Admin Sodium Chloride 1,000 ml @ 1,000 mls/hr Q1H ONCE IV 05/25/25 18:15 05/25/25 19:14 DC 05/25/25 18:17 Time of 1ST Reevaluation: 18:59 Reevaluation 1ST: Improved Patient Education/Counseling: Diagnosis, Treatment Family Education/Counseling: No Family Present Departure 1 Departure Time of Disposition: 18:30 (39-year-old male with past medical history of alcohol abuse, known epileptic seizures, recent right-sided pneumothorax brought in by medics for reports of shortness of breath. Upon arrival patient has clear equal lungs on examination. However, given the reports of recent pneumothorax that required a chest tube I ordered a chest x-ray to evaluate for recurrent pneumothorax. Patient was also having these questionable episodes of apnea, however, seem very volitional in nature. Does not have any pinpoint pupils, is alert, does not seem concerning for opiate overdose. Patient's smells slightly of alcohol upon arrival. Suspect likely alcohol intoxication. However because he kept having these recurrent episodes and medical here stating that he was more altered I initially ordered a CT scan of the head to ensure that he does not have any intracranial hemorrhage. Basic labs were obtained. CBC with no evidence of critical leukocytosis or significant anemia. Metabolic panel notable for mild hypernatremia, likely related to dehydration. Alcohol level is significantly elevated, which seems consistent with alcohol intoxication. Cardiac markers within normal limits. Patient with no known history of heart failure, does not seem consistent with new onset heart failure. Initially ordered 1 L normal saline IV fluid bolus, oral folic acid, thiamine, multivitamin given alcohol abuse, intoxication. Despite stating that he is short of breath he has normal oxygenation. Shortly after arrival to the emergency department the patient was agitated, highly intoxicated. Started threatening staff members. He was then removed from the emergency department by security guards given safety concerns. The patient was in no distress when he was initially evaluated.) Impression: Primary Impression: Alcohol intoxication Additional Impression: Shortness of breath Disposition: 07 LEFT AWOL/ELOPED Condition: Stable Discharged With: Self Critical Care Note Critical Care Time?: No Stability Stability form required: No Heart Score Heart Score: Heart Score Response (Comments) Value History N/A 0 EKG N/A 0 Age N/A 0 Risk Factors N/A 0 Troponin N/A 0 Total 0 I personally scribed for RITU NASCIMENTO MD ([email or web address]) on 05/25/25 at 18:05. Electronically submitted by [place] ([email or web address]). RITU NASCIMENTO MD May 25, 2025 18:05
[2025-05-25] MEDS ORDERED: THIAMINE HCL 100 MG TAB PO ONE (18:15)
[2025-05-25] MEDS ORDERED: MULTIPLE VITAMIN TAB PO ONE (18:15)
[2025-05-25] MEDS ORDERED: FOLIC ACID 1 MG TAB PO ONE (18:15)
[2025-05-25] MEDS: SODIUM CHLORIDE 0.9% 1,000 ML IV ONE (18:17)
[2025-05-25 18:57] LABS: Hematocrit 42.9 % (41.0-53.0); Hemoglobin 14.3 g/dL (13.5-17.5); Mean Corpuscular Hemoglobin 31.1 pg (28.0-32.0); Mean Corpuscular Volume 93.3 fL (80.0-100.0); Nucleated Red Blood Cells % 0.3 %
[2025-05-25 19:15] LABS: Alanine Aminotransferase 32 U/L (7-40); Albumin 4.2 g/dL (3.2-4.8); Anion Gap 13 (5-15); BUN/Creatinine Ratio 8.6 (10.0-20.0); Calcium 9.0 mg/dL (8.7-10.4); Carbon Dioxide 23 mmol/L (20-31); Glucose 82 mg/dL (74-106); Magnesium 1.9 mg/dL (1.6-2.6); Potassium 4.0 mmol/L (3.5-5.1); Total Protein 7.6 g/dL (5.7-8.2)
[2025-05-25 19:31] LABS: Alkaline Phosphatase 453 U/L (46-116); Bilirubin, Total 2.1 mg/dL (0.2-1.0); Blood Urea Nitrogen 7 mg/dL (9-23); Chloride 112 mmol/L (98-107); Sodium 148 mmol/L (136-145)
== END 2025-05-25 18:48 | disposition left against medical advice (07) ==
LOC: EDBD 17:50 → ER 17:57
DX: F10.129 Alcohol abuse with intoxication, unspecified (principal); R06.02 Shortness of breath; F17.210 Nicotine dependence, cigarettes, uncomplicated; F12.90 Cannabis use, unspecified, uncomplicated; F19.90 Other psychoactive substance use, unspecified, uncomplicated; F41.9 Anxiety disorder, unspecified; I10 Essential (primary) hypertension; G40.909 Epilepsy, unspecified, not intractable, without status epilepticus; Y90.8 Blood alcohol level of 240 mg/100 ml or more
CPT/HCPCS: 36415; 80053; 80320; 83735; 83880; 84484; 85025; 96360; 99283; J7030

== ENCOUNTER 2025-06-13 19:14 | Inpatient (IN) | payer MEDICAID ==
[~2025-06-13] VITALS: Ht 180.3 cm; Wt 96.5 kg
--- NOTE | 2025-06-13 19:26 | ED.PDOC ---
History of Present Illness HPI Comments 39-year-old male BIBA with prior medical history of CVA with left-sided deficits, lupus, Hep V, seizures( took one course of Keppra today but has not taking in the past week) and a chief complaint of a seizure. EMS report on picking the patient at home due from the patient having two witnessed seizures by mother for which lasted "a couple of minutes". In route to the ER the patient had a seizure which lasted 45 seconds and was given Versed IM 5 mg for which resolved, and minutes later having another seizure which lasted 20 seconds before self-resolving. After the two seizures in route to the ER the patient was satting at 75% on 2L. when EMS arrived on scene the patient had an Accu-Chek of 97 and was satting at 98% on 2L. Denies any other symptoms at this time. Denies chills, fever, N/V/D, SOB, CP. No other associated symptoms, modifiers, recent injuries or sick contacts present at this time. Time Seen by MD: 19:25 Primary Care Provider: [facility] Reviewed Notes: Nurses Notes, Medications, Allergies Allergies: Coded Allergies: Gabapentin (Verified Allergy, Unknown, 07/12/22) Milk (Cow) (Verified Allergy, Unknown, 03/16/25) per patient NSAIDs (Verified Allergy, Unknown, 07/12/22) Pork (Porcine) Protein (Verified Allergy, Unknown, 03/16/25) per patient Home Meds Active Scripts Hydrocodone-Acetaminophen (Hydrocodone Bitartrate/AC 5-325 mg) 1 Tab Tab, 1 TAB PO QID PRN, #30 TAB Prov:ROBYN LEMUS MD 04/18/25 Pantoprazole Sodium Sesquihydr (Pantoprazole Sodium) 40 Mg Tab, 40 MG PO BID, #30 TAB Prov:ROBYN LEMUS MD 04/18/25 Folic Acid (Folic Acid) 1 Mg Tab, 1 MG PO DAILY, #30 TAB Prov:ROBYN LEMUS MD 04/18/25 Thiamine HCl (Thiamine Hydrochloride) 100 Mg Tab, 100 MG PO DAILY, #30 TAB Prov:ROBYN LEMUS MD 04/18/25 Hydrocodone-Acetaminophen (Hydrocodone Bitartrate/AC 5-325 mg) 1 Tab Tab, 1 TAB PO Q6HR PRN for 7 Days, #20 TAB 0 Refills Prov:DOMITILA BERNARD MD 03/17/25 Spironolactone (Aldactone) 25 Mg Tab, 100 MG PO DAILY for 90 Days, #360 TAB Prov:MARCUS TREVIZO RESIDENT 01/30/24 Levetiracetam (KEPPRA TABLET) 500 Mg Tb, 500 MG PO BID for 180 Days, #360 TAB 4 Refills Prov:MARCUS TREVIZO RESIDENT 01/30/24 Furosemide (Furosemide) 40 Mg Tab, 40 MG PO DAILY for 90 Days, #90 TAB Prov:MARCUS TREVIZO RESIDENT 01/30/24 Lidocaine (LIDODERM 5% TOPICAL PATCH) 1 Patch Ph, 1 PATCH TOP DAILY for 15 Days, #15 PATCH Prov:STEVE العراقي MD 01/20/24 Reported Medications Lacosamide (Lacosamide) 100 Mg Tab, PO 03/16/25 Rifaximin (Xifaxan) 550 Mg Tab, 1 TAB PO BID 03/16/25 Omeprazole (Omeprazole Dr) 20 Mg Cap, 1 CAP PO DAILY 02/09/24 Spironolactone (Spironolactone) 25 Mg Tab, 2 TAB PO BID 02/09/24 Ondansetron Odt 4MG Tab (ZOFRAN PO) 4 Mg Tb, 8 MG PO Q8HR PRN for NAUSEA / VOMITING ODT TAB-DISSOLVE IN MOUTH, THEN SWALLOW 01/28/24 Lactulose (Lactulose) 10 Gm/15 Ml Kaye, 15 ML PO BID 02/23/22 Thiamine Hcl (Vitamin B1) 100 Mg Tab, 1 TAB PO DAILYPRN 04/05/21 Folic Acid (Folic Acid) 1 Mg Tab, 1 TAB PO DAILYPRN 04/05/21 Propranolol HCl (Propranolol Hydrochloride) 20 Mg Tab, 1 TAB PO DAILYPRN 04/05/21 Promethazine Hcl (Promethazine Hcl) 25 Mg Tab, 1 TAB PO BIDPRN 04/05/21 Information Source: Patient, Emergency Med Personnel Mode of Arrival: EMS Severity: Moderate Timing: Minutes Duration: Since onset, Minutes Prehospital treatment: None Past Medical History PAST MEDICAL HISTORY: Asthma, DM, HIV, HTN, Seizures Surgical History (Other): Gastric bypass Family History Family History: Reviewed,noncontributory to illness, Unknown Social History Smoker: Cigarettes, Less Than 1 Pack/Day Alcohol: Heavy Drugs: Cocaine, Marijuana Lives In: Home Constitutional: denies: chills, diaphoresis, fatigue, fever, malaise, sweats, weakness, others EENTM: denies: blurred vision, double vision, ear bleeding, ear discharge, ear drainage, ear pain, ear ringing, eye pain, eye redness, hearing loss, mouth pain, mouth swelling, nasal discharge, nose bleeding, nose congestion, nose pa in, photophobia, tearing, throat pain, throat swelling, voice changes, others Respiratory: denies: cough, hemoptysis, orthopnea, SOB at rest, shortness of breath, SOB with excertion, stridor, wheezing, others Cardiovascular: denies: chest pain, dizzy spells, diaphoresis, Dyspnea on exertion, edema, irregular heart beat, left arm pain, lightheadedness, palpitations, PND, syncope, others Gastrointestinal: denies: abdomen distended, abdominal pain, blood streaked bowels, constipated, diarrhea, dysphagia, difficulty swallowing, hematemesis, melena, nausea, poor appetite, poor fluid intake, rectal bleeding, rectal pain, vomiting, others Genitourinary: denies: burning, dysuria, flank pain, frequency, hematuria, incontinence, penile discharge, penile sore, pain, testicle pain, testicle swelling, urgency, others Neurological: reports: seizure; denies: dizziness, fainting, headache, left s ided numbness, left sided weakness, numbness, paresthesia, pre-existing deficit, right sided numbness, right sided weakness, speech problems, tingling, tremors, weakness, others Musculoskeletal: denies: back pain, gout, joint pain, joint swelling, muscle pain, muscle stiffness, neck pain, others Integumetry: denies: bruises, change in color, change in hair/nails, dryness, laceration, lesions, lumps, rash, wounds, others Allergic/Immunocompromised: denies: Difficulty Healing, Frequent Infections, Hives, Itching, others Hematologic/Lymphatic: denies: anemia, blood clots, easy bleeding, easy bruising, swollen glands, others Endocrine: denies: excessive hunger, excessive sweating, excessive thirst, excessive urination, flushing, intolerance to cold, intolerance to heat, unexplained weight gain, unexplained weight loss, others Psychiatric: denies: anxiety, bipolar disorder, depression, hopeless, panic disorder, schizophrenia, sleepless, suicidal, others All Other Systems: Reviewed and Negative Physical Exam General Appearance: Moderate Distress HEENT: Normal ENT Inspection, Pharynx Normal, TMs Normal Neck: Full Range of Motion, Non-Tender, Normal, Normal Inspection Respiratory: Chest Non-Tender, Lungs Clear, No Accessory Muscle Use, No Respiratory Distress, Normal Breath Sounds Cardiovascular: No Edema, No JVD, No Murmur, No Gallop, Normal Peripheral Pulses, Regular Rate/Rhythm Breast Exam: Deferred Gastrointestinal: No Organomegaly, Non Tender, No Pulsatile Mass, Normal Bowel Sounds, Soft Genitalia: Deferred Pelvic: Deferred Rectal: Deferred Extremities: No calf tenderness, Normal capillary refill, Normal inspection, Normal range of motion, Non-tender, No pedal edema Musculoskeletal : Apperance: Normal Neurologic: change person II-XII nml as Tested, Motor Weakness, No Sensory Deficits, Other (The patient is postictal) Cerebellar Function: Normal Reflexes: Normal Skin: Dry, Pallor, Warm Lymphatic: No Adenopathy Was a procedure done? Was a procedure done?: No Differential Dx Considerations may include: Status epilepticus, generalized weakness, alcohol intoxication X-Ray, Labs, Meds, VS Vital Signs Date Time Temp Pulse Resp B/P (MAP) Pulse Ox O2 Delivery O2 Flow Rate FiO2 06/13/25 19:17 98.2 82 18 133/78 98 98.2 Lab Test 06/13/25 20:28 06/13/25 19:51 Range/Units White Blood Count 2.3 L 4.4-10.8 10^3/uL Red Blood Count 3.52 L 4.5-5.90 10^6/uL Hemoglobin 11.4 L 13.5-17.5 g/dL Hematocrit 33.9 L 41.0-53.0 % Mean Corpuscular Volume 96.1 80.0-100.0 fL Mean Corpuscular Hemoglobin 32.4 H 28.0-32.0 pg Mean Corpuscular Hemoglobin Concent 33.7 32.0-36.0 g/dL Red Cell Distribution Width 22.2 H 11.8-14.3 % Platelet Count 41 L 140-450 10^3/uL Mean Platelet Volume 9.4 6.9-10.8 fL Neutrophils (%) (Auto) 44.1 37.0-80.0 % Lymphocytes (%) (Auto) 46.0 10.0-50.0 % Monocytes (%) (Auto) 7.0 0.0-12.0 % Eosinophils (%) (Auto) 1.9 0.0-7.0 % Basophils (%) (Auto) 1.0 0.0-2.0 % Neutrophils # (Auto) 1.0 L 1.6-8.6 10 ^3/uL Lymphocytes # (Auto) 1.1 0.4-5.4 10 ^3/uL Monocytes # (Auto) 0.2 0-1.3 10 ^3/uL Eosinophils # (Auto) 0 0-0.8 10 ^3/uL Basophils # (Auto) 0 0-0.2 10 ^3/uL Nucleated Red Blood Cells 0.1 % Platelet Estimate Pending Sodium Level 150 H 136-145 mmol/L Potassium Level 4.0 3.5-5.1 mmol/L Chloride Level 116 H 98-107 mmol/L Carbon Dioxide Level 24 20-31 mmol/L Anion Gap 10 5-15 Blood Urea Nitrogen 9 9-23 mg/dL Creatinine 0.78 0.700-1.30 mg/dL Glomerular Filtration Rate Calc 118 >90 mL/min BUN/Creatinine Ratio 11.5 10.0-20.0 Serum Glucose 82 74-106 mg/dL Calcium Level 8.7 8.7-10.4 mg/dL Plasma/Serum Blood Alcohol 444.5 *H <10 mg/dL Current Medications Medications (Trade) Dose Ordered Sig/Annette Route Start Time Stop Time Status Last Admin Sodium Chloride 1,000 ml @ 500 mls/hr Q2H ONCE IVB 06/13/25 19:30 06/13/25 21:29 06/13/25 19:30 Levetiracetam 100 ml @ 400 mls/hr ONCE ONCE IV 06/13/25 19:30 06/13/25 19:44 DC 06/13/25 19:30 IMPRESSION: No acute intracranial abnormality. The patient's CBC shows leukopenia with a white blood cell count of 2.3 The hemoglobin is 11.4 The chemistry panel is within normal limits The alcohol level is 444 The patient did have another seizure here in the emergency department's The patient has been given Keppra 1 g IV piggyback The patient was also given normal saline as a bolus The patient is now being given and for the seizure that he had here in the emergency department's The patient is being admitted at this time The concern is with the patient has had multiple seizures with no return to his baseline Images Reviewed?: Images reviewed and evaluated by me Time of 1ST Reevaluation: 19:55 Reevaluation 1ST: Unchanged Patient Education/Counseling: Diagnosis, Treatment, Prognosis Family Education/Counseling: No Family Present SEPSIS Sepsis Screen Physician Orders Complete Blood Count (06/13/25 19:21) Pulse Oximetry (06/13/25 19:21) Blood Pressure (06/13/25 19:21) Drug Screen (06/13/25 19:21) Heplock Iv (06/13/25 19:21) Seizure Precautions (06/13/25 19:21) Sodium Chloride 0.9% (06/13/25 19:30) Rn Appeals (06/13/25 19:21) Head Without Contrast (06/13/25 20:11) Rbc Morphology (06/13/25 20:28) Vital Signs Date Time Temp Pulse Resp B/P (MAP) Pulse Ox O2 Delivery O2 Flow Rate FiO2 06/13/25 19:17 98.2 82 18 133/78 98 98.2 Laboratory Tests Test 06/13/25 20:28 White Blood Count 2.3 10^3/uL (4.4-10.8) L Medications Medications Dose Ordered Sig/Annette Route Start Time Stop Time Status Last Admin Dose Admin Levetiracetam 100 ml @ 400 mls/hr ONCE ONCE IV 06/13/25 19:30 06/13/25 19:44 DC 06/13/25 19:30 Sodium Chloride 1,000 ml @ 500 mls/hr Q2H ONCE IVB 06/13/25 19:30 06/13/25 21:29 06/13/25 19:30 Departure 1 Departure Time of Disposition: 21:15 Impression: Primary Impression: Alcohol intoxication Qualified Codes: F10.920 - Alcohol use, unspecified with intoxication, uncomplicated Additional Impression: Status epilepticus Disposition: ADMITTED INPATIENT Admit to: [facility] Condition: Fair Critical Care Note Critical Care Time?: Yes (35 min-critical care time only) Stability Stability form required: Yes Unstable for transfer: Telemetry monitoring (Telemetry monitoring required), ED Physician Assesment (Clinical assesment) Heart Score Heart Score: Heart Score Response (Comments) Value History N/A 0 EKG N/A 0 Age N/A 0 Risk Factors N/A 0 Troponin N/A 0 Total 0 I personally scribed for GLADYS HAMILTON MD ([email or web address]) on 06/13/25 at 19:26. Electronically submitted by Juan Carlos Aguilera ([email or web address]). I personally scribed for GLADYS HAMILTON MD ([email or web address]) on 06/13/25 at 21:13. Electronically submitted by Juan Carlos Aguilera ([email or web address]). GLADYS HAMILTON MD Jun 13, 2025 19:26
[2025-06-13] MEDS: levETIRAcetam 1000 mg/100ml 100 ML IV ONE (19:30)
[2025-06-13] MEDS: SODIUM CHLORIDE 0.9% 1,000 ML IVB ONE (19:30)
[2025-06-13 19:40] VITALS: PULSE 58; RESP 19; O2SAT 99
[2025-06-13] MEDS: LORazepam 2MG/ML-1ML VIAL ONE (20:03)
[2025-06-13 20:20] LABS: Potassium 4.0 mmol/L (3.5-5.1)
[2025-06-13 20:21] LABS: Anion Gap 10 (5-15); Carbon Dioxide 24 mmol/L (20-31)
[2025-06-13 20:26] LABS: BUN/Creatinine Ratio 11.5 (10.0-20.0); Glucose 82 mg/dL (74-106)
[2025-06-13 20:40] LABS: Hematocrit 33.9 % (41.0-53.0); Hemoglobin 11.4 g/dL (13.5-17.5); Mean Corpuscular Hemoglobin 32.4 pg (28.0-32.0); Mean Corpuscular Volume 96.1 fL (80.0-100.0); Nucleated Red Blood Cells % 0.1 %
[2025-06-13 20:41] LABS: Blood Urea Nitrogen 9 mg/dL (9-23); Calcium 8.7 mg/dL (8.7-10.4); Chloride 116 mmol/L (98-107); Sodium 150 mmol/L (136-145)
--- NOTE | 2025-06-13 21:06 | DVH ---
EXAM: CT HEAD WITHOUT CONTRAST INDICATION: seizure TECHNIQUE: CT of the head without intravenous contrast. Radiation Dose Information: CT Dose: CTDI volume is 58.86 mGy. Dose-length product is 941.79 mGy*cm The dose indicators for CT are the volume Computed Tomography (CT) Dose Index (CTDIvol) and the Dose Length Product (DLP), and are measured in units of mGy and mGy-cm, respectively. These indicators are not patient dose, but values generated from the CT scanner acquisition factors. The report includes radiation exposure data for exposures received during this examination. COMPARISON: CT BRAIN on DOS: 05/01/25, CT BRAIN on DOS: 04/08/25, CT BRAIN on DOS: 04/03/25, CT HEAD WITHOUT CONTRAST on DOS: 03/15/25, CT BRAIN on DOS: 02/22/25 FINDINGS: There is no evidence of acute intracranial hemorrhage, extra-axial collection, mass effect, midline shift, herniation or hydrocephalus. The ventricles, sulci and cisterns are age appropriate. The ejrnigan-white differentiation is intact. Patchy periventricular and subcortical white matter hypoattenuation is nonspecific but may be related to small vessel ischemic disease. The visualized paranasal sinuses and mastoid air cells are clear. The surrounding soft tissues and osseous structures are unremarkable. IMPRESSION: No acute intracranial abnormality.
[2025-06-13] MEDS ORDERED: NITROGLYCERIN 0.4 MG SL TAB SL PRN (23:00)
[2025-06-13] MEDS ORDERED: ONDANSETRON HCL 4 MG/2 ML VIAL IV PRN (23:00)
[2025-06-13] MEDS ORDERED: MORPHINE SULFATE INJ 2 MG/ml SYRG IV PRN (23:00)
[2025-06-14 03:24] VITALS: BP 138/78; PULSE 82; RESP 17; TEMP 97.6; O2SAT 100
[2025-06-14 03:48] VITALS: BP 138/78; PULSE 82; RESP 18; TEMP 97.6; O2SAT 100
--- NOTE | 2025-06-14 04:34 | DVHHP2 ---
History of Present Illness Reason for Visit: Seizure activity History of Present Illness 39-year-old male presents for evaluation of seizure activity. Patient with a history of seizures and noncompliant with Keppra was noted to have proximally three seizures lasting 45 seconds. Patient also presents intoxicated with alcohol. No oral trauma. Patient with a history of CVA with left-sided deficits. No cardiac or respiratory complaints. Past Medical History Hypertension, HIV, diabetes mellitus, seizures, asthma Past Surgical History Gastric bypass Family History Noncontributory Smoke: <1 pack per day ALCOHOL: occassional Drugs: Marijuana Lives: with Family Review of Systems Review of Systems Review of systems are currently negative otherwise addressed in HPI. Allergies: Coded Allergies: Gabapentin (Verified Allergy, Unknown, 07/12/22) Milk (Cow) (Verified Allergy, Unknown, 03/16/25) per patient NSAIDs (Verified Allergy, Unknown, 07/12/22) Pork (Porcine) Protein (Verified Allergy, Unknown, 03/16/25) per patient Medications Current Medications Medications Dose Ordered Sig/Annette Route Start Time Stop Time Status Last Admin Dose Admin Lorazepam 1 mg Q5MINP PRN IV 06/13/25 23:00 Furosemide 20 mg DAILY PO 06/14/25 10:00 Levetiracetam 1,000 mg BID PO 06/14/25 10:00 Rifaximin 550 mg BID PO 06/14/25 10:00 Chlordiazepoxide HCl 25 mg Q6HPRN PRN PO 06/13/25 23:00 Spironolactone 100 mg DAILY PO 06/14/25 10:00 Thiamine HCl 100 mg DAILY PO 06/14/25 10:00 Folic Acid 1 mg DAILY PO 06/14/25 10:00 Ondansetron HCl 4 mg Q4HP PRN IV 06/13/25 23:00 Nitroglycerin 0.4 mg Q5MINP PRN SL 06/13/25 23:00 Morphine Sulfate 2 mg Q30M PRN IV 06/13/25 23:00 Exam Vital Signs Vital Signs Date Time Temp Pulse Resp B/P (MAP) Pulse Ox O2 Delivery O2 Flow Rate FiO2 06/14/25 03:24 97.6 82 17 138/78 (98) 100 97.6 06/13/25 19:40 Nasal Cannula* 4 36 Exam Gen: 39-year-old male mild distress Skin: Warm, dry, normal color and texture, no rash. HEENT: Normocephalic atraumatic, mucous membranes moist and pink. Neck: Cervical and supraclavicular nodes normal without enlargement, trachea is midline, thyroid gland is normal without masses. Pulmonary: Clear to auscultation and percussion bilaterally. Cardiac: Regular rate and rhythm. No murmur Abdomen: Soft, nontender, nondistended, bowel sounds present all 4 quadrants, no guarding, no rigidity, no organomegaly. Extremities: No cyanosis, clubbing, no edema Neuro: Cranial nerves II through XII grossly intact, normal affect and speech, no focal motor deficits. Labs/Xrays ORDERING PHYSICIAN: GLADYS HAMILTON MD PROCEDURE(s): HWOCT - HEAD WITHOUT CONTRAST REASON: seizure ORDER NUMBER(s): [id number], ACCESSION NUMBER(s): [id number] EXAM: CT HEAD WITHOUT CONTRAST INDICATION: seizure TECHNIQUE: CT of the head without intravenous contrast. Radiation Dose Information: CT Dose: CTDI volume is 58.86 mGy. Dose-length product is 941.79 mGy*cm The dose indicators for CT are the volume Computed Tomography (CT) Dose Index (CTDIvol) and the Dose Length Product (DLP), and are measured in units of mGy and mGy-cm, respectively. These indicators are not patient dose, but values generated from the CT scanner acquisition factors. The report includes radiation exposure data for exposures received during this examination. COMPARISON: CT BRAIN on DOS: 05/01/25, CT BRAIN on DOS: 04/08/25, CT BRAIN on DOS: 04/03/25, CT HEAD WITHOUT CONTRAST on DOS: 03/15/25, CT BRAIN on DOS: 02/22/25 FINDINGS: There is no evidence of acute intracranial hemorrhage, extra-axial collection, mass effect, midline shift, herniation or hydrocephalus. The ventricles, sulci and cisterns are age appropriate. The jernigan-white differentiation is intact. Patchy periventricular and subcortical white matter hypoattenuation is nonspecific but may be related to small vessel ischemic disease. The visualized paranasal sinuses and mastoid air cells are clear. The surrounding soft tissues and osseous structures are unremarkable. IMPRESSION: No acute intracranial abnormality. Labs Test 06/13/25 20:28 06/13/25 19:51 Range/Units White Blood Count 2.3 L 4.4-10.8 10^3/uL Red Blood Count 3.52 L 4.5-5.90 10^6/uL Hemoglobin 11.4 L 13.5-17.5 g/dL Hematocrit 33.9 L 41.0-53.0 % Mean Corpuscular Volume 96.1 80.0-100.0 fL Mean Corpuscular Hemoglobin 32.4 H 28.0-32.0 pg Mean Corpuscular Hemoglobin Concent 33.7 32.0-36.0 g/dL Red Cell Distribution Width 22.2 H 11.8-14.3 % Platelet Count 41 L 140-450 10^3/uL Mean Platelet Volume 9.4 6.9-10.8 fL Neutrophils (%) (Auto) 44.1 37.0-80.0 % Lymphocytes (%) (Auto) 46.0 10.0-50.0 % Monocytes (%) (Auto) 7.0 0.0-12.0 % Eosinophils (%) (Auto) 1.9 0.0-7.0 % Basophils (%) (Auto) 1.0 0.0-2.0 % Neutrophils # (Auto) 1.0 L 1.6-8.6 10 ^3/uL Lymphocytes # (Auto) 1.1 0.4-5.4 10 ^3/uL Monocytes # (Auto) 0.2 0-1.3 10 ^3/uL Eosinophils # (Auto) 0 0-0.8 10 ^3/uL Basophils # (Auto) 0 0-0.2 10 ^3/uL Nucleated Red Blood Cells 0.1 % Platelet Estimate Decreased Sodium Level 150 H 136-145 mmol/L Potassium Level 4.0 3.5-5.1 mmol/L Chloride Level 116 H 98-107 mmol/L Carbon Dioxide Level 24 20-31 mmol/L Anion Gap 10 5-15 Blood Urea Nitrogen 9 9-23 mg/dL Creatinine 0.78 0.700-1.30 mg/dL Glomerular Filtration Rate Calc 118 >90 mL/min BUN/Creatinine Ratio 11.5 10.0-20.0 Serum Glucose 82 74-106 mg/dL Calcium Level 8.7 8.7-10.4 mg/dL Plasma/Serum Blood Alcohol 444.5 *H <10 mg/dL SEPSIS Sepsis Screen Date sepsis recognized/suspect: Jun 13, 2025 Time Sepsis recognized/suspect: 1939 Recent Procedure: No On Antibiotic Therapy: No Respiratory Rate >20: No Heart Rate >90: No Temp<36 C (96.8 F) or >38.3 C: No SBP <90 or MAP <65 mmHG: No New Acute Mental Status Change: No Is the patient on CPAP, BIPAP,: No Physician Orders Lorazepam 2mg/Ml Inj (Ativan Inj) (06/13/25 23:00) Furosemide Tablet (Lasix Tablet) (06/14/25 10:00) Levetiracetam Tablet (Keppra Tablet) (06/14/25 10:00) Rifaximin (Xifaxan) (06/14/25 10:00) Chlordiazepoxide Hcl Capsule (Librium Ca (06/13/25 23:00) Spironolactone (Aldactone) (06/14/25 10:00) Thiamine Tab (06/14/25 10:00) Folic Acid Tablet (06/14/25 10:00) Admit (06/13/25 22:52) Ondansetron Hcl (Zofran) (06/13/25 23:00) Complete Blood Count (06/14/25 04:00) Comprehensive Metabolic Panel (06/14/25 04:00) Condition: Fair (06/13/25 22:52) Bedrest With Bathroom Privileg (06/13/25 22:52) Nitroglycerin Sublingual (Ntrostat Subli (06/13/25 23:00) Morphine Sulfate Injection (06/13/25 23:00) Stat Ekg For Chest Pain (06/13/25 22:52) Notify Md Of Changes From Base (06/13/25 22:52) Heavy Forger For 24 Hours (06/13/25 22:52) Emergency Dysrhythmia Protocol (06/13/25 22:52) Rhythm Strips Once Every Shift (06/13/25 22:52) Oxygen By Nasal Cannula (06/13/25 22:52) Seizure Precautions In Place (06/13/25 23:02) Cardiac Diet-2gna,Lofat,Lochol (06/14/25 Breakfast) Vital Signs Date Time Temp Pulse Resp B/P (MAP) Pulse Ox O2 Delivery O2 Flow Rate FiO2 06/14/25 03:24 97.6 82 17 138/78 (98) 100 97.6 06/14/25 02:00 56 15 110/65 (80) 96 06/14/25 00:00 48 14 115/58 (77) 100 06/13/25 22:00 60 16 101/83 (89) 97 Laboratory Tests Test 06/13/25 20:28 White Blood Count 2.3 10^3/uL (4.4-10.8) L Medications Medications Dose Ordered Sig/Annette Route Start Time Stop Time Status Last Admin Dose Admin Levetiracetam 100 ml @ 400 mls/hr ONCE ONCE IV 06/13/25 19:30 06/13/25 19:44 DC 06/13/25 19:30 400 MLS/HR Sodium Chloride 1,000 ml @ 500 mls/hr Q2H ONCE IVB 06/13/25 19:30 06/13/25 21:29 DC 06/13/25 19:30 500 MLS/HR Assessment/Plan Assessment/Plan Assessment Alcohol intoxication Breakthrough seizure Diabetes mellitus Liver cirrhosis Pancytopenia secondary to the above Noncompliant Plan Admit the patient to telemetry to the hospitalist Seizure precautions in place Resume home medications Continue treatment per orders. Plan discussed with: Patient My Orders Orders - STEVE HENDERSON AGACNP Procedure Category Date Status Time Lorazepam 2mg/Ml Inj PHA 06/13/25 In Process (Ativan Inj) 23:00 Furosemide Tablet PHA 06/14/25 In Process (Lasix Tablet) 10:00 Levetiracetam Tablet PHA 06/14/25 In Process (Keppra Tablet) 10:00 Rifaximin (Xifaxan) PHA 06/14/25 In Process 10:00 Chlordiazepoxide Hcl PHA 06/13/25 In Process Capsule (Librium Ca 23:00 Spironolactone PHA 06/14/25 In Process (Aldactone) 10:00 Thiamine Tab PHA 06/14/25 In Process 10:00 Folic Acid Tablet PHA 06/14/25 In Process 10:00 Admit ADMIT 06/13/25 Transmitted 22:52 Ondansetron Hcl PHA 06/13/25 In Process (Zofran) 23:00 Complete Blood Count LAB 06/14/25 Logged 04:00 Comprehensive LAB 06/14/25 Logged Metabolic Panel 04:00 Condition: Fair [facility] 06/13/25 In Process 22:52 Bedrest With Bathroom [facility] 06/13/25 In Process Privileg 22:52 Nitroglycerin PHA 06/13/25 In Process Sublingual (Ntrostat 23:00 Morphine Sulfate PHA 06/13/25 In Process Injection 23:00 Stat Ekg For Chest [facility] 06/13/25 In Process Pain 22:52 Notify Md Of Changes [facility] 06/13/25 In Process From Base 22:52 Heavy Forger For [facility] 06/13/25 In Process 24 Hours 22:52 Emergency Dysrhythmia [facility] 06/13/25 In Process Protocol 22:52 Rhythm Strips Once [facility] 06/13/25 In Process Every Shift 22:52 Oxygen By Nasal RT 06/13/25 Transmitted Cannula 22:52 Seizure Precautions [facility] 06/13/[address] 23:02 Cardiac DIET 06/14/25 Transmitted Diet-2gna,Lofat,Lochol Breakfast Date of Service: Jun 13, 2025 Billing Provider: STEVE HENDERSON Common Visit Codes: [id number] INP/OBS CARE (HIGH) STEVE HENDERSON Jun 14, 2025 04:34
[2025-06-14 05:00] VITALS: BP 127/80; PULSE 58; RESP 17; TEMP 97.6; O2SAT 100
[2025-06-14] MEDS: LORazepam 2MG/ML-1ML VIAL IV PRN (05:39)
[2025-06-14] MEDS ORDERED: PNEUMOCOCCAL VACC POLYS 25 MCG/0.5 ML VIAL IM SCH (05:45)
[2025-06-14 08:00] VITALS: PULSE 49; RESP 17; O2SAT 98
[2025-06-14 08:54] VITALS: BP 125/65; PULSE 70; RESP 18; TEMP 97.5; O2SAT 100
[2025-06-14] MEDS: levETIRAcetam 500 MG TAB PO SCH (09:57)
[2025-06-14] MEDS: FOLIC ACID 1 MG TAB PO SCH (09:58)
[2025-06-14] MEDS: THIAMINE HCL 100 MG TAB PO SCH (09:58)
[2025-06-14] MEDS: FUROSEMIDE 20 MG TAB PO SCH (09:59)
[2025-06-14] MEDS: SPIRONOLACTONE 25 MG TAB PO SCH (09:59)
[2025-06-14] MEDS ORDERED: PNEUMOCOCCAL VACC POLYS 25 MCG/0.5 ML Syringe IM ONE (10:00)
[2025-06-14 10:38] LABS: Amphetamine Screen, Urine Neg (NEGATIVE)
[2025-06-14 10:39] LABS: Benzodiazephine Screen, Urine Pos (NEGATIVE); Cannabinoid Screen, Urine Pos (NEGATIVE)
[2025-06-14 10:42] LABS: Barbiturate Scree,Urine Neg (NEGATIVE); Cocaine Screen, Urine Neg (NEGATIVE); Opiate Scree,Urine Neg (NEGATIVE); Phencyclidine Screen, Urine Neg (NEGATIVE)
[2025-06-14 10:55] LABS: Hematocrit 36.7 % (41.0-53.0); Mean Corpuscular Hemoglobin 32.5 pg (28.0-32.0)
[2025-06-14 10:56] LABS: Hemoglobin 12.0 g/dL (13.5-17.5); Mean Corpuscular Volume 99.2 fL (80.0-100.0); Nucleated Red Blood Cells % 0.3 %
[2025-06-14 11:07] LABS: Anion Gap 9 (5-15); BUN/Creatinine Ratio 9.2 (10.0-20.0); Calcium 8.8 mg/dL (8.7-10.4); Carbon Dioxide 22 mmol/L (20-31); Glucose 100 mg/dL (74-106); Potassium 4.6 mmol/L (3.5-5.1); Total Protein 6.0 g/dL (5.7-8.2)
[2025-06-14 11:08] LABS: Albumin 3.3 g/dL (3.2-4.8)
[2025-06-14 11:12] LABS: Alanine Aminotransferase 43 U/L (7-40); Alkaline Phosphatase 234 U/L (46-116); Bilirubin, Total 1.7 mg/dL (0.2-1.0); Blood Urea Nitrogen 7 mg/dL (9-23); Chloride 114 mmol/L (98-107); Sodium 145 mmol/L (136-145)
[2025-06-14] MEDS ORDERED: HYDROcodone-ACET 5/325MG TAB PO PRN (11:15)
--- NOTE | 2025-06-14 12:13 | DVHDS2 ---
Discharge Summary Date of Admission Jun 13, 2025 at 22:52 Date of Discharge: Jun 14, 2025 Admitting Diagnosis Alcohol intoxication Breakthrough seizure Diabetes mellitus Liver cirrhosis Pancytopenia secondary to the above Noncompliant Labs/Diagnostic Data: Laboratory Results Test 06/14/25 10:30 06/14/25 10:00 06/13/25 20:28 06/13/25 19:51 White Blood Count 1.9 10^3/uL (4.4-10.8) Red Blood Count 3.71 10^6/uL (4.5-5.90) Hemoglobin 12.0 g/dL (13.5-17.5) Hematocrit 36.7 % (41.0-53.0) Mean Corpuscular Volume 99.2 fL (80.0-100.0) Mean Corpuscular Hemoglobin 32.5 pg (28.0-32.0) Mean Corpuscular Hemoglobin Concent 32.8 g/dL (32.0-36.0) Red Cell Distribution Width 21.9 % (11.8-14.3) Platelet Count 43 10^3/uL (140-450) Mean Platelet Volume 9.9 fL (6.9-10.8) Neutrophils (%) (Auto) 45.7 % (37.0-80.0) Lymphocytes (%) (Auto) 44.8 % (10.0-50.0) Monocytes (%) (Auto) 7.6 % (0.0-12.0) Eosinophils (%) (Auto) 1.1 % (0.0-7.0) Basophils (%) (Auto) 0.8 % (0.0-2.0) Neutrophils # (Auto) 0.8 10 ^3/uL (1.6-8.6) Lymphocytes # (Auto) 0.8 10 ^3/uL (0.4-5.4) Monocytes # (Auto) 0.1 10 ^3/uL (0-1.3) Eosinophils # (Auto) 0 10 ^3/uL (0-0.8) Basophils # (Auto) 0 10 ^3/uL (0-0.2) Nucleated Red Blood Cells 0.3 % Sodium Level 145 mmol/L (136-145) Potassium Level 4.6 mmol/L (3.5-5.1) Chloride Level 114 mmol/L (98-107) Carbon Dioxide Level 22 mmol/L (20-31) Anion Gap 9 (5-15) Blood Urea Nitrogen 7 mg/dL (9-23) Creatinine 0.76 mg/dL (0.700-1.30) Glomerular Filtration Rate Calc 119 mL/min (>90) BUN/Creatinine Ratio 9.2 (10.0-20.0) Serum Glucose 100 mg/dL (74-106) Calcium Level 8.8 mg/dL (8.7-10.4) Total Bilirubin 1.7 mg/dL (0.2-1.0) Aspartate Amino Transferase (AST) 104 U/L (13-40) Alanine Aminotransferase (ALT) 43 U/L (7-40) Alkaline Phosphatase 234 U/L (46-116) Total Protein 6.0 g/dL (5.7-8.2) Albumin 3.3 g/dL (3.2-4.8) Urine Opiates Screen Neg (NEGATIVE) Urine Fentanyl Screen Neg (NEGATIVE) Urine Barbiturates Screen Neg (NEGATIVE) Urine Phencyclidine Screen Neg (NEGATIVE) Urine Amphetamines Screen Neg (NEGATIVE) Urine Benzodiazepines Screen Pos (NEGATIVE) Urine Cocaine Screen Neg (NEGATIVE) Urine Cannabinoids Screen Pos (NEGATIVE) Platelet Estimate Decreased Plasma/Serum Blood Alcohol 444.5 mg/dL (<10) Other Laboratory Tests 06/14/25 10:30 Brief Hx & Hospital Course: This is a 39 years old male come to emergency department because of seizure activity. The patient had history of seizure and has been noncompliant with Keppra. The patient said that he had three seizure that lasts about 45 seconds to 1 minutes. Patient also intoxicated with alcohol. The patient was admitted. The patient was put on Keppra. The patient was given banana bag which including multivitamin, vitamin B1, folic acid in normal saline. The patient was given Librium and Ativan. The patient also was given Ativan as needed for seizure. He apparently had one seizure episode and was given Ativan. The patient more alert awake today and decided to leave against medical advice. The patient verbally understands without full treatment for alcohol intoxication and also for seizure disorder he might suffer for more seizure, brain damage, or even however the patient is still leave against medical advice Physical exam prior to leaving against medical advice show HEENT: Normocephalic atraumatic pupils equal react to light and accommodation. Extraocular muscles intact, conjunctiva pink, oropharynx moist, no thrush, no exudate. Lymphatic: No lymphadenopathy Cardiovascular exam: S1, S2 was heard. No murmurs, rubs, gallops Lung: Clear on auscultation bilaterally, no wheeze, rale, rhonchi. GI: Abdominal soft, nondistended, nontenderness, positive bowel sounds. Extremity: No crepitus, cyanosis, edema. Pedal pulses present bilateral. Full range of motion. Skin: Normal turgor, no rash. Psych: Alert, oriented x3. Neurology: No focal deficits, cranial nerve II to XII grossly intact. This medical document was created using an electronic medical record system with [employer] dictation system. Although this document has been carefully reviewed, there may still be some phonetic and typographical errors. These areas are purely typographical due to imperfections of the software programs, and do not reflect any compromise in the patient's medical care. Condition at Discharge: Guarded Final Diagnosis/Problems List Alcohol intoxication Breakthrough seizure Diabetes mellitus Liver cirrhosis Pancytopenia secondary to the above Noncompliant Discharge Disposition: AMA Discharge Instruct/Medications Scheduled Folic Acid (Folic Acid), 1 TAB PO DAILYPRN, (Reported) Folic Acid (Folic Acid), 1 MG PO DAILY Furosemide (Furosemide), 40 MG PO DAILY Lactulose (Lactulose), 15 ML PO BID, (Reported) Levetiracetam (Keppra Tablet), 500 MG PO BID Lidocaine (Lidoderm 5% Topical Patch), 1 PATCH TOP DAILY Omeprazole (Omeprazole Dr), 1 CAP PO DAILY, (Reported) Pantoprazole Sodium Sesquihydr (Pantoprazole Sodium), 40 MG PO BID Promethazine Hcl (Promethazine Hcl), 1 TAB PO BIDPRN, (Reported) Propranolol HCl (Propranolol Hydrochloride), 1 TAB PO DAILYPRN, (Reported) Rifaximin (Xifaxan), 1 TAB PO BID, (Reported) Spironolactone (Aldactone), 100 MG PO DAILY Spironolactone (Spironolactone), 2 TAB PO BID, (Reported) Thiamine HCl (Thiamine Hydrochloride), 100 MG PO DAILY Thiamine Hcl (Vitamin B1), 1 TAB PO DAILYPRN, (Reported) Scheduled PRN Hydrocodone-Acetaminophen (Hydrocodone Bitartrate/AC 5-325 mg), 1 TAB PO Q6HR PRN Hydrocodone-Acetaminophen (Hydrocodone Bitartrate/AC 5-325 mg), 1 TAB PO QID PRN Ondansetron Odt 4MG Tab (Zofran Po), 8 MG PO Q8HR PRN for NAUSEA / VOMITING, (Reported) Miscellaneous Medications Lacosamide (Lacosamide), PO, (Reported) Discharge Statement: "Patient was advised to return to the ER or call 911 if any headaches, dizziness, shortness of breath, chest pain, abdominal pain, bleeding, fevers, or worsening of medical condition. Patient was counseled about treatment plan, medications, possible side effects, patientverbalized understanding. All questions were answered to the best of my ability. This discharge took greater then 30 minutes in planning, reviewing documentation, counseling the patient, and discussing with other team members." ASSESSMENT ASSESSMENT Assessment Date of Service: Jun 14, 2025 Billing Provider: MANDY ADAN MD Common Visit Codes: 15078-BGU/OBS DISCH DAY >30min MANDY ADAN MD Jun 14, 2025 12:12
== END 2025-06-14 11:50 | disposition left against medical advice (07) | DRG 816 ==
LOC: EDBD 19:14 → ER 19:14 → OVERFLOW 22:52 → TELE-WESTW 06-14 03:24
PROVIDERS: ADMIT Internal Medicine; ATTEND Internal Medicine
DX: T51.0X1A Toxic effect of ethanol, accidental (unintentional), initial encounter (principal); G40.901 Epilepsy, unspecified, not intractable, with status epilepticus; D61.818 Other pancytopenia; K74.60 Unspecified cirrhosis of liver; F10.120 Alcohol abuse with intoxication, uncomplicated; E11.9 Type 2 diabetes mellitus without complications; J45.909 Unspecified asthma, uncomplicated; I10 Essential (primary) hypertension; I69.30 Unspecified sequelae of cerebral infarction; F17.210 Nicotine dependence, cigarettes, uncomplicated; Z53.29 Procedure and treatment not carried out because of patient's decision for other reasons; Z88.6 Allergy status to analgesic agent; Z91.0110 Allergy to milk products, unspecified; Z91.014 Allergy to mammalian meats; Z98.84 Bariatric surgery status; Z91.148 Patient's other noncompliance with medication regimen for other reason; Y90.8 Blood alcohol level of 240 mg/100 ml or more
CPT/HCPCS: 36415; 70450; 80048; 80053; 80307; 80320; 85025; 86803; 96365; 99291; G0378

== ENCOUNTER 2025-07-15 15:00 | Inpatient (IN) | payer MEDICAID ==
[~2025-07-15] VITALS: Ht 182.9 cm; Wt 90.0 kg
--- NOTE | 2025-07-15 15:28 | ED.PDOC ---
HPI (NEURO) HPI Comments 39 y.o Male with PMHx of CVA, seizures, HTN, DM, and liver cirrhosis, presents to the ED via EMS for seizures. EMS reports patient was found on the floor on their arrival, per family on scene stated a total of 5-6 seizures today witnessed. Patient odor of alcohol upon ED arrival in which he admits he has been drinking heavily for the past 3 years s/p . Patient denies any nausea, vomiting, chest pain or SOB. Patient is noncompliant with medications. Chief Complaint: Seizure Time Seen by MD: 15:13 Primary Care Provider: [facility] Reviewed Notes: Nurses Notes, Applications System Analyst Notes, Medications, Allergies Information Source: Patient, Emergency Med Personnel Mode of Arrival: EMS Severity: Moderate Timing: Hours Duration: Since onset Seizure Location: Generalized Onset: At rest Circumstances: Spontaneous Before: Ill During: Awake History of: Seizure Disorder Associated Signs and Symptoms: Other Past Medical History PAST MEDICAL HISTORY: Asthma, DM, HIV, HTN, Liver, Seizures Surgical History: Denies all surgeries Family History Family History: Reviewed,noncontributory to illness, Unknown Social History Smoker: Cigarettes, Less Than 1 Pack/Day Alcohol: Heavy Drugs: Cocaine, Marijuana Lives In: Home Constitutional: denies: chills, diaphoresis, fatigue, fever, malaise, sweats, weakness, others EENTM: denies: blurred vision, double vision, ear bleeding, ear discharge, ear drainage, ear pain, ear ringing, eye pain, eye redness, hearing loss, mouth pain, mouth swelling, nasal discharge, nose bleeding, nose congestion, nose pain, photophobia, tearing, throat pain, throat swelling, voice changes, others Respiratory: denies: cough, hemoptysis, orthopnea, SOB at rest, shortness of breath, SOB with excertion, stridor, wheezing, others Cardiovascular: denies: chest pain, dizzy spells, diaphoresis, Dyspnea on exertion, edema, irregular heart beat, left arm pain, lightheadedness, palpitations, PND, syncope, others Gastrointestinal: denies: abdomen distended, abdominal pain, blood streaked bowels, constipated, diarrhea, dysphagia, difficulty swallowing, hematemesis, melena, nausea, poor appetite, poor fluid intake, rectal bleeding, rectal pain, vomiting, others Genitourinary: denies: burning, dysuria, flank pain, frequency, hematuria, incontinence, penile discharge, penile sore, pain, testicle pain, testicle s welling, urgency, others Neurological: reports: seizure; denies: dizziness, fainting, headache, left sided numbness, left sided weakness, numbness, paresthesia, pre-existing deficit, right sided numbness, right sided weakness, speech problems, tingling, tremors, weakness, others Musculoskeletal: denies: back pain, gout, joint pain, joint swelling, muscle pain, muscle stiffness, neck pain, others Integumetry: denies: bruises, change in color, change in hair/nails, dryness, laceration, lesions, lumps, rash, wounds, others Allergic/Immunocompromised: denies: Difficulty Healing, Frequent Infections, Hives, Itching, others Hematologic/Lymphatic: denies: anemia, blood clots, easy bleeding, easy bruising, swollen glands, others Endocrine: denies: excessive hunger, excessive sweating, excessive thirst, excessive urination, flushing, intolerance to cold, intolerance to heat, unexplained weight gain, unexplained weight loss, others Psychiatric: denies: anxiety, bipolar disorder, depression, hopeless, panic disorder, schizophrenia, sleepless, suicidal, others All Other Systems: Reviewed and Negative Physical Exam General Appearance: Moderate Distress HEENT: Normal ENT Inspection, Pharynx Normal, TMs Normal Neck: Full Range of Motion, Non-Tender, Normal, Normal Inspection Respiratory: Chest Non-Tender, Lungs Clear, No Accessory Muscle Use, No Respiratory Distress, Normal Breath Sounds Cardiovascular: No Edema, No JVD, No Murmur, No Gallop, Normal Peripheral Pul ses, Regular Rate/Rhythm Breast Exam: Deferred Gastrointestinal: No Organomegaly, Non Tender, No Pulsatile Mass, Normal Bowel Sounds, Soft Genitalia: Deferred Pelvic: Deferred Rectal: Deferred Extremities: No calf tenderness, No pedal edema Musculoskeletal : Apperance: Normal Neurologic: Alert Cerebellar Function: NOT DONE Reflexes: NOT DONE Skin: Dry, Normal Color, Warm Peripheral Pulses: 3+ Radial (R), 3+ Radial (L) Lymphatic: No Adenopathy Was a procedure done? Was a procedure done?: No Differential Diagnosis (SZ) Seizure: Hyperventilation, Psychogenic Seizure, Alcohol Withdrawl, Syncope, Epilepsy-Break Through, Epilepsy-Status X-Ray, Labs, Meds, VS Vital Signs Date Time Temp Pulse Resp B/P (MAP) Pulse Ox O2 Delivery O2 Flow Rate FiO2 07/15/25 15:52 98.5 71 16 150/86 (107) 97 98.5 07/15/25 15:50 71 16 97 Room Air* 0 21 07/15/25 15:07 98.1 82 17 144/80 97 98.1 Lab Test 07/15/25 15:44 Range/Units White Blood Count 2.3 L 4.4-10.8 10^3/uL Red Blood Count 3.93 L 4.5-5.90 10^6/uL Hemoglobin 13.4 L 13.5-17.5 g/dL Hematocrit 40.0 L 41.0-53.0 % Mean Corpuscular Volume 101.8 H 80.0-100.0 fL Mean Corpuscular Hemoglobin 34.0 H 28.0-32.0 pg Mean Corpuscular Hemoglobin Concent 33.4 32.0-36.0 g/dL Red Cell Distribution Width 18.3 H 11.8-14.3 % Platelet Count 51 L 140-450 10^3/uL Mean Platelet Volume 8.3 6.9-10.8 fL Neutrophils (%) (Auto) 35.9 L 37.0-80.0 % Lymphocytes (%) (Auto) 49.1 10.0-50.0 % Monocytes (%) (Auto) 11.6 0.0-12.0 % Eosinophils (%) (Auto) 1.7 0.0-7.0 % Basophils (%) (Auto) 1.7 0.0-2.0 % Neutrophils # (Auto) 0.8 L 1.6-8.6 10 ^3/uL Lymphocytes # (Auto) 1.1 0.4-5.4 10 ^3/uL Monocytes # (Auto) 0.3 0-1.3 10 ^3/uL Eosinophils # (Auto) 0 0-0.8 10 ^3/uL Basophils # (Auto) 0 0-0.2 10 ^3/uL Nucleated Red Blood Cells 0.2 % Sodium Level 150 H 136-145 mmol/L Potassium Level 4.6 3.5-5.1 mmol/L Chloride Level 117 H 98-107 mmol/L Carbon Dioxide Level 23 20-31 mmol/L Anion Gap 10 5-15 Blood Urea Nitrogen < 5 L 9-23 mg/dL Creatinine 0.69 L 0.700-1.30 mg/dL Glomerular Filtration Rate Calc 122 >90 mL/min BUN/Creatinine Ratio 7.2 L 10.0-20.0 Serum Glucose 93 74-106 mg/dL Calcium Level 8.7 8.7-10.4 mg/dL Total Bilirubin 2.7 H 0.2-1.0 mg/dL Aspartate Amino Transferase (AST) 250 H 13-40 U/L Alanine Aminotransferase (ALT) 91 H 7-40 U/L Alkaline Phosphatase 262 H 46-116 U/L Ammonia 55 H 11-32 umol/L Total Protein 6.4 5.7-8.2 g/dL Albumin 3.8 3.2-4.8 g/dL Plasma/Serum Blood Alcohol 436.5 *H <10 mg/dL Current Medications Medications (Trade) Dose Ordered Sig/Annette Route Start Time Stop Time Status Last Admin Levetiracetam 100 ml @ 400 mls/hr ONCE ONCE IV 07/15/25 15:30 07/15/25 15:44 DC 07/15/25 16:23 Patient alert. Alcohol abuse. He has been drinking. Moving all extremities. History of alcohol liver disease. Establish intravenous access. Blood alcohol level elevated. Was given thiamine. Liver enzymes elevated. Was given fluids. Was given Keppra. Blood pressure elevated. Counseled patient on effects of drinking for 15 minutes. Continue monitor. Time of 1ST Reevaluation: 15:18 Reevaluation 1ST: Unchanged Patient Education/Counseling: Diagnosis Family Education/Counseling: No Family Present Departure 1 Departure Time of Disposition: 15:44 Impression: Primary Impression: Alcoholic liver disease Additional Impressions: Alcohol abuse Hypertensive urgency Disposition: ADMITTED INPATIENT Admit to: Med Surg Condition: Guarded Critical Care Note Critical Care Time?: No Stability Stability form required: No I personally scribed for KIAN ESQUIVEL MD ([email or web address]) on 07/15/25 at 15:28. Electronically submitted by Agatha Nolan ([facility]). KIAN ESQUIVEL MD Jul 15, 2025 15:28
[2025-07-15 15:50] VITALS: PULSE 71; RESP 16; O2SAT 97
[2025-07-15 15:51] LABS: Hemoglobin 13.4 g/dL (13.5-17.5); Nucleated Red Blood Cells % 0.2 %
[2025-07-15 15:53] LABS: Hematocrit 40.0 % (41.0-53.0); Mean Corpuscular Hemoglobin 34.0 pg (28.0-32.0); Mean Corpuscular Volume 101.8 fL (80.0-100.0)
[2025-07-15 16:09] LABS: Albumin 3.8 g/dL (3.2-4.8); Anion Gap 10 (5-15); Carbon Dioxide 23 mmol/L (20-31); Glucose 93 mg/dL (74-106); Potassium 4.6 mmol/L (3.5-5.1); Total Protein 6.4 g/dL (5.7-8.2)
[2025-07-15 16:12] LABS: Alanine Aminotransferase 91 U/L (7-40); Alkaline Phosphatase 262 U/L (46-116); BUN/Creatinine Ratio 7.2 (10.0-20.0); Bilirubin, Total 2.7 mg/dL (0.2-1.0); Blood Urea Nitrogen < 5 mg/dL (9-23); Calcium 8.7 mg/dL (8.7-10.4); Chloride 117 mmol/L (98-107); Sodium 150 mmol/L (136-145)
[2025-07-15] MEDS: levETIRAcetam 1000 mg/100ml 100 ML IV ONE (16:23)
--- NOTE | 2025-07-15 17:02 | DVH ---
CHEST RADIOGRAPH INDICATION: sob TECHNIQUE: Single frontal view of the chest was obtained COMPARISON: XR CHEST 1 VIEW on DOS: 05/28/25, XR CHEST 1 VIEW on DOS: 05/05/25, XR CHEST 1 VIEW on DOS: 05/03/25, XR CHEST 1 VIEW on DOS: 04/30/25, XY CHEST XRAY 1 VIEW on DOS: 04/16/25 FINDINGS: Lines and Tubes: None Lungs: Questionable mild interstitial pulmonary edema. Pleura: No effusion. No pneumothorax. Cardiomediastinal contours: Unremarkable Bones: Unremarkable IMPRESSION: 1. Questionable mild interstitial pulmonary edema.
[2025-07-15] MEDS: LABETALOL HCL 20 MG/4 ML VL IV ONE (18:09)
[2025-07-15] MEDS: SODIUM CHLORIDE 0.9% 1,000 ML IV ONE (18:10)
[2025-07-15] MEDS: THIAMINE 100mg/ml INJ (200mg/2ml VIAL) IV ONE (18:11)
[2025-07-15] MEDS: LACTULOSE 20Gm/30ML SOLN PO ONE (19:00)
[2025-07-15] MEDS: FUROSEMIDE 20 MG/2 ML VIAL IV ONE (19:00)
[2025-07-15] MEDS ORDERED: ONDANSETRON HCL 4 MG/2 ML VIAL IV PRN (19:00)
[2025-07-15] MEDS ORDERED: DOCUSATE SOD 100 MG CAP PO PRN (19:00)
[2025-07-15] MEDS ORDERED: DEXTROSE (50%) 50ML SYRG IV PRN (19:00)
[2025-07-15 19:53] VITALS: BP 121/74; PULSE 80; RESP 20; TEMP 98; O2SAT 99
[2025-07-15] MEDS: LORazepam 2MG/ML-1ML VIAL IV ONE (20:30)
--- NOTE | 2025-07-15 21:17 | DVHHP2 ---
History of Present Illness Reason for Visit: Seizure disorder History of Present Illness The patient is a 39-year-old male with past medical history of asthma, diabetes mellitus, HIV, hypertension, liver disease, and seizures who presented to [facility] ED for evaluation of seizures activity. As reported by EMS, andrea puga was found on the floor on their arrival, family on scene stated patient had a total of 5-6 witnessed seizures today. Patient odor of alcohol upon ED arrival in which he admits he has been drinking heavily for the past 3 years status post . Patient was seen and evaluated in the ED, laboratory data shows WBC 2.3, hemoglobin 13.4, hematocrit 40.0, platelets [id number], sodium 150, potassium 4.6, BUN 5, creatinine 0.69, GFR 122, glucose 93, calcium 8.7, total bilirubin 2.7, AST 250, ALT 91, alkaline phos 262, ammonia 55, serum alcohol for 36.5, blood pressure 119/68, heart rate 68, temperature 98.5 F, O2 saturation 97% on room air. Chest x-ray questionable mild interstitial pulmonary edema. Please see medication orders section in the computer. On my assessment, patient denied chest pain, no headache, dizziness, diaphoresis, shortness of breaths, no abdominal pain, diarrhea, nausea, vomiting, fever, no chills. Patient was admitted for further evaluation and medical management. Past Medical History Asthma, DM, HIV, HTN, Liver disease, Seizures Past Surgical History Denies all surgeries Family History Reviewed, noncontributory to the management of this case. Past Social History Patient lives at home, smokes cigarettes less than 1 pack per day, drinks alcohol heavily, uses cocaine and marijuana. Review of Systems Constitutional: Yes: Weakness; No: Fever, Chills, Sweats, Malaise, Other Eyes: No: Pain, Vision change, Conjunctivae inflammation, Eyelid inflammation, Other, Redness ENT: No: Ear pain, Ear discharge, Nose pain, Nose discharge, Nose congestion, Mouth pain, Mouth swelling, Throat pain, Throat swelling, Other Respiratory: No: Cough, Dry, Shortness of breath, SOB with excertion, Wheezing, Hemoptysis, Pleuritic Pain, Sputum, Wheezing, Other Cardiovascular: No: Chest Pain, Palpitations, Orthopnea, Paroxysmal Noc. Dyspnea, Edema, Lt Headedness, Other Gastrointestinal: No: Nausea, Vomiting, Abdominal Pain, Diarrhea, Constipation, Melena, Hematochezia, Other Genitourinary: No Dysuria, No Frequency, No Incontinence, No Hematuria, No Retention, No Other Musculoskeletal: No: other, neck pain, shoulder pain, arm pain, back pain, hand pain, leg pain, foot pain Skin: No: Rash, Lesions, Jaundice, Bruising, Other Neurological: Seizures; No: Weakness, Numbness, Incoordination, Change in speech, Confusion, Other Allergies: Coded Allergies: Gabapentin (Verified Allergy, Unknown, 07/12/22) Milk (Cow) (Verified Allergy, Unknown, 03/16/25) per patient NSAIDs (Verified Allergy, Unknown, 07/12/22) Pork (Porcine) Protein (Verified Allergy, Unknown, 03/16/25) per patient Medications Current Medications Medications Dose Ordered Sig/Annette Route Start Time Stop Time Status Last Admin Dose Admin Levetiracetam 100 ml @ 400 mls/hr BID IV 07/15/25 22:00 Lactulose 30 ml BID PO 07/15/25 22:00 Spironolactone 25 mg DAILY PO 07/16/25 10:00 Folic Acid 1 mg DAILY PO 07/16/25 10:00 Thiamine HCl 100 mg DAILY PO 07/16/25 10:00 Furosemide 20 mg DAILY IV 07/16/25 10:00 Diagnostic Test (Pha) 1 strip ACHS 07/15/25 22:00 Insulin Human Regular ACHS SC 07/15/25 22:00 Dextrose 50 ml UD PRN IV 07/15/25 19:00 Sodium Chloride 10 ml Q8HR IV 07/15/25 22:00 Ondansetron HCl 4 mg Q4HP PRN IV 07/15/25 19:00 Docusate Sodium 100 mg BIDPRN PRN PO 07/15/25 19:00 Exam Vital Signs Vital Signs Date Time Temp Pulse Resp B/P (MAP) Pulse Ox O2 Delivery O2 Flow Rate FiO2 07/15/25 19:53 98.0 81 20 121/74 (90) 99 98.0 07/15/25 19:53 Room Air* 0 21 General Appearance: Alert, Oriented X3, Cooperative, No acute distress HEENT: Atraumatic, PERRLA, EOMI, Mucous membr. moist/pink Respiratory: Normal air movement Cardiovascular: Regular rate, Normal S1, Normal S2, No murmurs Abdominal: Normal bowel sounds, Soft, No tenderness, No hepatospenomegaly, No masses Extremities: No clubbing, No cyanosis, No edema, Normal pulses, No tenderness/swelling Skin: No rashes, No significant lesion Neuro: Normal speech, Normal tone, Sensation intact, Cranial nerves 3-12 NL, Reflexes 2+, Other (Generalized weakness) Psych/Mental Status: Mental status NL, Mood NL Labs/Xrays Labs Test 07/15/25 15:44 Range/Units White Blood Count 2.3 L 4.4-10.8 10^3/uL Red Blood Count 3.93 L 4.5-5.90 10^6/uL Hemoglobin 13.4 L 13.5-17.5 g/dL Hematocrit 40.0 L 41.0-53.0 % Mean Corpuscular Volume 101.8 H 80.0-100.0 fL Mean Corpuscular Hemoglobin 34.0 H 28.0-32.0 pg Mean Corpuscular Hemoglobin Concent 33.4 32.0-36.0 g/dL Red Cell Distribution Width 18.3 H 11.8-14.3 % Platelet Count 51 L 140-450 10^3/uL Mean Platelet Volume 8.3 6.9-10.8 fL Neutrophils (%) (Auto) 35.9 L 37.0-80.0 % Lymphocytes (%) (Auto) 49.1 10.0-50.0 % Monocytes (%) (Auto) 11.6 0.0-12.0 % Eosinophils (%) (Auto) 1.7 0.0-7.0 % Basophils (%) (Auto) 1.7 0.0-2.0 % Neutrophils # (Auto) 0.8 L 1.6-8.6 10 ^3/uL Lymphocytes # (Auto) 1.1 0.4-5.4 10 ^3/uL Monocytes # (Auto) 0.3 0-1.3 10 ^3/uL Eosinophils # (Auto) 0 0-0.8 10 ^3/uL Basophils # (Auto) 0 0-0.2 10 ^3/uL Nucleated Red Blood Cells 0.2 % Sodium Level 150 H 136-145 mmol/L Potassium Level 4.6 3.5-5.1 mmol/L Chloride Level 117 H 98-107 mmol/L Carbon Dioxide Level 23 20-31 mmol/L Anion Gap 10 5-15 Blood Urea Nitrogen < 5 L 9-23 mg/dL Creatinine 0.69 L 0.700-1.30 mg/dL Glomerular Filtration Rate Calc 122 >90 mL/min BUN/Creatinine Ratio 7.2 L 10.0-20.0 Serum Glucose 93 74-106 mg/dL Calcium Level 8.7 8.7-10.4 mg/dL Total Bilirubin 2.7 H 0.2-1.0 mg/dL Aspartate Amino Transferase (AST) 250 H 13-40 U/L Alanine Aminotransferase (ALT) 91 H 7-40 U/L Alkaline Phosphatase 262 H 46-116 U/L Ammonia 55 H 11-32 umol/L Total Protein 6.4 5.7-8.2 g/dL Albumin 3.8 3.2-4.8 g/dL Plasma/Serum Blood Alcohol 436.5 *H <10 mg/dL PATIENT: DARON TEAGUE ACCT: [id number] UNIT: [id number] : 1985 LOC: ER ROOM / BED: / AGE / SEX: 39 / M ADM STATUS: REG ER SERVICE [id number] ORDERING PHYSICIAN: KIAN ESQUIVEL MD PROCEDURE(s): CXRP - CHEST PORTABLE REASON: sob ORDER NUMBER(s): [id number], ACCESSION NUMBER(s): [id number] CHEST RADIOGRAPH INDICATION: sob TECHNIQUE: Single frontal view of the chest was obtained COMPARISON: XR CHEST 1 VIEW on DOS: 05/28/25, XR CHEST 1 VIEW on DOS: 05/05/25, XR CHEST 1 VIEW on DOS: 05/03/25, XR CHEST 1 VIEW on DOS: 04/30/25, XY CHEST XRAY 1 VIEW on DOS: 04/16/25 FINDINGS: Lines and Tubes: None Lungs: Questionable mild interstitial pulmonary edema. Pleura: No effusion. No pneumothorax. Cardiomediastinal contours: Unremarkable Bones: Unremarkable IMPRESSION: 1. Questionable mild interstitial pulmonary edema. SEPSIS Sepsis Screen Date sepsis recognized/suspect: Jul 15, 2025 Time Sepsis recognized/suspect: 1958 Recent Procedure: No On Antibiotic Therapy: No Respiratory Rate >20: No Heart Rate >90: No Temp<36 C (96.8 F) or >38.3 C: No SBP <90 or MAP <65 mmHG: No New Acute Mental Status Change: No Is the patient on CPAP, BIPAP,: No Physician Orders Chest Portable (07/15/25 15:18) Urinalysis (07/15/25 15:18) Levetiracetam 500 Mg/100ml (Levetiraceta (07/15/25 22:00) Lactulose Oral (07/15/25 22:00) Spironolactone (Aldactone) (07/16/25 10:00) Folic Acid Tablet (07/16/25 10:00) Thiamine Tab (07/16/25 10:00) Furosemide Injection (Lasix Injection) (07/16/25 10:00) Glucose Blood (Accu-Chek Comfort Curve T (07/15/25 22:00) Insulin R (Human) (Insulin R) (07/15/25 22:00) Dextrose 50% Syringe (07/15/25 19:00) Allergies (07/15/25 18:48) Code Status (07/15/25 18:48) Sodium Chloride Lock (Saline Lock Ns) (07/15/25 22:00) Oxygen Per Hour (07/15/25 18:48) Ondansetron Hcl (Zofran) (07/15/25 19:00) Docusate Sodium Capsule (Colace Capsule) (07/15/25 19:00) Fall Risk Precautions In Place QSHIFT (07/15/25 18:48) Complete Blood Count (07/16/25 04:00) Comprehensive Metabolic Panel (07/16/25 04:00) Cardiac Diet-2gna,Lofat,Lochol (07/16/25 Breakfast) Condition: Serious (07/15/25 18:48) Maintain Bed Rest (07/15/25 18:48) Sequential Compression Device (07/15/25 ) Vital Signs Date Time Temp Pulse Resp B/P (MAP) Pulse Ox O2 Delivery O2 Flow Rate FiO2 07/15/25 19:53 98.0 81 20 121/74 (90) 99 98.0 07/15/25 19:53 80 20 99 Room Air* 0 21 07/15/25 18:09 68 119/68 07/15/25 15:52 98.5 71 16 150/86 (107) 97 98.5 07/15/25 15:50 71 16 97 Room Air* 0 21 07/15/25 15:07 98.1 82 17 144/80 97 98.1 Laboratory Tests Test 07/15/25 15:44 White Blood Count 2.3 10^3/uL (4.4-10.8) L Medications Medications Dose Ordered Sig/Annette Route Start Time Stop Time Status Last Admin Dose Admin Levetiracetam 100 ml @ 400 mls/hr ONCE ONCE IV 07/15/25 15:30 07/15/25 15:44 DC 07/15/25 16:23 400 MLS/HR Sodium Chloride 1,000 ml @ 1,000 mls/hr Q1H ONCE IV 07/15/25 17:45 07/15/25 18:44 DC 07/15/25 18:10 1,000 MLS/HR Thiamine HCl 100 mg ONCE ONCE IV 07/15/25 17:45 07/15/25 17:46 DC 07/15/25 18:11 100 MG Assessment/Plan Assessment/Plan Seizure disorder Hyponatremia Alcohol intoxication Alcohol abuse Elevated liver enzymes Leukopenia Thrombocytopenia Alcoholic liver disease Generalized weakness Plan 1. Admit to telemetry unit 2. Breathing treatment 3. Pain control management 4. Management of fluids and electrolytes 5. Consultation for hospitalist 6. Diagnostic tests chest x-ray 7. DVT prophylaxis-on SCDs 8. Repeat labs CBC, CMP in a.m. 9. Continue with current medical management 10. Treatment plan discussed with patient and RN. Patient verbalized understanding. Plan discussed with: Patient, Other (RN) My Orders Orders - KELSIE SADLER DNP Procedure Category Date Status Time Levetiracetam 500 PHA 07/15/25 In Process Mg/100ml (Levetiraceta 22:00 Lactulose Oral PHA 07/15/25 In Process 22:00 Spironolactone PHA 07/16/25 In Process (Aldactone) 10:00 Folic Acid Tablet PHA 07/16/25 In Process 10:00 Thiamine Tab PHA 07/16/25 In Process 10:00 Furosemide Injection PHA 07/16/25 In Process (Lasix Injection) 10:00 Glucose Blood PHA 07/15/25 In Process (Accu-Chek Comfort 22:00 Insulin R (Human) PHA 07/15/25 In Process (Insulin R) 22:00 Dextrose 50% Syringe PHA 07/15/25 In Process 19:00 Allergies JEIMY 07/15/25 In Process 18:48 Code Status CODE 07/15/25 Transmitted 18:48 Sodium Chloride Lock PHA 07/15/25 In Process (Saline Lock Ns) 22:00 Oxygen Per Hour RT 07/15/25 Transmitted 18:48 Ondansetron Hcl PHA 07/15/25 In Process (Zofran) 19:00 Docusate Sodium PHA 07/15/25 In Process Capsule (Colace 19:00 Fall Risk Precautions JEIMY 07/15/[address] 18:48 Complete Blood Count LAB 07/16/25 Verified 04:00 Comprehensive LAB 07/16/25 Verified Metabolic Panel 04:00 Cardiac DIET 07/16/25 Transmitted Diet-2gna,Lofat,Lochol Breakfast Condition: Serious JEIMY 07/15/25 In Process 18:48 Maintain Bed Rest JEIMY 07/15/25 In Process 18:48 Sequential JEIMY 07/15/25 In Process Compression Device Problem List: (1) Seizure disorder (2) Hypernatremia (3) Alcohol intoxication (4) Alcohol abuse (5) Elevated liver enzymes (6) Leukopenia (7) Thrombocytopenia (8) Alcoholic liver disease (9) Generalized weakness Date of Service: Jul 15, 2025 Billing Provider: KELSIE SADLER DNP Common Visit Codes: 21093-[id number] INP/OBS CARE (HIGH) KELSIE SADLER DNP Jul 15, 2025 21:17
[2025-07-15] MEDS ORDERED: NITROGLYCERIN 0.4 MG SL TAB SL PRN (21:30)
[2025-07-15] MEDS ORDERED: MORPHINE SULFATE INJ 2 MG/ml SYRG IV PRN (21:30)
[2025-07-15] MEDS ORDERED: levETIRAcetam 500 mg/100ml 100 ML IV SCH (22:00)
[2025-07-15] MEDS ORDERED: SODIUM CHLOR 0.9% PF (SALINE LOCK) 10ML VIAL/SYR IV SCH (22:00)
[2025-07-15] MEDS ORDERED: ACCU-CHEK COMFORT CURVE STRIP VI SCH (22:00)
[2025-07-15] MEDS ORDERED: LACTULOSE 20Gm/30ML SOLN PO SCH (22:00)
[2025-07-15] MEDS ORDERED: InsuLIN REG 1unit/0.01ml Soln (100units/ml) SC SCH (22:00)
[2025-07-16] MEDS ORDERED: FOLIC ACID 1 MG TAB PO SCH (10:00)
[2025-07-16] MEDS ORDERED: FUROSEMIDE 20 MG/2 ML VIAL IV SCH (10:00)
[2025-07-16] MEDS ORDERED: SPIRONOLACTONE 25 MG TAB PO SCH (10:00)
[2025-07-16] MEDS ORDERED: THIAMINE HCL 100 MG TAB PO SCH (10:00)
== END 2025-07-15 21:38 | disposition left against medical advice (07) | DRG 53 ==
LOC: ER 15:00 → EDBD 15:00 → OVERFLOW 21:16
PROVIDERS: ADMIT Nurse Practitioner Family; ATTEND Nurse Practitioner Family
DX: G40.909 Epilepsy, unspecified, not intractable, without status epilepticus (principal); D69.6 Thrombocytopenia, unspecified; I16.0 Hypertensive urgency; E11.9 Type 2 diabetes mellitus without complications; D72.819 Decreased white blood cell count, unspecified; E87.1 Hypo-osmolality and hyponatremia; J45.909 Unspecified asthma, uncomplicated; K70.9 Alcoholic liver disease, unspecified; F10.129 Alcohol abuse with intoxication, unspecified; F14.90 Cocaine use, unspecified, uncomplicated; Z53.29 Procedure and treatment not carried out because of patient's decision for other reasons; I10 Essential (primary) hypertension; F17.210 Nicotine dependence, cigarettes, uncomplicated; Z88.8 Allergy status to other drugs, medicaments and biological substances; Z91.0110 Allergy to milk products, unspecified; Z91.014 Allergy to mammalian meats; Z88.6 Allergy status to analgesic agent; Y90.8 Blood alcohol level of 240 mg/100 ml or more
CPT/HCPCS: 36415; 71045; 80053; 80320; 82140; 85025; 96361; 96365; 96375; G0378